=== PATIENT | male | born 1950 | race Caucasian/White ===

== ENCOUNTER 2018-01-22 11:18 | Emergency (ER) | payer MEDICARE, OTHER, SELFPAY ==
[2018-01-22 11:19] VITALS: BP 136/73; PULSE 85; RESP 16; TEMP 36.6; BMI 25.8
--- NOTE | 2018-01-22 11:41 | ED.VISSUMM ---
- ER Visit Summary Date of Service: 01/22/18 Chief Complaint: Left index finger infection History of Present Illness: The patient is a 67 M [id number]. Was building a dog house 2 days ago and the metal he was working on lacerated his left index finger on the palmar side at the DIP skin crease. Now the fingers swollen and uncomfortable. He denies any fever. There is a discharge. He is unsure of his last tetanus which will be updated. Physical Examination: Well-appearing male. Vital signs are stable afebrile. H EENT exam unremarkable. Lungs clear to auscultation bilaterally. Heart regular rhythm no murmur. Abdomen soft nontender. Moving all 4 extremities. Neurovascular intact. Left index finger is swollen. Mildly tender. At the DIP palmar skin crease there is a laceration that I can express pus from. There is no tenosynovitis. There is no lymphangitic streaking. There are no swollen or tender epitrochlear lymph nodes or axillary lymph nodes. The other fingers of the hand are unremarkable and the palm is nontender without lymphangitic streaking. He is able do flexion extension was limited flexion secondary to swelling. The distal fingertip is neurovascularly intact with cap refill and tight sensation. Test Results: None Emergency Department Course and Treatment: Patient will be started on both Bactrim and Keflex. He is not obviously infected left index finger. His tetanus will be updated. He will be instructed to follow-up with his primary care physician to ensure this is improving. I gave both he and his specific instructions for tenosynovitis if this is worsening, develop streaks or fever he needs a return possibly have it surgically drained which he does not need at this time. Treatment Plan: Keflex 4 times daily for 10 days. Bactrim twice daily for 10 days. Warm soaks. Follow-up with primary care physician. Disposition: Discharge Impression: Left index finger laceration 2 days ago Left index finger soft tissue infection This note was generated with [employer] software. It may contain incorrect words, spelling, and punctuation that were not noted in review of the chart prior to signing ED Disposition - Plan for ED Patient: Chief Complaint: Upper Extremity Injury Referrals: Shyanne Torres MD [Primary Care Provider] -
--- NOTE | 2018-01-22 11:46 | ED.DCSUM_ITS ---
- ER Visit Summary Date of Service: 01/22/18 Chief Complaint: Left index finger infection History of Present Illness: The patient is a 67 M [id number]. Was building a dog house 2 days ago and the metal he was working on lacerated his left index finger on the palmar side at the DIP skin crease. Now the fingers swollen and uncomfortable. He denies any fever. There is a discharge. He is unsure of his last tetanus which will be updated. Physical Examination: Well-appearing male. Vital signs are stable afebrile. H EENT exam unremarkable. Lungs clear to auscultation bilaterally. Heart regular rhythm no murmur. Abdomen soft nontender. Moving all 4 extremities. Neurovascular intact. Left index finger is swollen. Mildly tender. At the DIP palmar skin crease there is a laceration that I can express pus from. There is no tenosynovitis. There is no lymphangitic streaking. There are no swollen or tender epitrochlear lymph nodes or axillary lymph nodes. The other fingers of the hand are unremarkable and the palm is nontender without lymphangitic streaking. He is able do flexion extension was limited flexion secondary to swelling. The distal fingertip is neurovascularly intact with cap refill and tight sensation. Test Results: None Emergency Department Course and Treatment: Patient will be started on both Bactrim and Keflex. He is not obviously infected left index finger. His tetanus will be updated. He will be instructed to follow-up with his primary care physician to ensure this is improving. I gave both he and his specific instructions for tenosynovitis if this is worsening, develop streaks or fever he needs a return possibly have it surgically drained which he does not need at this time. Treatment Plan: Keflex 4 times daily for 10 days. Bactrim twice daily for 10 days. Warm soaks. Follow-up with primary care physician. Disposition: Discharge Impression: Left index finger laceration 2 days ago Left index finger soft tissue infection This note was generated with [employer]alt[employer]ation software. It may contain incorrect words, spelling, and punctuation that were not noted in review of the chart prior to signing ED Disposition - Plan for ED Patient: Chief Complaint: Upper Extremity Injury Referrals: Syhanne Torres MD [Primary Care Provider] -
--- NOTE | 2018-01-22 11:46 | ED.DEP ---
ED Disposition - Plan for ED Patient: Disposition: Home or Assisted Living Chief Complaint: Upper Extremity Injury Instructions: ED Infec Skin Cellulitis Prescriptions: Cephalexin [Keflex] 500 mg PO Q6 #40 cap Smz/Tmp Ds [Bactrim Ds] 1 tab PO BID #20 tab Referrals: Shyanne Torres MD [Primary Care Provider] - 3-5 Days Additional Instructions: Warm soaks. Elevate to decrease falling. Express pus several times a day. Follow-up your primary care physician and have this reassessed. If developing increasing pain, red streaks up in the hand or forearm or fever return immediately this can develop another infection that would need to be surgically drained. Keflex antibiotic 4 times a day till gone. Bactrim twice a day till gone.
[2018-01-22] MEDS: Smz/Tmp Ds Tablet 1 TABLET PO (12:05)
[2018-01-22] MEDS: Cephalexin 250 MG Capsule 500 MG PO (12:05)
[2018-01-22] MEDS: Diphth,Pertuss(Acell),Tet Vac 0.5 ML Vial IM (12:06)
== END 2018-01-22 12:19 | disposition home or self-care (01) ==
PROVIDERS: Emergency Provider Emergency Medicine; Family Provider Nurse Practitioner; PCP Nurse Practitioner
DX: S61.211A Laceration without foreign body of left index finger without damage to nail, initial encounter (principal); L08.9 Local infection of the skin and subcutaneous tissue, unspecified; Z23 Encounter for immunization; Z79.899 Other long term (current) drug therapy; W26.8XXA Contact with other sharp object(s), not elsewhere classified, initial encounter; Y93.H3 Activity, building and construction; Y92.009 Unspecified place in unspecified non-institutional (private) residence as the place of occurrence of the external cause; Y99.8 Other external cause status
CPT/HCPCS: 90471; 90715; 99283

== ENCOUNTER → 2018-02-13 12:22 | Outpatient (CLI) | payer MEDICARE, OTHER, SELFPAY ==
--- NOTE | 2018-02-13 12:28 | RAD_ITS ---
STUDY: X-RAY - LEFT HAND, ATTENTION INDEX FINGER REASON FOR EXAM: Male, 67 years old. Left index finger laceration anterior TECHNIQUE: 3 view(s) of the finger were obtained. COMPARISON: None. FINDINGS: Normal metacarpal head. Normal metacarpophalangeal joint. Normal proximal phalanx. Normal middle phalanx. Normal distal phalanx. Normal proximal interphalangeal joint. Normal distal interphalangeal joint. There is no radiopaque foreign body. RAD/Finger(s) Min 2 Views IMPRESSION: Normal x-ray examination of the finger. Electronically Signed: Ashlie Enamorado MD at 7:38 EDT , Service support ,
== END ==
PROVIDERS: Family Provider Nurse Practitioner; PCP Nurse Practitioner; Visit Provider Surgery
DX: S61.211A Laceration without foreign body of left index finger without damage to nail, initial encounter (principal); S66.101A Unspecified injury of flexor muscle, fascia and tendon of left index finger at wrist and hand level, initial encounter
CPT/HCPCS: 73140

== ENCOUNTER → 2018-02-21 09:50 | Outpatient (CLI) | payer MEDICARE, OTHER, SELFPAY ==
--- NOTE | 2018-02-21 09:55 | MRI_ITS ---
STUDY: MRI LEFT HAND (ATTENTION INDEX FINGER) REASON FOR EXAM: Infected laceration of the index finger. TECHNIQUE: Standardized fat and water weighted pulse sequences were obtained in all 3 orthogonal planes. COMPARISON: Radiographs 02/13/2018. FINDINGS: There is bone edema of the middle phalanx of the second digit (inversion recovery coronal image 12) without corresponding decreased T1 bone marrow signal and therefore more suggestive of reactive bone edema rather than osteomyelitis. Normal proximal and distal phalanges of the second digit. Normal visualized second metacarpal. There is mild flexor tenosynovitis of the second digit at the level of the metacarpal head (inversion recovery axial images 7, 8). Otherwise, unremarkable flexor and extensor tendons of the second digit. Normal second metacarpophalangeal joint. Normal second proximal and distal interphalangeal joints. There is edema in the subcutis adipose space of the second digit (inversion recovery axial images 17-33) without soft tissue abscess. There is no demonstrated signal void to indicate foreign body. Normal visualized distal intrinsic muscles of the hand. MRI/Upper Ext/No Jt/ wo IMPRESSION: Edema in the subcutis adipose space of the second finger without demonstrated soft tissue abscess or foreign body. Bone edema of the middle phalanx of the second digit, more suggestive of reactive bone edema rather than osteomyelitis. Mild flexor tenosynovitis of the second digit. Electronically Signed: Malik Hess MD at 9:52 EDT Tel , Service support ,
== END ==
PROVIDERS: Family Provider Nurse Practitioner; PCP Nurse Practitioner; Referring Provider Surgery; Visit Provider Surgery
DX: S61.211A Laceration without foreign body of left index finger without damage to nail, initial encounter (principal); S66.101A Unspecified injury of flexor muscle, fascia and tendon of left index finger at wrist and hand level, initial encounter
CPT/HCPCS: 73218

== ENCOUNTER 2018-04-22 04:03 | Emergency (ER) | payer MEDICARE, OTHER, SELFPAY ==
[2018-04-22 04:04] VITALS: BP 120/72; PULSE 92; PULSE 93; RESP 16; RESP 18; O2SAT 99; BMI 27.3
--- NOTE | 2018-04-22 04:06 | ED.RN ---
CALLED FOR EKG PER RN REQUEST, PULLED OLD EKGS FOR
--- NOTE | 2018-04-22 04:19 | RAD_ITS ---
STUDY: X-RAY CHEST REASON FOR EXAM: Male, 67 years old. Chest pain TECHNIQUE: Frontal and lateral views of the chest. COMPARISON: None. FINDINGS: Chronic lung changes. Possible COPD. No focal consolidation.. There is no demonstrated pleural abnormality. Normal size heart. Normal mediastinum and kip. Normal visualized pulmonary arteries. Normal visualized aortic arch and descending thoracic aorta. There are diffuse degenerative changes of the visualized thoracic spine. There is degenerative osteoarthritis of the bilateral shoulders. There is no demonstrated abnormality of the visualized soft tissue structures of the upper abdomen. RAD/Chest PA and Lateral IMPRESSION: There is mild hyperexpansion the lungs with chronic lung changes. There is no focal consolidation identified. There is degenerative changes. Electronically Signed: Gallito Allen, at 5:19 EST Tel , Service support ,
--- NOTE | 2018-04-22 04:19 | EKG12_ITS ---
Test Reason : CP Blood Pressure : / mmHG Vent. Rate : 097 BPM Atrial Rate : 097 BPM P-R Int : 136 ms QRS Dur : 092 ms QT Int : 398 ms P-R-T Axes : 053 031 067 degrees QTc Int : 505 ms Normal sinus rhythm Low voltage QRS Prolonged QT Abnormal ECG Confirmed by NICOLE BHAT, LATOYA ([id number]), editor publications IAN YOUNG ([id number]) on 04/23/2018 4:28:34 PM Referred By: VENITA Confirmed By:LATOYA RIVERA MD
[2018-04-22 04:48] VITALS: O2SAT 100
[2018-04-22 04:54] LABS: Absolute Lymphocyte Count 1.01 X10^3/ul (0.83-4.51); Absolute Neutrophil Count 3.3 X10^3/uL (2.0-7.7); Basophil# 0.01 X10^3/uL; Basophil% 0.2 % (0-1); Eosinophil# 0.12 X10^3/uL; Eosinophils% 2.5 % (0-5); Hematocrit 41.4 % (40-54); Hemoglobin 13.9 g/dl (13.0-16.5); Lymphocyte # 1.01 X10^3/ul (4.0); Mean Corp Hgb Conc 33.6 g/gl (32-36); Mean Corpuscular Hgb 27.8 pg (27.0-32.0); Mean Corpuscular Volume 82.8 fL (80-94); Mean Platelet Vol. 10.7 fl (6.2-12.0); Monocyte# 0.38 X10^3/uL; Monocyte% 7.9 % (0-10); Neutrophil # 3.27 X10^3/uL (2.7-7.7); Neutrophil % 68.2 % (47-70); Platelet Count 213 K/mm3 (150-450); RBC Distribution Width CV 14.8 % (11.6-14.6); RBC Distribution Width SD 44.6 fl (35.1-43.9); White Blood Count 4.8 K/mm3 (4.4-11.0)
[2018-04-22 05:00] LABS: POSITIVE COUNT NO; POSITIVE DIFFERENTIAL NO; POSITIVE MORPHOLOGY NO
--- NOTE | 2018-04-22 05:10 | ED.DCSUM_ITS ---
- ER Visit Summary Date of Service: 04/22/18 Chief Complaint: [] Chest pain History of Present Illness: The patient is a 67 M with chest pain that started 1 hour ago at home. It is intermittent tightness. It is gone now currently. EMS gave aspirin and 1 nitroglycerin with good relief of symptoms. No ass ociated symptoms. He had a stress test in 2016 that he reports is normal. Denies any cardiovascular pulmonary embolism or dissection risk factors. Physical Examination: [] Vital signs reviewed General: Well-nourished well-developed Head: Normocephalic atraumatic Eyes: Pupils equal round and reactive to light extraocular movements intact ENT: TMs clear no hemotympanum no trauma Neck: Nontender full range of motion Cardiovascular: Regular rate rhythm no murmurs normal S1-S2 Respiratory: No distress clear to auscultation bilaterally chest nontender Abdomen: Soft nontender nondistended normal bowel sounds no masses Back: Nontender no CVA tenderness Extremities: Nontender active range of motion ?4 extremities no trauma Skin: Normal color no trauma Neuro alert oriented cranial nerves II through XII intact normal strength sensation reflexes Test Results: [] Emergency Department Course and Treatment: [] G shows sinus rhythm at a rate of 97. Prolonged QT. No acute ischemic findings otherwise. Lab work and chest x- ray obtained. X-ray negative DJD noted. Troponin negative. Chloride 108. Reevaluation the patient's never had current pain. He does not want to be admitted for stress test. He understands he could be having cardiac cause of his pain. He does not want a second troponin as well. He has been resting comfortably. At this time is unclear the cause of his symptoms. I do not think he has a PE or dissection. He will be discharged to follow-up as an outpatient return if he worsens. Treatment Plan: [] Disposition: [] Impression: [] Chest pain?resolved This note was generated with [employer] dictation software. It may contain incorrect words, spelling, and punctuation that were not noted in review of the chart prior to signing ED Disposition - Plan for ED Patient: Chief Complaint: Chest Pain Referrals: Vandana Guillermo, RESEARCH AND EVALUATION MANAGER-C [Primary Care Provider] -
[2018-04-22 06:22] LABS: Anion Gap 10 (5-15); BUN 23 mg/dL (7-18); BUN/Creat Ratio 24.6 RATIO (10-20); Calcium,Total 8.5 mg/dL (8.5-10.1); Chloride 108 mmol/L (98-107); Creatinine, Serum 0.94 mg/dL (0.70-1.30); EST Glomerular Filtration Rate 86 mL/min (>60); Est Glom Filt Rate - Afr Amer 104 mL/min (>60); Estimated Creatinine Clearance 73.25 ml/min; Glucose 108 mg/dL (74-106); Potassium 3.6 mmol/L (3.5-5.1); Sodium Level 144 mmol/L (136-145)
--- NOTE | 2018-04-22 06:46 | ED.DEP ---
ED Disposition - Plan for ED Patient: Disposition: Home or Assisted Living Chief Complaint: Chest Pain Instructions: ED Chest Pain Atypical Unkn Cause Referrals: Vandana Guillermo NP-C [Primary Care Provider] -
[2018-04-22 06:56] VITALS: BP 119/61; PULSE 74; RESP 10; O2SAT 100
== END 2018-04-22 07:39 | disposition home or self-care (01) ==
PROVIDERS: Emergency Provider Emergency Medicine; Family Provider Nurse Practitioner; PCP Nurse Practitioner
DX: R07.9 Chest pain, unspecified (principal); E03.9 Hypothyroidism, unspecified; Z79.1 Long term (current) use of non-steroidal anti-inflammatories (NSAID); Z79.899 Other long term (current) drug therapy
CPT/HCPCS: 71046; 80048; 84484; 85025; 93005; 99285; J7030; A4216

== ENCOUNTER 2018-05-27 20:48 | Emergency (ER) | payer MEDICARE, OTHER, SELFPAY ==
[2018-05-27 20:49] VITALS: BP 155/124; PULSE 94; RESP 20; TEMP 36.7; O2SAT 99; BMI 25.8
--- NOTE | 2018-05-27 21:05 | CT_ITS ---
STUDY: CT ABDOMEN AND PELVIS WITHOUT CONTRAST REASON FOR EXAM: Male, 67 years old. Right flank pain. RADIATION DOSAGE (If Supplied By Facility): CTDIvol = ( 7.14 ) mGy, DLP = ( 353.41 ) mGycm TECHNIQUE: Transaxial images were obtained from the dome of the diaphragm to the symphysis pubis without oral contrast, and without intravenous contrast. Sagittal and coronal images were reconstructed. Individualized dose optimization techniques were used for this CT. COMPARISON: CT of the abdomen and pelvis, September 22, 2015. FINDINGS: The visualized lung bases are unremarkable. The visualized portions of the heart are within normal limits. The liver is normal in size and contour. There are scattered hypodensities suggesting small hepatic cysts. The largest, in segment 7, measures 7 mm in diameter. Normal gallbladder and extrahepatic biliary system. Normal spleen. Normal pancreas. Normal bilateral adrenal glands. The right kidney appears mildly prominent. Slightly lower in attenuation than the left kidney. There is minimal stranding of the perinephric fat. There is hydronephrosis and hydroureter to the pelvic sidewall where there is nonobstructing 3 mm calculus (image 147, series 2). Normal left kidney. Normal left ureter. The stomach is distended with fluid but without mass or obstruction. Normal small intestine. Descending and sigmoid diverticulosis without acute inflammatory change. The proximal colon appears normal. The appendix is visualized and appears normal. Minimal atherosclerotic changes of the abdominal aorta without aneurysm. Normal inferior vena cava. Normal retroperitoneum. Normal urinary bladder. The prostate is mildly enlarged. There is no pelvic lymphadenopathy. No free air or free fluid is seen within the peritoneal cavity. There There is an umbilical hernia of omental fat. There are bilateral inguinal hernias of omental fat. The abdominal wall is otherwise unremarkable. 3 CT/Abdomen/Pelvis without Cont IMPRESSION: 1. Distal right ureteral calculus with mild obstructive uropathy. 2. Stable hepatic cysts. 3. Diverticulosis without acute inflammatory change. 4. No other major interval change. Electronically Signed: Joce Linares DO at 22:08 EST Tel [phone], Service support ,
--- NOTE | 2018-05-27 21:09 | ED.DCSUM_ITS ---
- ER Visit Summary Date of Service: 05/27/18 Chief Complaint: Right flank pain History of Present Illness: The patient is a 67 M presenting with right-sided flank pain. He states this started 30 minutes prior to arrival. Patient states he went to urinate and had sudden onset of pain in his right lower side. It does not radiate to his groin. He has no history of kidney stones. He denies blood in his urine. Denies nausea or vomiting. Denies fever. Denies other complaints. Physical Examination: Vitals are stable. Patient is afebrile. Alert no acute distress. HEENT exam is unremarkable. Neck is supple. Lungs are clear and equal bilaterally. Heart is regular rate and rhythm. Abdomen is soft nontender nondistended. Extremities are unremarkable. Skin is warm and dry. No focal neurologic deficit. Remainder of exam is unremarkable. Emergency Department Course and Treatment: Patient was given morphine, Zofran. CT flank shows distal right ureteral calculus with mild obstructive uropathy. Urinalysis shows 0 white cells, 50-100 red blood cells. Patient was given Toradol IV. On repeat evaluation his pain is controlled and he is requesting to go home. He is advised to follow-up with urology. Advised return to ED if worsening complaints. Disposition: Discharge home Impression: Urolithiasis This note was generated with [employer] dictation software. It may contain incorrect words, spelling, and punctuation that were not noted in review of the chart prior to signing ED Disposition - Plan for ED Patient: Chief Complaint: Flank Pain Instructions: ED Stone Renal W Colic Prescriptions: Oxycodone HCl/Acetaminophen [Percocet 5/325] 1 tablet PO Q6H PRN PRN 3 Days #12 tablet PRN Reason: Pain Referrals: Aly Rosa MD [STAFF PHYSICIAN] - Vandana Guillermo NP-C [Primary Care Provider] -
[2018-05-27] MEDS: Ondansetron 4 MG/2 ML Vial IV (21:29)
[2018-05-27] MEDS: Morphine 4 MG/ML Syringe IV (21:29)
[2018-05-27] MEDS: Morphine 4 MG/ML Syringe 6 MG IV (22:38)
[2018-05-27 22:48] LABS: Bacteria 0 SEEN /hpf (None Seen); Mucous, Urine 0 SEEN /hpf (<or=2+); White Blood Cells 0 SEEN /hpf (0-5)
[2018-05-27 22:49] LABS: Color, Urine Yellow (Yellow); Glucose, Dipstick Normal (Normal); Ketone-Dipstick Negative (Negative); Leukocyte Esterase-Dipstick Negative /ul (Negative); Nitrite-Dipstick Negative (Negative); Occult Blood-Urine 250 /ul (Negative); Protein-Dipstick Negative (Negative); Specific Gravity, Urine 1.015 (1.002-1.030); Urine Bilirubin Dipstick Negative (Negative); Urine Clarity Cloudy (Clear); Urine Urobilinogen Normal (Normal)
[2018-05-27 22:56] LABS: Amorphous Sediment 1+ PHOS; Red Blood Cells-Urine 50-100 SEEN /hpf (0-5); Squamous Epithelial Cells - UA 0-5 SEEN /hpf (0-5)
--- NOTE | 2018-05-27 22:57 | ED.DEP ---
ED Disposition - Plan for ED Patient: Chief Complaint: Flank Pain Instructions: ED Stone Renal W Colic Prescriptions: Oxycodone HCl/Acetaminophen [Percocet 5/325] 1 tablet PO Q6H PRN PRN 3 Days #12 tablet PRN Reason: Pain Referrals: Vandana Guillermo, RESEARCH ASSOCIATE QUALITY CONTROL QC-C [Primary Care Provider] - Aly Rosa MD [STAFF PHYSICIAN] -
[2018-05-27] MEDS: Ketorolac 15 MG/ML Vial IV (23:11)
[2018-05-27 23:47] VITALS: BP 166/86; PULSE 89; RESP 16; O2SAT 97
== END 2018-05-27 23:48 | disposition home or self-care (01) ==
LOC: ED 21:28
PROVIDERS: Emergency Provider Emergency Medicine; Family Provider Nurse Practitioner; PCP Nurse Practitioner
DX: N20.1 Calculus of ureter (principal); Z79.899 Other long term (current) drug therapy
CPT/HCPCS: 74176; 81001; 96374; 96375; 96376; 99283; A4216; J2405

== ENCOUNTER 2019-09-19 10:56 | Emergency (ER) | payer MEDICARE, OTHER, SELFPAY ==
[2019-09-19 10:57] VITALS: BP 150/124; PULSE 93; RESP 16; TEMP 36.7; O2SAT 100; BMI 26.9
[2019-09-19 11:07] VITALS: BP 169/107; PULSE 87; RESP 12; O2SAT 98; O2SAT 99
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
[2019-09-19 12:00] VITALS: BP 170/87; PULSE 77; RESP 18; O2SAT 96
--- NOTE | 2019-09-19 12:29 | ED.RN ---
GALI JIMENES CALLED FOR PATIENT TO GET HOME. WILL BE HERE IN 10 MINUTES. PT PROVIDED WITH A MASK. AWAITING RIDE IN ROOM
[2019-09-19 12:30] VITALS: PULSE 83; RESP 18; O2SAT 96
== END 2019-09-19 12:42 | disposition home or self-care (01) ==
PROVIDERS: Emergency Provider Emergency Medicine; PCP Nurse Practitioner
DX: S46.911A Strain of unspecified muscle, fascia and tendon at shoulder and upper arm level, right arm, initial encounter (principal); E03.9 Hypothyroidism, unspecified; F32.9 Major depressive disorder, single episode, unspecified; V49.40XA Driver injured in collision with unspecified motor vehicles in traffic accident, initial encounter; Z87.891 Personal history of nicotine dependence
CPT/HCPCS: 70450; 72125; 73030; 99284

== ENCOUNTER → 2019-10-10 14:57 | Outpatient (CLI) | payer MEDICARE, OTHER, SELFPAY ==
[2019-09-19 10:57] VITALS: BMI 26.9
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
== END ==
PROVIDERS: PCP Nurse Practitioner; Referring Provider Nurse Practitioner; Visit Provider Nurse Practitioner
DX: M54.2 Cervicalgia (principal)
CPT/HCPCS: 72050

== ENCOUNTER 2019-11-04 08:00 | Outpatient (RCR) | payer MEDICARE, OTHER, SELFPAY ==
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
--- NOTE | 2020-02-12 10:05 | HP.PTDCNRP_ITS ---
AMIRAH Joy MCCRACKEN was seen in my office for initial evaluation on 10/14/19. The following Plan of Care was established for this patient: Initial Frequency: 2x /Week Initial Duration: 4 Weeks Patient/Client Instruction: Educate patient on: Condition, Plan of Care For the Purpose of:: To decrease pain, To increase ROM, To improve muscle performance and motor function, To improve ability to perform ADL's, To increase tolerance to activity/condition/position, To improve performance and independence with ADL's, To improve ability of physical actions for home/community/work/leisure, To improve gait and locomotor functions, To decrease soft tissue restriction, To increase flexibility/ROM, To reduce risk of recurrence, To improve ability to perform tasks related to life management Therapeutic Exercise to Include: Strength training, Postural training, Flexib ilty training, Active ROM, Dynamic Lumbar Stabilization For the Purpose of:: To decrease pain, To increase ROM, To improve muscle performance and motor function, To improve ability to perform ADL's, To increase tolerance to activity/condition/position, To improve ability of physical actions for home/community/work/leisure, To improve health of tissue, To decrease soft tissue restriction, To increase flexibility/ROM, To improve ability to perform tasks related to life management TENS: Yes IF ES: Yes Cryotherapy (ice pack, ice massage): Yes Thermo therapy (hot pack): Yes Ultrasound (thermal/non thermal): Yes For the Purpose of:: To decrease pain, To increase ROM, To improve nutrient delivery to tissue, To increase oxygenation perfusion, To improve health of tissue, To decrease soft tissue restriction, To increase flexibility/ROM This patient was last seen in our office . Pertinent comments regarding their Physical therapy will appear below: Patient seen for PT for neck pain /whiplash for US ,ICTX and postural ex's . Patient progresing well ,thus is d/c At this point I will be discontinuing this patient from physical therapy. I would be happy to see this patient again in the future if found appropriate by the physician. Thank you! Amirah Pichardo, PT, Cert MDT, OCS
== END 2019-11-04 19:00 ==
LOC: PT 08:00
PROVIDERS: PCP Nurse Practitioner; Referring Provider Nurse Practitioner; Visit Provider Nurse Practitioner
DX: S13.4XXD Sprain of ligaments of cervical spine, subsequent encounter (principal)
CPT/HCPCS: 97012; 97014; 97035; 97110; 97162; G0283

== ENCOUNTER → 2019-12-29 16:52 | Outpatient (CLI) | payer MEDICARE, OTHER, SELFPAY ==
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
== END ==
PROVIDERS: PCP Nurse Practitioner; Referring Provider Nurse Practitioner; Visit Provider Nurse Practitioner
DX: M54.2 Cervicalgia (principal); M85.80 Other specified disorders of bone density and structure, unspecified site
CPT/HCPCS: 72141

== ENCOUNTER → 2020-12-09 15:55 | Outpatient (CLI) | payer MEDICARE, OTHER, SELFPAY ==
[2020-12-09 17:11] LABS: Absolute Neutrophil Count 3.9 X10^3/uL (2.0-7.7); Basophil# 0.02 X10^3/uL; Basophil% 0.3 % (0-1); Eosinophil# 0.12 X10^3/uL; Eosinophils% 2.1 % (0-5); Hematocrit 47.8 % (40-54); Lymphocyte % 22.4 % (19-41); Mean Corp Hgb Conc 33.5 g/dL (32-36); Mean Corpuscular Volume 89.7 fL (80-94); Monocyte# 0.47 X10^3/uL; Monocyte% 8.1 % (0-10); NRBC Flagged by Analyzer 0 % (0-5); Neutrophil # 3.88 X10^3/uL (2.7-7.7); Neutrophil % 66.8 % (47-70); Platelet Count 194 K/mm3 (150-450); RBC Distribution Width CV 12.7 % (11.6-14.6); RBC Distribution Width SD 41.3 fl (35.1-43.9); Red Blood Count 5.33 M/mm3 (4.6-6.2); White Blood Count 5.8 K/mm3 (4.4-11.0)
[2020-12-09 18:15] LABS: ALB/GLOB Ratio 1.2 RATIO (0.9-2.4); AST(SGOT) 32 U/L (15-37); Alanine Aminotransfer ALT/SGPT 45 U/L (16-61); Albumin, Serum 4.1 g/dL (3.2-5.0); Alkaline Phosphatase 85 U/L (45-117); Anion Gap 5 (5-15); BUN 24 mg/dL (7-18); BUN/Creat Ratio 27.2 RATIO (10-20); Chloride 107 mmol/L (98-107); Creatinine, Serum 0.88 mg/dL (0.70-1.30); EST Glomerular Filtration Rate 91 mL/min (>60); Est Glom Filt Rate - Afr Amer 111 mL/min (>60); Globulin 3.3 g/dL (2.2-4.2); Glucose 92 mg/dL (74-106); PSA,Total - Annual Screen 1.41 ng/mL (0.00-4.00); Potassium 4.3 mmol/L (3.5-5.1); Protein, Total 7.4 g/dL (6.4-8.2); Sodium Level 141 mmol/L (136-145); Thyroid Stim Hormone (TSH) 2.87 uIU/mL (0.358-3.74)
[2020-12-09 22:10] LABS: Hepatitis C Antibody Non-Reactive (Nonreactive); Syphilis Antibodies Non-reactive; Vitamin B12 251 pg/mL (211-911); Vitamin D,25 Hydroxy 35.4 ng/mL
== END ==
PROVIDERS: PCP Family Medicine Geriatric Medicine; Visit Provider Family Medicine Geriatric Medicine
DX: E55.9 Vitamin D deficiency, unspecified (principal); G30.9 Alzheimer's disease, unspecified; R53.83 Other fatigue; Z12.5 Encounter for screening for malignant neoplasm of prostate; Z13.89 Encounter for screening for other disorder
CPT/HCPCS: 36415; 80053; 82306; 82607; 82746; 84153; 84443; 85025; 86780; 86803; G0103

== ENCOUNTER → 2020-12-29 07:58 | Outpatient (CLI) | payer MEDICARE, OTHER, SELFPAY ==
--- NOTE | 2020-12-29 08:01 | CT_ITS ---
STUDY: CT BRAIN WITHOUT CONTRAST REASON FOR EXAM: Male, 70 years old. ALZHEIMERS DISEASE RADIATION DOSAGE (If Supplied By Facility): CTDIvol = ( 44.99 ) mGy, DLP = ( 779.24 ) mGycm TECHNIQUE: Transaxial CT imaging of the brain was performed without administration of intravenous contrast material. Individualized dose optimization techniques were used for this CT. COMPARISON: 09/19/2019 FINDINGS: Normal soft tissue structures. Normal calvarium. There is mild cerebral atrophy with widening of the extra-axial spaces and ventricular dilatation. Normal white matter tracts of the cerebral hemispheres. Normal basal ganglia and thalami. Normal brainstem. Normal cerebellum. There is no intracranial hemorrhage. There are no findings of an acute ischemic infarction. Normal visualized paranasal sinuses. CT/Brain/Head without Contrast IMPRESSION: Normal unenhanced CT scan of the brain for age. Electronically Signed: Gino Munson MD ([place]) at 8:34 EDT , Service support ,
== END ==
PROVIDERS: PCP Family Medicine Geriatric Medicine; Referring Provider Family Medicine Geriatric Medicine; Visit Provider Family Medicine Geriatric Medicine
DX: G30.9 Alzheimer's disease, unspecified (principal)
CPT/HCPCS: 70450

== ENCOUNTER → 2020-12-31 07:52 | Outpatient (CLI) | payer MEDICARE, OTHER, SELFPAY ==
--- NOTE | 2020-12-31 07:55 | AAVD_ITS ---
Reason For Study: AAA w/o rupture Aorta Measurements Aorta Doppler Measurements Proximal aorta measures1.66 x 1.66cm. in cross- Peak systolic flow velocities within the proximal sectional axis. aorta measure 70.7 cm/sec. Proximal aorta measures1.65cm. in longitudinal Peak systolic flow velocities within the mid aorta axis. measure 94.3 cm/sec. Mid aorta measures1.61 x 1.65cm. in cross- Peak systolic flow velocities within the distal sectional axis. aorta measure 81.8 cm/sec. Mid aorta measures1.68cm. in longitudinal axis. Distal aorta measures1.73 x 1.70cm. in cross- sectional axis. Distal aorta measures1.71cm. in longitudinal axis. Left Iliac Artery Left iliac artery measures 0.99 x 0.95 cm. in the cross-sectional axis. Left iliac artery measures 0.95 cm. in the longitudinal axis. Peak systolic velocity in the left iliac artery measures 119.8 cm/sec. Right Iliac Artery Right iliac artery measures 0.85 x 0.82 cm. in the cross-sectional axis. Right iliac artery measures 0.80 cm. in the longitudinal axis. Peak systolic velocity in the right iliac artery measures 128.6 cm/sec. Procedure Aorta IVC Iliac vasculature or bypass grafts 31089. Exam performed in department. VL/Abd Aortic/IVC Duplex scan Interpretation Summary The dimensions of the intra-abdominal aorta are normal, without evidence of ane urysmal dilatation. The iliac arteries are also normal in caliber bilaterally. The intra-abdominal aorta and iliac arteries appear patent, demonstrating normal, pulsatile arterial flow and sergey l peak systolic velocities. Ordering Physician: Eamon Nicole Chi Referring Physician: Eamon Nicole Chi Performed By: Destiny Bauer RVT
== END ==
LOC: CVS 07:54
PROVIDERS: PCP Family Medicine Geriatric Medicine; Referring Provider Family Medicine Geriatric Medicine; Visit Provider Family Medicine Geriatric Medicine
DX: I71.4 Abdominal aortic aneurysm, without rupture (principal)
CPT/HCPCS: 93978

== ENCOUNTER → 2021-03-17 14:50 | Outpatient (CLI) | payer MEDICARE, OTHER, SELFPAY ==
[2021-03-17 16:12] LABS: Absolute Lymphocyte Count 1.23 X10^3/uL (0.83-4.51); Absolute Neutrophil Count 4.3 X10^3/uL (2.0-7.7); Basophil# 0.04 X10^3/uL; Basophil% 0.6 % (0-1); Eosinophil# 0.09 X10^3/uL; Eosinophils% 1.4 % (0-5); Hematocrit 45.9 % (40-54); Hemoglobin 15.4 g/dL (13.0-16.5); Lymphocyte # 1.23 X10^3/ul (0.83-4.51); Lymphocyte % 19.6 % (19-41); Mean Corp Hgb Conc 33.6 g/dL (32-36); Mean Corpuscular Hgb 30.7 pg (27.0-32.0); Mean Corpuscular Volume 91.4 fL (80-94); Mean Platelet Vol. 11.3 fl (6.2-12.0); Monocyte# 0.59 X10^3/uL; Monocyte% 9.4 % (0-10); NRBC Flagged by Analyzer 0 % (0-5); Neutrophil % 68.7 % (47-70); Platelet Count 185 K/mm3 (150-450); RBC Distribution Width CV 13.3 % (11.6-14.6); Red Blood Count 5.02 M/mm3 (4.6-6.2); White Blood Count 6.3 K/mm3 (4.4-11.0)
[2021-03-17 17:02] LABS: Vitamin D,25 Hydroxy 36.1 ng/mL
[2021-03-17 17:03] LABS: ALB/GLOB Ratio 1.1 RATIO (0.9-2.4); AST(SGOT) 34 U/L (15-37); Alanine Aminotransfer ALT/SGPT 42 U/L (16-61); Albumin, Serum 3.8 g/dL (3.2-5.0); Alkaline Phosphatase 82 U/L (45-117); Anion Gap 5 (5-15); BUN 28 mg/dL (7-18); Calcium,Total 9.2 mg/dL (8.5-10.1); Chloride 106 mmol/L (98-107); Creatinine, Serum 0.96 mg/dL (0.70-1.30); EST Glomerular Filtration Rate 82 mL/min (>60); Est Glom Filt Rate - Afr Amer 100 mL/min (>60); Globulin 3.4 g/dL (2.2-4.2); Glucose 80 mg/dL (74-106); Potassium 4.3 mmol/L (3.5-5.1); Protein, Total 7.2 g/dL (6.4-8.2); Sodium Level 142 mmol/L (136-145); Thyroid Stim Hormone (TSH) 2.07 uIU/mL (0.358-3.74)
[2021-03-23 22:06] LABS: Lyme IgG P18 Ab Absent (.); Lyme IgG P23 Ab Absent (.); Lyme IgG P28 Ab Absent (.); Lyme IgG P30 Ab Absent (.); Lyme IgG P39 Ab Absent (.); Lyme IgG P41 Ab Absent (.); Lyme IgG P45 Ab Absent (.); Lyme IgG P58 Ab Absent (.); Lyme IgG P66 Ab Absent (.); Lyme IgG P93 Ab Absent (.); Lyme IgM P23 Ab Absent (.); Lyme IgM P39 Ab Absent (.); Lyme IgM P41 Ab Absent (.)
[2021-03-24 08:42] LABS: Lyme IgG WB Interpretation Negative (.); Lyme IgM WB Interpretation Negative (.)
== END ==
PROVIDERS: PCP Family Medicine Geriatric Medicine; Visit Provider Family Medicine Geriatric Medicine
DX: E55.9 Vitamin D deficiency, unspecified (principal); R53.83 Other fatigue
CPT/HCPCS: 36415; 80053; 82306; 84443; 85025; 86617

== ENCOUNTER 2021-06-13 15:24 | Outpatient (CLI) | payer MEDICARE, SELFPAY ==
[2021-06-13 16:42] LABS: Absolute Lymphocyte Count 1.27 X10^3/uL (0.83-4.51); Absolute Neutrophil Count 4.3 X10^3/uL (2.0-7.7); Basophil# 0.03 X10^3/uL; Basophil% 0.5 % (0-1); Eosinophil# 0.14 X10^3/uL; Eosinophils% 2.2 % (0-5); Hematocrit 39.3 % (40-54); Lymphocyte # 1.27 X10^3/ul (0.83-4.51); Lymphocyte % 20.2 % (19-41); Mean Corp Hgb Conc 33.1 g/dL (32-36); Mean Corpuscular Hgb 30.5 pg (27.0-32.0); Mean Corpuscular Volume 92.3 fL (80-94); Mean Platelet Vol. 11.5 fl (6.2-12.0); Monocyte# 0.52 X10^3/uL; Monocyte% 8.3 % (0-10); NRBC Flagged by Analyzer 0 % (0-5); Neutrophil # 4.32 X10^3/uL (2.7-7.7); Neutrophil % 68.6 % (47-70); Platelet Count 190 K/mm3 (150-450); RBC Distribution Width CV 13.3 % (11.6-14.6); RBC Distribution Width SD 44.7 fl (35.1-43.9); Red Blood Count 4.26 M/mm3 (4.6-6.2); White Blood Count 6.3 K/mm3 (4.4-11.0)
[2021-06-13 16:56] LABS: Vitamin D,25 Hydroxy 25.2 ng/mL
[2021-06-13 17:05] LABS: ALB/GLOB Ratio 1.3 RATIO (0.9-2.4); AST(SGOT) 43 U/L (15-37); Alanine Aminotransfer ALT/SGPT 39 U/L (16-61); Albumin, Serum 3.7 g/dL (3.2-5.0); Alkaline Phosphatase 78 U/L (45-117); Anion Gap 5 (5-15); BUN 27 mg/dL (7-18); BUN/Creat Ratio 26.2 RATIO (10-20); Calcium,Total 8.7 mg/dL (8.5-10.1); Chloride 106 mmol/L (98-107); Creatinine, Serum 1.03 mg/dL (0.70-1.30); EST Glomerular Filtration Rate 76 mL/min (>60); Est Glom Filt Rate - Afr Amer 92 mL/min (>60); Globulin 2.9 g/dL (2.2-4.2); Glucose 94 mg/dL (74-106); Potassium 4.1 mmol/L (3.5-5.1); Protein, Total 6.6 g/dL (6.4-8.2); Sodium Level 141 mmol/L (136-145); Thyroid Stim Hormone (TSH) 2.33 uIU/mL (0.358-3.74)
== END 2021-06-13 23:59 | disposition short-term general hospital (02) ==
LOC: POLAB3 15:26
PROVIDERS: PCP Family Medicine Geriatric Medicine; Visit Provider Family Medicine Geriatric Medicine
DX: R53.83 Other fatigue (principal); E55.9 Vitamin D deficiency, unspecified
CPT/HCPCS: 36415; 80053; 82306; 84443; 85025

== ENCOUNTER 2021-06-14 14:03 | Outpatient (CLI) | payer MEDICARE, SELFPAY ==
--- NOTE | 2021-06-14 14:20 | VDLE_ITS ---
Reason For Study: RLE edema RIGHT GSV is normal. CFV is compressible, spontaneous, phasic, competent and demonstrates normal augmentation. FV is compressible, spontaneous, phasic, competent and demonstrates normal augmentation. POP V is compressible, spontaneous, phasic, competent and demonstrates normal augmentation. T/P Trunk is compressible. PTV is compressible. RT PerV is compressible. Procedure This is a venous duplex using B-mode, color flow and spectral Doppler. Exam performed in department. The exam was abbreviated due to the COVID 19 protocol. The exam was diagnostic. A preliminary report was called and/or faxed to Dr. Nicole. VL/Venous Duplex US, Unilateral Interpretation Summary There is no evidence of right lower extremity deep vein thrombosis. Right great saphenous vein appears patent and compressible segmentally. Abbreviated COVID-19 protocol util ized Ordering Physician: Eamon Nicole Performed By: Fransisco Luna RVT
== END 2021-06-14 23:59 | disposition short-term general hospital (02) ==
LOC: CVS 14:05
PROVIDERS: PCP Family Medicine Geriatric Medicine; Referring Provider Family Medicine Geriatric Medicine; Visit Provider Family Medicine Geriatric Medicine
DX: R60.0 Localized edema (principal)
CPT/HCPCS: 93971

== ENCOUNTER → 2021-12-12 | Outpatient (CLI) | payer MEDICARE, SELFPAY ==
[2021-12-12 17:23] LABS: Absolute Lymphocyte Count 1.23 X10^3/uL (0.83-4.51); Absolute Neutrophil Count 4.4 X10^3/uL (2.0-7.7); Basophil# 0.03 X10^3/uL; Basophil% 0.5 % (0-1); Eosinophil# 0.11 X10^3/uL; Eosinophils% 1.8 % (0-5); Hematocrit 46.1 % (40-54); Hemoglobin 15.3 g/dL (13.0-16.5); Lymphocyte # 1.23 X10^3/ul (0.83-4.51); Lymphocyte % 19.9 % (19-41); Mean Corp Hgb Conc 33.2 g/dL (32-36); Mean Corpuscular Hgb 30.5 pg (27.0-32.0); Mean Corpuscular Volume 91.8 fL (80-94); Mean Platelet Vol. 11.3 fl (6.2-12.0); Monocyte# 0.44 X10^3/uL; Monocyte% 7.1 % (0-10); NRBC Flagged by Analyzer 0 % (0-5); Neutrophil # 4.36 X10^3/uL (2.7-7.7); Neutrophil % 70.4 % (47-70); Platelet Count 172 K/mm3 (150-450); RBC Distribution Width CV 12.9 % (11.6-14.6); RBC Distribution Width SD 42.7 fl (35.1-43.9); Red Blood Count 5.02 M/mm3 (4.6-6.2); White Blood Count 6.2 K/mm3 (4.4-11.0)
[2021-12-12 17:50] LABS: ALB/GLOB Ratio 1.3 RATIO (0.9-2.4); AST(SGOT) 22 U/L (15-37); Alanine Aminotransfer ALT/SGPT 24 U/L (16-61); Alkaline Phosphatase 75 U/L (45-117); Anion Gap 6 (5-15); BUN 23 mg/dL (7-18); BUN/Creat Ratio 24.1 RATIO (10-20); Calcium,Total 9.1 mg/dL (8.5-10.1); Chloride 105 mmol/L (98-107); Cholesterol 165 mg/dL (200); Creatinine, Serum 0.95 mg/dL (0.70-1.30); EST Glomerular Filtration Rate 83 mL/min (>60); Est Glom Filt Rate - Afr Amer 101 mL/min (>60); Glucose 97 mg/dL (74-106); High Density Lipoprotein 39 mg/dL; PSA,Total - Annual Screen 1.68 ng/mL (0.00-4.00); Potassium 4.5 mmol/L (3.5-5.1); Sodium Level 139 mmol/L (136-145); Thyroid Stim Hormone (TSH) 3.35 uIU/mL (0.358-3.74); Triglycerides 237 mg/dL; Very Low Density Lipoprotein 47 mg/dL (5-40)
== END | disposition home or self-care (01) ==
LOC: POLAB3 15:47
PROVIDERS: PCP Family Medicine Geriatric Medicine; Visit Provider Family Medicine Geriatric Medicine
DX: E55.9 Vitamin D deficiency, unspecified (principal); E78.5 Hyperlipidemia, unspecified; R53.83 Other fatigue; Z12.5 Encounter for screening for malignant neoplasm of prostate
CPT/HCPCS: 36415; 80053; 80061; 82306; 84153; 84443; 85025; G0103

== ENCOUNTER 2022-02-08 20:59 | Emergency (ER) | payer MEDICARE, SELFPAY ==
[2022-02-08 21:00] VITALS: BP 142/82; PULSE 85; RESP 16; TEMP 36.8; O2SAT 100; BMI 23.6
--- NOTE | 2022-02-08 22:09 | RAD_ITS ---
STUDY: X-RAY CHEST REASON FOR EXAM: Male, 71 years old. Cough TECHNIQUE: AP portable COMPARISON: 04/22/2000 and FINDINGS: The lungs are clear and expanded. There is no demonstrated pleural abnormality. Normal size heart. Normal mediastinum and kip. Normal visualized pulmonary arteries. Normal visualized aortic arch and descending thoracic aorta. Normal visualized thoracic spine. Normal visualized ribs, clavicles, and shoulders. There is no demonstrated abnormality of the visualized soft tissue structures of the upper abdomen. No significant changes since prior exam RAD/Chest 1 View (Portable) IMPRESSION: Normal x-ray examination of the chest. Electronically Signed: Kwaku Roy MD at 22:26 EDT ,
[2022-02-08 22:35] VITALS: PULSE 83; RESP 14
[2022-02-08] MEDS: Ipratropium/Albuterol Sulfate 3 ML AMPUL.NEB INHALATION (22:35)
--- NOTE | 2022-02-08 23:44 | EDS_ITS ---
HPI History of Present Illness Chief Complaint: General Illness Informant: patient Onset/Context/Timing Onset: Days (3-4) Context: Gradual Onset Timing: Continuous Quality: Dry cough Location: Chest Worsened by: Nothing Relieved by: Drinking water Narrative Narrative: Patient presents with cough that has been getting worse over the last 3 to 4 days. Patient states it has come on gradually. Patient states it has been constant for the past 3 to 4 days. Patient states it is a dry cough. Patient states he is unable to bring up any sputum. Patient states it is better whenever he drinks water. Patient also admits to a sore throat and postnasal drainage. Patient denies any fevers or chills. Patient denies any nausea or vomiting. [facility] Medical History Anxiety and depression GERD (gastroesophageal reflux disease) Hearing problem Hypoactive thyroid Home Medications levothyroxine 75 mcg tablet 75 mcg PO DAILY 01/22/18 [History Last Taken 01/22/18] meloxicam 15 mg tablet 15 mg PO DAILY 01/22/18 [History Last Taken 01/21/18] paroxetine HCl 40 mg tablet (Paxil) 40 mg PO DAILY 01/22/18 [History Last Taken 01/21/18] nirmatrelvir 300 mg (150 mg x2)-ritonavir 100 mg tablet,dose pack(EUA) (Paxlovid) See Rx Instructions PO .COMPLEX #30 tabs 02/08/22 [Rx Last Taken Unknown] Allergy/AdvReac Type Severity Reaction Status Date / Time No Known Allergies Allergy Verified 02/08/22 21:04 Family History (Updated 02/13/18 @ 11:12 by Luz Chaidez) Mother Heart disease Surgical History History of inguinal hernia repair Social History household members: spouse current occupational status: retired Smoking Status: Former smoker alcohol intake: current details: WINE OCCASIONALLY 6 OZ A NIGHT substance use type: does not use additional social history: DOES USE ASPIRIN DOES NOT USE IBUPROFEN ROS ROS ED Constitutional Constitutional ED: Denies chills or fever(s) Eyes Eyes: Denies blurry vision or change in vision ENT ENT ED: Reports sore throat; Denies rhinorrhea Cardiovascular Cardiovascular: Denies chest pain or palpitations Respiratory/Chest Respiratory/Chest: Reports cough; Denies dyspnea Gastrointestinal Gastrointestinal: Denies nausea or vomiting Genitourinary Genitourinary ED: Denies dysuria or hematuria Musculoskeletal Musculoskeletal: Denies back pain or neck pain Integumentary Denies abscess or rash Neurologic Neurologic: Denies headache(s) or weakness Allergic/Immunologic Allergic/Immunologic ED: Denies mouth swelling or urticaria EXAM Physical Exam Const Vital Signs: 02/08/22 21:00 02/08/22 22:35 Temperature 98.2 F Temperature Source Temporal Pulse Rate 85 83 Respiratory Rate 16 14 Respiratory Pattern Normal Blood Pressure 142/82 H Blood Pressure Mean 102 Pulse Ox 100 Oxygen Delivery Method Room Air Positive well nourished and well developed General Appearance ED: well developed HEENT Reports moist mucous membranes Neck supple and no JVD Resp normal respiratory effort and clear to auscultation bilaterally Cardio regular rate, regular rhythm and no murmurs GI normal to inspection, nondistended, normoactive bowel sounds and non-tender Palpation: soft Extremity normal to inspection General Extremety ED: Negative for edema or tenderness General Extremity: Negative for edema Neuro oriented x3, CN's II-XII intact bilaterally and no sensory deficits noted Sensorium / Orientation: alert Motor Exam: strength 5/5 throughout Psych mental status grossly normal Skin no rashes or lesions noted MDM MDM MDM Narrative Medical decision making narrative: Patient was given a DuoNeb aerosol here. COVID-19 rapid antigen was obtained and was positive. Influenza A and influenza B swabs were obtained and were negative. Portable 1 view chest x-ray was obtained. On my interpretation, lung jaimes are clear. There is normal cardiac silhouette. Bony thorax is normal. There is no acute process noted. Radiologist also interpreted the x-ray and agrees. Patient was advised of his findings. Patient was given a prescription for Paxlovid. Patient was instructed to follow-up with his primary care physician in 5 to 7 days. Patient understood and was agreeable with the plan. All questions were answered. Lab Data Attestation: I reviewed the patient's lab results. Radiography Chest X-Ray - ED: 1 View, Read by ED Physician, Read by Radiologist and No Acute Disease Diagnostic Testing: Clinical Impression(s) from Imaging Studies Chest X-Ray 02/08/22 22:09 IMPRESSION: Normal x-ray examination of the chest. Electronically Signed: Kwaku Roy MD at 22:26 EDT , Discharge Plan Triage Chief Complaint: General Illness ED Provider: Kranthi Isaacs Dx/Rx/DC Orders Clinical Impression: COVID-19, Cough Instructions: Coronavirus Disease 2019 (COVID-19): Caring for Yourself or Others Prescriptions: New Paxlovid (EUA) 300 mg (150 mg x 2)-100 mg tablets,dose pack See Rx Instructions .ROUTE .COMPLEX Qty: 30 0RF Rx Instructions: take TWO 150 mg tablets of nirmatrelvir with ONE 100 mg tablet of ritonavir twice daily for 5 days No Action meloxicam 15 MG tablet 15 mg PO DAILY Label Comments: TAKE 1 TABLET BY MOUTH DAILY levothyroxine 75 MCG tablet 75 mcg PO DAILY paroxetine HCl [Paxil] 40 MG tablet 40 mg PO DAILY Primary Care Provider: Eamon Nicole Chi Referrals: Eamon Nicole Chi, MD [Primary Care Provider] - 3-5 Days Disposition Disposition: Home, Self Care
[2022-02-08 23:59] VITALS: BP 138/62; PULSE 84; RESP 18; O2SAT 98
== END 2022-02-09 | disposition home or self-care (01) ==
PROVIDERS: Emergency Provider Emergency Medicine; PCP Family Medicine Geriatric Medicine; Visit Provider Emergency Medicine
DX: U07.1 COVID-19 (principal); R05.9 Cough, unspecified; Z87.891 Personal history of nicotine dependence
CPT/HCPCS: 71045; 87428; 94640; 99282

== ENCOUNTER → 2022-03-16 | Outpatient (CLI) | payer MEDICARE, SELFPAY ==
[2022-03-16 12:19] LABS: Absolute Neutrophil Count 4.4 X10^3/uL (2.0-7.7); Basophil# 0.02 X10^3/uL; Basophil% 0.4 % (0-1); Eosinophil# 0.05 X10^3/uL; Eosinophils% 0.9 % (0-5); Hematocrit 45.3 % (40-54); Hemoglobin 15.4 g/dL (13.0-16.5); Lymphocyte % 12.6 % (19-41); Mean Corpuscular Hgb 31.6 pg (27.0-32.0); Mean Platelet Vol. 11.8 fl (6.2-12.0); Monocyte# 0.35 X10^3/uL; Monocyte% 6.3 % (0-10); NRBC Flagged by Analyzer 0 % (0-5); Neutrophil # 4.42 X10^3/uL (2.7-7.7); Neutrophil % 79.6 % (47-70); Platelet Count 154 K/mm3 (150-450); RBC Distribution Width CV 13.7 % (11.6-14.6); RBC Distribution Width SD 46.5 fl (35.1-43.9); Red Blood Count 4.87 M/mm3 (4.6-6.2); White Blood Count 5.6 K/mm3 (4.4-11.0)
[2022-03-16 12:35] LABS: Vitamin D,25 Hydroxy 31.7 ng/mL
[2022-03-16 12:54] LABS: ALB/GLOB Ratio 1.3 RATIO (0.9-2.4); AST(SGOT) 15 U/L (15-37); Alanine Aminotransfer ALT/SGPT 19 U/L (16-61); Albumin, Serum 3.8 g/dL (3.2-5.0); Alkaline Phosphatase 62 U/L (45-117); Anion Gap 7 (5-15); BUN 20 mg/dL (7-18); BUN/Creat Ratio 22.8 RATIO (10-20); Calcium,Total 8.9 mg/dL (8.5-10.1); Chloride 107 mmol/L (98-107); Cholesterol 166 mg/dL (200); Creatinine, Serum 0.88 mg/dL (0.70-1.30); EST Glomerular Filtration Rate 91 mL/min (>60); Est Glom Filt Rate - Afr Amer 110 mL/min (>60); Glucose 94 mg/dL (74-106); High Density Lipoprotein 44 mg/dL; Potassium 4.2 mmol/L (3.5-5.1); Protein, Total 6.8 g/dL (6.4-8.2); Sodium Level 142 mmol/L (136-145); Thyroid Stim Hormone (TSH) 2.87 uIU/mL (0.358-3.74); Triglycerides 123 mg/dL; Very Low Density Lipoprotein 25 mg/dL (5-40)
== END | disposition home or self-care (01) ==
LOC: POLAB3 08:56
PROVIDERS: PCP Family Medicine Geriatric Medicine; Visit Provider Family Medicine Geriatric Medicine
DX: E55.9 Vitamin D deficiency, unspecified (principal); E78.5 Hyperlipidemia, unspecified; R53.83 Other fatigue
CPT/HCPCS: 36415; 80053; 80061; 82306; 84443; 85025

== ENCOUNTER → 2022-06-14 | Outpatient (CLI) | payer MEDICARE, SELFPAY ==
[2022-06-14 14:01] LABS: Vitamin D,25 Hydroxy 32.4 ng/mL
[2022-06-14 14:02] LABS: Absolute Lymphocyte Count 1.15 X10^3/uL (0.83-4.51); Absolute Neutrophil Count 3.9 X10^3/uL (2.0-7.7); Basophil# 0.02 X10^3/uL; Basophil% 0.3 % (0-1); Eosinophil# 0.07 X10^3/uL; Eosinophils% 1.2 % (0-5); Hematocrit 46.4 % (40-54); Hemoglobin 15.4 g/dL (13.0-16.5); Lymphocyte # 1.15 X10^3/ul (0.83-4.51); Lymphocyte % 19.5 % (19-41); Mean Corp Hgb Conc 33.2 g/dL (32-36); Mean Corpuscular Volume 90.4 fL (80-94); Mean Platelet Vol. 11.1 fl (6.2-12.0); Monocyte# 0.74 X10^3/uL; Monocyte% 12.5 % (0-10); NRBC Flagged by Analyzer 0 % (0-5); Neutrophil # 3.92 X10^3/uL (2.7-7.7); Neutrophil % 66.3 % (47-70); Platelet Count 182 K/mm3 (150-450); RBC Distribution Width CV 12.7 % (11.6-14.6); RBC Distribution Width SD 41.6 fl (35.1-43.9); Red Blood Count 5.13 M/mm3 (4.6-6.2); White Blood Count 5.9 K/mm3 (4.4-11.0)
[2022-06-14 14:23] LABS: ALB/GLOB Ratio 1.5 RATIO (0.9-2.4); AST(SGOT) 25 U/L (15-37); Alanine Aminotransfer ALT/SGPT 30 U/L (16-61); Albumin, Serum 4.3 g/dL (3.2-5.0); Alkaline Phosphatase 69 U/L (45-117); Anion Gap 6 (5-15); BUN 19 mg/dL (7-18); BUN/Creat Ratio 21.2 RATIO (10-20); Chloride 102 mmol/L (98-107); EST Glomerular Filtration Rate 89 mL/min (>60); Est Glom Filt Rate - Afr Amer 108 mL/min (>60); Globulin 2.9 g/dL (2.2-4.2); Glucose 75 mg/dL (74-106); Potassium 3.5 mmol/L (3.5-5.1); Protein, Total 7.2 g/dL (6.4-8.2); Sodium Level 137 mmol/L (136-145)
== END | disposition home or self-care (01) ==
LOC: POLAB3 11:24
PROVIDERS: PCP Family Medicine Geriatric Medicine; Visit Provider Family Medicine Geriatric Medicine
DX: E55.9 Vitamin D deficiency, unspecified (principal); R53.83 Other fatigue
CPT/HCPCS: 36415; 80053; 82306; 84443; 85025

== ENCOUNTER → 2022-07-19 | Outpatient (CLI) | payer MEDICARE, SELFPAY ==
--- NOTE | 2022-07-19 15:05 | RAD_ITS ---
STUDY: X-RAY - ABDOMEN/PELVIS REASON FOR EXAM: Male, 71 years old. Diarrhea TECHNIQUE: AP supine and upright views of the abdomen and pelvis. COMPARISON: None. FINDINGS: Normal visualized lung bases. There is a moderate amount of colonic fecal material. There is no demonstrated free abdominal air. The visualized liver, spleen and kidneys are grossly normal in size and morphology. Normal soft tissue structures. There are diffuse degenerative changes of the visualized lumbar spine. Mild levoscoliosis of the lumbar spine. RAD/Abd Inc Decub and/or Erect IMPRESSION: Moderate amount of fecal material is seen throughout the colon. Electronically Signed: Vidal Hackett MD at 15:45 EST ,
== END | disposition home or self-care (01) ==
LOC: RAD 15:00
PROVIDERS: PCP Family Medicine Geriatric Medicine; Referring Provider Family Medicine Geriatric Medicine; Visit Provider Family Medicine Geriatric Medicine
DX: R19.7 Diarrhea, unspecified (principal)
CPT/HCPCS: 74019

== ENCOUNTER → 2022-07-21 | Outpatient (CLI) | payer MEDICARE, SELFPAY | END | disposition home or self-care (01) | PROVIDERS: PCP Family Medicine Geriatric Medicine; Visit Provider Family Medicine Geriatric Medicine | DX: R19.7 Diarrhea, unspecified (principal) | CPT/HCPCS: 82274; 83630; 87177; 87209; 87493 ==

== ENCOUNTER → 2022-09-13 | Outpatient (CLI) | payer MEDICARE, SELFPAY ==
[2022-09-13 13:03] LABS: Basophil# 0.02 X10^3/uL; Basophil% 0.4 % (0-1); Eosinophil# 0.09 X10^3/uL; Eosinophils% 1.9 % (0-5); Hematocrit 44.8 % (40-54); Hemoglobin 15.1 g/dL (13.0-16.5); Lymphocyte % 23.5 % (19-41); Mean Corp Hgb Conc 33.7 g/dL (32-36); Mean Corpuscular Hgb 31.1 pg (27.0-32.0); Mean Corpuscular Volume 92.4 fL (80-94); Mean Platelet Vol. 11.6 fl (6.2-12.0); Monocyte# 0.44 X10^3/uL; Monocyte% 9.4 % (0-10); NRBC Flagged by Analyzer 0 % (0-5); Neutrophil # 3.02 X10^3/uL (2.7-7.7); Neutrophil % 64.6 % (47-70); Platelet Count 154 K/mm3 (150-450); RBC Distribution Width CV 12.8 % (11.6-14.6); RBC Distribution Width SD 43.4 fl (35.1-43.9); Red Blood Count 4.85 M/mm3 (4.6-6.2); White Blood Count 4.7 K/mm3 (4.4-11.0)
[2022-09-13 14:01] LABS: ALB/GLOB Ratio 1.4 RATIO (0.9-2.4); AST(SGOT) 24 U/L (15-37); Alanine Aminotransfer ALT/SGPT 31 U/L (16-61); Albumin, Serum 3.8 g/dL (3.2-5.0); Alkaline Phosphatase 70 U/L (45-117); Anion Gap 3 (5-15); BUN 30 mg/dL (7-18); BUN/Creat Ratio 32.4 RATIO (10-20); Calcium,Total 8.9 mg/dL (8.5-10.1); Chloride 109 mmol/L (98-107); Creatinine, Serum 0.92 mg/dL (0.70-1.30); EST Glomerular Filtration Rate 86 mL/min (>60); Est Glom Filt Rate - Afr Amer 104 mL/min (>60); Globulin 2.8 g/dL (2.2-4.2); Glucose 83 mg/dL (74-106); Potassium 4.1 mmol/L (3.5-5.1); Protein, Total 6.6 g/dL (6.4-8.2); Sodium Level 139 mmol/L (136-145); Thyroid Stim Hormone (TSH) 1.27 uIU/mL (0.358-3.74)
== END | disposition home or self-care (01) ==
LOC: POLAB3 10:53
PROVIDERS: PCP Family Medicine Geriatric Medicine; Visit Provider Family Medicine Geriatric Medicine
DX: E55.9 Vitamin D deficiency, unspecified (principal); R53.83 Other fatigue
CPT/HCPCS: 36415; 80053; 82306; 84443; 85025

== ENCOUNTER → 2022-12-18 | Outpatient (CLI) | payer MEDICARE, SELFPAY ==
[2022-12-18 12:10] LABS: Absolute Lymphocyte Count 1.12 X10^3/uL (0.83-4.51); Absolute Neutrophil Count 4.3 X10^3/uL (2.0-7.7); Basophil# 0.03 X10^3/uL; Basophil% 0.5 % (0-1); Eosinophil# 0.07 X10^3/uL; Eosinophils% 1.2 % (0-5); Hematocrit 47.7 % (40-54); Hemoglobin 15.8 g/dL (13.0-16.5); Lymphocyte # 1.12 X10^3/ul (0.83-4.51); Lymphocyte % 18.7 % (19-41); Mean Corp Hgb Conc 33.1 g/dL (32-36); Mean Corpuscular Hgb 31.4 pg (27.0-32.0); Mean Corpuscular Volume 94.8 fL (80-94); Mean Platelet Vol. 10.9 fl (6.2-12.0); Monocyte% 6.7 % (0-10); NRBC Flagged by Analyzer 0 % (0-5); Neutrophil # 4.34 X10^3/uL (2.7-7.7); Neutrophil % 72.6 % (47-70); Platelet Count 152 K/mm3 (150-450); RBC Distribution Width CV 12.5 % (11.6-14.6); RBC Distribution Width SD 43.3 fl (35.1-43.9); Red Blood Count 5.03 M/mm3 (4.6-6.2)
[2022-12-18 12:29] LABS: Vitamin D,25 Hydroxy 39.8 ng/mL
[2022-12-18 12:35] LABS: ALB/GLOB Ratio 1.3 RATIO (0.9-2.4); AST(SGOT) 21 U/L (15-37); Alanine Aminotransfer ALT/SGPT 30 U/L (16-61); Alkaline Phosphatase 71 U/L (45-117); Anion Gap 2 (5-15); BUN 21 mg/dL (7-18); BUN/Creat Ratio 22.3 RATIO (10-20); Chloride 106 mmol/L (98-107); Cholesterol 171 mg/dL (200); Creatinine, Serum 0.94 mg/dL (0.70-1.30); EST Glomerular Filtration Rate 84 mL/min (>60); Est Glom Filt Rate - Afr Amer 102 mL/min (>60); Glucose 95 mg/dL (74-106); High Density Lipoprotein 49 mg/dL; PSA,Total - Annual Screen 1.39 ng/mL (0.00-4.00); Potassium 4.3 mmol/L (3.5-5.1); Sodium Level 140 mmol/L (136-145); Thyroid Stim Hormone (TSH) 1.18 uIU/mL (0.358-3.74); Triglycerides 92 mg/dL; Very Low Density Lipoprotein 18 mg/dL (5-40)
== END | disposition home or self-care (01) ==
PROVIDERS: PCP Family Medicine Geriatric Medicine; Visit Provider Family Medicine Geriatric Medicine
DX: R53.83 Other fatigue (principal); E55.9 Vitamin D deficiency, unspecified; E78.5 Hyperlipidemia, unspecified; Z12.5 Encounter for screening for malignant neoplasm of prostate
CPT/HCPCS: 36415; 80053; 80061; 82306; 84153; 84443; 85025; G0103

== ENCOUNTER → 2023-05-31 | Outpatient (CLI) | payer MEDICARE, SELFPAY | END | disposition home or self-care (01) | LOC: PSN 11:00 | PROVIDERS: PCP Family Medicine Geriatric Medicine; Referring Provider Family Medicine Geriatric Medicine; Visit Provider Family Medicine Geriatric Medicine | DX: R68.83 Chills (without fever) (principal) | CPT/HCPCS: 87631; 87635 ==

== ENCOUNTER → 2023-06-20 | Outpatient (CLI) | payer MEDICARE, SELFPAY ==
[2023-06-20 11:21] LABS: Absolute Lymphocyte Count 1.08 X10^3/uL (0.83-4.51); Absolute Neutrophil Count 4.8 X10^3/uL (2.0-7.7); Basophil# 0.03 X10^3/uL; Basophil% 0.5 % (0-1); Eosinophil# 0.09 X10^3/uL; Eosinophils% 1.4 % (0-5); Hematocrit 47.9 % (40-54); Hemoglobin 15.7 g/dL (13.0-16.5); Lymphocyte # 1.08 X10^3/ul (0.83-4.51); Lymphocyte % 16.8 % (19-41); Mean Corp Hgb Conc 32.8 g/dL (32-36); Mean Corpuscular Hgb 31.1 pg (27.0-32.0); Mean Corpuscular Volume 94.9 fL (80-94); Mean Platelet Vol. 10.4 fl (6.2-12.0); Monocyte# 0.41 X10^3/uL; Monocyte% 6.4 % (0-10); NRBC Flagged by Analyzer 0 % (0-5); Neutrophil # 4.81 X10^3/uL (2.7-7.7); Neutrophil % 74.6 % (47-70); Platelet Count 142 K/mm3 (150-450); RBC Distribution Width CV 13.2 % (11.6-14.6); RBC Distribution Width SD 45.3 fl (35.1-43.9); Red Blood Count 5.05 M/mm3 (4.6-6.2); White Blood Count 6.4 K/mm3 (4.4-11.0)
[2023-06-20 13:39] LABS: ALB/GLOB Ratio 1.3 RATIO (0.9-2.4); AST(SGOT) 33 U/L (15-37); Alanine Aminotransfer ALT/SGPT 46 U/L (16-61); Albumin, Serum 3.8 g/dL (3.2-5.0); Alkaline Phosphatase 74 U/L (45-117); Anion Gap 5 (5-15); BUN 19 mg/dL (7-18); BUN/Creat Ratio 19.7 RATIO (10-20); Calcium,Total 8.9 mg/dL (8.5-10.1); Chloride 107 mmol/L (98-107); Creatinine, Serum 0.96 mg/dL (0.70-1.30); EST Glomerular Filtration Rate 82 mL/min (>60); Est Glom Filt Rate - Afr Amer 99 mL/min (>60); Glucose 106 mg/dL (74-106); Potassium 3.7 mmol/L (3.5-5.1); Protein, Total 6.8 g/dL (6.4-8.2); Sodium Level 141 mmol/L (136-145); Thyroid Stim Hormone (TSH) 2.01 uIU/mL (0.358-3.74)
[2023-06-20 18:27] LABS: Vitamin D,25 Hydroxy 28.4 ng/mL
== END | disposition home or self-care (01) ==
LOC: POLAB3 11:05
PROVIDERS: PCP Family Medicine Geriatric Medicine; Visit Provider Family Medicine Geriatric Medicine
DX: R53.83 Other fatigue (principal); E55.9 Vitamin D deficiency, unspecified
CPT/HCPCS: 36415; 80053; 82306; 84443; 85025

== ENCOUNTER 2023-08-29 05:52 | Day surgery (SDC) | payer MEDICARE, SELFPAY ==
--- NOTE | 2023-08-24 08:16 | EKG12_ITS ---
Test Reason : PREOP Blood Pressure : / mmHG Vent. Rate : 075 BPM Atrial Rate : 075 BPM P-R Int : 162 ms QRS Dur : 104 ms QT Int : 396 ms P-R-T Axes : 076 000 070 degrees QTc Int : 442 ms Normal sinus rhythm Normal ECG Confirmed by NICOLE BHAT, LATOYA ([id number]), assistant production editor CATHIE STOREY ([id number]) on 08/24/2023 1:00:52 PM Referred By: Apolinar Isabel Confirmed By:LATOYA RIVERA MD
[2023-08-24 09:03] LABS: Absolute Lymphocyte Count 0.99 X10^3/uL (0.83-4.51); Absolute Neutrophil Count 4.2 X10^3/uL (2.0-7.7); Basophil# 0.03 X10^3/uL; Basophil% 0.5 % (0-1); Eosinophil# 0.11 X10^3/uL; Eosinophils% 1.9 % (0-5); Hematocrit 45.8 % (40-54); Hemoglobin 15.7 g/dL (13.0-16.5); Lymphocyte # 0.99 X10^3/ul (0.83-4.51); Lymphocyte % 16.9 % (19-41); Mean Corp Hgb Conc 34.3 g/dL (32-36); Mean Corpuscular Hgb 31.3 pg (27.0-32.0); Mean Corpuscular Volume 91.2 fL (80-94); Mean Platelet Vol. 10.6 fl (6.2-12.0); Monocyte% 8.5 % (0-10); NRBC Flagged by Analyzer 0 % (0-5); Neutrophil # 4.21 X10^3/uL (2.7-7.7); Neutrophil % 71.9 % (47-70); Platelet Count 169 K/mm3 (150-450); RBC Distribution Width CV 12.6 % (11.6-14.6); RBC Distribution Width SD 40.9 fl (35.1-43.9); Red Blood Count 5.02 M/mm3 (4.6-6.2); White Blood Count 5.9 K/mm3 (4.4-11.0)
[2023-08-24 09:38] LABS: Anion Gap 4 (5-15); BUN 23 mg/dL (7-18); BUN/Creat Ratio 21.9 RATIO (10-20); Calcium,Total 9.3 mg/dL (8.5-10.1); Chloride 107 mmol/L (98-107); Creatinine, Serum 1.05 mg/dL (0.70-1.30); EST Glomerular Filtration Rate 74 mL/min (>60); Est Glom Filt Rate - Afr Amer 90 mL/min (>60); Glucose 92 mg/dL (74-106); Potassium 3.6 mmol/L (3.5-5.1); Sodium Level 139 mmol/L (136-145); Thyroid Stim Hormone (TSH) 1.15 uIU/mL (0.358-3.74)
[2023-08-29] VITALS (8 sets, daily range): BP systolic 124–145; BP diastolic 73–84; PULSE 70–99; RESP 16; TEMP 36.2–36.6; O2SAT 89–100; BMI 22.4
[2023-08-29] MEDS: Lactated Ringers 1,000 ML 15 ML IV ×2 (06:34→11:56)
--- NOTE | 2023-08-29 06:57 | DCINST_ITS ---
Discharge Instructions Procedure General Surgery Diet Discharge Diet: Light diet - advance as tolerated (if you have questions about your diet instructions, please talk to you doctor.) Activity Discharge Activity: May Not Drive (for 3-5 days or while taking narcotic pain medicine.) May shower in (days): 1 Lifting Restrictions: 10 pounds Dressing / Incision Call your doctor if your incision/area has: Continuous Slow Oozing, Sudden Increased Bleeding, Increased Pain/ Swelling, Increased Redness and Foul Smelling Discharge Call your doctor if you observe: Fever of 101 or Higher Suture Line Care: Avoid Pulling/Pushing and Avoid Pinching/Bending Additional Dressing/Incision Instructions:: Change or remove dressing in 4 days. Leave steri-strips in place for 1 week. Follow Up Care Please Follow Up With: Aploinar Isabel MD When: Call [phone] to make an appointment to be seen in about 10 days. Test Results: Test results from this visit will be discussed in further detail at your follow- up appointment, if applicable. Discharge Plan Admission Attending Provider: Apolinar Isabel Primary Care Provider: Eamon Nicole Chi Discharge Orders/Prescriptions Prescriptions: No Action levothyroxine 75 MCG tablet See Rx Instructions .ROUTE .COMPLEX Rx Instructions: 75 mcg orally ;1 tablet Sunday - Sunday paroxetine HCl [Paxil] 40 MG tablet 40 mg PO DAILY donepezil 10 mg Tablet 10 mg PO QHS memantine [Namenda] 10 mg tablet 5 mg PO BID Patient Comments: PT UNSURE, BRINGING LIST IN meloxicam 15 mg Tablet 15 mg PO DAILY Patient Comments: PER DR ISABEL HOLD STARTING 08/22/23 UNTIL AFTER SURGERY ON 08/29/23 B-complex with vitamin C [Vit B Comp W/C] Capsule 1 cap PO DAILY magnesium oxide 400 mg magnesium Tablet 400 mg PO DAILY Other Ambulatory Orders: 12 Lead EKG (Routine) Location: None Selected Ordered By: Dr. Kranthi Pereira Referrals / Follow Up: Eamon Nicole Chi, MD [Primary Care Provider] - Disposition Disposition (needs filled in before D/C Order can be placed): Home, Self Care
--- NOTE | 2023-08-29 06:57 | HP.PCM_ITS ---
History and Physical Date of Admission: 08/29/23 Visit Reasons: Hernia Chief Complaint: hernia Is patient in pain?: No Allergies No Known Allergies Allergy (Verified 07/06/23 13:40) Medications levothyroxine 75 mcg tablet See Rx Instructions .Route .COMPLEX 01/22/18 [Histo ry Confirmed 07/06/23] paroxetine HCl 40 mg tablet (Paxil) 40 mg PO DAILY 01/22/18 [History Confirmed 07/06/23] donepezil 10 mg tablet 10 mg PO QHS 03/23/22 [History Confirmed 07/06/23] memantine 10 mg tablet (Namenda) 5 mg PO BID 03/23/22 [History Confirmed 07/06/23] B-complex with vitamin C 1 cap PO DAILY 10/18/22 [History Confirmed 07/06/23] magnesium oxide 400 mg PO DAILY 10/18/22 [History Confirmed 07/06/23] meloxicam 15 mg tablet 15 mg PO DAILY 10/18/22 [History Confirmed 07/06/23] [facility] Medical History (Updated 07/06/23 @ 15:[address] Apolinar Isbael MD) Anxiety and depression GERD (gastroesophageal reflux disease) Hearing problem Hypoactive thyroid Surgical History (Updated 07/06/23 @ 15:[address] Apolinar Isabel MD) History of inguinal hernia repair Family History (Updated 07/06/23 @ 13:37 by Vandana Rousseau) Mother Heart disease Hypertension Thyroid disorderSister Breast cancerSister Thyroid disorder Social History (Updated 07/06/23 @ 13:38 by Vandana Rousseau) household members: spouse current occupational status: retired Smoking Status: Former smoker alcohol intake: former details: WINE OCCASIONALLY 6 OZ A NIGHT substance use type: does not use additional social history: DOES USE ASPIRIN DOES NOT USE IBUPROFEN HPI HPI HPI: 72-year-old gentleman is being referred by Dr. Eamon Nicole for surgical consultation regarding a right inguinal hernia and written compromise surgical consult and recommendations will return to him. The patient presents with his sister today. The patient does have early onset Alzheimer's disease. His concern today is intermittent burning pain in the right groin with intermittent bulging. He states that he has had a previous open left inguinal hernia repair actually done twice. 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 He is not having difficulties on the left. He denies any particular injury on the right that he can recall. ROS General General: No weight change, appetite, fatigue, colon cancer, breast cancer or weakness HEENT HEENT: No difficulty swallowing, eye injury, eye surgery, swollen glands or hoarseness Endo Endocrine: Yes thyroid disease; No diabetes mellitus, thyroid cancer, Hair loss, heat intolerance or cold intolerance Skin Skin: No rash or changing moles Musc Musculoskeletal: Yes arthritis; No back problems, rheumatoid arthritis, gout or joint pain Cardio Cardiovascular: No murmur, pacemaker, heart disease, atrial fibrillation, high blood pressure, heart attack, heart stent, palpitations, shortness of breat with exertion or chest pain Psych Psychiatric: Yes depression and anxiety; No hearing voices Resp Respiratory: No shortness of breath, No sleep apnea, No cough, No COPD, No asthma, No emphysema and No wheezing Gastro Gastrointestinal: Yes abdominal pain, No nausea or vomiting, No diarrhea, No constipation, No blood in stool, No acid reflux, No hemorrhoids, No ulcers, No gallbladder problem and No black,tarry stools Ezequiel Hematologic: No blood thinners, No blood disorders, No bleeding, No anemia and No blood clots Neuro Neurologic: No system reviewed and no additional complaints, except as documented, No as per HPI, No abnormal gait, No abnormal hearing, No abnormal movements, No abnormal speech, No behavioral changes, No burning sensations, No confusion, No convulsions, No disequilibrium, No dizziness, No localized weakness, No frequent falls, No headache(s), No lack of coordination, No loss of vision, No memory loss, No numbness, No other visual disturbances, No radicular pain, No restless legs, No sensory deficit, No syncope, No tingling, No tremor(s), No weakness and No other Exam Const General: cooperative, healthy appearing and comfortable Nutritional Appearance: average body habitus Orientation: alert and awake Other: Patient is able to provide me information. He was able to recall his 2 previous left groin operations. [facility] Head: normal to inspection Eyes General: appearance normal, both eyes and all related structures Neck Neck: normal visual inspection Chest Chest palpation & inspection: normal inspection of the chest Resp Effort & Inspection: normal respiratory effort Auscultation: clear to auscultation bilaterally Cardio Rate: regular rate Rhythm: regular rhythm GI Inspection: normal to inspection Palpation: soft and no hepatosplenomegaly Other: 1 cm diameter umbilical hernia. Partially reducible. Other: Testicles are descended bilaterally. Well-healed transverse incision left groin. Peers to be solid and intact. Right groin with a obvious inguinal hernia with bowel loops extending down into the scrotum. This is reducible with supine positioning. Musc Cervical Spine: normal cervical lordosis Skin General: no rashes or lesions noted Neuro General: patient alert, patient awake and patient oriented x3 Extrem General: no calf tenderness Psych Appearance: grossly normal Assessment and Plan Assessment and Plan (1) Umbilical hernia without obstruction or gangrene: Status: Acute (2) Inguinal hernia of right side without obstruction or gangrene: Status: Acute (3) History of inguinal hernia repair: Status: Acute Plan 72-year-old gentleman. He has a symptomatic right inguinal hernia with currently reducible bowel loops. He also has an umbilical hernia. He has had a history of symptomatic left inguinal hernia that was repaired in a classic approach and then broke down and recurred and required a redo repair through an open approach. The patient has mild onset Alzheimer's With his sister in attendance we discussed technique benefit risk complications alternatives of various approaches. We discussed potential for a small incision of the umbilicus with subsequent umbilical herniorrhaphy with mesh with a laparoscopic right inguinal herniorrhaphy with mesh. He is aware of the technique, benefit, risk, alternatives. We compared and contrasted that with a moderate and end-stage care local anesthetic direct approach to the right groin with a Jannette type repair with mesh. The patient does have some urinary outlet obstructive symptoms. He has nocturia at least once nightly. We will initiate him on Flomax preoperatively. After extensive discussion the patient and assisted with his sister has elected to proceed with a umbilical herniorrhaphy with mesh in combination with a laparoscopic right inguinal herniorrhaphy with mesh. We will schedule and proceed at his discretion. The patient and sister are very much aware of potential side effect of general anesthesia or even monitoring anesthesia care to the patient's current Alzheimer's disease. They are very much aware that this may accelerate disease progression. I do believe that as his Alzheimer's disease progresses as he is already symptomatic with right inguinal hernia that this too would place him at risk for potential incarceration with or without the ability to notify someone of the clinical change because of his Alzheimer's. They very much want to proceed with definitive treatment. I appreciate the opportunity of assisting with the surgical care. Copy: Dr. Eamon Isabel M.D., F.A.C.S. I have examined the patient and the H&P has been reviewed. There are no clinical changes since date of exam. Apolinar Isabel M.D., F.A.C.S.
[2023-08-29] MEDS: Cefazolin 2 GM in 0.9% Normal Saline (100mL Bag) 100 ML IV (07:21)
[2023-08-29] MEDS: Bupivacaine Mpf 0.5% 30 ML VIAL (09:03)
--- NOTE | 2023-08-29 09:03 | PCM.OPRPT ---
Report of Operation Date of Procedure: 08/29/23 Pre-Operative Diagnosis: Right inguinal hernia and umbilical hernia Post-Operative Diagnosis: Indirect right inguinal hernia and umbilical hernia Surgery/Procedure Performed:: Laparoscopic right inguinal herniorrhaphy Bard 3D Max right large mesh lot number [id number], reference [id number], expiry date 01/23/[address] umbilical herniorrhaphy Lot number [id number], lot #[id number], expiry date 01/22/2025 Secure strap Lot number [id number], expiry date November 2024 Description of Surgical Findings:: Timeout informed consent was obtained. 73-year-old gentleman was taken the operating placed on the table underwent general tracheal ovation esthesia. The abdomen was sterilely prepped and draped. Ancef 2 g given intravenously preoperatively. 0.5% Marcaine was used as local anesthetic. Skin sites were preanesthetized. A curvilinear incision made the inferior portion umbilicus sharp blunt sections used to identify the umbilical hernia tedious sharp and blunt sections required to free the umbilical skin. Then a 12 mm trocar inserted. The abdomen was insufflated with CO2 to a pressure of 10 mmHg pressure. A ilioinguinal nerve block was performed and laparoscopic control in the right groin. 5 mm trocars were placed in the left lower and right lower quadrants. There is evidence of adhesions of the sigmoid colon to a previous left lower quadrant groin hernia repair. I made no attempt to release those adhesions. The peritoneum superior and lateral to the internal ring on the right was incised carried immediately. In doing this there was some bleeding from the inferior epigastric vessels which were not tight up against the abdominal wall. Secured these with Hem-o-suresh clips and a grainy suture of 0 Vicryl making stab incision the abdominal wall and securing that. Total blood loss 100 cc. Bleeding was controlled. The peritoneum was then continued to be mobilized. Urinary bladder identified and protected as the direct indirect and femoral areas were completely dissected free. A quite sizable indirect hernia sac had to be tediously dissected free. Vas deferens identified dissected free. Irrigation was used to assure hemostasis and anatomy. I then placed a large Bard 3D max mesh to nicely cover the direct indirect and femoral area. I secured this laterally superiorly and medially with secure strap. I felt that I had excellent positioning and apposition of the mesh. I then used hemoblast overlying the raw area of dissection in the retroperitoneum to assure hemostasis and then approximated the peritoneum to itself with secure strap and Hem-o-suresh clips completely obliterating access to the mesh. The abdomen was irrigated and aspirated free. Damage allowed to deflate. Preperitoneal fatty tissue at the umbilicus was dissected free and then a 6.4 cm Ventralex mesh was inserted. The umbilical hernia defect measured 2 cm in diameter. Simple sutures of 0 Nurolon was used to approximate the fascia and to secure the midportion of the mesh. Then I reinsufflated the abdomen and saw that the mesh needed little bit more securement and so you secure strap in order to do this I placed an additional 5 mm port in the epigastric area to get appropriate angulation to secure the Ventralex mesh flat with the abdominal wall which I was able to achieve. Greater omentum was made to be sure that it was overlying the small bowel that was placed as the omentum was guided down toward the pelvis. The groin area was inspected and remained intact and hemostatic. Trocars were removed under visualization and the abdomen deflated the CO2. Skin edges were approximated opted for Monocryl subdermal stitches. Steri-Strips Telfa OpSite dressings applied. Sponge and instrument and needle counts were reported the surgeon to be correct Specimens none. Drains none. Blood loss 100 cc Apolinar Isabel M.D., F.A.C.S. Surgeon: Apolinar Isabel Type of Anesthesia: General and Local Anesthesiologist: Miladys Ramirez
[2023-08-29] MEDS: HYDROcodone Bitartrate/Apap 5/325 Tablet PO (10:23)
== END 2023-08-29 14:29 | disposition home or self-care (01) ==
LOC: SDC 05:53 → AC 05:53
PROVIDERS: Anesthesiology; PCP Family Medicine Geriatric Medicine; Referring Provider Surgery; Visit Provider Surgery
PROC: (CPT 49650; principal; 2023-08-29 07:10)
DX: K40.90 Unilateral inguinal hernia, without obstruction or gangrene, not specified as recurrent (principal); G30.0 Alzheimer's disease with early onset; K42.9 Umbilical hernia without obstruction or gangrene; K21.9 Gastro-esophageal reflux disease without esophagitis; F41.9 Anxiety disorder, unspecified; F32.A Depression, unspecified; Z79.899 Other long term (current) drug therapy; Z87.891 Personal history of nicotine dependence
CPT/HCPCS: 49650; 49591; 00840; 36415; 80048; 84443; 85025; 93005; C1781; J7120; J2405

== ENCOUNTER → 2023-12-26 | Outpatient (CLI) | payer MEDICARE, SELFPAY ==
--- NOTE | 2023-12-26 11:28 | RAD_ITS ---
STUDY: X-RAY - RIGHT HAND, ATTENTION THUMB FINGER REASON FOR EXAM: Male, 73 years old. FOREIGN BODY RIGHT THUMB TECHNIQUE: 3 views of the right thumb were obtained. COMPARISON: None. FINDINGS: Normal metacarpal head. Normal metacarpophalangeal joint. Normal proximal phalanx. Normal distal phalanx. There is mild arthrosis at the interphalangeal joint of the thumb. There is no demonstrated fracture. There is no radiopaque foreign body. RAD/Finger(s) Min 2 Views IMPRESSION: Mild arthrosis at the interphalangeal joint of the thumb. No radiopaque foreign body. Electronically Signed: Pawan Flores MD at 8:57 EDT ,
[2023-12-26 12:47] LABS: Absolute Lymphocyte Count 0.87 X10^3/uL (0.83-4.51); Absolute Neutrophil Count 4.4 X10^3/uL (2.0-7.7); Basophil# 0.04 X10^3/uL; Basophil% 0.7 % (0-1); Eosinophil# 0.09 X10^3/uL; Eosinophils% 1.5 % (0-5); Hematocrit 43.3 % (40-54); Hemoglobin 14.1 g/dL (13.0-16.5); Lymphocyte # 0.87 X10^3/ul (0.83-4.51); Lymphocyte % 14.5 % (19-41); Mean Corp Hgb Conc 32.6 g/dL (32-36); Mean Corpuscular Hgb 29.7 pg (27.0-32.0); Mean Corpuscular Volume 91.2 fL (80-94); Mean Platelet Vol. 11.3 fl (6.2-12.0); Monocyte# 0.57 X10^3/uL; Monocyte% 9.5 % (0-10); NRBC Flagged by Analyzer 0 % (0-5); Neutrophil % 73.6 % (47-70); Platelet Count 165 K/mm3 (150-450); RBC Distribution Width CV 13.3 % (11.6-14.6); RBC Distribution Width SD 44.6 fl (35.1-43.9); Red Blood Count 4.75 M/mm3 (4.6-6.2)
[2023-12-26 13:03] LABS: ALB/GLOB Ratio 1.6 RATIO (0.9-2.4); AST(SGOT) 28 U/L (15-37); Alanine Aminotransfer ALT/SGPT 22 U/L (16-61); Albumin, Serum 4.1 g/dL (3.2-5.0); Alkaline Phosphatase 85 U/L (45-117); Anion Gap 6 (5-15); BUN 24 mg/dL (7-18); BUN/Creat Ratio 25.6 RATIO (10-20); Calcium,Total 8.9 mg/dL (8.5-10.1); Chloride 106 mmol/L (98-107); Creatinine, Serum 0.94 mg/dL (0.70-1.30); EST Glomerular Filtration Rate 84 mL/min (>60); Est Glom Filt Rate - Afr Amer 102 mL/min (>60); Globulin 2.6 g/dL (2.2-4.2); Glucose 98 mg/dL (74-106); Potassium 4.3 mmol/L (3.5-5.1); Protein, Total 6.7 g/dL (6.4-8.2); Sodium Level 140 mmol/L (136-145); Thyroid Stim Hormone (TSH) 1.74 uIU/mL (0.358-3.74)
[2023-12-26 13:07] LABS: Vitamin D,25 Hydroxy 46.9 ng/mL
== END | disposition home or self-care (01) ==
LOC: RAD 11:27
PROVIDERS: PCP Family Medicine Geriatric Medicine; Referring Provider Family Medicine Geriatric Medicine; Visit Provider Family Medicine Geriatric Medicine
DX: M79.5 Residual foreign body in soft tissue (principal); E55.9 Vitamin D deficiency, unspecified; R53.83 Other fatigue
CPT/HCPCS: 36415; 73140; 80053; 82306; 84443; 85025

== ENCOUNTER → 2024-05-05 | Outpatient (CLI) | payer MEDICARE, SELFPAY ==
[2024-05-05 16:52] LABS: Absolute Lymphocyte Count 1.32 X10^3/uL (0.83-4.51); Absolute Neutrophil Count 5.5 X10^3/uL (2.0-7.7); Basophil# 0.03 X10^3/uL; Basophil% 0.4 % (0-1); Eosinophil# 0.15 X10^3/uL; Hematocrit 46.4 % (40-54); Hemoglobin 15.5 g/dL (13.0-16.5); Lymphocyte # 1.32 X10^3/ul (0.83-4.51); Lymphocyte % 17.2 % (19-41); Mean Corp Hgb Conc 33.4 g/dL (32-36); Mean Corpuscular Hgb 30.6 pg (27.0-32.0); Mean Corpuscular Volume 91.7 fL (80-94); Mean Platelet Vol. 10.1 fl (6.2-12.0); Monocyte# 0.59 X10^3/uL; Monocyte% 7.7 % (0-10); NRBC Flagged by Analyzer 0 % (0-5); Neutrophil # 5.53 X10^3/uL (2.7-7.7); Neutrophil % 72.2 % (47-70); Platelet Count 253 K/mm3 (150-450); RBC Distribution Width CV 12.3 % (11.6-14.6); RBC Distribution Width SD 41.1 fl (35.1-43.9); Red Blood Count 5.06 M/mm3 (4.6-6.2); White Blood Count 7.7 K/mm3 (4.4-11.0)
[2024-05-05 17:32] LABS: AST(SGOT) 29 U/L (15-37); Alanine Aminotransfer ALT/SGPT 51 U/L (16-61); Albumin, Serum 3.8 g/dL (3.2-5.0); Alkaline Phosphatase 103 U/L (45-117); Anion Gap 5 (5-15); BUN 22 mg/dL (7-18); Calcium,Total 9.4 mg/dL (8.5-10.1); Chloride 105 mmol/L (98-107); Creatinine, Serum 1.05 mg/dL (0.70-1.30); EST Glomerular Filtration Rate 74 mL/min (>60); Est Glom Filt Rate - Afr Amer 89 mL/min (>60); Globulin 3.7 g/dL (2.2-4.2); Glucose 98 mg/dL (74-106); Potassium 4.4 mmol/L (3.5-5.1); Protein, Total 7.5 g/dL (6.4-8.2); Sodium Level 138 mmol/L (136-145)
== END | disposition home or self-care (01) ==
LOC: POLAB3 16:19
PROVIDERS: PCP Family Medicine Geriatric Medicine; Visit Provider Family Medicine Geriatric Medicine
DX: R53.83 Other fatigue (principal)
CPT/HCPCS: 36415; 80053; 84443; 85025

== ENCOUNTER → 2024-06-25 | Outpatient (CLI) | payer MEDICARE, SELFPAY ==
[2024-06-25 11:44] LABS: Absolute Lymphocyte Count 1.08 X10^3/uL (0.83-4.51); Absolute Neutrophil Count 4.1 X10^3/uL (2.0-7.7); Basophil# 0.03 X10^3/uL; Basophil% 0.5 % (0-1); Eosinophil# 0.08 X10^3/uL; Eosinophils% 1.4 % (0-5); Lymphocyte # 1.08 X10^3/ul (0.83-4.51); Lymphocyte % 19.2 % (19-41); Mean Corpuscular Hgb 31.6 pg (27.0-32.0); Mean Corpuscular Volume 92.9 fL (80-94); Mean Platelet Vol. 10.5 fl (6.2-12.0); Monocyte# 0.33 X10^3/uL; Monocyte% 5.9 % (0-10); NRBC Flagged by Analyzer 0 % (0-5); Neutrophil # 4.08 X10^3/uL (2.7-7.7); Neutrophil % 72.6 % (47-70); Platelet Count 175 K/mm3 (150-450); RBC Distribution Width CV 12.9 % (11.6-14.6); RBC Distribution Width SD 43.7 fl (35.1-43.9); Red Blood Count 5.06 M/mm3 (4.6-6.2); White Blood Count 5.6 K/mm3 (4.4-11.0)
[2024-06-25 12:05] LABS: Vitamin D,25 Hydroxy 25.2 ng/mL
[2024-06-25 12:15] LABS: ALB/GLOB Ratio 1.3 RATIO (0.9-2.4); AST(SGOT) 32 U/L (15-37); Alanine Aminotransfer ALT/SGPT 47 U/L (16-61); Albumin, Serum 3.9 g/dL (3.2-5.0); Alkaline Phosphatase 72 U/L (45-117); Anion Gap 6 (5-15); BUN 23 mg/dL (7-18); BUN/Creat Ratio 22.8 RATIO (10-20); Calcium,Total 9.2 mg/dL (8.5-10.1); Chloride 107 mmol/L (98-107); Creatinine, Serum 1.01 mg/dL (0.70-1.30); EST Glomerular Filtration Rate 77 mL/min (>60); Est Glom Filt Rate - Afr Amer 93 mL/min (>60); Glucose 130 mg/dL (74-106); Protein, Total 6.9 g/dL (6.4-8.2); Sodium Level 143 mmol/L (136-145)
== END | disposition home or self-care (01) ==
LOC: POLAB3 11:07
PROVIDERS: PCP Family Medicine Geriatric Medicine; Visit Provider Family Medicine Geriatric Medicine
DX: E55.9 Vitamin D deficiency, unspecified (principal); R53.83 Other fatigue
CPT/HCPCS: 36415; 80053; 82306; 84443; 85025

== ENCOUNTER 2024-12-13 12:32 | Emergency (ER) | payer MEDICARE, SELFPAY ==
[2024-12-13] VITALS (7 sets, daily range): BP systolic 114–152; BP diastolic 71–123; PULSE 68–95; RESP 16–18; TEMP 36.6–36.8; O2SAT 98–100; BMI 26.2
--- NOTE | 2024-12-13 12:57 | CT_ITS ---
PROCEDURE: ABDOMEN/PELVIS WITHOUT CONT 12/13/2024 REASON FOR EXAM: KIDNEY STONE Left flank pain and left lower quadrant abdominal pain. TECHNIQUE: ABDOMEN/PELVIS WITHOUT CONT Noncontrast technique limits evaluation of the abdominal and pelvic viscera. Coronal and Sagittal reconstruction series were provided. One or more dose reduction techniques were used (e.g., Automated exposure control, adjustment of the mA and/or kV according to patient size, use of iterative reconstruction technique). RADIATION DOSE SUMMARY: CTDlvol: 6.4 mGy DLP: 322.4 mGycm COMPARISON: CT scan of the abdomen and pelvis dated 05/27/2018 FINDINGS: Lung bases: Unremarkable. There is no atelectasis, consolidation, effusion or pneumonic infiltrate in the visualized portions of the lung bases. Liver: An 8 mm low-density mass is identified in the dome of the liver which appears to represent a probable benign hepatic cyst. This hepatic masses new when compared to the prior CT exam. Targeted ultrasound may therefore be of value for further evaluation if clinically warranted. There is a stable 4 mm low-density mass identified in the posterior segment of the right lobe of the liver which appears stable when compared to the prior CT exam. No intrahepatic biliary ductal dilatation is seen. The size, contour, and attenuation of the liver are within normal limits. Gallbladder: Unremarkable. There are no stones or sludge seen within the gallbladder. Spleen: Unremarkable. Size contour and echogenicity are within normal limits. Pancreas: Unremarkable. No pancreatic masses are seen. Adrenals: Unremarkable. Kidneys: A stone is identified in the inferior pole of the left kidney measuring less than 1 mm. There are 2 stones identified in the superior pole of the left kidney measuring less than 1 mm each. There is no hydronephrosis. There is some stranding of the perinephric fat surrounding the left kidney. Right kidney size contour and attenuation are within normal limits. There are no stones, masses or hydronephrosis. Bladder: There is a stone identified in the left side of the urinary bladder measuring less than 1 mm. There is no hydroureter.. Reproductive Organs: Unremarkable. Bowel: Unremarkable. Stomach, small bowel and colonic loops appear unremarkable. There are a few diverticuli involving the descending colon. There is no evidence of diverticulitis. Appendix: Unremarkable. Lymph nodes: Unremarkable. Vasculature: Aorta is nonaneurysmal. Arteriosclerotic vascular disease of the aorta is noted Peritoneum / Retroperitoneum: Unremarkable. No adenopathy is noted. Bones: Mild degenerative changes of the lumbar spine are noted. CT/Abdomen/Pelvis without Cont IMPRESSION: There are 3 stones identified in the left kidney all measuring less than 1 mm. There is some subtle stranding of the perinephric fat surrounding the left kidney suggesting pyelonephritis. There is a stone id entified in the left side of the urinary bladder measuring less than 1 mm. There is no left hydroureter or hydronephrosis of th e left kidney. 2 benign-appearing hepatic masses are seen as described above and most likely r epresent cysts. 1 does appear to be new. Reading Location: [id number]
--- NOTE | 2024-12-13 12:57 | EX.ED.DYSGE1 ---
HPI History of Present Illness Chief Complaint: Flank Pain Informant: patient Narrative Narrative: Presents by private vehicle and worsening pain left side of abdomen rating to his groin. He is awake eating breakfast or having tremors then the pain. No nausea vomiting no urinary symptoms. No history of kidney stones. Denies history of gastric ulcers or kidney injury. Drove himself here. History of inguinal hernia repair, no other abdominal surgeries. Prior similar symptoms: No PFSH PFSH Medical History Alzheimer disease Hypoactive thyroid Anxiety and depression GERD (gastroesophageal reflux disease) Hearing problem Home Medications ?Medication ?Instructions ?Recorded ?Last Taken ?Type levothyroxine 75 mcg tablet See Rx Instructions .Route .COMPLEX 01/22/18 01/22/18 History paroxetine HCl 40 mg tablet (Paxil) 40 mg PO DAILY 01/22/18 01/21/18 History donepezil 10 mg tablet 10 mg PO QHS 03/23/22 Unknown History memantine 10 mg tablet (Namenda) 5 mg PO BID 03/23/22 Unknown History B-complex with vitamin C 1 cap PO DAILY 10/18/22 Unknown History magnesium oxide 400 mg PO DAILY 10/18/22 Unknown History meloxicam 15 mg tablet 15 mg PO DAILY 10/18/22 Unknown History psyllium husk 0.4 gram capsule 0.4 g PO DAILY 09/11/23 Unknown History (Metamucil) Held on 05/07/24. Instructions: Order Completed Allergy/AdvReac Type Severity Reaction Status Date / Time tamsulosin AdvReac Intermediate Other Verified 12/13/24 12:34 Family History Mother Heart disease Hypertension Thyroid disorder Sister Breast cancer Sister Thyroid disorder Surgical History History of inguinal hernia repair Social History household members: spouse current occupational status: retired Smoking Status: Former smoker alcohol intake: former details: WINE OCCASIONALLY 6 OZ A NIGHT substance use type: does not use additional social history: DOES USE ASPIRIN DOES NOT USE IBUPROFEN ROS ROS ED Constitutional Constitutional ED: Denies chills, fever(s) or sweats ENT ENT ED: Denies sore throat Cardiovascular Cardiovascular: Denies chest pain, leg edema, palpitations or racing heartbeat Respiratory/Chest Respiratory/Chest: Denies cough, dyspnea or dyspnea on exertion Gastrointestinal Gastrointestinal: Denies abdominal pain, diarrhea, nausea or vomiting Genitourinary Genitourinary ED: Denies dysuria, hematuria or urinary frequency Musculoskeletal Musculoskeletal: Reports back pain; Denies extremity pain or neck pain Integumentary Denies rash or wounds Neurologic Neurologic: Reports other Details: Shakes ; Denies headache(s), paresthesias or weakness EXAM Physical Exam Const Vital Signs: 12/13/24 12:32 12/13/24 13:32 12/13/24 14:00 Temperature 98.3 F Temperature Source Oral Pulse Rate 92 69 78 Respiratory Rate 18 18 16 Blood Pressure 128/110 H 152/71 H 144/113 H Blood Pressure Mean 116 98 123 Pulse Ox 100 99 98 Oxygen Delivery Method Room Air Room Air 12/13/24 15:00 12/13/24 16:00 12/13/24 17:00 Temperature Temperature Source Pulse Rate 71 95 68 Respiratory Rate 18 18 16 Blood Pressure 144/123 H 114/76 140/72 H Blood Pressure Mean 130 88 94 Pulse Ox 98 100 99 Oxygen Delivery Method 12/13/24 17:31 Temperature 97.9 F Temperature Source Pulse Rate 68 Respiratory Rate 16 Blood Pressure 140/72 H Blood Pressure Mean 94 Pulse Ox 99 Oxygen Delivery Method Positive well nourished and well developed Constitutional Narrative: nontoxic, having upper tremors. General Appearance ED: well developed HEENT Reports moist mucous membranes normocephalic and atraumatic Eyes General Eye ED: Yes normal appearance of both eyes Neck full ROM Chest Wall Chest: Negative for tenderness Resp normal respiratory effort and normal air movement Effort and Inspection: symmetric chest movement; Negative for respiratory distress Cardio regular rate, regular rhythm and no murmurs Peripheral Pulses: pulses 2+ throughout GI normal to inspection, nondistended, normoactive bowel sounds and non-tender Palpation: Negative for guarding or rebound tenderness present Back/Spine no CVA tenderness Extremity normal to inspection General Extremety ED: Negative for edema or tenderness General Extremity: Negative for edema Neuro oriented x3 and no sensory deficits noted Sensorium / Orientation: awake and alert Skin no rashes or lesions noted and no wounds MDM MDM MDM Narrative Medical decision making narrative: Interventions / MDM: Differential diagnosis: Kidney stones, hematuria Diagnosis considered but do not suspect: UTI however urine negative. My EKG interpretation: N/A Imaging independently reviewed and interpreted by myself: CT scan abdomen pelvis: Nephrolithiasis x 3, there is 1 small stone in the bladder with no hydronephrosis. Hepatic cysts also noted. Perinephric stranding noted per radiology. Awaiting urine results. External documents reviewed: N/A Test considered but not ordered:N/A ED course: Tremors with increasing flank pain rating to the groin. Nontoxic. IV established for labs urine CT abdomen pelvis rule out kidney stones. He drove himself here we will start with Zofran fluids and Toradol. Will reevaluate. 1400: White count normal creatinine 1.19. CT scan nephrolithiasis x 3, there is 1 small stone in the bladder with no hydronephrosis. Hepatic cysts also noted. Perinephric stranding noted per radiology. Awaiting urine results. 1415: Clinically feeling better. Discussed findings with patient and family in the room. Patient attempting to give a urine sample at this time. Delay in patient giving urine sample eventually results hematuria without infection. Clinically remained stable reevaluation. He has Motrin or Tylenol at home. Urine strainer sent home with the patient urology follow-up. All questions were answered. Re-evaluation: stable Disposition discussed with patient/family/significant other: Patient and family Case discussed with consulting clinician: N/A This note was generated with [employer] dictation software. It may contain incorrect words, spelling, and punctuation that were not noted in checking the note before signing. Lab Data Attestation: I reviewed the patient's lab results. Labs: Laboratory Results - last 24 hr 12/13/24 12/13/24 13:15 15:50 WBC 8.2 RBC 5.19 Hgb 16.4 Hct 46.3 MCV 89.2 MCH 31.6 MCHC 35.4 RDW Std Deviation 39.7 RDW Coeff of [place] 12.3 Plt Count 177 MPV 10.9 Immature Gran % (Auto) 0.500 Neut % (Auto) 87.8 H Lymph % (Auto) 5.8 L [place] % (Auto) 5.3 Eos % (Auto) 0.4 Baso % (Auto) 0.2 Absolute Neuts (auto) 7.2 Absolute Lymphs (auto) 0.48 L Nucleated RBC % 0 Sodium 138 Potassium 4.9 Chloride 101 Carbon Dioxide 23.5 Anion Gap 13 BUN 18 Creatinine 1.19 Estim Creat Clear Calc 52.46 Est GFR (MDRD) Non-Af 65 BUN/Creatinine Ratio 14.9 Glucose 117 H Calcium 9.5 Urine Color Yellow Urine Clarity Clear Urine pH 8.0 Ur Specific [place] 1.015 Urine Protein 15 H Urine Glucose (UA) Normal Urine Ketones 5 H Urine Occult Blood 150 H Urine Nitrite Negative Urine Bilirubin Negative Urine Urobilinogen Normal Ur Leukocyte Esterase Negative Urine RBC 25-50 SEEN Urine WBC 0-5 SEEN Ur Squamous Epith Cells 0 SEEN Urine Bacteria 0 SEEN Urine Mucus 0 SEEN Radiography Diagnostic Testing: Clinical Impression(s) from Imaging Studies Abdomen/Pelvis CT 12/13/24 12:57 IMPRESSION: There are 3 stones identified in the left kidney all measuring less than 1 mm. There is some subtle stranding of the perinephric fat surrounding the left kidney suggesting pyelonephritis. There is a stone identified in the left side of the urinary bladder measuring less than 1 mm. There is no left hydroureter or hydronephrosis of the left kidney. 2 benign-appearing hepatic masses are seen as described above and most likely represent cysts. 1 does appear to be new. Reading Location: [facility] Discharge Plan Triage Chief Complaint: Flank Pain ED Provider: Malcolm Faustin Dx/Rx/DC Orders Clinical Impression: Kidney stone on left side, Hematuria, Renal colic on left side, Hepatic cyst Instructions: ED Kidney Stone, Passed Prescriptions: No Action levothyroxine 75 MCG tablet See Rx Instructions .ROUTE .COMPLEX Rx Instructions: 75 mcg orally ;1 tablet Sunday - Sunday paroxetine HCl [Paxil] 40 MG tablet 40 mg PO DAILY donepezil 10 mg Tablet 10 mg PO QHS memantine [Namenda] 10 mg tablet 5 mg PO BID Patient Comments: PT UNSURE, BRINGING LIST IN meloxicam 15 mg Tablet 15 mg PO DAILY Patient Comments: PER DR OLIVAREZ HOLD STARTING 08/22/23 UNTIL AFTER SURGERY ON 08/29/23 B-complex with vitamin C Capsule 1 cap PO DAILY magnesium oxide 400 mg magnesium Tablet 400 mg PO DAILY psyllium husk [Metamucil] 0.4 gram capsule 0.4 g PO DAILY Primary Care Provider: Care Physician,No Primary Referrals: Aly Rosa MD [Med Staff - Active Staff] - 1-2 Weeks Eamon Nicole Chi, MD [Med Staff - Active Staff] - Activity Restrictions/Additional Instructions: CT scan notes a 1 mm stone in your bladder that you passed. Additional stones in your kidneys. Stones in your kidneys do not cause pain. Urine without infection small amount of blood. Strain your urine. Use Tylenol Motrin as needed. Follow-up with urology. Incidental findings of benign hepatic cyst noted. Print Language: [place] Disposition Disposition: Home, Self Care Discharge Date/Time: 12/13/24 17:59
[2024-12-13] MEDS: 0.9% Normal Saline (1000mL) 1,000 ML 250 ML IV (13:12)
--- OUTSIDE RECORDS SUMMARY | 2024-12-13 13:15 | XMS RPT_ITS | CCD ---
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 [address] [place], [address] MCHC (RBC) [Mass/Vol] 33.4 g/dL Normal 32-36 [facility] Comment on above: Performed By: #### L 501.9520, L500.4050, L100.0100 ####[facility] [address] [place], [address] MCV (RBC) [Entitic vol] 91.7 fL Normal 80-94 [facility] Comment on above: Performed By: #### L 501.9520, L500.4050, L100.0100 ####[facility] [address] [place], [address] Monocytes/100 WBC (Bld) 7.7 % Normal 0-10 [facility] Comment on above: Performed By: #### L 501.9520, L500.4050, L100.0100 ####[facility] [address] [place], [address] Neutrophils/100 WBC (Bld) 72.2 % High 47-70 [facility] Comment on above: Performed By: #### L 501.9520, L500.4050, L100.0100 ####[facility] [address] [place], [address] Nucleated RBC (Bld) [#/Vol] 0 10*3/uL Normal 0-5 [facility] Comment on above: Performed By: #### L 501.9520, L500.4050, L100.0100 ####[facility] [address] [place], [address] Platelet mean volume (Bld) [Entitic vol] 10.1 fL Normal 6.2-12.0 [facility] Comment on above: Performed By: #### L 501.9520, L500.4050, L100.0100 ####[facility] [address] [place], [address] Platelets (Bld) [#/Vol] 253 10*3/uL Normal 150-450 [facility] Comment on above: Performed By: #### L 501.9520, L500.4050, L100.0100 ####[facility] [address] [place], [address] RBC (Bld) [#/Vol] 5.06 10*6/uL Normal 4.6-6.2 [facility] Comment on above: Performed By: #### L 501.9520, L500.4050, L100.0100 ####[facility] [address] [place], [address] RDW SD 41.1 fl Normal 35.1-43.9 [facility] Comment on above: Performed By: #### L 501.9520, L500.4050, L100.0100 ####[facility] [address] [place], [address] WBC (Bld) [#/Vol] 7.7 10*3/uL Normal 4.4-11.0 [facility] Comment on above: Performed By: #### L 501.9520, L500.4050, L100.0100 ####[facility] [address] [place], [address] Comprehensive Metabolic Prof ilon 05-05-2024 Albumin [Mass/Vol] 3.8 g/dL Normal 3.2-5.0 [facility] Comment on above: Performed By: #### L 501.9520, L500.4050, L100.0100 ####[facility] [address] [place], [address] Albumin/Globulin [Mass ratio] 1.0 {ratio} Normal 0.9-2.4 [facility] Comment on above: Performed By: #### L 501.9520, L500.4050, L100.0100 ####[facility] [address] [place], [address] ALK P 103 U/L Normal 45-117 [facility] Comment on above: Performed By: #### L 501.9520, L500.4050, L100.0100 ####[facility] [address] [place], [address] ALT [Catalytic activity/Vol] 51 U/L Normal 16-61 [facility] Comment on above: Performed By: #### L 501.9520, L500.4050, L100.0100 ####[facility] [address] [place], [address] AST [Catalytic activity/Vol] 29 U/L Normal 15-37 [facility] Comment on above: Performed By: #### L 501.9520, L500.4050, L100.0100 ####[facility] [address] [place], [address] Bilirubin [Mass/Vol] 0.50 mg/dL Normal 0.20-1.00 [facility] Comment on above: Result Comment: For patients on eltrombopag therapy, use of Dimension Blackwell TBIL is not recommended. Performed By: #### L 501.9520, L500.4050, L100.0100 ####[facility] [address] [place], [address] BUN/CRE 21.0 RATIO High 10-20 [facility] Comment on above: Performed By: #### L 501.9520, L500.4050, L100.0100 ####[facility] [address] [place], [address] CA,Total 9.4 mg/dL Normal 8.5-10.1 [facility] Comment on above: Performed By: #### L 501.9520, L500.4050, L100.0100 ####[facility] [address] [place], [address] Chloride [Moles/Vol] 105 mmol/L Normal 98-107 [facility] Comment on above: Performed By: #### L 501.9520, L500.4050, L100.0100 ####[facility] [address] [place], [address] CO2 [Moles/Vol] 28.0 mmol/L Normal 21.0-32.0 [facility] Comment on above: Performed By: #### L 501.9520, L500.4050, L100.0100 ####[facility] [address] [place], [address] Creatinine [Mass/Vol] 1.05 mg/dL Normal 0.70-1.30 [facility] Comment on above: Result Comment: The validity of the calculated GFR GFRAA in patients over 70 years has not been determined. Clinical correlation is essential. Performed By: #### L 501.9520, L500.4050, L100.0100 ####[facility] [address] [place], [address] EST GFR - AA 89 mL/min Normal >60 [facility] Comment on above: Result Comment: Afri can [place] GFR Calc Performed By: #### L 501.9520, L500.4050, L100.0100 ####[facility] [address] [place], [address] GAP 5 Normal 5-15 [facility] Comment on above: Performed By: #### L 501.9520, L500.4050, L100.0100 ####[facility] [address] [place], [address] GFR/1.73 sq M.predicted among non-blacks MDRD (S/P/Bld) [Vol rate/Area] 74 mL/min/{1.73_m2} Normal >60 [facility] Comment on above: Result Comment: Non- GFR Calc Performed By: #### L 501.9520, L500.4050, L100.0100 ####[facility] [address] [place], [address] Globulin (S) [Mass/Vol] 3.7 g/dL Normal 2.2-4.2 [facility] Comment on above: Performed By: #### L 501.9520, L500.4050, L100.0100 ####[facility] [address] [place], [address] Glucose [Mass/Vol] 98 mg/dL Normal 74-106 [facility] Comment on above: Performed By: #### L 501.9520, L500.4050, L100.0100 ####[facility] [address] [place], [address] Potassium [Moles/Vol] 4.4 mmol/L Normal 3.5-5.1 [facility] Comment on above: Performed By: #### L 501.9520, L500.4050, L100.0100 ####[facility] [address] [place], [address] Sodium [Moles/Vol] 138 mmol/L Normal 136-145 [facility] Comment on above: Performed By: #### L 501.9520, L500.4050, L100.0100 ####[facility] [address] [place], [address] T PROT 7.5 g/dL Normal 6.4-8.2 [facility] Comment on above: Performed By: #### L 501.9520, L500.4050, L100.0100 ####[facility] [address] [place], [address] Urea nitrogen [Mass/Vol] 22 mg/dL High 7-18 [facility] Comment on above: Performed By: #### L 501.9520, L500.4050, L100.0100 ####[facility] [address] [place], [address] Thyroid Stim Hormone (TSH)on 05-05-2024 TSH 2.720 uIU/mL Normal 0.358-3.74 0 [facility] Comment on above: Performed By: #### L 501.9520, L500.4050, L100.0100 ####[facility] [address] [place], [address] CBC W/Diff, Automatedon 07-3 Absolute Lymph 0.87 X10 3/uL Normal 0.83-4.51 [facility] Comment on above: Performed By: #### L 501.9520, L100.0100, L506.1000, L500.4050 #### [facility] [address] [place], [address] Absolute Neut 4.4 X10 3/uL Normal 2.0-7.7 [facility] Comment on above: Performed By: #### L 501.9520, L100.0100, L506.1000, L500.4050 #### [facility] [address] [place], [address] Basophils/100 WBC (Bld) 0.7 % Normal 0-1 [facility] Comment on above: Performed By: #### L 501.9520, L100.0100, L506.1000, L500.4050 #### [facility] [address] [place], [address] Eosinophils/100 WBC (Bld) 1.5 % Normal 0-5 [facility] Comment on above: Performed By: #### L 501.9520, L100.0100, L506.1000, L500.4050 #### [facility] [address] [place], [address] Erythrocyte distribution width (RBC) [Ratio] 13.3 % Normal 11.6-14.6 [facility] Comment on above: Performed By: #### L 501.9520, L100.0100, L506.1000, L500.4050 #### [facility] [address] [place], [address] Hematocrit (Bld) [Volume fraction] 43.3 % Normal 40-54 [facility] Comment on above: Performed By: #### L 501.9520, L100.0100, L506.1000, L500.4050 #### [facility] [address] [place], [address] Hemoglobin (Bld) [Mass/Vol] 14.1 g/dL Normal 13.0-16.5 [facility] Comment on above: Performed By: #### L 501.9520, L100.0100, L506.1000, L500.4050 #### [facility] [address] [place], [address] IG% 0.200 Normal 0.0-0.9 [facility] Comment on above: Result Comment: IG% - Immature Granulocytes (promyelocytes, myelocytes and metamyelocytes) > 1% indicates that a LEFT SHIFT is Present. Performed By: #### L 501.9520, L100.0100, L506.1000, L500.4050 #### [facility] [address] [place], [address] Lymphocytes/100 WBC (Bld) 14.5 % Low 19-41 [facility] Comment on above: Performed By: #### L 501.9520, L100.0100, L506.1000, L500.4050 #### [facility] [address] [place], [address] MCH (RBC) [Entitic mass] 29.7 pg Normal 27.0-32.0 [facility] Comment on above: Performed By: #### L 501.9520, L100.0100, L506.1000, L500.4050 #### [facility] [address] [place], [address] MCHC (RBC) [Mass/Vol] 32.6 g/dL Normal 32-36 [facility] Comment on above: Performed By: #### L 501.9520, L100.0100, L506.1000, L500.4050 #### [facility] [address] [place], [address] MCV (RBC) [Entitic vol] 91.2 fL Normal 80-94 [facility] Comment on above: Performed By: #### L 501.9520, L100.0100, L506.1000, L500.4050 #### [facility] [address] [place], [address] Monocytes/100 WBC (Bld) 9.5 % Normal 0-10 [facility] Comment on above: Performed By: #### L 501.9520, L100.0100, L506.1000, L500.4050 #### [facility] [address] [place], [address] Neutrophils/100 WBC (Bld) 73.6 % High 47-70 [facility] Comment on above: Performed By: #### L 501.9520, L100.0100, L506.1000, L500.4050 #### [facility] [address] [place], [address] Nucleated RBC (Bld) [#/Vol] 0 10*3/uL Normal 0-5 [facility] Comment on above: Performed By: #### L 501.9520, L100.0100, L506.1000, L500.4050 #### [facility] [address] [place], [address] Platelet mean volume (Bld) [Entitic vol] 11.3 fL Normal 6.2-12.0 [facility] Comment on above: Performed By: #### L 501.9520, L100.0100, L506.1000, L500.4050 #### [facility] [address] [place], [address] Platelets (Bld) [#/Vol] 165 10*3/uL Normal 150-450 [facility] Comment on above: Performed By: #### L 501.9520, L100.0100, L506.1000, L500.4050 #### [facility] [address] [place], [address] RBC (Bld) [#/Vol] 4.75 10*6/uL Normal 4.6-6.2 [facility] Comment on above: Performed By: #### L 501.9520, L100.0100, L506.1000, L500.4050 #### [facility] [address] [place], [address] RDW SD 44.6 fl High 35.1-43.9 [facility] Comment on above: Performed By: #### L 501.9520, L100.0100, L506.1000, L500.4050 #### [facility] [address] [place], [address] WBC (Bld) [#/Vol] 6.0 10*3/uL Normal 4.4-11.0 [facility] Comment on above: Performed By: #### L 501.9520, L100.0100, L506.1000, L500.4050 #### [facility] [address] [place], [address] Comprehensive Metabolic [facility] 12-26-2023 Albumin [Mass/Vol] 4.1 g/dL Normal 3.2-5.0 [facility] Comment on above: Performed By: #### L 501.9520, L100.0100, L506.1000, L500.4050 #### [facility] [address] [place], [address] Albumin/Globulin [Mass ratio] 1.6 {ratio} Normal 0.9-2.4 [facility] Comment on above: Performed By: #### L 501.9520, L100.0100, L506.1000, L500.4050 #### [facility] [address] [place], [address] ALK P 85 U/L Normal 45-117 [facility] Comment on above: Performed By: #### L 501.9520, L100.0100, L506.1000, L500.4050 #### [facility] [address] [place], [address] ALT [Catalytic activity/Vol] 22 U/L Normal 16-61 [facility] Comment on above: Performed By: #### L 501.9520, L100.0100, L506.1000, L500.4050 #### [facility] [address] [place], [address] AST [Catalytic activity/Vol] 28 U/L Normal 15-37 [facility] Comment on above: Performed By: #### L 501.9520, L100.0100, L506.1000, L500.4050 #### [facility] [address] [place], [address] Bilirubin [Mass/Vol] 0.50 mg/dL Normal 0.20-1.00 [facility] Comment on above: Result Comment: For patients on eltrombopag therapy, use of Dimension [place]well TBIL is not recommended. Performed By: #### L 501.9520, L100.0100, L506.1000, L500.4050 #### [facility] [address] [place], [address] BUN/CRE 25.6 RATIO High 10-20 [facility] Comment on above: Performed By: #### L 501.9520, L100.0100, L506.1000, L500.4050 #### [facility] [address] [place], [address] CA,Total 8.9 mg/dL Normal 8.5-10.1 [facility] Comment on above: Performed By: #### L 501.9520, L100.0100, L506.1000, L500.4050 #### [facility] [address] [place], [address] Chloride [Moles/Vol] 106 mmol/L Normal 98-107 [facility] Comment on above: Performed By: #### L 501.9520, L100.0100, L506.1000, L500.4050 #### [facility] [address] [place], [address] CO2 [Moles/Vol] 28.0 mmol/L Normal 21.0-32.0 [facility] Comment on above: Performed By: #### L 501.9520, L100.0100, L506.1000, L500.4050 #### [facility] [address] [place], [address] Creatinine [Mass/Vol] 0.94 mg/dL Normal 0.70-1.30 [facility] Comment on above: Result Comment: The validity of the calculated GFR GFRAA in patients over 70 years has not been determined. Clinical correlation is essential. Performed By: #### L 501.9520, L100.0100, L506.1000, L500.4050 #### [facility] [address] [place], [address] EST GFR - AA 102 mL/min Normal >60 [facility] Comment on above: Result Comment: Afri can [place] GFR Calc Performed By: #### L 501.9520, L100.0100, L506.1000, L500.4050 #### [facility] [address] [place], [address] GAP 6 Normal 5-15 [facility] Comment on above: Performed By: #### L 501.9520, L100.0100, L506.1000, L500.4050 #### [facility] [address] [place], [address] GFR/1.73 sq M.predicted among non-blacks MDRD (S/P/Bld) [Vol rate/Area] 84 mL/min/{1.73_m2} Normal >60 [facility] Comment on above: Result Comment: Non- GFR Calc Performed By: #### L 501.9520, L100.0100, L506.1000, L500.4050 #### [facility] [address] [place], [address] Globulin (S) [Mass/Vol] 2.6 g/dL Normal 2.2-4.2 [facility] Comment on above: Performed By: #### L 501.9520, L100.0100, L506.1000, L500.4050 #### [facility] [address] [place], [address] Glucose [Mass/Vol] 98 mg/dL Normal 74-106 [facility] Comment on above: Performed By: #### L 501.9520, L100.0100, L506.1000, L500.4050 #### [facility] [address] [place], [address] Potassium [Moles/Vol] 4.3 mmol/L Normal 3.5-5.1 [facility] Comment on above: Performed By: #### L 501.9520, L100.0100, L506.1000, L500.4050 #### [facility] [address] [place], [address] Sodium [Moles/Vol] 140 mmol/L Normal 136-145 [facility] Comment on above: Performed By: #### L 501.9520, L100.0100, L506.1000, L500.4050 #### [facility] [address] [place], [address] T PROT 6.7 g/dL Normal 6.4-8.2 [facility] Comment on above: Performed By: #### L 501.9520, L100.0100, L506.1000, L500.4050 #### [facility] [address] [place], [address] Urea nitrogen [Mass/Vol] 24 mg/dL High 7-18 [facility] Comment on above: Performed By: #### L 501.9520, L100.0100, L506.1000, L500.4050 #### [facility] [address] [place], [address] Finger(s) Min 2 Viewson 07-3 Finger(s) Min 2 Views [facility] Imaging Services [address] [place] [address] Finger(s) Min 2 Views MR#: [id number] Acct: [id number] Name: AMIRAH MCCRACKEN Rep #: [id number] : 1950 M 73 From: Pawan Flores MD PCP: Dr. Eamon Nicole MD Status: REG CLI Study: Finger(s) Min 2 Views Date of Exam: 12/26/23 Exam# [id number] Ordering Dr: Eamon Nicole MD [id number] STUDY: X-RAY - RIGHT HAND, ATTENTION THUMB FINGER REASON FOR EXAM: Male, 73 years old. FOREIGN BODY RIGHT THUMB TECHNIQUE: 3 views of the right thumb were obtained. COMPARISON: None. FINDINGS: Normal metacarpal head. Normal metacarpophalangeal joint. Normal proximal phalanx. Normal distal phalanx. There is mild arthrosis at the interphalangeal joint of the thumb. There is no demonstrated fracture. There is no radiopaque foreign body. RAD/Finger(s) Min 2 Views IMPRESSION: Mild arthrosis at the interphalangeal joint of the thumb. No radiopaque foreign body. Electronically Signed: Pawan Flores MD at 8:57 EDT , CC: Dr. Eamon Nicole MD [employer]: Signed Normal [facility] Thyroid Stim Hormone (TSH)on 12-26-2023 TSH 1.74 uIU/mL Normal 0.358-3.74 [facility] Comment on above: Performed By: #### L 501.9520, L100.0100, L506.1000, L500.4050 #### [facility] [address] [place], [address] Vitamin D,25 Hydroxyon 12-25 Vitamin D 25-OH 46.9 ng/mL Normal [facility] Comment on above: Result Comment: Vaishali min D 25(OH) Status Range Deficiency <20 ng/mL (50nmol/L) Insufficiency 20 - 30 ng/mL (50 - 75 nmol/L) Sufficiency 30 - 100 ng/mL (75 - 250 nmol/L) Toxicity >100 ng/mL (>250 nmol/L) Performed By: #### L 501.9520, L100.0100, L506.1000, L500.4059 #### [facility] [address] [place], [address] Surgery Visit Reporton 09-09 Surgery Visit Report [facility] [address] [place] [address] OFFICE VISIT Date of Service: 09/10/23 MR#: [id number] Acct: [id number] Name: AMIRAH MCCRACKEN Rep #: [id number] : 1950 Provider: MARIAH sanchez Age/Sex: 73/M Location: [facility] Status: Signed Intake Vital Signs 08/29/23 06:32 Height 5 ft 7 in Intake Visit Reasons: HERNIA DOS 08/28 Chief Complaint: hernia f/u Accompanied by: Is patient in pain?: No Allergies tamsulosin Adverse Reaction (Intermediate, Verified 09/10/23 09:26) Other Medications levothyroxine 75 mcg tablet See Rx Instructions .Route .COMPLEX 01/22/18 [History Confirmed 08/23/23] paroxetine HCl 40 mg tablet (Paxil) 40 mg PO DAILY 01/22/18 [History Confirmed 08/23/23] donepezil 10 mg tablet 10 mg PO QHS 03/23/22 [History Confirmed 08/23/23] memantine 10 mg tablet (Namenda) 5 mg PO BID 03/23/22 [History Confirmed 07/06/23] B-complex with vitamin C 1 cap PO DAILY 10/18/22 [History Confirmed 08/23/23] magnesium oxide 400 mg PO DAILY 10/18/22 [History Confirmed 08/23/23] meloxicam 15 mg tablet 15 mg PO DAILY 10/18/22 [History Confirmed 08/23/23] Subjective Details: Patient is a 73 y/o M I am following s/p laparoscopic right inguinal hernia repair with mesh and umbilical hernia repair with mesh by Dr. Olivarez on 08/29/23. Patient tolerated the procedure well. Patient notes intermittent discomfort towards the right hip region, however the discomfort is not enough to take any pain medication. Patient denies any nausea, vomiting, fever. He notes his appetite has returned to normal and his bowel habits have returned to normal. Objective Details: Abdomen- soft, nontender. Incisions c/d/i. No erythema or infection noted. No recurrent hernia palpated. Coding Level of Care Code Global Post Op Diagnoses Inguinal hernia of right side without obstruction or gangrene K40.90 Umbilical hernia without obstruction or gangrene K42.9 [facility] Medical History (Updated 08/23/23 @ 09:45 by Vincenzo Parnell) Alzheimer disease Anxiety and depression GERD (gastroesophageal reflux disease) Hearing problem Hypoactive thyroid Surgical History (Updated 08/23/23 @ 09:45 by Vincenzo Parnell) History of inguinal hernia repair Family History (Updated 07/06/23 @ 13:37 by Vandana Rousseau) Mother Heart disease Hypertension Thyroid disorder Sister Breast cancer Sister Thyroid disorder Social History (Updated 07/06/23 @ 13:38 by Vandana Rousseau) household members: spouse current occupational status: retired Smoking Status: Former smoker alcohol intake: former details: WINE OCCASIONALLY 6 OZ A NIGHT substance use type: does not use additional social history: DOES USE ASPIRIN DOES NOT USE IBUPROFEN Assessment and Plan (No Qualifiers) Assessment and Plan (1) Inguinal hernia of right side without obstruction or gangrene: Status: Acute (2) Umbilical hernia without obstruction or gangrene: Status: Acute Plan Recommend no lifting greater than 20 pounds for 6 additional weeks from today Follow-up as needed 09/10/23 5578 Date Shiloh Schulzigner Signature: Date (if applicable) CC: Dr. Eamon Nicole MD Normal [facility] Discharge Instructionon Discharge Instruction [facility] Medical Records Department [address] [place] [address] Instructions for Home/Discharge Instructions 08/29/23 0657 MR#: [id number] Acct: [id number] Name: AMIRAH MCCRACKEN Rep #: [id number] : 1950 73 From: Apolinar Olivarez MD PCP: Dr. Eamon Nicole MD Status:[place] [facility] Discharge Instructions Procedure General Surgery Diet Discharge Diet: Light diet - advance as tolerated (if you have questions about your diet instructions, please talk to you doctor.) Activity Discharge Activity: May Not Drive (for 3-5 days or while taking narcotic pain medicine.) May shower in (days): 1 Lifting Restrictions: 10 pounds Dressing / Incision Call your doctor if your incision/area has: Continuous Slow Oozing, Sudden Increased Bleeding, Increased Pain/ Swelling, Increased Redness and Foul Smelling Discharge Call your doctor if you observe: Fever of 101 or Higher Suture Line Care: Avoid Pulling/Pushing and Avoid Pinching/Bending Additional Dressing/Incision Instructions:: Change or remove dressing in 4 days. Leave steri-strips in place for 1 week. Follow Up Care Please Follow Up With: Apolinar Olivarez MD When: Call [phone] to make an appointment to be seen in about 10 days. Test Results: Test results from this visit will be discussed in further detail at your follow-up appointment, if applicable. Discharge Plan Admission Attending Provider: Apolinar Olivarez Primary Care Provider: Eamon Nicole Chi Discharge Orders/Prescriptions Prescriptions: No Action levothyroxine 75 MCG tablet See Rx Instructions .ROUTE .COMPLEX Rx Instructions: 75 mcg orally ;1 tablet Sunday - Sunday paroxetine HCl [Paxil] 40 MG tablet 40 mg PO DAILY donepezil 10 mg Tablet 10 mg PO QHS memantine [Namenda] 10 mg tablet 5 mg PO BID Patient Comments: PT UNSURE, BRINGING LIST IN meloxicam 15 mg Tablet 15 mg PO DAILY Patient Comments: PER DR OLIVAREZ HOLD STARTING 08/22/23 UNTIL AFTER SURGERY ON 08/29/23 B-complex with vitamin C [Vit B Comp W/C] Capsule 1 cap PO DAILY magnesium oxide 400 mg magnesium Tablet 400 mg PO DAILY Other Ambulatory Orders: 12 Lead EKG (Routine) Location: None Selected Ordered By: Dr. Kranthi Pereira Referrals / Follow Up: Eamon Nicole Chi, MD [Primary Care Provider] - Disposition Disposition (needs filled in before D/C Order can be placed): Home, Self Care 08/29/23 1223 Apolinar Olivarez MD CC: Dr. Eamon Nicole MD Signed Normal [facility] Operative Reporton Operative Report [facility] Medical Records Department [address] [place] [address] Operative Report 08/29/23 0903 MR#: [id number] Acct: [id number] Name: AMIRAH MCCRACKEN Rep #: [id number] : 1950 73 From: Apolinar Olivarez MD PCP: Dr. Eamon Nicole MD Status:[facility] Location: [place] [address] Report of Operation Date of Procedure: 08/29/23 Pre-Operative Diagnosis: Right inguinal hernia and umbilical hernia Post-Operative Diagnosis: Indirect right inguinal hernia and umbilical hernia Surgery/Procedure Performed:: Laparoscopic right inguinal herniorrhaphy Bard 3D Max right large mesh lot number [id number], reference [id number], expiry date 01/23/[address] umbilical herniorrhaphy Lot number [id number], lot #[id number], expiry date 01/22/2025 Secure strap Lot number T [id number], expiry date November 2024 Description of Surgical Findings:: Timeout informed consent was obtained. 73-year-old gentleman was taken the operating placed on the table underwent general tracheal ovation esthesia. The abdomen was sterilely prepped and draped. Ancef 2 g given intravenously preoperatively. 0.5% Marcaine was used as local anesthetic. Skin sites were preanesthetized. A curvilinear incision made the inferior portion umbilicus sharp blunt sections used to identify the umbilical hernia tedious sharp and blunt sections required to free the umbilical skin. Then a 12 mm trocar inserted. The abdomen was insufflated with CO2 to a pressure of 10 mmHg pressure. A ilioinguinal nerve block was performed and laparoscopic control in the right groin. 5 mm trocars were placed in the left lower and right lower quadrants. There is evidence of adhesions of the sigmoid colon to a previous left lower quadrant groin hernia repair. I made no attempt to release those adhesions. The peritoneum superior and lateral to the internal ring on the right was incised carried immediately. In doing this there was some bleeding from the inferior epigastric vessels which were not tight up against the abdominal wall. Secured these with Hem-o-suresh clips and a grainy suture of 0 Vicryl making stab incision the abdominal wall and securing that. Total blood loss 100 cc. Bleeding was controlled. The peritoneum was then continued to be mobilized. Urinary bladder identified and protected as the direct indirect and femoral areas were completely dissected free. A quite sizable indirect hernia sac had to be tediously dissected free. Vas deferens identified dissected free. Irrigation was used to assure hemostasis and anatomy. I then placed a large Bard 3D max mesh to nicely cover the direct indirect and femoral area. I secured this laterally superiorly and medially with secure strap. I felt that I had excellent positioning and apposition of the mesh. I then used hemoblast overlying the raw area of dissection in the retroperitoneum to assure hemostasis and then approximated the peritoneum to itself with secure strap and Hem-o-suresh clips completely obliterating access to the mesh. The abdomen was irrigated and aspirated free. Damage allowed to deflate. Preperitoneal fatty tissue at the umbilicus was dissected free and then a 6.4 cm Ventralex mesh was inserted. The umbilical hernia defect measured 2 cm in diameter. Si mple sutures of 0 Nurolon was used to approximate the fascia and to secure the midportion of the mesh. Then I reinsufflated the abdomen and saw that the mesh needed little bit more securement and so you secure strap in order to do this I placed an additional 5 mm port in the epigastric area to get appropriate angulation to secure the Ventralex mesh flat with the abdominal wall which I was able to achieve. Greater omentum was made to be sure that it was overlying the small bowel that was placed as the omentum was guided down toward the pelvis. The groin area was inspected and remained intact and hemostatic. Trocars were removed under visualization and the abdomen deflated the CO2. Skin edges were approximated opted for Monocryl subdermal stitches. Steri-Strips Telfa OpSite dressings applied. Sponge and instrument and needle counts were reported the surgeon to be correct Specimens none. Drains none. Blood loss 100 cc Apolinar Olivarez M.D., F.A.C.S. Surgeon: Apolinar Olivarez Type of Anesthesia: General and Local Anesthesiologist: Miladys Ramirez 08/29/23 1130 Cosigner Signature (if applicable): CC: Dr. Apolinar Olivarez MD; Dr. Eamon Nicole MD Signed Normal [facility] 12 Lead EKGon 08-24-2023 12 Lead EKG [facility] Cardiovascular Services [address] [place] [address] 12 Lead EKG 08/24/23 0827 MR#: [id number] Acct: [id number] Name: AMIRAH MCCRACKEN Rep #: [id number] : 1950 73 From: Casa Holder MD Attending Dr: Dr. Apolinar Olivarez MD Status: VT E SDC Ordering Dr: Kranthi Pereira MD Date: 08/24/23 [place] [facility] Sex: M C Admitted: Test Reason : PREOP Blood Pressure : / mmHG Vent. Rate : 075 BPM Atrial Rate : 075 BPM P-R Int : 162 ms QRS Dur : 104 ms QT Int : 396 ms P-R-T Axes : 076 000 070 degrees QTc Int : 442 ms Normal sinus rhythm Normal ECG Confirmed by CASA HOLDER MD ([id number]), field map editor SHILOH STOREY ([id number]) on 08/24/2023 1:00:52 PM Referred By: Apolinar Olivarez Confirmed By:CASA HOLDER MD 08/24/23 1300 Date Casa Holder MD CC: Dr. Kranthi Pereira MD; Dr. Apolinar Olivarez MD; Dr. Eamon Nicole MD Signed Normal [facility] Absolute lymphocyte countOrd ered By: Kranthi Torresrafiq on 08-24-2023 Lymphocytes Auto (Unsp spec) [#/Vol] 0.99 10*3/uL 0.83-4.51 [facility] Automated lymphocyte count a s percentage of total leukocytesOrdered By: Kranthi Pereira on 08-24-2023 Lymphocytes/100 WBC Auto (Unsp spec) 16.9 % 19-41 [facility] Basic Metabolic Profile (BMP )on 08-24-2023 BUN/CRE 21.9 RATIO High 10-20 [facility] Comment on above: Performed By: #### L 100.0100, L500.2500, L501.9520 ####[facility] [address] [place], [address] CA,Total 9.3 mg/dL Normal 8.5-10.1 [facility] Comment on above: Performed By: #### L 100.0100, L500.2500, L501.9520 ####[facility] [address] [place], [address] Chloride [Moles/Vol] 107 mmol/L Normal 98-107 [facility] Comment on above: Performed By: #### L 100.0100, L500.2500, L501.9520 ####[facility] [address] [place], [address] CO2 [Moles/Vol] 28.0 mmol/L Normal 21.0-32.0 [facility] Comment on above: Performed By: #### L 100.0100, L500.2500, L501.9520 ####[facility] [address] [place], [address] Creatinine [Mass/Vol] 1.05 mg/dL Normal 0.70-1.30 [facility] Comment on above: Result Comment: The validity of the calculated GFR GFRAA in patients over 70 years has not been determined. Clinical correlation is essential. Performed By: #### L 100.0100, L500.2500, L501.9520 ####[facility] [address] [place], [address] EST GFR - AA 90 mL/min Normal >60 [facility] Comment on above: Result Comment: Afri can [place] GFR Calc Performed By: #### L 100.0100, L500.2500, L501.9520 ####[facility] [address] [place], [address] GAP 4 Low 5-15 [facility] Comment on above: Performed By: #### L 100.0100, L500.2500, L501.9520 ####[facility] [address] [place], [address] GFR/1.73 sq M.predicted among non-blacks MDRD (S/P/Bld) [Vol rate/Area] 74 mL/min/{1.73_m2} Normal >60 [facility] Comment on above: Result Comment: Non- GFR Calc Performed By: #### L 100.0100, L500.2500, L501.9520 ####[facility] [address] [place], [address] Glucose [Mass/Vol] 92 mg/dL Normal 74-106 [facility] Comment on above: Performed By: #### L 100.0100, L500.2500, L501.9520 ####[facility] [address] [place], [address] Potassium [Moles/Vol] 3.6 mmol/L Normal 3.5-5.1 [facility] Comment on above: Performed By: #### L 100.0100, L500.2500, L501.9520 ####[facility] [address] [place], [address] Sodium [Moles/Vol] 139 mmol/L Normal 136-145 [facility] Comment on above: Performed By: #### L 100.0100, L500.2500, L501.9520 ####[facility] [address] [place], [address] Urea nitrogen [Mass/Vol] 23 mg/dL High 7-18 [facility] Comment on above: Performed By: #### L 100.0100, L500.2500, L501.9520 ####[facility] [address] [place], [address] Basophil percentageOrdered B y: Kranthi Pereira on 08-24-2023 Basophils/100 WBC (Bld) 0.5 % 0-1 [facility] Chloride [Moles/Vol] 107 mmol/L 98-107 [facility] Eosinophils/100 WBC (Bld) 1.9 % 0-5 [facility] Glucose [Mass/Vol] 92 mg/dL 74-106 [facility] Hemoglobin (Bld) [Mass/Vol] 15.7 g/dL 13.0-16.5 [facility] Monocytes/100 WBC (Bld) 8.5 % 0-10 [facility] Neutrophils (Bld) [#/Vol] 4.2 10*3/uL 2.0-7.7 [facility] Neutrophils/100 WBC (Bld) 71.9 % 47-70 [facility] Potassium [Moles/Vol] 3.6 mmol/L 3.5-5.1 [facility] Sodium [Moles/Vol] 139 mmol/L 136-145 [facility] WBC (Bld) [#/Vol] 5.9 10*3/uL 4.4-11.0 [facility] CBC W/Diff, Automatedon 07-27 Absolute Lymph 0.99 X10 3/uL Normal 0.83-4.51 [facility] Comment on above: Performed By: #### L 100.0100, L500.2500, L501.9520 ####[facility] [address] [place], [address] Absolute Neut 4.2 X10 3/uL Normal 2.0-7.7 [facility] Comment on above: Performed By: #### L 100.0100, L500.2500, L501.9520 ####[facility] [address] [place], [address] Basophils/100 WBC (Bld) 0.5 % Normal 0-1 [facility] Comment on above: Performed By: #### L 100.0100, L500.2500, L501.9520 ####[facility] [address] [place], [address] Eosinophils/100 WBC (Bld) 1.9 % Normal 0-5 [facility] Comment on above: Performed By: #### L 100.0100, L500.2500, L501.9520 ####[facility] [address] [place], [address] Erythrocyte distribution width (RBC) [Ratio] 12.6 % Normal 11.6-14.6 [facility] Comment on above: Performed By: #### L 100.0100, L500.2500, L501.9520 ####[facility] [address] [place], [address] Hematocrit (Bld) [Volume fraction] 45.8 % Normal 40-54 [facility] Comment on above: Performed By: #### L 100.0100, L500.2500, L501.9520 ####[facility] [address] [place], [address] Hemoglobin (Bld) [Mass/Vol] 15.7 g/dL Normal 13.0-16.5 [facility] Comment on above: Performed By: #### L 100.0100, L500.2500, L501.9520 ####[facility] [address] [place], [address] IG% 0.300 Normal 0.0-0.9 [facility] Comment on above: Result Comment: IG% - Immature Granulocytes (promyelocytes, myelocytes and metamyelocytes) > 1% indicates that a LEFT SHIFT is Present. Performed By: #### L 100.0100, L500.2500, L501.9520 ####[facility] [address] [place], [address] Lymphocytes/100 WBC (Bld) 16.9 % Low 19-41 [facility] Comment on above: Performed By: #### L 100.0100, L500.2500, L501.9520 ####[facility] [address] [place], [address] MCH (RBC) [Entitic mass] 31.3 pg Normal 27.0-32.0 [facility] Comment on above: Performed By: #### L 100.0100, L500.2500, L501.9520 ####[facility] [address] [place], [address] MCHC (RBC) [Mass/Vol] 34.3 g/dL Normal 32-36 [facility] Comment on above: Performed By: #### L 100.0100, L500.2500, L501.9520 ####[facility] [address] [place], [address] MCV (RBC) [Entitic vol] 91.2 fL Normal 80-94 [facility] Comment on above: Performed By: #### L 100.0100, L500.2500, L501.9520 ####[facility] [address] [place], [address] Monocytes/100 WBC (Bld) 8.5 % Normal 0-10 [facility] Comment on above: Performed By: #### L 100.0100, L500.2500, L501.9520 ####[facility] [address] [place], [address] Neutrophils/100 WBC (Bld) 71.9 % High 47-70 [facility] Comment on above: Performed By: #### L 100.0100, L500.2500, L501.9520 ####[facility] [address] [place], [address] Nucleated RBC (Bld) [#/Vol] 0 10*3/uL Normal 0-5 [facility] Comment on above: Performed By: #### L 100.0100, L500.2500, L501.9520 ####[facility] [address] [place], [address] Platelet mean volume (Bld) [Entitic vol] 10.6 fL Normal 6.2-12.0 [facility] Comment on above: Performed By: #### L 100.0100, L500.2500, L501.9520 ####[facility] [address] [place], [address] Platelets (Bld) [#/Vol] 169 10*3/uL Normal 150-450 [facility] Comment on above: Performed By: #### L 100.0100, L500.2500, L501.9520 ####[facility] [address] [place], [address] RBC (Bld) [#/Vol] 5.02 10*6/uL Normal 4.6-6.2 [facility] Comment on above: Performed By: #### L 100.0100, L500.2500, L501.9520 ####[facility] [address] [place], [address] RDW SD 40.9 fl Normal 35.1-43.9 [facility] Comment on above: Performed By: #### L 100.0100, L500.2500, L501.9520 ####[facility] [address] [place], [address] WBC (Bld) [#/Vol] 5.9 10*3/uL Normal 4.4-11.0 [facility] Comment on above: Performed By: #### L 100.0100, L500.2500, L501.9567 ####[facility] [address] [place] [place], [address] Determination of erythrocyte mean corpuscular volume (MCV)Ordered By: Kranthilulu Pereira on 08-24-2023 MCV (RBC) [Entitic vol] 91.2 fL 80-94 [facility] Erythrocyte distribution wid th ratioOrdered By: Kranthi NhRambo on 08-24-2023 Erythrocyte distribution width (RBC) [Ratio] 12.6 % 11.6-14.6 [facility] Erythrocyte distribution wid th standard deviationOrdered By: Kranthi NhRambo on 08-24-2023 Erythrocyte distribution width (RBC) [Entitic vol] 40.9 fL 35.1-43.9 [facility] Hematocrit Auto (Bld) [Volum e fraction]Ordered By: Kranthilulu Pereira on 08-24-2023 Hematocrit (Bld) [Volume fraction] 45.8 % 40-54 [facility] Immature granulocytes/100 WB C Auto (Bld)Ordered By: Kranthilulu Pereira on 08-24-2023 Immature granulocytes/100 WBC (Bld) 0.300 % 0.0-0.9 [facility] Comment on above: IG% - Immature Granu locytes (promyelocytes, myelocytes and metamyelocytes) > 1% indicates that a LEFT SHIFT is Present. Laboratory - Chemistry and C hemistry - challengeOrdered By: Kranthi Pereira on 08-24-2023 CO2 [Moles/Vol] 28.0 mmol/L 21.0-32.0 [facility] Urea nitrogen/Creatinine [Mass ratio] 21.9 mg/mg 10-20 [facility] Laboratory - Hematology and Cell countsOrdered By: Kranthi Pereira on 08-24-2023 MCH (RBC) [Entitic mass] 31.3 pg 27.0-32.0 [facility] MCHC (RBC) [Mass/Vol] 34.3 g/dL 32-36 [facility] Nucleated RBC/100 WBC (Bld) [Ratio] 0 % 0-5 [facility] Platelet mean volume (Bld) [Entitic vol] 10.6 fL 6.2-12.0 [facility] Platelets (Bld) [#/Vol] 169 10*3/uL 150-450 [facility] No Panel InformationOrdered By: Kranthi Pereira on 08-24-2023 Estimated GFR (MDRD) Amer 90 mL/min >60 [facility] Comment on above: GFR Calc Estimated GFR (MDRD) Non-Af Amer 74 mL/min >60 [facility] Comment on above: Non- GFR Calc RBC Auto (Bld) [#/Vol]Ordere d By: Kranthi Pereira on 08-24-2023 RBC (Bld) [#/Vol] 5.02 10*6/uL 4.6-6.2 [facility] Serum or plasma calcium dayday urement (mass/volume)Ordered By: Kranthi Pereira on 08-24-2023 Calcium [Mass/Vol] 9.3 mg/dL 8.5-10.1 [facility] Serum or plasma creatinine m easurement (mass/volume)Ordered By: Kranthi Pereira on 08-24-2023 Creatinine [Mass/Vol] 1.05 mg/dL 0.70-1.30 [facility] Comment on above: The validity of the calculated GFR & GFRAA in patients over 70 years has not been determined. Clinical correlation is essential. Serum or plasma thyroid stim ulating hormone (TSH) measurement (units/volume)Ordered By: Kranthi Pereira on 08-24-2023 TSH Qn 1.15 uIU/mL 0.358-3.74 [facility] Serum or plasma urea nitroge n measurement (mass/volume)Ordered By: Kranthi Pereira on 08-24-2023 Urea nitrogen [Mass/Vol] 23 mg/dL 7-18 [facility] Thin prep Papanicolaou smear with manual screeningOrdered By: Kranthi Pereira on 08-24-2023 Thin prep Papanicolaou smear with manual screening 4 5-15 [facility] Thyroid Stim Hormone (TSH)on 08-24-2023 TSH 1.15 uIU/mL Normal 0.358-3.74 [facility] Comment on above: Performed By: #### L 100.0100, L500.2500, L501.9542 ####[facility] [address] [place], [address] Absolute lymphocyte countOrd ered By: Eamon Nicole on 06-20-2023 Lymphocytes Auto (Unsp spec) [#/Vol] 1.08 10*3/uL 0.83-4.51 [facility] Automated lymphocyte count a s percentage of total leukocytesOrdered By: Eamon Nicole on 06-20-2023 Lymphocytes/100 WBC Auto (Unsp spec) 16.8 % 19-41 [facility] Basophil percentageOrdered B y: Eamon Nicole on 06-20-2023 Basophils/100 WBC (Bld) 0.5 % 0-1 [facility] Bilirubin [Mass/Vol] 0.90 mg/dL 0.20-1.00 [facility] Comment on above: For patients on eltr ombopag therapy, use of Dimension [place] TBIL is not recommended. Chloride [Moles/Vol] 107 mmol/L 98-107 [facility] Eosinophils/100 WBC (Bld) 1.4 % 0-5 [facility] Glucose [Mass/Vol] 106 mg/dL 74-106 [facility] Comment on above: Fasting Glucose resu lt from 100 to 125 mg/dL suggests IMPAIRED HOMEOSTASIS per A.D.A. criteria. Hemoglobin (Bld) [Mass/Vol] 15.7 g/dL 13.0-16.5 [facility] Monocytes/100 WBC (Bld) 6.4 % 0-10 [facility] Neutrophils (Bld) [#/Vol] 4.8 10*3/uL 2.0-7.7 [facility] Neutrophils/100 WBC (Bld) 74.6 % 47-70 [facility] Potassium [Moles/Vol] 3.7 mmol/L 3.5-5.1 [facility] Protein [Mass/Vol] 6.8 g/dL 6.4-8.2 [facility] Sodium [Moles/Vol] 141 mmol/L 136-145 [facility] WBC (Bld) [#/Vol] 6.4 10*3/uL 4.4-11.0 [facility] Determination of erythrocyte mean corpuscular volume (MCV)Ordered By: Eamon Nciole on 06-20-2023 MCV (RBC) [Entitic vol] 94.9 fL 80-94 [facility] Erythrocyte distribution wid th ratioOrdered By: Eamon Nicole on 06-20-2023 Erythrocyte distribution width (RBC) [Ratio] 13.2 % 11.6-14.6 [facility] Erythrocyte distribution wid th standard deviationOrdered By: Eamon Nicole on 06-20-2023 Erythrocyte distribution width (RBC) [Entitic vol] 45.3 fL 35.1-43.9 [facility] Hematocrit Auto (Bld) [Volum e fraction]Or[facility] By[facility]23 Hematocrit (Bld) [Volume fraction] 47.9 % 40-54 [facility] Immature granulocytes/100 WB C Auto (Bld)Ordered By: Eamon Nicole 06-20-2023 Immature granulocytes/100 WBC (Bld) 0.300 % 0.0-0.9 [facility] Comment on above: IG% - Immature Granu locytes (promyelocytes, myelocytes and metamyelocytes) > 1% indicates that a LEFT SHIFT is Present. Laboratory - Chemistry and C hemistry - challengeOrdered By: [facility] 06-20-2023 Albumin/Globulin [Mass ratio] 1.3 {ratio} 0.9-2.4 [facility] ALP [Catalytic activity/Vol] 74 U/L 45-117 [facility] ALT [Catalytic activity/Vol] 46 U/L 16-61 [facility] CO2 [Moles/Vol] 29.0 mmol/L 21.0-32.0 [facility] Globulin (S) [Mass/Vol] 3.0 g/dL 2.2-4.2 [facility] Urea nitrogen/Creatinine [Mass ratio] 19.7 mg/mg 10-20 [facility] - Hematology and Cell countsOrdered By: Eamon Nicole 06-20-2023 MCH (RBC) [Entitic mass] 31.1 pg 27.0-32.0 [facility] MCHC (RBC) [Mass/Vol] 32.8 g/dL 32-36 [facility] Nucleated RBC/100 WBC (Bld) [Ratio] 0 % 0-5 [facility] Platelets (Bld) [#/Vol] 142 10*3/uL 150-450 [facility] No Panel InformationOrdered By: Eamon Nicole on 06-20-2023 Estimated GFR (MDRD) Amer 99 mL/min >60 [facility] Comment on above: GFR Calc Estimated GFR (MDRD) Non-Af Amer 82 mL/min >60 [facility] Comment on above: Non- GFR Calc Vitamin D 25-Hydroxy 28.4 ng/mL [facility] Comment on above: Vitamin D 25(OH) Sta tus Range Deficiency <20 ng/mL (50nmol/L) Insufficiency 20 - 30 ng/mL (50 - 75 nmol/L) Sufficiency 30 - 100 ng/mL (75 - 250 nmol/L) Toxicity >100 ng/mL (>250 nmol/L) Platelet mean volume Gus-Ec ker (Bld) [Entitic vol]Ordered By: Eamon Nicole on 06-20-2023 Platelet mean volume (Bld) [Entitic vol] 10.4 fL 6.2-12.0 [facility] RBC Auto (Bld) [#/Vol]Ordere d By: Eamon Nicole on 06-20-2023 RBC (Bld) [#/Vol] 5.05 10*6/uL 4.6-6.2 [facility] Serum or plasma calcium dayday urement (mass/volume)Ordered By: Eamon Nicole on 06-20-2023 Calcium [Mass/Vol] 8.9 mg/dL 8.5-10.1 [facility] Serum or plasma creatinine m easurement (mass/volume)Ordered By: Eamon Nicole on 06-20-2023 Creatinine [Mass/Vol] 0.96 mg/dL 0.70-1.30 [facility] Comment on above: The validity of the calculated GFR & GFRAA in patients over 70 years has not been determined. Clinical correlation is essential. Serum or plasma thyroid stim ulating hormone (TSH) measurement (units/volume)Ordered By: Eamon Nicole on 06-20-2023 TSH Qn 2.01 uIU/mL 0.358-3.74 [facility] Serum or plasma urea nitroge n measurement (mass/volume)Ordered By: Eamon Nicole on 06-20-2023 Urea nitrogen [Mass/Vol] 19 mg/dL 7-18 [facility] Thin prep Papanicolaou smear with manual screeningOrdered By: Eamon Nicole on 06-20-2023 Thin prep Papanicolaou smear with manual screening 3.8 g/dL 3.2-5.0 [facility] Thin prep Papanicolaou smear with manual screening 33 U/L 15-37 [facility] Thin prep Papanicolaou smear with manual screening 5 5-15 [facility] - Microbiology an d Antimicrobial susceptibilityOrdered By: Eamon Nicole on 05-31-2023 SARS-CoV-2 (COVID-19) RNA CHET+probe Ql (Unsp spec) [facility] Upper respiratory specimen i nfluenza virus type A, type B, and respiratory syncytialOrdered By: Eamon Nicole on 05-31-2023 FLUAV and FLUBV and RSV pnl CHET+probe (Upper resp) [facility] Absolute lymphocyte countOrd ered By: Dr. Nicole on 09-13-2022 Lymphocytes Auto (Unsp spec) [#/Vol] 1.10 10*3/uL 0.83-4.51 [facility] Basophil percentageOrdered B y: Dr. Nicole on 09-13-2022 Basophils/100 WBC (Bld) 0.4 % 0-1 [facility] Bilirubin [Mass/Vol] 0.40 mg/dL 0.20-1.00 [facility] Comment on above: For patients on eltr ombopag therapy, use of Dimension [place] TBIL is not recommended. Chloride [Moles/Vol] 109 mmol/L 98-107 [facility] Eosinophils/100 WBC (Bld) 1.9 % 0-5 [facility] Glucose [Mass/Vol] 83 mg/dL 74-106 [facility] Neutrophils (Bld) [#/Vol] 3.0 10*3/uL 2.0-7.7 [facility] Neutrophils/100 WBC (Bld) 64.6 % 47-70 [facility] Potassium [Moles/Vol] 4.1 mmol/L 3.5-5.1 [facility] Protein [Mass/Vol] 6.6 g/dL 6.4-8.2 [facility] Sodium [Moles/Vol] 139 mmol/L 136-145 [facility] WBC (Bld) [#/Vol] 4.7 10*3/uL 4.4-11.0 [facility] Blood erythrocytes count (nu mber/volume)Ordered By: Dr. Nicole on 09-13-2022 RBC (Bld) [#/Vol] 4.85 10*6/uL 4.6-6.2 [facility] Blood hemoglobin measurement (mass/volume)Ordered By: Dr. Nicole on 09-13-2022 Hemoglobin (Bld) [Mass/Vol] 15.1 g/dL 13.0-16.5 [facility] Blood lymphocytes/100 leukoc ytesOrdered By: Dr. Nicole on 09-13-2022 Lymphocytes/100 WBC (Bld) 23.5 % 19-41 [facility] Blood monocytes/100 leukocyt esOrdered By: Dr. Nicole on 09-13-2022 Monocytes/100 WBC (Bld) 9.4 % 0-10 [facility] Blood platelet mean volumeOr dered By: Dr. Nicole on 09-13-2022 Platelet mean volume (Bld) [Entitic vol] 11.6 fL 6.2-12.0 [facility] Determination of erythrocyte mean corpuscular volume (MCV)Ordered By: Dr. Nicole on 09-13-2022 MCV (RBC) [Entitic vol] 92.4 fL 80-94 [facility] Hematocrit Auto (Bld) [Volum e fraction]Ordered By: Dr. Nicole on 09-13-2022 Hematocrit (Bld) [Volume fraction] 44.8 % 40-54 [facility] - Chemistry and C hemistry - challengeOrdered By: Dr. Nicole on 09-13-2022 ALP [Catalytic activity/Vol] 70 U/L 45-117 [facility] ALT [Catalytic activity/Vol] 31 U/L 16-61 [facility] CO2 [Moles/Vol] 27.0 mmol/L 21.0-32.0 [facility] Globulin (S) [Mass/Vol] 2.8 g/dL 2.2-4.2 [facility] Urea nitrogen/Creatinine [Mass ratio] 32.4 mg/mg 10-20 [facility] - Hematology and Cell countsOrdered By: Dr. Nicole on 09-13-2022 Erythrocyte distribution width (RBC) [Entitic vol] 43.4 fL 35.1-43.9 [facility] Erythrocyte distribution width (RBC) [Ratio] 12.8 % 11.6-14.6 [facility] Immature granulocytes/100 WBC (Bld) 0.200 % 0.0-0.9 [facility] Comment on above: IG% - Immature Granu locytes (promyelocytes, myelocytes and metamyelocytes) > 1% indicates that a LEFT SHIFT is Present. MCH (RBC) [Entitic mass] 31.1 pg 27.0-32.0 [facility] Nucleated RBC/100 WBC (Bld) [Ratio] 0 % 0-5 [facility] MCHC Auto (RBC) [Mass/Vol]Or dered By: Dr. Nicole on 09-13-2022 MCHC (RBC) [Mass/Vol] 33.7 g/dL 32-36 [facility] No Panel InformationOrdered By: Dr. Nicole on 09-13-2022 Estimated GFR (MDRD) Amer 104 mL/min >60 [facility] Comment on above: GFR Calc Estimated GFR (MDRD) Non-Af Amer 86 mL/min >60 [facility] Comment on above: Non- GFR Calc Thyroid Stimulating Hormone (TSH) 1.27 uIU/mL 0.358-3.74 [facility] Vitamin D 25-Hydroxy 28.0 ng/mL [facility] Comment on above: Vitamin D 25(OH) Sta tus Range Deficiency <20 ng/mL (50nmol/L) Insufficiency 20 - 30 ng/mL (50 - 75 nmol/L) Sufficiency 30 - 100 ng/mL (75 - 250 nmol/L) Toxicity >100 ng/mL (>250 nmol/L) Platelets bldOrdered By: Dr. Nicole on 09-13-2022 Platelets (Bld) [#/Vol] 154 10*3/uL 150-450 [facility] Serum or plasma albumin dayday urement (mass/volume)Ordered By: Dr. Nicole on 09-13-2022 Albumin [Mass/Vol] 3.8 g/dL 3.2-5.0 [facility] Serum or plasma albumin/glob ulin mass ratioOrdered By: Dr. Nicole on 09-13-2022 Albumin/Globulin [Mass ratio] 1.4 {ratio} 0.9-2.4 [facility] Serum or plasma calcium dayday urement (mass/volume)Ordered By: Dr. Nicole on 09-13-2022 Calcium [Mass/Vol] 8.9 mg/dL 8.5-10.1 [facility] Serum or plasma creatinine m easurement (mass/volume)Ordered By: Dr. Nicole on 09-13-2022 Creatinine [Mass/Vol] 0.92 mg/dL 0.70-1.30 [facility] Comment on above: The validity of the calculated GFR & GFRAA in patients over 70 years has not been determined. Clinical correlation is essential. Serum or plasma urea nitroge n measurement (mass/volume)Ordered By: Dr. Nicole on 09-13-2022 Urea nitrogen [Mass/Vol] 30 mg/dL 7-18 [facility] Thin prep Papanicolaou smear with manual screeningOrdered By: Dr. Nicole on 09-13-2022 Thin prep Papanicolaou smear with manual screening 24 U/L 15-37 [facility] Thin prep Papanicolaou smear with manual screening 3 5-15 [facility] Ova and parasitesOrdered By: Dr. Nicole on 07-27-2022 Ova and parasites identified LM Nom (Unsp spec) [facility] Clostridium difficile detect ion by polymerase chain reactionOrdered By: Dr. Nicole on 07-21-2022 C. difficile DNA CHET+probe Ql (Unsp spec) [facility] No Panel InformationOrdered By: Dr. Nicole on 07-21-2022 Miscellaneous Test See comment [facility] Comment on above: TEST RESULT LIMITSSt ool CultureSalmonella/Shigella Screen Final report Result 1 No Salmonella or Shigella recovered. Campylobacter Culture Final report Result 1 No Campylobacter species isolated. E coli Shiga Toxin EIA Negative Negative __ TESTING PERFORMED AT [facility]. ORIGINAL REPORT ON FILE IN LAB CONTAINS ADDITIONAL TEST SITE INFORMATION. Stool gastrointestinal hemog lobin detection by immunologic methodOrdered By: Dr. Nicole on 07-21-2022 Lower GI hemoglobin IA Ql (Stl) [facility] Stool lactoferrin detection by immunoassayOrdered By: Dr. Nicole on 07-21-2022 Lactoferrin IA Ql (Stl) [facility] Absolute lymphocyte countOrd ered By: Dr. Nicole on 06-14-2022 Lymphocytes Auto (Unsp spec) [#/Vol] 1.15 10*3/uL 0.83-4.51 [facility] Basophil percentageOrdered B y: Dr. iNcole on 06-14-2022 Basophils/100 WBC (Bld) 0.3 % 0-1 [facility] Bilirubin [Mass/Vol] 0.70 mg/dL 0.20-1.00 [facility] Comment on above: For patients on eltr ombopag therapy, use of Dimension [place] TBIL is not recommended. Chloride [Moles/Vol] 102 mmol/L 98-107 [facility] Eosinophils/100 WBC (Bld) 1.2 % 0-5 [facility] Glucose [Mass/Vol] 75 mg/dL 74-106 [facility] Neutrophils (Bld) [#/Vol] 3.9 10*3/uL 2.0-7.7 [facility] Neutrophils/100 WBC (Bld) 66.3 % 47-70 [facility] Potassium [Moles/Vol] 3.5 mmol/L 3.5-5.1 [facility] Protein [Mass/Vol] 7.2 g/dL 6.4-8.2 [facility] Sodium [Moles/Vol] 137 mmol/L 136-145 [facility] WBC (Bld) [#/Vol] 5.9 10*3/uL 4.4-11.0 [facility] Blood erythrocytes count (nu mber/volume)Ordered By: Dr. Nicole on 06-14-2022 RBC (Bld) [#/Vol] 5.13 10*6/uL 4.6-6.2 [facility] Blood hemoglobin measurement (mass/volume)Ordered By: Dr. Nicole on 06-14-2022 Hemoglobin (Bld) [Mass/Vol] 15.4 g/dL 13.0-16.5 [facility] Blood lymphocytes/100 leukoc ytesOrdered By: Dr. Nicole on 06-14-2022 Lymphocytes/100 WBC (Bld) 19.5 % 19-41 [facility] Blood monocytes/100 leukocyt esOrdered By: Dr. Nicole on 06-14-2022 Monocytes/100 WBC (Bld) 12.5 % 0-10 [facility] Blood platelet mean volumeOr dered By: Dr. Nicole on 06-14-2022 Platelet mean volume (Bld) [Entitic vol] 11.1 fL 6.2-12.0 [facility] Determination of erythrocyte mean corpuscular volume (MCV)Ordered By: Dr. Nicole on 06-14-2022 MCV (RBC) [Entitic vol] 90.4 fL 80-94 [facility] Hematocrit Auto (Bld) [Volum e fraction]Ordered By: Dr. Nicole on 06-14-2022 Hematocrit (Bld) [Volume fraction] 46.4 % 40-54 [facility] - Chemistry and C hemistry - challengeOrdered By: Dr. Nicole on 06-14-2022 ALP [Catalytic activity/Vol] 69 U/L 45-117 [facility] ALT [Catalytic activity/Vol] 30 U/L 16-61 [facility] CO2 [Moles/Vol] 29.0 mmol/L 21.0-32.0 [facility] Globulin (S) [Mass/Vol] 2.9 g/dL 2.2-4.2 [facility] Urea nitrogen/Creatinine [Mass ratio] 21.2 mg/mg 10-20 [facility] - Hematology and Cell countsOrdered By: Dr. Nicole on 06-14-2022 Erythrocyte distribution width (RBC) [Entitic vol] 41.6 fL 35.1-43.9 [facility] Erythrocyte distribution width (RBC) [Ratio] 12.7 % 11.6-14.6 [facility] Immature granulocytes/100 WBC (Bld) 0.200 % 0.0-0.9 [facility] Comment on above: IG% - Immature Granu locytes (promyelocytes, myelocytes and metamyelocytes) > 1% indicates that a LEFT SHIFT is Present. MCH (RBC) [Entitic mass] 30.0 pg 27.0-32.0 [facility] Nucleated RBC/100 WBC (Bld) [Ratio] 0 % 0-5 [facility] MCHC Auto (RBC) [Mass/Vol]Or dered By: Dr. Nicole on 06-14-2022 MCHC (RBC) [Mass/Vol] 33.2 g/dL 32-36 [facility] No Panel InformationOrdered By: Dr. Nicole on 06-14-2022 Estimated GFR (MDRD) Amer 108 mL/min >60 [facility] Comment on above: GFR Calc Estimated GFR (MDRD) Non-Af Amer 89 mL/min >60 [facility] Comment on above: Non- GFR Calc Thyroid Stimulating Hormone (TSH) 3.00 uIU/mL 0.358-3.74 [facility] Vitamin D 25-Hydroxy 32.4 ng/mL [facility] Comment on above: Vitamin D 25(OH) Sta tus Range Deficiency <20 ng/mL (50nmol/L) Insufficiency 20 - 30 ng/mL (50 - 75 nmol/L) Sufficiency 30 - 100 ng/mL (75 - 250 nmol/L) Toxicity >100 ng/mL (>250 nmol/L) Platelets bldOrdered By: Dr. Nicole on 06-14-2022 Platelets (Bld) [#/Vol] 182 10*3/uL 150-450 [facility] Serum or plasma albumin dayday urement (mass/volume)Ordered By: Dr. Nicole on 06-14-2022 Albumin [Mass/Vol] 4.3 g/dL 3.2-5.0 [facility] Serum or plasma albumin/glob ulin mass ratioOrdered By: Dr. Nicole on 06-14-2022 Albumin/Globulin [Mass ratio] 1.5 {ratio} 0.9-2.4 [facility] Serum or plasma calcium dayday urement (mass/volume)Ordered By: Dr. Nicole on 06-14-2022 Calcium [Mass/Vol] 9.0 mg/dL 8.5-10.1 [facility] Serum or plasma creatinine m easurement (mass/volume)Ordered By: Dr. Nicole on 06-14-2022 Creatinine [Mass/Vol] 0.90 mg/dL 0.70-1.30 [facility] Comment on above: The validity of the calculated GFR & GFRAA in patients over 70 years has not been determined. Clinical correlation is essential. Serum or plasma urea nitroge n measurement (mass/volume)Ordered By: Dr. Nicole on 06-14-2022 Urea nitrogen [Mass/Vol] 19 mg/dL 12-12 [facility] Thin prep Papanicolaou smear with manual screeningOrdered By: Dr. Nicole on 06-14-2022 Thin prep Papanicolaou smear with manual screening 25 U/L 15 [facility] Thin prep Papanicolaou smear with manual screening 6 5-15 [facility] Absolute lymphocyte countOrd ered By: Dr. Nicole on 03-16-2022 Lymphocytes Auto (Unsp spec) [#/Vol] 0.70 10*3/uL 0.83-4.51 [facility] Basophil percentageOrdered B y: Dr. Nicole on 03-16-2022 Basophils/100 WBC (Bld) 0.4 % 0-1 [facility] Bilirubin [Mass/Vol] 0.70 mg/dL 0.20-1.00 [facility] Comment on above: For patients on eltr ombopag therapy, use of Dimension [place] TBIL is not recommended. Chloride [Moles/Vol] 107 mmol/L 98-107 [facility] Cholesterol [Mass/Vol] 166 mg/dL <200 [facility] Comment on above: <200 mg/dL Desirable 200-240 mg/dL Borderline >240 mg/dL High Risk Eosinophils/100 WBC (Bld) 0.9 % 0-5 [facility] Glucose [Mass/Vol] 94 mg/dL 74-106 [facility] Neutrophils (Bld) [#/Vol] 4.4 10*3/uL 2.0-7.7 [facility] Neutrophils/100 WBC (Bld) 79.6 % 47-70 [facility] Potassium [Moles/Vol] 4.2 mmol/L 3.5-5.1 [facility] Protein [Mass/Vol] 6.8 g/dL 6.4-8.2 [facility] Sodium [Moles/Vol] 142 mmol/L 136-145 [facility] Triglyceride [Mass/Vol] 123 mg/dL <199 [facility] Comment on above: The drugs N-Acetylcy steine and Metamizole may falsely depress this assay.Serum Triglycerides Reference Interval Normal <150 mg/dL Borderline high 150 - 199 mg/dL High 200 - 499 mg/dL Very High > or = 500 mg/dL WBC (Bld) [#/Vol] 5.6 10*3/uL 4.4-11.0 [facility] Blood erythrocytes count (nu mber/volume)Ordered By: Dr. Nicole on 03-16-2022 RBC (Bld) [#/Vol] 4.87 10*6/uL 4.6-6.2 [facility] Blood hemoglobin measurement (mass/volume)Ordered By: Dr. Nicole on 03-16-2022 Hemoglobin (Bld) [Mass/Vol] 15.4 g/dL 13.0-16.5 [facility] Blood lymphocytes/100 leukoc ytesOrdered By: Dr. Nicole on 03-16-2022 Lymphocytes/100 WBC (Bld) 12.6 % 19-41 [facility] Blood monocytes/100 leukocyt esOrdered By: Dr. Nicole on 03-16-2022 Monocytes/100 WBC (Bld) 6.3 % 0-10 [facility] Blood platelet mean volumeOr dered By: Dr. Nicole on 03-16-2022 Platelet mean volume (Bld) [Entitic vol] 11.8 fL 6.2-12.0 [facility] Determination of erythrocyte mean corpuscular volume (MCV)Ordered By: Dr. Nicole on 03-16-2022 MCV (RBC) [Entitic vol] 93.0 fL 80-94 [facility] Hematocrit Auto (Bld) [Volum e fraction]Ordered By: Dr. Nicole on 03-16-2022 Hematocrit (Bld) [Volume fraction] 45.3 % 40-54 [facility] - Chemistry and C hemistry - challengeOrdered By: Dr. Nicole on 03-16-2022 ALP [Catalytic activity/Vol] 62 U/L 45-117 [facility] ALT [Catalytic activity/Vol] 19 U/L 16-61 [facility] CO2 [Moles/Vol] 28.0 mmol/L 21.0-32.0 [facility] Globulin (S) [Mass/Vol] 3.0 g/dL 2.2-4.2 [facility] Urea nitrogen/Creatinine [Mass ratio] 22.8 mg/mg 03-16 [facility] - Hematology and Cell countsOrdered By: Dr. Nicole on 03-16-2022 Erythrocyte distribution width (RBC) [Entitic vol] 46.5 fL 35.1-43.9 [facility] Erythrocyte distribution width (RBC) [Ratio] 13.7 % 11.6-14.6 [facility] Immature granulocytes/100 WBC (Bld) 0.200 % 0.0-0.9 [facility] Comment on above: IG% - Immature Granu locytes (promyelocytes, myelocytes and metamyelocytes) > 1% indicates that a LEFT SHIFT is Present. MCH (RBC) [Entitic mass] 31.6 pg 27.0-32.0 [facility] Nucleated RBC/100 WBC (Bld) [Ratio] 0 % 0-5 [facility] MCHC Auto (RBC) [Mass/Vol]Or dered By: Dr. Nicole on 03-16-2022 MCHC (RBC) [Mass/Vol] 34.0 g/dL 32-36 [facility] No Panel InformationOrdered By: Dr. Nicole on 03-16-2022 Estimated GFR (MDRD) Amer 110 mL/min >60 [facility] Comment on above: GFR Calc Estimated GFR (MDRD) Non-Af Amer 91 mL/min >60 [facility] Comment on above: Non- GFR Calc Thyroid Stimulating Hormone (TSH) 2.87 uIU/mL 0.358-3.74 [facility] Vitamin D 25-Hydroxy 31.7 ng/mL [facility] Comment on above: Vitamin D 25(OH) Sta tus Range Deficiency <20 ng/mL (50nmol/L) Insufficiency 20 - 30 ng/mL (50 - 75 nmol/L) Sufficiency 30 - 100 ng/mL (75 - 250 nmol/L) Toxicity >100 ng/mL (>250 nmol/L) Platelets bldOrdered By: Dr. Nicole on 03-16-2022 Platelets (Bld) [#/Vol] 154 10*3/uL 150-450 [facility] Serum or plasma albumin dayday urement (mass/volume)Ordered By: Dr. Nicole on 03-16-2022 Albumin [Mass/Vol] 3.8 g/dL 3.2-5.0 [facility] Serum or plasma albumin/glob ulin mass ratioOrdered By: Dr. Nicole on 03-16-2022 Albumin/Globulin [Mass ratio] 1.3 {ratio} 0.9-2.4 [facility] Serum or plasma calcium dayday urement (mass/volume)Ordered By: Dr. Nicole on 03-16-2022 Calcium [Mass/Vol] 8.9 mg/dL 8.5-10.1 [facility] Serum or plasma cholesterol in HDL measurement (mass/volume)Ordered By: Dr. Nicole on 03-16-2022 Cholesterol in HDL [Mass/Vol] 44 mg/dL >40 [facility] Comment on above: The drugs N-Acetylcy steine and Metamizole may falsely depress this assay. Reference Range HDL <40 mg/dL Low HDL Cholesterol HDL >or= 60 mg/dL High HDL Cholesterol Serum or plasma cholesterol in VLDL measurement (mass/volume)Ordered By: Dr. Nicole on 03-16-2022 Cholesterol in VLDL [Mass/Vol] 25 mg/dL 5-40 [facility] Serum or plasma creatinine m easurement (mass/volume)Ordered By: Dr. Niocle on 03-16-2022 Creatinine [Mass/Vol] 0.88 mg/dL 0.70-1.30 [facility] Comment on above: The validity of the calculated GFR & GFRAA in patients over 70 years has not been determined. Clinical correlation is essential. Serum or plasma low density lipoprotein (LDL) cholesterol measurement (mass/volume)Ordered By: Dr. Nicole on 03-16-2022 Cholesterol in LDL [Mass/Vol] 97 mg/dL 0-130 [facility] Serum or plasma urea nitroge n measurement (mass/volume)Ordered By: Dr. Nicole on 03-16-2022 Urea nitrogen [Mass/Vol] 20 mg/dL 7-18 [facility] Thin prep Papanicolaou smear with manual screeningOrdered By: Dr. Nicole on 03-16-2022 Thin prep Papanicolaou smear with manual screening 15 U/L 15-37 [facility] Thin prep Papanicolaou smear with manual screening 7 5-15 [facility] Absolute lymphocyte counton 12-12-2021 Lymphocytes Auto (Unsp spec) [#/Vol] 1.23 10*3/uL 0.83-4.51 [facility] Work Phone: Basophil percentageon 2021 Basophils/100 WBC (Bld) 0.5 % 0-1 [facility] Work Phone: Bilirubin [Mass/Vol] 0.40 mg/dL 0.20-1.00 [facility] Work Phone: Comment on above: For patients on eltr ombopag therapy, use of Dimension [place] TBIL is not recommended. Chloride [Moles/Vol] 105 mmol/L 98-107 [facility] Work Phone: Cholesterol [Mass/Vol] 165 mg/dL <200 [facility] Work Phone: Comment on above: <200 mg/dL Desirable 200-240 mg/dL Borderline >240 mg/dL High Risk Eosinophils/100 WBC (Bld) 1.8 % 0-5 [facility] Work Phone: Glucose [Mass/Vol] 97 mg/dL 74-106 [facility] Work Phone: Neutrophils (Bld) [#/Vol] 4.4 10*3/uL 2.0-7.7 [facility] Work Phone: Neutrophils/100 WBC (Bld) 70.4 % 47-70 [facility] Work Phone: Potassium [Moles/Vol] 4.5 mmol/L 3.5-5.1 [facility] Work Phone: Comment on above: Slight Hemolysis, Re sult may be falsely increased. Protein [Mass/Vol] 7.0 g/dL 6.4-8.2 [facility] Work Phone: Sodium [Moles/Vol] 139 mmol/L 136-145 [facility] Work Phone: Triglyceride [Mass/Vol] 237 mg/dL <199 [facility] Work Phone: Comment on above: The drugs N-Acetylcy steine and Metamizole may falsely depress this assay.Serum Triglycerides Reference Interval Normal <150 mg/dL Borderline high 150 - 199 mg/dL High 200 - 499 mg/dL Very High > or = 500 mg/dL WBC (Bld) [#/Vol] 6.2 10*3/uL 4.4-11.0 [facility] Work Phone: Blood erythrocytes count (nu mber/volume)on 12-12-2021 RBC (Bld) [#/Vol] 5.02 10*6/uL 4.6-6.2 [facility] Work Phone: Blood hemoglobin measurement (mass/volume)on 12-12-2021 Hemoglobin (Bld) [Mass/Vol] 15.3 g/dL 13.0-16.5 [facility] Work Phone: Blood lymphocytes/100 leukoc yteson 12-12-2021 Lymphocytes/100 WBC (Bld) 19.9 % 19-41 [facility] Work Phone: Blood monocytes/100 leukocyt eson 12-12-2021 Monocytes/100 WBC (Bld) 7.1 % 0-10 [facility] Work Phone: Blood platelet mean volumeon 12-12-2021 Platelet mean volume (Bld) [Entitic vol] 11.3 fL 6.2-12.0 [facility] Work Phone: Determination of erythrocyte mean corpuscular volume (MCV)on 12-12-2021 MCV (RBC) [Entitic vol] 91.8 fL 80-94 [facility] Work Phone: Hematocrit Auto (Bld) [Volum e fraction]on 12-12-2021 Hematocrit (Bld) [Volume fraction] 46.1 % 40-54 [facility] Work Phone: Laboratory - Chemistry and C hemistry - challengeon 12-12-2021 ALP [Catalytic activity/Vol] 75 U/L 45-117 [facility] Work Phone: ALT [Catalytic activity/Vol] 24 U/L 16-61 [facility] Work Phone: CO2 [Moles/Vol] 28.0 mmol/L 21.0-32.0 [facility] Work Phone: Globulin (S) [Mass/Vol] 3.0 g/dL 2.2-4.2 [facility] Work Phone: Urea nitrogen/Creatinine [Mass ratio] 24.1 mg/mg 10-20 [facility] Work Phone: Laboratory - Hematology and Cell countson 12-12-2021 Erythrocyte distribution width (RBC) [Entitic vol] 42.7 fL 35.1-43.9 [facility] Work Phone: Erythrocyte distribution width (RBC) [Ratio] 12.9 % 11.6-14.6 [facility] Work Phone: Immature granulocytes/100 WBC (Bld) 0.300 % 0.0-0.9 [facility] Work Phone: Comment on above: IG% - Immature Granu locytes (promyelocytes, myelocytes and metamyelocytes) > 1% indicates that a LEFT SHIFT is Present. MCH (RBC) [Entitic mass] 30.5 pg 27.0-32.0 [facility] Work Phone: Nucleated RBC/100 WBC (Bld) [Ratio] 0 % 0-5 [facility] Work Phone: MCHC Auto (RBC) [Mass/Vol]on 12-12-2021 MCHC (RBC) [Mass/Vol] 33.2 g/dL 32-36 [facility] Work Phone: No Panel Informationon 12-12 Estimated GFR (MDRD) Amer 101 mL/min >60 [facility] Work Phone: Comment on above: GFR Calc Estimated GFR (MDRD) Non-Af Amer 83 mL/min >60 [facility] Work Phone: Comment on above: Non- GFR Calc Prostate Specific Antigen Screen 1.68 ng/mL 0.00-4.00 [facility] Work Phone: Comment on above: This test was perfor med using the TPSA assay method for [employer] chemistry system. Values obtained with differentassay methods cannot be used interchangably.When changing PSA assays in the course of monitoring apatient, additional sequential testing should be carriedout to confirm baseline values. Thyroid Stimulating Hormone (TSH) 3.35 uIU/mL 0.358-3.74 [facility] Work Phone: Vitamin D 25-Hydroxy 42.0 ng/mL [facility] Work Phone: Comment on above: Vitamin D 25(OH) Sta tus Range Deficiency <20 ng/mL (50nmol/L) Insufficiency 20 - 30 ng/mL (50 - 75 nmol/L) Sufficiency 30 - 100 ng/mL (75 - 250 nmol/L) Toxicity >100 ng/mL (>250 nmol/L) Platelets bldon 12-12-2021 Platelets (Bld) [#/Vol] 172 10*3/uL 150-450 [facility] Work Phone: Serum or plasma albumin dayday urement (mass/volume)on 12-12-2021 Albumin [Mass/Vol] 4.0 g/dL 3.2-5.0 [facility] Work Phone: Serum or plasma albumin/glob ulin mass ratioon 12-12-2021 Albumin/Globulin [Mass ratio] 1.3 {ratio} 0.9-2.4 [facility] Work Phone: Serum or plasma calcium dayday urement (mass/volume)on 12-12-2021 Calcium [Mass/Vol] 9.1 mg/dL 8.5-10.1 [facility] Work Phone: Serum or plasma cholesterol in HDL measurement (mass/volume)on 12-12-2021 Cholesterol in HDL [Mass/Vol] 39 mg/dL >40 [facility] Work Phone: Comment on above: The drugs N-Acetylcy steine and Metamizole may falsely depress this assay. Reference Range HDL <40 mg/dL Low HDL Cholesterol HDL >or= 60 mg/dL High HDL Cholesterol Serum or plasma cholesterol in VLDL measurement (mass/volume)on 12-12-2021 Cholesterol in VLDL [Mass/Vol] 47 mg/dL 5-40 [facility] Work Phone: Serum or plasma creatinine m easurement (mass/volume)on 12-12-2021 Creatinine [Mass/Vol] 0.95 mg/dL 0.70-1.30 [facility] Work Phone: Comment on above: The validity of the calculated GFR & GFRAA in patients over 70 years has not been determined. Clinical correlation is essential. Serum or plasma low density lipoprotein (LDL) cholesterol measurement (mass/volume)on 12-12-2021 Cholesterol in LDL [Mass/Vol] 79 mg/dL 0-130 [facility] Work Phone: Serum or plasma urea nitroge n measurement (mass/volume)on 12-12-2021 Urea nitrogen [Mass/Vol] 23 mg/dL 7-18 [facility] Work Phone: Thin prep Papanicolaou smear with manual screeningon 12-12-2021 Thin prep Papanicolaou smear with manual screening 22 U/L 15-37 [facility] Work Phone: Comment on above: Slight Hemolysis, Re sult may be falsely increased. Thin prep Papanicolaou smear with manual screening 6 5-15 [facility] Work Phone: TSH (THYROID STIMULATING HOR TRACE) ([id number])Ordered By: Air Cargo Specialist Supervisor on 03-16-2020 TSH Qn 2.160 {uIU/mL} Normal 0.450-4.50 0 [facility] Work Phone: Comment on above: PATIENT NOT FASTINGP ERFORMED BY: ENOC [facility] Yolfgy0108 Deshawn [facility] [id number] Curtis 01-29-2020 CNPN Telephone (NUAGAK) -------- AMIRAH MCCRACKEN ([id number]) 1950 M Date Time Provider Department 01/29/20 BABATUNDE MENDEZ During your visit today, we recorded the following information about you: Radha Amandaradha 01/29/2020 9:19 AM Signed Received referral from Dr. Torres for consult regarding patent's cervical stenosis. Called patient to schedule initial consult. In speaking with patient he seemed unaware of referral but did say that he has bad neck pain. I asked if he would like to be scheduled with a neurosurgeon and he was unreceptive to this. He stated that he has 4 dog to care for and until he has someone to care for them he does not want to schedule at this time. He also stated that his is in a penitentiary so she is unable to help with the dogs. He said he would contact his PCP if his neck pain worsened. Allergies As of Date: 01/29/2020 (No Known Allergies) Date Reviewed: 02/18/2009 Reviewed by: Yolanda Flores - Reviewed Reason for Visit: Initial Consult [665] Prescriptions as of 01/29/2020 Sig: MELOXICAM 7.5 MG TABLET PAROXETINE 40 MG TABLET * MULTI-VITAMIN ORAL Take by mouth. * NAPROXEN SODIUM 220 MG CAPSULE Take by mouth. 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 LIPID PANEL ([id number])Ordered B y: Air Cargo Specialist Supervisor on 12-04-2019 Cholesterol [Mass/Vol] 179 mg/dL Normal 100-199 [facility] Work Phone: Comment on above: PATIENT WAS FASTINGP ERFORMED BY: ENOC VoltDB[address] [place] [id number] Cholesterol in HDL [Mass/Vol] 44 mg/dL Normal [facility] Work Phone: Comment on above: PATIENT WAS FASTINGP ERFORMED BY: ENOC VoltDB70 [address]bl[address] [place] [id number] Cholesterol in LDL [Mass/Vol] 123 mg/dL Abnormal 0-99 [facility] Work Phone: Comment on above: PATIENT WAS FASTINGP ERFORMED BY: ENOC VoltDB[address] [place] [id number] Cholesterol in LDL/Cholesterol in HDL [Mass ratio] 2.8 {ratio} Normal 0.0-3.6 [facility] Work Phone: Comment on above: LDL/HDL Ratio Men Wo men 1/2 Avg.Risk 1.0 1.5 Avg.Risk 3.6 3.2 2X Avg.Risk 6.2 5.0 3X Avg.Risk 8.0 6.1 PATIENT WAS FASTINGP ERFORMED BY: ENOC Publisha6370 [address] [place] [id number] Cholesterol in VLDL [Mass/Vol] 12 mg/dL Normal 5-40 [facility] Work Phone: Comment on above: PATIENT WAS FASTINGP ERFORMED BY: ENOC LabLTG Exam Prep Platformrp Juxeyr[address] [place] [id number] Triglyceride [Mass/Vol] 60 mg/dL Normal 0-149 [facility] Work Phone: Comment on above: PATIENT WAS FASTINGP ERFORMED BY: ENOC [facility] Pjarnb17[address] RoadDublin [place] [id number] Metabolic Panel, Comprehensi ve ([id number])Ordered By: Air Cargo Specialist Supervisor on 12-04-2019 Albumin [Mass/Vol] 4.7 g/dL Normal 3.8-4.8 [facility] Work Phone: Comment on above: PATIENT WAS FASTINGP ERFORMED BY: ENOC [facility] Mqqacx4319 [address] RoadDublin [place] [id number] Albumin/Globulin [Mass ratio] 2.5 {ratio} Abnormal 1.2-2.2 [facility] Work Phone: Comment on above: PATIENT WAS FASTINGP ERFORMED BY: ENOC [facility] Doxlja2667 [address] RoadDublin [place] [id number] ALP [Catalytic activity/Vol] 88 [iU]/L Normal 39-117 [facility] Work Phone: Comment on above: PATIENT WAS FASTINGP ERFORMED BY: ENOC [facility] Ydnwwv6[address] RoadDublin [place] [id number] ALP [Catalytic activity/Vol] 88 U/L Normal 39-117 [facility]; [facility] Work Phone: Comment on above: PATIENT WAS FASTINGP ERFORMED BY: ENOC Valente Agenel94[address] RoadDublin [place] [id number] ALT [Catalytic activity/Vol] 26 [iU]/L Normal 0-44 [facility] Work Phone: Comment on above: PATIENT WAS FASTINGP ERFORMED BY: [facility] Oastua6595 [address] RoadDublin [place] [id number] ALT [Catalytic activity/Vol] 26 U/L Normal 0-44 [facility]; [facility] Work Phone: Comment on above: PATIENT WAS FASTINGP ERFORMED BY: ENOC LabCo Sixdwm99[address] RoadDublin [place] [id number] AST [Catalytic activity/Vol] 27 [iU]/L Normal 0-40 [facility] Work Phone: Comment on above: PATIENT WAS FASTINGP ERFORMED BY: ENOC [facility] Jnabeh8074 [address] RoadDublin [place] [id number] AST [Catalytic activity/Vol] 27 U/L Normal 0-40 [facility]; [facility] Work Phone: Comment on above: PATIENT WAS FASTINGP ERFORMED BY: ENOC [facility] Atecjh26[address] RoadDublin [place] [id number] Bilirubin [Mass/Vol] 0.4 mg/dL Normal 0.0-1.2 [facility] Work Phone: Comment on above: PATIENT WAS FASTINGP ERFORMED BY: ENOC [facility] Udxhsq8597 [address] RoadDublin [place] [id number] Calcium [Mass/Vol] 9.4 mg/dL Normal 8.6-10.2 [facility] Work Phone: Comment on above: PATIENT WAS FASTINGP ERFORMED BY: ENOC [facility] Pddidu4[address] RoadDublin [place] [id number] Chloride [Moles/Vol] 105 mmol/L Normal 96-106 [facility] Work Phone: Comment on above: PATIENT WAS FASTINGP ERFORMED BY: ENOC [facility] Xkvvjg9232 [address] RoadDublin [place] [id number] CO2 [Moles/Vol] 27 mmol/L Normal 20-[address] [facility] Work Phone: Comment on above: PATIENT WAS FASTINGP ERFORMED BY: ENOC [facility] Vjravj9093 [address] RoadDublin [place] [id number] Creatinine [Mass/Vol] 0.80 mg/dL Normal 0.76-1.27 [facility] Work Phone: Comment on above: PATIENT WAS FASTINGP ERFORMED BY: ENOC [facility] Hvvztz2667 [address] RoadDublin [place] [id number] GFR/1.73 sq M predicted among blacks CKD-EPI (S/P/Bld) [Vol rate/Area] 107 mL/min/1.73 Normal [facility] Work Phone: Comment on above: PATIENT WAS FASTINGP ERFORMED BY: CB [facility] [facility]in [place] [id number] GFR/1.73 sq M predicted among non-blacks CKD-EPI (S/P/Bld) [Vol rate/Area] 92 mL/min/1.73 Normal [facility] Work Phone: Comment on above: PATIENT WAS FASTINGP ERFORMED BY: ENOC [facility] Ptlisb0745 [facility] [id number] Globulin (S) [Mass/Vol] 1.9 g/dL Normal 1.5-4.5 [facility] Work Phone: Comment on above: PATIENT WAS FASTINGP ERFORMED BY: ENOC [facility] Yovrkg4204 [facility] [id number] Glucose [Mass/Vol] 97 mg/dL Normal 65-99 [facility] Work Phone: Comment on above: PATIENT WAS FASTINGP ERFORMED BY: ENOC [facility] Pegkii3853 [facility] [id number] Potassium [Moles/Vol] 4.6 mmol/L Normal 3.5-5.2 [facility] Work Phone: Comment on above: PATIENT WAS FASTINGP ERFORMED BY: ENOC [facility] Iesnog8186 [facility] [id number] Protein [Mass/Vol] 6.6 g/dL Normal 6.0-8.5 [facility] Work Phone: Comment on above: PATIENT WAS FASTINGP ERFORMED BY: [facility]6370 [facility] [id number] Sodium [Moles/Vol] 143 mmol/L Normal 134-144 [facility] Work Phone: Comment on above: PATIENT WAS FASTINGP ERFORMED BY: ENOC [facility]6370 [facility] [id number] Urea nitrogen [Mass/Vol] 21 mg/dL Normal 8-27 [facility] Work Phone: Comment on above: PATIENT WAS FASTINGP ERFORMED BY: ENOC [facility] Xtuayv8092 [facility] [id number] Urea nitrogen/Creatinine [Mass ratio] 26 mg/mg Abnormal 10-24 [facility] Work Phone: Comment on above: PATIENT WAS FASTINGP ERFORMED BY: [employer] Ptpxkz3090 [facility] [id number] PSA (PROSTATE SPECIFIC ANTIG EN) (V76.44)Ordered By: Air Cargo Specialist Supervisor on 12-04-2019 Prostate specific Ag [Mass/Vol] 1.4 ng/mL Normal 0.0-4.0 [facility] Work Phone: Comment on above: [employer] ECLIA methodol ogy. .According to the [place] [employer], Serum PSA shoulddecrease and remain at undetectable levels after radicalprostatectomy. The AUA defines biochemical recurrence as an initialPSA value 0.2 ng/mL or greater followed by a subsequent confirmatoryPSA value 0.2 ng/mL or greater.Values obtained with different assay methods or kits cannot be usedinterchangeably. Results cannot be interpreted as absolute evidenceof the presence or absence of malignant disease. PATIENT WAS FASTINGP ERFORMED BY: Publisha6370 [facility] [id number] TSH (THYROID STIMULATING HOR TRACE) ([id number])Ordered By: Air Cargo Specialist Supervisor on 12-04-2019 TSH Qn 0.841 {uIU/mL} Normal 0.450-4.50 0 [facility] Work Phone: Comment on above: PATIENT WAS FASTINGP ERFORMED BY: [employer] Qkufbr7494 [facility] [id number] CBC & PLATELETS (AUTO) ([id number])Ordered By: Air Cargo Specialist Supervisor on 04-14-2019 Erythrocyte distribution width (RBC) [Ratio] 13.4 % Normal 12.3-15.4 [facility] Work Phone: Comment on above: PATIENT NOT FASTINGP ERFORMED BY: [employer] Ghqzqt3038 [facility] [id number] Hematocrit (Bld) [Volume fraction] 46.0 % Normal 37.5-51.0 [facility] Work Phone: Comment on above: PATIENT NOT FASTINGP ERFORMED BY: CB [facility] Zvshje6231 [address] RoadDublin [place] [id number] Hemoglobin (Bld) [Mass/Vol] 15.9 g/dL Normal 13.0-17.7 [facility] Work Phone: Comment on above: PATIENT NOT FASTINGP ERFORMED BY: CB [facility] Lmqptb0186 [address] RoadDublin [place] [id number] MCH (RBC) [Entitic mass] 31.1 pg Normal 26.6-33.0 [facility] Work Phone: Comment on above: PATIENT NOT FASTINGP ERFORMED BY: CB [facility] Fyjjjx1973 [address] RoadD[address] [place] [id number] MCHC (RBC) [Mass/Vol] 34.6 g/dL Normal 31.5-35.7 [facility] Work Phone: Comment on above: PATIENT NOT FASTINGP ERFORMED BY: CB [facility] Nbkuro1277 [address] RoadDublin [place] [id number] MCV (RBC) [Entitic vol] 90 fL Normal 79-97 [facility] Work Phone: Comment on above: PATIENT NOT FASTINGP ERFORMED BY: CB [facility] Otgrng4278 [address] RoadDublin [place] [id number] Platelets (Bld) [#/Vol] 215 {x10E3/uL} Normal 150-450 [facility] Work Phone: Comment on above: PATIENT NOT FASTINGP ERFORMED BY: CB [facility] Qmvcsi6832 [address] RoadDublin [place] [id number] Platelets (Bld) [#/Vol] 215 10*3/uL Normal 150-450 [facility]; [facility] Work Phone: Comment on above: PATIENT NOT FASTINGP ERFORMED BY: CB [facility] Bkwrmz9826 [address] RoadDublin [place] [id number] RBC (Bld) [#/Vol] 5.12 {x10E6/uL} Normal 4.14-5.80 [facility] Work Phone: Comment on above: PATIENT NOT FASTINGP ERFORMED BY: ENOC LabOz Ramos[address]bl[address] [place] [id number] RBC (Bld) [#/Vol] 5.12 10*6/uL Normal 4.14-5.80 [facility]; [facility] Work Phone: Comment on above: PATIENT NOT FASTINGP ERFORMED BY: CB [facility] Vsidwc0683 [address] RoadAmerican Healthcare Systemsin [place] [id number] WBC (Bld) [#/Vol] 7.3 {x10E3/uL} Normal 3.4-10.8 [facility] Work Phone: Comment on above: PATIENT NOT FASTINGP ERFORMED BY: ENOC LabAlejandrarp Kwldue1114 [address] RoadDuin [place] [id number] WBC (Bld) [#/Vol] 7.3 10*3/uL Normal 3.4-10.8 [facility]; [facility] Work Phone: Comment on above: PATIENT NOT FASTINGP ERFORMED BY: ENOC [facility] Icplps[address] [facility]in [place] [id number] Metabolic Panel, Comprehensi ve ([id number])Ordered By: Air Cargo Specialist Supervisor on 04-14-2019 Albumin [Mass/Vol] 4.4 g/dL Normal 3.6-4.8 [facility] Work Phone: Comment on above: PATIENT NOT FASTINGP ERFORMED BY: ENOC [facility] Nfzphm[address] [facility]in [place] [id number] Albumin/Globulin [Mass ratio] 1.8 {ratio} Normal 1.2-2.2 [facility] Work Phone: Comment on above: PATIENT NOT FASTINGP ERFORMED BY: ENOC [facility] Bifepl7[address] [facility]in [place] [id number] ALP [Catalytic activity/Vol] 85 [iU]/L Normal 39-117 [facility] Work Phone: Comment on above: PATIENT NOT FASTINGP ERFORMED BY: CB [facility] Jqwoky1721 [address] RoadDublin [place] [id number] ALP [Catalytic activity/Vol] 85 U/L Normal 39-117 [facility]; [facility] Work Phone: Comment on above: PATIENT NOT FASTINGP ERFORMED BY: CB [facility] Btzmxg9719 [address] RoadDublin [place] [id number] ALT [Catalytic activity/Vol] 19 [iU]/L Normal 0-44 [facility] Work Phone: Comment on above: PATIENT NOT FASTINGP ERFORMED BY: CB [facility] Ftcdbm8149 [address] RoadDublin [place] [id number] ALT [Catalytic activity/Vol] 19 U/L Normal 0-44 [facility]; [facility] Work Phone: Comment on above: PATIENT NOT FASTINGP ERFORMED BY: [facility] Blvwtg0590 [address] RoadDublin [place] [id number] AST [Catalytic activity/Vol] 19 [iU]/L Normal 0-40 [facility] Work Phone: Comment on above: PATIENT NOT FASTINGP ERFORMED BY: [facility] Trlnvp7247 [address] RoadD[address] [place] [id number] AST [Catalytic activity/Vol] 19 U/L Normal 0-40 [facility]; [facility] Work Phone: Comment on above: PATIENT NOT FASTINGP ERFORMED BY: [facility] Vqhrhx6526 [address] RoadDublin [place] [id number] Bilirubin [Mass/Vol] 0.4 mg/dL Normal 0.0-1.2 Comp [facility] Work Phone: Comment on above: PATIENT NOT FASTINGP ERFORMED BY: CB [facility] Uekrgi1240 [address] RoadDublin [place] [id number] Calcium [Mass/Vol] 9.5 mg/dL Normal 8.6-10.2 [facility] Work Phone: Comment on above: PATIENT NOT FASTINGP ERFORMED BY: CB [facility] Gdbrvs6105 [address] RoadDublin [place] [id number] Chloride [Moles/Vol] 105 mmol/L Normal 96-106 Comp [facility] Work Phone: Comment on above: PATIENT NOT FASTINGP ERFORMED BY: CB [facility] Hbobaa27[address] [facility] [id number] CO2 [Moles/Vol] 22 mmol/L Normal 20-[address] [facility] Work Phone: Comment on above: PATIENT NOT FASTINGP ERFORMED BY: CB [facility] Ibzbrd05[address] [facility] [id number] Creatinine [Mass/Vol] 0.90 mg/dL Normal 0.76-1.27 [facility] Work Phone: Comment on above: PATIENT NOT FASTINGP ERFORMED BY: CB [facility] Dcmlod47[address] [facility] [id number] GFR/1.73 sq M predicted among blacks CKD-EPI (S/P/Bld) [Vol rate/Area] 103 mL/min/1.73 Normal [facility] Work Phone: Comment on above: PATIENT NOT FASTINGP ERFORMED BY: CB [facility] Qhsfba3638 [address] [facility] [id number] GFR/1.73 sq M predicted among non-blacks CKD-EPI (S/P/Bld) [Vol rate/Area] 89 mL/min/1.73 Normal [facility] Work Phone: Comment on above: PATIENT NOT FASTINGP ERFORMED BY: CB [facility] Hzvtdu4555 [address] [facility] [id number] Globulin (S) [Mass/Vol] 2.4 g/dL Normal 1.5-4.5 [facility] Work Phone: Comment on above: PATIENT NOT FASTINGP ERFORMED BY: CB [facility] Zptfvl2003 [address] [facility] [id number] Glucose [Mass/Vol] 99 mg/dL Normal 65-99 [facility] Work Phone: Comment on above: PATIENT NOT FASTINGP ERFORMED BY: CB [facility] Uwbywe9460 [facility] [id number] Potassium [Moles/Vol] 4.6 mmol/L Normal 3.5-5.2 [facility] Work Phone: Comment on above: PATIENT NOT FASTINGP ERFORMED BY: ENOC [facility] Rivgze6104 [facility] [id number] Protein [Mass/Vol] 6.8 g/dL Normal 6.0-8.5 [facility] Work Phone: Comment on above: PATIENT NOT FASTINGP ERFORMED BY: [facility]CoEast [facility] CenterMqhsrj8033 [facility] [id number] Sodium [Moles/Vol] 142 mmol/L Normal 134-144 [facility] Work Phone: Comment on above: PATIENT NOT FASTINGP ERFORMED BY: [facility]6370 [facility] [id number] Urea nitrogen [Mass/Vol] 23 mg/dL Normal 8-27 [facility] Work Phone: Comment on above: PATIENT NOT FASTINGP ERFORMED BY: [facility]6370 [facility] [id number] Urea nitrogen/Creatinine [Mass ratio] 26 mg/mg Abnormal 10-24 [facility] Work Phone: Comment on above: PATIENT NOT FASTINGP ERFORMED BY: [facility]6370 [facility] [id number] TSH (THYROID STIMULATING HOR TRACE) ([id number])Ordered By: Air Cargo Specialist Supervisor on 04-14-2019 TSH Qn 2.570 {uIU/mL} Normal 0.450-4.50 0 [facility] Work Phone: Comment on above: PATIENT NOT FASTINGP ERFORMED BY: [facility] Hevtda8959 [facility] [id number] CBC, Platelets & Auto Diff ( [id number])Ordered By: Air Cargo Specialist Supervisor on 08-07-2018 Basophils #/vol (Bld) 0.0 {x10E3/uL} Normal 0.0-0.2 [facility] Work Phone: Comment on above: PATIENT NOT FASTINGP ERFORMED BY: CB [facility] Tuweaw7502 [address] RoadDublin [place] [id number] Basophils (Bld) [#/Vol] 0.0 10*3/uL Normal 0.0-0.2 [facility]; [facility] Work Phone: Comment on above: PATIENT NOT FASTINGP ERFORMED BY: CB [facility] Wfloza5026 [address] RoadDublin [place] [id number] Basophils/100 WBC (Bld) 0 % Normal [facility] Work Phone: Comment on above: PATIENT NOT FASTINGP ERFORMED BY: CB [facility] Inigvd5200 [address] RoadDublin [place] [id number] Eosinophils #/vol (Bld) 0.2 {x10E3/uL} Normal 0.0-0.4 [facility] Work Phone: Comment on above: PATIENT NOT FASTINGP ERFORMED BY: CB [facility] Tbxlih7865 [address] RoadDublin [place] [id number] Eosinophils (Bld) [#/Vol] 0.2 10*3/uL Normal 0.0-0.4 [facility]; [facility] Work Phone: Comment on above: PATIENT NOT FASTINGP ERFORMED BY: CB [facility] Gesyjm1075 [address] RoadDublin [place] [id number] Eosinophils/100 WBC (Bld) 3 % Normal [facility] Work Phone: Comment on above: PATIENT NOT FASTINGP ERFORMED BY: CB [facility] Vczavd4857 [address] RoadDublin [place] [id number] Erythrocyte distribution width Ratio (RBC) 14.5 % Normal 12.3-15.4 [facility] Work Phone: Comment on above: PATIENT NOT FASTINGP ERFORMED BY: CB [facility] Vkiwyb4227 [address] RoadDublin [place] [id number] Hematocrit Volume Fraction (Bld) 43.9 % Normal 37.5-51.0 [facility] Work Phone: Comment on above: PATIENT NOT FASTINGP ERFORMED BY: ENOC LabCogeorgie LanceTvlxtj8950 [address] Roadblin [place] [id number] Hemoglobin mass conc (Bld) 14.3 g/dL Normal 13.0-17.7 [facility] Work Phone: Comment on above: PATIENT NOT FASTINGP ERFORMED BY: [facility] Rbbguf[address] RoadDublin [place] [id number] Immature granulocytes #/vol (Bld) 0.0 {x10E3/uL} Normal 0.0-0.1 [facility] Work Phone: Comment on above: PATIENT NOT FASTINGP ERFORMED BY: [facility] Umcmse8916 [address] Roadblin [place] [id number] Immature granulocytes (Bld) [#/Vol] 0.0 10*3/uL Normal 0.0-0.1 [facility]; [facility] Work Phone: Comment on above: PATIENT NOT FASTINGP ERFORMED BY: Valente Fiytit8783 [address] RoadAmerican Healthcare Systemsin [place] [id number] Immature granulocytes/100 WBC (Bld) 0 % Normal [facility] Work Phone: Comment on above: PATIENT NOT FASTINGP ERFORMED BY: Indu Lancelin6370 [address] Roadblin [place] [id number] Lymphocytes #/vol (Bld) 1.2 {x10E3/uL} Normal 0.7-3.1 [facility] Work Phone: Comment on above: PATIENT NOT FASTINGP ERFORMED BY: [facility] Padjxp8824 [address] Roadblin [place] [id number] Lymphocytes (Bld) [#/Vol] 1.2 10*3/uL Normal 0.7-3.1 [facility]; [facility] Work Phone: Comment on above: PATIENT NOT FASTINGP ERFORMED BY: [facility] Mufdbo7080 [address] RoadDublin [place] [id number] Lymphocytes/100 WBC (Bld) 17 % Normal [facility] Work Phone: Comment on above: PATIENT NOT FASTINGP ERFORMED BY: ENOC [facility] Rsdbxj2653 [address] Roadblin [place] [id number] MCH Entitic mass (RBC) 28.4 pg Normal 26.6-33.0 [facility] Internal Medicine Work Phone: Comment on above: PATIENT NOT FASTINGP ERFORMED BY: ENOC [facility] Tbrzot0891 [address] RoadDublin [place] [id number] MCHC mass conc (RBC) 32.6 g/dL Normal 31.5-35.7 [facility] Internal Medicine Work Phone: Comment on above: PATIENT NOT FASTINGP ERFORMED BY: ENOC [facility] Tpykwk3497 [address] [facility] Hospitalblin [place] [id number] MCV Entitic volume (RBC) 87 fL Normal 79-97 [facility] Work Phone: Comment on above: PATIENT NOT FASTINGP ERFORMED BY: ENOC [facility] Mgupuf7630 [address] RoadAmerican Healthcare Systemsin [place] [id number] Monocytes #/vol (Bld) 0.7 {x10E3/uL} Normal 0.1-0.9 [facility] Work Phone: Comment on above: PATIENT NOT FASTINGP ERFORMED BY: ENOC [facility] Eznjuj6339 [address] Roadblin [place] [id number] Monocytes (Bld) [#/Vol] 0.7 10*3/uL Normal 0.1-0.9 [facility]; [facility] Work Phone: Comment on above: PATIENT NOT FASTINGP ERFORMED BY: CB [facility] Mnfaac4970 [address] RoadAmerican Healthcare Systemsin [place] [id number] Monocytes/100 WBC (Bld) 10 % Normal [facility] Work Phone: Comment on above: PATIENT NOT FASTINGP ERFORMED BY: CB [facility] Rzcmdt1068 [address] Roadblin [place] [id number] Neutrophils #/vol (Bld) 4.7 {x10E3/uL} Normal 1.4-7.0 [facility] Work Phone: Comment on above: PATIENT NOT FASTINGP ERFORMED BY: CB [facility] Pneriq2991 [address] RoadDublin [place] [id number] Neutrophils (Bld) [#/Vol] 4.7 10*3/uL Normal 1.4-7.0 [facility]; [facility] Work Phone: Comment on above: PATIENT NOT FASTINGP ERFORMED BY: CB [facility] Wrdury6583 [address] RoadDublin [place] [id number] Neutrophils/100 WBC (Bld) 70 % Normal [facility] Work Phone: Comment on above: PATIENT NOT FASTINGP ERFORMED BY: CB [facility] Uozsgr5114 [address] RoadDublin [place] [id number] Platelets #/vol (Bld) 272 {x10E3/uL} Normal 150-379 [facility] Work Phone: Comment on above: PATIENT NOT FASTINGP ERFORMED BY: CB [facility] Lzjadc1447 [address] RoadDublin [place] [id number] Platelets (Bld) [#/Vol] 272 10*3/uL Normal 150-379 [facility]; [facility] Work Phone: Comment on above: PATIENT NOT FASTINGP ERFORMED BY: CB [facility] Ddiiix1579 [address] RoadDublin [place] [id number] RBC #/vol (Bld) 5.03 {x10E6/uL} Normal 4.14-5.80 Comp [facility] Work Phone: Comment on above: PATIENT NOT FASTINGP ERFORMED BY: CB [facility] Lrigwe5835 [address] RoadDublin [place] [id number] RBC (Bld) [#/Vol] 5.03 10*6/uL Normal 4.14-5.80 Compr ensive [facility] Medicine; [facility] Work Phone: Comment on above: PATIENT NOT FASTINGP ERFORMED BY: CB [facility] Whnrnz8205 [address] RoadDublin [place] [id number] WBC #/vol (Bld) 6.8 {x10E3/uL} Normal 3.4-10.8 Compr ensive Internal Medicine Work Phone: Comment on above: PATIENT NOT FASTINGP ERFORMED BY: CB [facility] Ztmdrh2239 [address] RoadDublin [place] [id number] WBC (Bld) [#/Vol] 6.8 10*3/uL Normal 3.4-10.8 [facility] Internal Medicine; [facility] Work Phone: Comment on above: PATIENT NOT FASTINGP ERFORMED BY: CB [facility] Gahdoa1429 [address] RoadDublin [place] [id number] Metabolic Panel, Comprehensi ve ([id number])Ordered By: Air Cargo Specialist Supervisor on 08-07-2018 Albumin mass conc 4.5 g/dL Normal 3.6-4.8 [facility] Work Phone: Comment on above: PATIENT NOT FASTINGP ERFORMED BY: CB [facility] Ahskmd4850 [address] RoadDublin [place] [id number] Albumin/Globulin mass ratio 1.7 {ratio} Normal 1.2-2.2 [facility] Work Phone: Comment on above: PATIENT NOT FASTINGP ERFORMED BY: CB [facility] Qnphdi4426 [address] RoadDublin [place] [id number] ALP [Catalytic activity/Vol] 98 U/L Normal 39-117 [facility]; [facility] Work Phone: Comment on above: PATIENT NOT FASTINGP ERFORMED BY: CB [facility] Fjkfbx8846 [address] RoadDublin [place] [id number] ALP enzyme act/vol 98 [iU]/L Normal 39-117 [facility] Internal Medicine Work Phone: Comment on above: PATIENT NOT FASTINGP ERFORMED BY: CB [facility] Arvzat2173 [address] RoadDublin [place] [id number] ALT [Catalytic activity/Vol] 18 U/L Normal 0-44 [facility]; [facility] Work Phone: Comment on above: PATIENT NOT FASTINGP ERFORMED BY: CB [facility] Mczkqh0406 [address] RoadDublin [place] [id number] ALT enzyme act/vol 18 [iU]/L Normal 0-44 Compre [facility] Internal Medicine Work Phone: Comment on above: PATIENT NOT FASTINGP ERFORMED BY: ENOC Indu Ramos6370 [address] RoadDublin [place] [id number] AST [Catalytic activity/Vol] 19 U/L Normal 0-40 [facility]; [facility] Work Phone: Comment on above: PATIENT NOT FASTINGP ERFORMED BY: ENOC Ramos6370 [address] RoadDublin [place] [id number] AST enzyme act/vol 19 [iU]/L Normal 0-40 [facility] Internal Medicine Work Phone: Comment on above: PATIENT NOT FASTINGP ERFORMED BY: ENOC Indu Jfjizp3972 [address] RoadDublin [place] [id number] Bilirubin mass conc 0.3 mg/dL Normal 0.0-1.2 Compr ehensive Internal Medicine Work Phone: Comment on above: PATIENT NOT FASTINGP ERFORMED BY: ENOC Indu Sglgge9096 [address] Roadblin [place] [id number] Calcium mass conc 9.5 mg/dL Normal 8.6-10.2 Compreh ensive Internal Medicine Work Phone: Comment on above: PATIENT NOT FASTINGP ERFORMED BY: ENOC Indu Gztaqf4131 [address] Roadblin [place] [id number] Chloride molar conc 103 mmol/L Normal 96-106 Compr ehensive Internal Medicine Work Phone: Comment on above: PATIENT NOT FASTINGP ERFORMED BY: ENOC Indu Lancelin6[address] RoadDublin [place] [id number] CO2 molar conc 23 mmol/L Normal 20-29 Comprehens danny Internal Medicine Work Phone: Comment on above: PATIENT NOT FASTINGP ERFORMED BY: ENOC [facility] LanceQobawy2653 [address] RoadDublin [place] [id number] Creatinine mass conc 0.95 mg/dL Normal 0.76-1.27 Comp rehensive Internal Medicine Work Phone: Comment on above: PATIENT NOT FASTINGP ERFORMED BY: ENOC Victor Fqrzqo3468 [address] [facility] [id number] GFR/1.73 sq M predicted among blacks CKD-EPI vol rate/area (S/P/Bld) 97 mL/min/1.73 Normal [facility] Work Phone: Comment on above: PATIENT NOT FASTINGP ERFORMED BY: Lab[facility]6370 [facility] [id number] GFR/1.73 sq M predicted among non-blacks CKD-EPI vol rate/area (S/P/Bld) 84 mL/min/1.73 Normal Comprehensiv e Internal Medicine Work Phone: Comment on above: PATIENT NOT FASTINGP ERFORMED BY: ENOC Valente Yducvf4906 [facility] [id number] Globulin mass conc (S) 2.6 g/dL Normal 1.5-4.5 Co mprehensive Internal Medicine Work Phone: Comment on above: PATIENT NOT FASTINGP ERFORMED BY: Valente Tjdpod4161 [facility] [id number] Glucose mass conc 87 mg/dL Normal 65-99 Compreh ensive Internal Medicine Work Phone: Comment on above: PATIENT NOT FASTINGP ERFORMED BY: ENOC Valente Ruzdld8634 [facility] [id number] Potassium molar conc 4.7 mmol/L Normal 3.5-5.2 Comp rehensive Internal Medicine Work Phone: Comment on above: PATIENT NOT FASTINGP ERFORMED BY: ValenteEast Orange VA Medical CenterPuafjs1159 [facility] [id number] Protein mass conc 7.1 g/dL Normal 6.0-8.5 Compreh ensive Internal Medicine Work Phone: Comment on above: PATIENT NOT FASTINGP ERFORMED BY: ENOC LabAlejandra Locxlp3810 [facility] [id number] Sodium molar conc 144 mmol/L Normal 134-144 Compreh ensive Internal Medicine Work Phone: Comment on above: PATIENT NOT FASTINGP ERFORMED BY: Valenterp Ylolji4133 [facility] [id number] Urea nitrogen mass conc 21 mg/dL Normal 8-27 [facility] Work Phone: Comment on above: PATIENT NOT FASTINGP ERFORMED BY: ENOC Victor Qtikuv5270 [facility] [id number] Urea nitrogen/Creatinine mass ratio 22 mg/mg Normal 10-24 [facility] Work Phone: Comment on above: PATIENT NOT FASTINGP ERFORMED BY: [facility]ysEll[facility] Dvuada3184 [facility] [id number] PSA (PROSTATE SPECIFIC ANTIG EN) (V76.44)Ordered By: Air Cargo Specialist Supervisor on 08-07-2018 Prostate specific Ag mass conc 1.3 ng/mL Normal 0.0-4.0 [facility] Work Phone: Comment on above: [employer] ECLIA methodol ogy. .According to the [place] [employer], Serum PSA shoulddecrease and remain at undetectable levels after radicalprostatectomy. The AUA defines biochemical recurrence as an initialPSA value 0.2 ng/mL or greater followed by a subsequent confirmatoryPSA value 0.2 ng/mL or greater.Values obtained with different assay methods or kits cannot be usedinterchangeably. Results cannot be interpreted as absolute evidenceof the presence or absence of malignant disease. PATIENT NOT FASTINGP ERFORMED BY: FemasysEaton Rapids Medical Center6370 [facility] [id number] TSH (THYROID STIMULATING HOR TRACE) ([id number])Ordered By: Air Cargo Specialist Supervisor on 08-07-2018 Thyrotropin Qn 1.880 {uIU/mL} Normal 0.450-4.50 0 [facility] Work Phone: Comment on above: PATIENT NOT FASTINGP ERFORMED BY: FemasysE[facility] Rapids [facility] Center6370 [facility] [id number] T3, FREE (TRIDOTHYRONINE) ([id number])Ordered By: Air Cargo Specialist Supervisor on 05-30-2018 T3 free mass conc 2.8 pg/mL Normal 2.0-4.4 Compreh ensive Internal Medicine Work Phone: Comment on above: PATIENT NOT FASTINGP ERFORMED BY: [facility] Uhdpec6436 [facility] [id number] T4, FREE (THYROXINE) ([id number]) Ordered By: Air Cargo Specialist Supervisor on 05-30-2018 T4 free mass conc 1.01 ng/dL Normal 0.82-1.77 Compreh ensive Internal Medicine Work Phone: Comment on above: PATIENT NOT FASTINGP ERFORMED BY: [facility] Mmvjah1329 [address] [facility] [id number] TSH (THYROID STIMULATING HOR TRACE) ([id number])Ordered By: Air Cargo Specialist Supervisor on 05-30-2018 Thyrotropin Qn 0.828 {uIU/mL} Normal 0.450-4.50 0 [facility] Work Phone: Comment on above: PATIENT NOT FASTINGP ERFORMED BY: [facility] Otjeqd2166 [facility] [id number] Urinalysis, CompleteOrdered By: Air Cargo Specialist Supervisor on 05-27-2018 Protein mass conc (U) Negative Normal Com prehensive Internal Medicine Work Phone: Comment on above: Order Date: 05/27/18 How was Urine Obtained? [facility] Zunoyhhthx[address] [employer] [place], [place], [phone] RBC #/vol (U) 50-100 SEEN Normal 0-5 Comprehens danny Internal Medicine Work Phone: Comment on above: Order Date: 05/27/18 How was Urine Obtained? [facility] Rpztmcefwm[address] [employer] [place], [place], [phone] Urinalysis complete panel - Urine Normal Normal [facility] Work Phone: Comment on above: Order Date: 05/27/18 How was Urine Obtained? [facility] Igxmmuqezv7[address] [employer] [place], [place], [phone] Urinalysis complete panel - Urine Cloudy Normal [facility] Work Phone: Comment on above: Order Date: 05/27/18 How was Urine Obtained? [facility] Jsrpwfdzyw[address] [place], [phone] Urinalysis complete panel - Urine Yellow Normal [facility] Work Phone: Comment on above: Order Date: 05/27/18 How was Urine Obtained? [facility] Ojgqvnmasw[address] [place], [phone] Urinalysis complete panel - Urine Negative Normal [facility] Work Phone: Comment on above: Order Date: 05/27/18 How was Urine Obtained? [facility] Yngqzwbzhq549[address] [place], [phone] Urinalysis complete panel - Urine 0-5 SEEN Normal 0-5 [facility] Work Phone: Comment on above: Order Date: 05/27/18 How was Urine Obtained? [facility] Fqwgbbzggs78[address] [employer] [place], [place], [phone] Urinalysis complete panel - Urine 0 SEEN Normal 0-5 [facility] Work Phone: Comment on above: Order Date: 05/27/18 How was Urine Obtained? [facility] Xlgnmzyrcg6177 [address] [place], [place], [phone] Urinalysis complete panel - Urine 8.0 1 Normal 5.0 - 8.0 [facility] Work Phone: Comment on above: Order Date: 05/27/18 How was Urine Obtained? [facility] Anikrtotvw[address] [place], [phone] Urinalysis complete panel - Urine 1+ PHOS Normal [facility] Work Phone: Comment on above: Order Date: 05/27/18 How was Urine Obtained? [facility] [address] [place], [phone] Urinalysis complete panel - Urine 1.015 1 Normal 1.002-1.03 0 [facility] Work Phone: Comment on above: Order Date: 05/27/18 How was Urine Obtained? [facility] Qgaitsvhfg0987 [address] [employer] [place], [place], [phone] Urinalysis complete panel - Urine 250 /ul Abnormal [facility] Work Phone: Comment on above: Order Date: 05/27/18 How was Urine Obtained? [facility] Vqqgwapsfe2257 [address] [employer] [place], [place], [phone] Basic Metabolic Profile (BMP )Ordered By: Air Cargo Specialist Supervisor on 04-22-2018 Basic metabolic 2000 panel 86 mL/min Normal [facility] Work Phone: Comment on above: Non- GFR Calc REDRAW. PREVIOUS SPE CIMEN WAS REJECTED FOR TESTING DUE TOHEMOLYSIS. SPECIMEN WAS DISCARDED. 04/22/18 0531 Leno Norris.'TROP' Serial specimen #1, #2, #3, or #4: [address] [place] [address] [address]agp[address] [employer] [place], [place], [phone] Basic metabolic 2000 panel 144 mmol/L Normal 136-145 [facility] Work Phone: Comment on above: REDRAW. PREVIOUS SPE CIMEN WAS REJECTED FOR TESTING DUE TOHEMOLYSIS. SPECIMEN WAS DISCARDED. 04/22/18 0531 Leno Norris.'TROP' Serial specimen #1, #2, #3, or #4: [address] [place] [address] Cuiygbsbbq6024 [address] [employer] [place], [place], [address] Basic metabolic 2000 panel 26.0 mmol/L Normal 21.0-32.0 [facility] Work Phone: Comment on above: REDRAW. PREVIOUS SPE CIMEN WAS REJECTED FOR TESTING DUE TOHEMOLYSIS. SPECIMEN WAS DISCARDED. 04/22/18 0531 Leno Norris.'TROP' Serial specimen #1, #2, #3, or #4: [address] [place] [address] [address]qexzbuqf8247 [address] [employer] [place], [place], [phone] Basic metabolic 2000 panel 108 mg/dL Abnormal 74-106 [facility] Work Phone: Comment on above: Fasting Glucose resu lt from 100 to 125 mg/dLsuggests IMPAIRED HOMEOSTASIS per A.D.A. criteria.Please note revised GLUCOSE reference range [id number]/02/2018. REDRAW. PREVIOUS SPE CIMEN WAS REJECTED FOR TESTING DUE TOHEMOLYSIS. SPECIMEN WAS DISCARDED. 04/22/18 0531 Leno Norris.'TROP' Serial specimen #1, #2, #3, or #4: [address] [place] [address] [employer] [place], [place], [phone] Basic metabolic 2000 panel 23 mg/dL Abnormal 7-18 [facility] Work Phone: Comment on above: REDRAW. PREVIOUS SPE CIMEN WAS REJECTED FOR TESTING DUE TOHEMOLYSIS. SPECIMEN WAS DISCARDED. 04/22/1874 eLno Norrsi.'TROP' Serial specimen #1, #2, #3, or #4: [address] [place] [address] [employer] [place], [place], [phone] Basic metabolic 2000 panel 0.94 mg/dL Normal 0.70-1.30 [facility] Work Phone: Comment on above: The validity of the calculated GFR AND GFRAA in patients over70 years has not been determined. Clinical correlation isessential. REDRAW. PREVIOUS SPE CIMEN WAS REJECTED FOR TESTING DUE TOHEMOLYSIS. SPECIMEN WAS DISCARDED. 04/22/1831 Leno Norris.'TROP' Serial specimen #1, #2, #3, or #4: [address] [place] [address] [place], [address] Basic metabolic 2000 panel 8.5 mg/dL Normal 8.5-10.1 [facility] Work Phone: Comment on above: REDRAW. PREVIOUS SPE CIMEN WAS REJECTED FOR TESTING DUE TOHEMOLYSIS. SPECIMEN WAS DISCARDED. 04/22/18 0531 Leno Norris.'TROP' Serial specimen #1, #2, #3, or #4: [address] [place] [address] [employer] [place], [place], [phone] Basic metabolic 2000 panel 24.6 {RATIO} Abnormal 10-20 [facility] Work Phone: Comment on above: REDRAW. PREVIOUS SPE CIMEN WAS REJECTED FOR TESTING DUE TOHEMOLYSIS. SPECIMEN WAS DISCARDED. 04/22/18530 Leno Byrneund.'TROP' Serial specimen #1, #2, #3, or #4: [address] [place] [address] [employer] [place], [phone] Basic metabolic 2000 panel 108 mmol/L Abnormal 98-107 [facility] Work Phone: Comment on above: REDRAW. PREVIOUS SPE CIMEN WAS REJECTED FOR TESTING DUE TOHEMOLYSIS. SPECIMEN WAS DISCARDED. 04/22/18530 Leno Byrneund.'TROP' Serial specimen #1, #2, #3, or #4: [address] [place] [address] [employer] [place], [place], [phone] Basic metabolic 2000 panel 73.25 ml/min Normal [facility] Work Phone: Comment on above: REDRAW. PREVIOUS SPE CIMEN WAS REJECTED FOR TESTING DUE TOHEMOLYSIS. SPECIMEN WAS DISCARDED. 04/22/18530 Leno Norris.'TROP' Serial specimen #1, #2, #3, or #4: [address] [place] [address] [employer] [place], [place], [phone] Basic metabolic 2000 panel 3.6 mmol/L Normal 3.5-5.1 [facility] Work Phone: Comment on above: REDRAW. PREVIOUS SPE CIMEN WAS REJECTED FOR TESTING DUE TOHEMOLYSIS. SPECIMEN WAS DISCARDED. 04/22/1831 Leno Floresemund.'TROP' Serial specimen #1, #2, #3, or #4: [address] [place] [address] [employer] [place], [place], [phone] Basic metabolic 2000 panel 104 mL/min Normal [facility] Work Phone: Comment on above: GFR Calc REDRAW. PREVIOUS SPE CIMEN WAS REJECTED FOR TESTING DUE TOHEMOLYSIS. SPECIMEN WAS DISCARDED. 04/22/18530 Leno Norris.'TROP' Serial specimen #1, #2, #3, or #4: [address] [place] [address] [employer] [place], [place], [phone] Basic metabolic 2000 panel 10 1 Normal 5-15 [facility] Work Phone: Comment on above: REDRAW. PREVIOUS SPE CIMEN WAS REJECTED FOR TESTING DUE TOHEMOLYSIS. SPECIMEN WAS DISCARDED. 04/22/18530 Leno Norris.'TROP' Serial specimen #1, #2, #3, or #4: [address] [place] [address] [employer] [place], [place], [phone] CBC W/Diff, AutomatedOrdered By: Air Cargo Specialist Supervisor on 04-22-2018 Absolute Neut 3.3 {X10_3/uL} Normal 2.0-7.7 Compreh ensive Internal Medicine Work Phone: Comment on above: [facility] [address] [place], [address] Basophils/100 WBC (Bld) 0.2 % Normal 0-1 [facility] Work Phone: Comment on above: [facility] [address] [place], [address] Basophils/100 WBC Auto (Bld) 0.2 % Normal 0-1 [facility] Work Phone: Eosinophils/100 WBC (Bld) 2.5 % Normal 0-5 [facility] Work Phone: Comment on above: [facility] [address] [place], [address] Eosinophils/100 WBC Auto (Bld) 2.5 % Normal 0-5 [facility] Work Phone: Erythrocyte distribution width Auto Ratio (RBC) 14.8 % Abnormal 11.6-14.6 [facility] Work Phone: Erythrocyte distribution width Ratio (RBC) 14.8 % Abnormal 11.6-14.6 [facility] Work Phone: Comment on above: [facility] [address] [employer] [place], [place], [phone] Hematocrit Auto Volume Fraction (Bld) 41.4 % Normal 40-54 [facility] Work Phone: Hematocrit Volume Fraction (Bld) 41.4 % Normal 40-54 [facility] Work Phone: Comment on above: [facility] [address] [employer] [place], [place], [phone] Hemoglobin mass conc (Bld) 13.9 g/dL Normal 13.0-16.5 [facility] Work Phone: Comment on above: [facility] [address] [place], [address] IM GRAN % 0.200 % Normal 0.0-0.9 [facility] Work Phone: Comment on above: IG% - Immature Granu locytes (promyelocytes, myelocytes andmetamyelocytes) > 1% indicates that a LEFT SHIFT is Present. [facility] [address] [employer] [place], [place], [phone] Lymphocytes (Bld) [#/Vol] 1.01 {X10_3/ul} Normal 0.83-4.51 [facility] Work Phone: Comment on above: [facility] [address] [place], [address] Lymphocytes/100 WBC (Bld) 21.0 % Normal 19-41 [facility] Work Phone: Comment on above: [facility] [address] [place], [address] Lymphocytes/100 WBC Auto (Bld) 21.0 % Normal 19-41 [facility] Work Phone: MCH Auto Entitic mass (RBC) 27.8 pg Normal 27.0-32.0 [facility] Work Phone: MCH Entitic mass (RBC) 27.8 pg Normal 27.0-32.0 [facility] josephensive Internal Medicine Work Phone: Comment on above: [facility] [address] [place], [address] MCHC Auto mass conc (RBC) 33.6 {g/gl} Normal 32-36 [facility] Work Phone: MCHC mass conc (RBC) 33.6 {g/gl} Normal 32-36 [facility] prehensive Internal Medicine Work Phone: Comment on above: [facility] [address] [employer] [place], [phone] MCV Auto Entitic volume (RBC) 82.8 fL Normal 80-94 [facility] Work Phone: MCV Entitic volume (RBC) 82.8 fL Normal 80-94 [facility] Work Phone: Comment on above: [facility] [address] [place], [address] Monocytes/100 WBC (Bld) 7.9 % Normal 0-10 [facility] Work Phone: Comment on above: [facility] [address] [place], [address] Monocytes/100 WBC Auto (Bld) 7.9 % Normal 0-10 [facility] Work Phone: Neutrophils/100 WBC (Bld) 68.2 % Normal 47-70 [facility] Work Phone: Comment on above: [facility] [address] [place], [address] Neutrophils/100 WBC Auto (Bld) 68.2 % Normal 47-70 [facility] Work Phone: Platelet mean volume Auto Entitic volume (Bld) 10.7 fL Normal 6.2-12.0 [facility] Work Phone: Platelet mean volume Entitic volume (Bld) 10.7 fL Normal 6.2-12.0 Comprehensi Internal Medicine Work Phone: Comment on above: [facility] [address] [place], [address] Platelets #/vol (Bld) 213 10*3/uL Normal 150-450 [facility] Work Phone: Comment on above: [facility] [address] [place], [address] Platelets Auto #/vol (Bld) 213 10*3/uL Normal 150-450 [facility] Work Phone: RBC #/vol (Bld) 5.00 {M/mm3} Normal 4.6-6.2 Compreh ensive Internal Medicine Work Phone: Comment on above: [facility] [address] [place], [address] RBC Auto #/vol (Bld) 5.00 {M/mm3} Normal 4.6-6.2 [facility] Internal Medicine Work Phone: RDW SD 44.6 fL Abnormal 35.1-43.9 [facility] Work Phone: Comment on above: [facility] [address] [place], [address] WBC #/vol (Bld) 4.8 10*3/uL Normal 4.4-11.0 Comprehe nsive Internal Medicine Work Phone: Comment on above: [facility] [address] [place], [address] WBC Auto #/vol (Bld) 4.8 10*3/uL Normal 4.4-11.0 [facility] prehensive Internal Medicine Work Phone: CBC W/Diff, Automated 1.01 {X10_3/ul} Normal 0.83-4.51 [facility] Work Phone: Comment on above: [facility] [address] [employer] [place], [id number] CBC W/Diff, Automated 0.200 % Normal 0.0-0.9 [facility] prehensive Internal Medicine Work Phone: Comment on above: IG% - Immature Granu locytes (promyelocytes, myelocytes andmetamyelocytes) > 1% indicates that a LEFT SHIFT is Present. [facility] [address] [place], [address] CBC W/Diff, Automated 44.6 fL Abnormal 35.1-43.9 [facility] prehensive Internal Medicine Work Phone: Comment on above: [facility] [address] [place], [address] CBC W/Diff, Automated 3.3 {X10_3/uL} Normal 2.0-7.7 [facility] Work Phone: Comment on above: [facility] [address] [employer] [place], [place], [id number] Troponin-IOrdered By: Air Cargo Specialist Supervisor on 04-22-2018 Troponin I.cardiac mass conc ng/mL Normal [facility] Work Phone: Comment on above: TROPONIN-I EXPECTED VALUES <0.045 Negative 0.045 - 0.590 Consistent with Cardiac Damage > OR = 0.600 Critical Value Not every elevated troponin is indicative of NC. Thesevalues should be used with clinical judgement in examiningthe patient's clinical picture for diagnosis. To establisha diagnosis of NC versus myocardial injury, there must be ademonstrated rise and/or fall in the troponin values, inaddition to ischemic symptoms, EKG changes, new regionalwall motion abnormality, and/or angiographical evidence. PLEASE NOTE: REFERENCE RANGES EDITED 17 REDRAW. PREVIOUS SPE CIMEN WAS REJECTED FOR TESTING DUE TOHEMOLYSIS. SPECIMEN WAS DISCARDED. 04/22/18 0531 Leno Jr.'TROP' Serial specimen #1, #2, #3, or #4: [address] [place] [address] [address] [place], [address] T3, FREE (TRIDOTHYRONINE) ([id number])Ordered By: Air Cargo Specialist Supervisor on 09-04-2017 T3 free mass conc 2.6 pg/mL Normal 2.0-4.4 Compreh ensive Internal Medicine Work Phone: Comment on above: PATIENT NOT FASTINGP ERFORMED BY: CB [facility] Lfyegy7640 Hess RoadDublin [place] [id number] T4, FREE (THYROXINE) ([id number]) Ordered By: Air Cargo Specialist Supervisor on 09-04-2017 T4 free mass conc 0.92 ng/dL Normal 0.82-1.77 Compreh ensive Internal Medicine Work Phone: Comment on above: PATIENT NOT FASTINGP ERFORMED BY: CB [facility] Gxgbgf7938 [address] RoadDublin [place] [id number] TSH ([id number])Ordered By: Quelle Energiee m Forge Tender on 09-04-2017 Thyrotropin Qn 2.000 {uIU/mL} Normal 0.450-4.50 0 [facility] Work Phone: Comment on above: PATIENT NOT FASTINGP ERFORMED BY: CB [facility] Lmblgt3860 [address] RoadDublin [place] [id number] CBC WITH MANUAL DIFF ([id number]) Ordered By: Air Cargo Specialist Supervisor on 02-13-2017 Basophils #/vol (Bld) 0.0 {x10E3/uL} Normal 0.0-0.2 [facility] Work Phone: Comment on above: PATIENT WAS FASTINGP ERFORMED BY: CB [facility] Kmwwst9024 [address] RoadDublin [place] [id number] Basophils (Bld) [#/Vol] 0.0 10*3/uL Normal 0.0-0.2 [facility]; [facility] Work Phone: Comment on above: PATIENT WAS FASTINGP ERFORMED BY: CB [facility] Tdwaxn3055 [address] RoadDublin [place] [id number] Basophils Auto #/vol (Bld) 0.0 {x10E3/uL} Normal 0.0-0.2 [facility] Work Phone: Basophils/100 WBC (Bld) 0 % Normal [facility] Work Phone: Comment on above: PATIENT WAS FASTINGP ERFORMED BY: [place] [id number] [facility] [id number] Basophils/100 WBC Auto (Bld) 0 % Normal [facility] Work Phone: Eosinophils #/vol (Bld) 0.2 {x10E3/uL} Normal 0.0-0.4 [facility] Work Phone: Comment on above: PATIENT WAS FASTINGP ERFORMED BY: [address] [id number] Eosinophils (Bld) [#/Vol] 0.2 10*3/uL Normal 0.0-0.4 [facility]; [facility] Work Phone: Comment on above: PATIENT WAS FASTINGP ERFORMED BY: [place] 2975570 [facility] [id number] Eosinophils Auto #/vol (Bld) 0.2 {x10E3/uL} Normal 0.0-0.4 [facility] Work Phone: Eosinophils/100 WBC (Bld) 3 % Normal [facility] Work Phone: Comment on above: PATIENT WAS FASTINGP ERFORMED BY: [place] 2975570 [facility] [id number] Eosinophils/100 WBC Auto (Bld) 3 % Normal [facility] Work Phone: Erythrocyte distribution width Auto Ratio (RBC) 13.5 % Normal 12.3-15.4 [facility] Work Phone: Erythrocyte distribution width Ratio (RBC) 13.5 % Normal 12.3-15.4 [facility] Work Phone: Comment on above: PATIENT WAS FASTINGP ERFORMED BY: [address] [facility] [id number] Hematocrit Auto Volume Fraction (Bld) 47.2 % Normal 37.5-51.0 [facility] Work Phone: Hematocrit Volume Fraction (Bld) 47.2 % Normal 37.5-51.0 [facility] Work Phone: Comment on above: PATIENT WAS FASTINGP ERFORMED BY: [place] [address]755[address] [facility] [id number] Hemoglobin mass conc (Bld) 15.2 g/dL Normal 12.6-17.7 [facility] Work Phone: Comment on above: PATIENT WAS FASTINGP ERFORMED BY: [facility] Xiyybm1472 [facility] [id number] Immature granulocytes #/vol (Bld) 0.0 {x10E3/uL} Normal 0.0-0.1 [facility] Work Phone: Comment on above: PATIENT WAS FASTINGP ERFORMED BY: [place] 2975570 [address] [facility] [id number] Immature granulocytes (Bld) [#/Vol] 0.0 10*3/uL Normal 0.0-0.1 [facility]; [facility] Work Phone: Comment on above: PATIENT WAS FASTINGP ERFORMED BY: [facility]6370 [facility] [id number] Immature granulocytes/100 WBC (Bld) 0 % Normal [facility] Work Phone: Comment on above: PATIENT WAS FASTINGP ERFORMED BY: [facility] [facility] [id number] Lymphocytes #/vol (Bld) 1.0 {x10E3/uL} Normal 0.7-3.1 [facility] Work Phone: Comment on above: PATIENT WAS FASTINGP ERFORMED BY: [facility] [facility] [id number] Lymphocytes (Bld) [#/Vol] 1.0 10*3/uL Normal 0.7-3.1 [facility]; [facility] Work Phone: Comment on above: PATIENT WAS FASTINGP ERFORMED BY: ENOC [facility]asysE[facility]6370 [facility] [id number] Lymphocytes Auto #/vol (Bld) 1.0 {x10E3/uL} Normal 0.7-3.1 [facility] Work Phone: Lymphocytes/100 WBC (Bld) 19 % Normal [facility] Work Phone: Comment on above: PATIENT WAS FASTINGP ERFORMED BY: ENOC UCB PharmaUNM Sandoval Regional Medical CenterXrhtwb4335 [facility] [id number] Lymphocytes/100 WBC Auto (Bld) 19 % Normal [facility] Work Phone: MCH Auto Entitic mass (RBC) 29.9 pg Normal 26.6-33.0 [facility] Work Phone: MCH Entitic mass (RBC) 29.9 pg Normal 26.6-33.0 [facility] Internal Medicine Work Phone: Comment on above: PATIENT WAS FASTINGP ERFORMED BY: FemasysMissouri Southern HealthcareOycuga8232 [facility] [id number] MCHC Auto mass conc (RBC) 32.2 g/dL Normal 31.5-35.7 [facility] Work Phone: MCHC mass conc (RBC) 32.2 g/dL Normal 31.5-35.7 [facility] Internal Medicine Work Phone: Comment on above: PATIENT WAS FASTINGP ERFORMED BY: FemasysJoseph V[place] 2026470 [facility] [id number] MCV Auto Entitic volume (RBC) 93 fL Normal 79-97 [facility] Work Phone: MCV Entitic volume (RBC) 93 fL Normal 79-97 [facility] Work Phone: Comment on above: PATIENT WAS FASTINGP ERFORMED BY: LabE[facility] Center6370 [facility] [id number] Monocytes #/vol (Bld) 0.5 {x10E3/uL} Normal 0.1-0.9 [facility] Work Phone: Comment on above: PATIENT WAS FASTINGP ERFORMED BY: [facility] Fxxinz0820 [facility] [id number] Monocytes (Bld) [#/Vol] 0.5 10*3/uL Normal 0.1-0.9 [facility]; [facility] Work Phone: Comment on above: PATIENT WAS FASTINGP ERFORMED BY: [place] 2975570 [facility] [id number] Monocytes Auto #/vol (Bld) 0.5 {x10E3/uL} Normal 0.1-0.9 [facility] Work Phone: Monocytes/100 WBC (Bld) 10 % Normal [facility] Work Phone: Comment on above: PATIENT WAS FASTINGP ERFORMED BY: [place] 2975570 [facility] [id number] Monocytes/100 WBC Auto (Bld) 10 % Normal [facility] Work Phone: Neutrophils #/vol (Bld) 3.7 {x10E3/uL} Normal 1.4-7.0 [facility] Work Phone: Comment on above: PATIENT WAS FASTINGP ERFORMED BY: [place] 2975570 [facility] [id number] Neutrophils (Bld) [#/Vol] 3.7 10*3/uL Normal 1.4-7.0 [facility]; [facility] Work Phone: Comment on above: PATIENT WAS FASTINGP ERFORMED BY: [place] 2975570 [facility] [id number] Neutrophils Auto #/vol (Bld) 3.7 {x10E3/uL} Normal 1.4-7.0 [facility] Work Phone: Neutrophils/100 WBC (Bld) 68 % Normal [facility] Work Phone: Comment on above: PATIENT WAS FASTINGP ERFORMED BY: ENOC [facility]Ell[facility] Kiulak2156 [facility] [id number] Neutrophils/100 WBC Auto (Bld) 68 % Normal [facility] Work Phone: Platelets #/vol (Bld) 170 {x10E3/uL} Normal 150-379 [facility] Work Phone: Comment on above: PATIENT WAS FASTINGP ERFORMED BY: ENOC [facility]anEll[facility] Qvqlqq3237 [facility] [id number] Platelets (Bld) [#/Vol] 170 10*3/uL Normal 150-379 [facility]; [facility] Work Phone: Comment on above: PATIENT WAS FASTINGP ERFORMED BY: ENOC Lancelin6370 [facility] [id number] Platelets Auto #/vol (Bld) 170 {x10E3/uL} Normal 150-379 [facility] Work Phone: RBC #/vol (Bld) 5.08 {x10E6/uL} Normal 4.14-5.80 Comp [facility] hospitalensive Internal [facility] Work Phone: Comment on above: PATIENT WAS FASTINGP ERFORMED BY: ENOC Victor Eintuk5021 [facility] [id number] RBC (Bld) [#/Vol] 5.08 10*6/uL Normal 4.14-5.80 Compr ensive Internal Medicine; [facility] Work Phone: Comment on above: PATIENT WAS FASTINGP ERFORMED BY: ENOC [facility] Oqzzop6303 [facility] [id number] RBC Auto #/vol (Bld) 5.08 {x10E6/uL} Normal 4.14-5.80 [facility] Work Phone: WBC #/vol (Bld) 5.4 {x10E3/uL} Normal 3.4-10.8 Compr ensive Internal Medicine Work Phone: Comment on above: PATIENT WAS FASTINGP ERFORMED BY: ENOC [facility]anEll[facility] Kfhnyy8665 [facility] [id number] WBC (Bld) [#/Vol] 5.4 10*3/uL Normal 3.4-10.8 [facility] Internal Medicine; [facility] Work Phone: Comment on above: PATIENT WAS FASTINGP ERFORMED BY: [facility] Osuxcf3130 [address] RoadDublin [place] [id number] WBC Auto #/vol (Bld) 5.4 {x10E3/uL} Normal 3.4-10.8 [facility] Work Phone: Metabolic Panel, Comprehensi ve ([id number])Ordered By: Air Cargo Specialist Supervisor on 02-13-2017 Albumin mass conc 4.2 g/dL Normal 3.6-4.8 [facility] Internal Medicine Work Phone: Comment on above: PATIENT WAS FASTINGP ERFORMED BY: LabCoEast Orange VA Medical CenterZyawfh8960 [address] RoadAmerican Healthcare Systemsin [place] [id number] Albumin/Globulin mass ratio 1.8 {ratio} Normal 1.2-2.2 [facility] Work Phone: Comment on above: PATIENT WAS FASTINGP ERFORMED BY: [facility] Roqkyo2395 [address] Roadblin [place] [id number] ALP [Catalytic activity/Vol] 82 U/L Normal 39-117 [facility]; [facility] Work Phone: Comment on above: PATIENT WAS FASTINGP ERFORMED BY: [facility] Oiuofq3432 [address] RoadDublin [place] [id number] ALP enzyme act/vol 82 [iU]/L Normal 39-117 [facility] Internal Medicine Work Phone: Comment on above: PATIENT WAS FASTINGP ERFORMED BY: [facility] Hbzyet8393 [address] RoadDublin [place] [id number] ALT [Catalytic activity/Vol] 19 U/L Normal 0-44 [facility]; [facility] Work Phone: Comment on above: PATIENT WAS FASTINGP ERFORMED BY: [facility] Yxhbks0812 [address] RoadDublin [place] [id number] ALT enzyme act/vol 19 [iU]/L Normal 0-44 Compre [facility] Internal Medicine Work Phone: Comment on above: PATIENT WAS FASTINGP ERFORMED BY: ENOC Valentegeorgie LanceGhunkt0910 [address] RoadDublin [place] [id number] AST [Catalytic activity/Vol] 23 U/L Normal 0-40 [facility]; [facility] Work Phone: Comment on above: PATIENT WAS FASTINGP ERFORMED BY: ENOC LabCo Rqccmh3732 [address] RoadDublin [place] [id number] AST enzyme act/vol 23 [iU]/L Normal 0-40 [facility] Internal Medicine Work Phone: Comment on above: PATIENT WAS FASTINGP ERFORMED BY: ENOC Ramos6370 [address] RoadDublin [place] [id number] Bilirubin mass conc 0.5 mg/dL Normal 0.0-1.2 Compr ehensive Internal Medicine Work Phone: Comment on above: PATIENT WAS FASTINGP ERFORMED BY: ENOC Victor Bkkctw5091 [address] Roadblin [place] [id number] Calcium mass conc 9.0 mg/dL Normal 8.6-10.2 Compreh ensive Internal Medicine Work Phone: Comment on above: PATIENT WAS FASTINGP ERFORMED BY: ENOC Victor Abgwdz4920 [address] Roadblin [place] [id number] Chloride molar conc 104 mmol/L Normal 96-106 Compr ensive Internal Medicine Work Phone: Comment on above: PATIENT WAS FASTINGP ERFORMED BY: ENOC LabEllis [facility] Hfskwz1610 [address] RoadDublin [place] [id number] CO2 molar conc 20 mmol/L Normal 18-29 Comprehens danny Internal Medicine Work Phone: Comment on above: PATIENT WAS FASTINGP ERFORMED BY: ENOC LabCo Qgvrbm2918 [address] RoadDublin [place] [id number] Creatinine mass conc 0.99 mg/dL Normal 0.76-1.27 Comp rehensive Internal Medicine Work Phone: Comment on above: PATIENT WAS FASTINGP ERFORMED BY: ENOC LabCo Wwijap5980 [address] [facility] [place] [id number] GFR/1.73 sq M predicted among blacks CKD-EPI vol rate/area (S/P/Bld) 93 mL/min/1.73 Normal [facility] Work Phone: Comment on above: PATIENT WAS FASTINGP ERFORMED BY: ENOC LabEllis [facility] Yremxw19[address] [facility] [id number] GFR/1.73 sq M predicted among non-blacks CKD-EPI vol rate/area (S/P/Bld) 80 mL/min/1.73 Normal Comprehensiv e Internal Medicine Work Phone: Comment on above: PATIENT WAS FASTINGP ERFORMED BY: ENOC LabOz LanceEqggnl6683 [facility] [id number] Globulin Calculated mass conc (S) 2.4 g/dL Normal 1.5-4.5 [facility] Work Phone: Globulin mass conc (S) 2.4 g/dL Normal 1.5-4.5 Co mprehensive Internal Medicine Work Phone: Comment on above: PATIENT WAS FASTINGP ERFORMED BY: ENOC LabOz LanceIdzmyf0092 [facility] [id number] Glucose mass conc 103 mg/dL Abnormal 65-99 Compreh ensive Internal Medicine Work Phone: Comment on above: PATIENT WAS FASTINGP ERFORMED BY: ENOC LabOz LanceQsmopa5773 [facility] [id number] Potassium molar conc 4.5 mmol/L Normal 3.5-5.2 Comp rehensive Internal Medicine Work Phone: Comment on above: PATIENT WAS FASTINGP ERFORMED BY: ENOC LabCogeorgie LanceBzikdj4635 [facility] [id number] Protein mass conc 6.6 g/dL Normal 6.0-8.5 Compreh ensive Internal Medicine Work Phone: Comment on above: PATIENT WAS FASTINGP ERFORMED BY: ENOC LabCogeorgie Awbois8093 [facility] [id number] Sodium molar conc 144 mmol/L Normal 134-144 Compreh ensive Internal Medicine Work Phone: Comment on above: PATIENT WAS FASTINGP ERFORMED BY: [employer] Gpadbc4548 joblocalD[facility] Hospital [id number] Urea nitrogen mass conc 24 mg/dL Normal 8-27 [facility] Work Phone: Comment on above: PATIENT WAS FASTINGP ERFORMED BY: [employer] Zvayen0338 HessGraduatelandDuke Raleigh Hospital [id number] Urea nitrogen/Creatinine mass ratio 24 mg/mg Normal 10-24 [facility] Work Phone: Comment on above: PATIENT WAS FASTINGP ERFORMED BY: [employer] Dojfms5760 HessGraduatelandDuke Raleigh Hospital [id number] PSA (PROSTATE SPECIFIC ANTIG EN) (V76.44)Ordered By: Air Cargo Specialist Supervisor on 02-13-2017 Prostate specific Ag mass conc 0.8 ng/mL Normal 0.0-4.0 [facility] Work Phone: Comment on above: [employer] II ECLIA methodol ogy. .According to the [place] [employer], Serum PSA shoulddecrease and remain at undetectable levels after radicalprostatectomy. The AUA defines biochemical recurrence as an initialPSA value 0.2 ng/mL or greater followed by a subsequent confirmatoryPSA value 0.2 ng/mL or greater.Values obtained with different assay methods or kits cannot be usedinterchangeably. Results cannot be interpreted as absolute evidenceof the presence or absence of malignant disease. PATIENT WAS FASTINGP ERFORMED BY: [employer] Vodiip8598 [address] WorkMeInCape Fear/Harnett Health [id number] Information: [id number] URINALYSIS ([id number])Ordered By : Air Cargo Specialist Supervisor on 02-13-2017 Appearance Nom (U) Clear Normal Compre [facility], [facility] Internal Medicine Work Phone: Comment on above: PATIENT WAS FASTINGP ERFORMED BY: [employer] Gptstw4527 [address] WorkMeInCape Fear/Harnett Health [id number] Bilirubin Ql (U) Negative Normal Comprehe nsive Internal Medicine Work Phone: Comment on above: PATIENT WAS FASTINGP ERFORMED BY: ENOC [facility]6[address]Dublin [place] [id number] Bilirubin Ql (U) Negative Normal Comprehe nsive Internal Medicine; [facility] Work Phone: Comment on above: PATIENT WAS FASTINGP ERFORMED BY: ENOC LabEll[facility] Rkxukx2281 [address] RoadDublin [place] [id number] Color Nom (U) Yellow Normal Comprehensi ve Internal Medicine Work Phone: Comment on above: PATIENT WAS FASTINGP ERFORMED BY: ENOC LabEllis [facility] Uyjyzh3582 [address] RoadDublin [place] [id number] Glucose Ql (U) Negative Normal Comprehens danny Internal Medicine Work Phone: Comment on above: PATIENT WAS FASTINGP ERFORMED BY: ENOC [facility] Fvmzux2140 [address] RoadDublin [place] [id number] Glucose Ql (U) Negative Normal Comprehens danny Internal Medicine; [facility] Work Phone: Comment on above: PATIENT WAS FASTINGP ERFORMED BY: ENOC [facility] Lwvmgp0356 [address] RoadDublin [place] [id number] Hemoglobin Ql (U) Negative Normal Compreh ensive Internal Medicine Work Phone: Comment on above: PATIENT WAS FASTINGP ERFORMED BY: ENOC [facility] Ltbers1519 [address] RoadDublin [place] [id number] Hemoglobin Ql (U) Negative Normal Compreh ensive Internal Medicine; [facility] Work Phone: Comment on above: PATIENT WAS FASTINGP ERFORMED BY: [facility]6[address]Dublin [place] [id number] Hemoglobin Test strip Ql (U) Negative Normal [facility] Work Phone: Ketones Ql (U) Negative Normal Comprehens danny Internal Medicine Work Phone: Comment on above: PATIENT WAS FASTINGP ERFORMED BY: ENOC LabEllis [facility] Cldtbc2678 [address] RoadDublin [place] [id number] Ketones Ql (U) Negative Normal Comprehens danny Internal Medicine; [facility] Work Phone: Comment on above: PATIENT WAS FASTINGP ERFORMED BY: ENOC [facility] Gnbnyh8296 [address] RoadDublin [place] [id number] Leukocyte esterase Test strip Ql (U) Negative Normal [facility] Work Phone: Comment on above: PATIENT WAS FASTINGP ERFORMED BY: ENOC [facility] Jfantr3288 [address] RoadDublin [place] [id number] Leukocyte esterase Test strip Ql (U) Negative Normal [facility]; [facility] Work Phone: Comment on above: PATIENT WAS FASTINGP ERFORMED BY: ENOC [facility] Guboyc2838 [address] RoadDublin [place] [id number] Microscopic observation LM Nom (Urine sed) MICNIP Normal [facility] Work Phone: Comment on above: Microscopic not antonio cated and not performed. PATIENT WAS FASTINGP ERFORMED BY: ENOC [facility] Lzjltn0378 [address] RoadDublin [place] [id number] Nitrite Ql (U) Negative Normal Comprehens danny Internal Medicine Work Phone: Comment on above: PATIENT WAS FASTINGP ERFORMED BY: ENOC [facility] Xtjoqj7581 [address] RoadDublin [place] [id number] Nitrite Ql (U) Negative Normal Comprehens danny Internal Medicine; [facility] Work Phone: Comment on above: PATIENT WAS FASTINGP ERFORMED BY: ENOC [facility] Trnnvv9866 [address] RoadDublin [place] [id number] Nitrite Test strip Ql (U) Negative Normal [facility] Work Phone: pH (U) 6.5 [pH] Normal 5.0-7.5 [facility] Work Phone: Comment on above: PATIENT WAS FASTINGP ERFORMED BY: ENOC [facility] Busazm3078 [address] RoadDublin [place] [id number] pH Test strip (U) 6.5 [pH] Normal 5.0-7.5 Compreh ensive Internal Medicine Work Phone: Protein Ql (U) Negative Normal Comprehens danny Internal Medicine Work Phone: Comment on above: PATIENT WAS FASTINGP ERFORMED BY: ENOC [facility] Esjrxk8910 [address] RoadDublin [place] [id number] Protein Ql (U) Negative Normal Comprehens danny Internal Medicine; [facility] Work Phone: Comment on above: PATIENT WAS FASTINGP ERFORMED BY: [facility] Yyelwv6615 [address] RoadDublin [place] [id number] Protein Test strip Ql (U) Negative Normal [facility] Work Phone: Specific gravity Relative Density (U) 1.028 1 Normal 1.005-1.03 0 [facility] Work Phone: Comment on above: PATIENT WAS FASTINGP ERFORMED BY: [facility] Pyvxkg1244 [address] RoadDublin [place] [id number] Urobilinogen (U) [Mass/Vol] 1.0 mg/dL Normal 0.2-1.0 [facility]; [facility] Work Phone: Comment on above: PATIENT WAS FASTINGP ERFORMED BY: [facility] Nvzmie1014 [address] RoadDublin [place] [id number] Urobilinogen Test strip mass conc (U) 1.0 mg/dL Normal 0.2-1.0 Comprehensiv e Internal Medicine Work Phone: Comment on above: PATIENT WAS FASTINGP ERFORMED BY: [facility] Jnujlc9923 [address] RoadDublin [place] [id number] T3, FREE (TRIDOTHYRONINE) (8 [id number])Ordered By: Air Cargo Specialist Supervisor on 10-04-2016 T3 free mass conc 3.2 pg/mL Normal 2.0-4.4 Compreh ensive Internal Medicine Work Phone: Comment on above: recheck in 8 weeks; PATIENT NOT FASTINGPERFORMED BY: CB [facility] Dskvrl5016 Hess RoadDublin [place] [id number] T4, FREE (THYROXINE) (56558) Ordered By: Air Cargo Specialist Supervisor on 10-04-2016 T4 free mass conc 1.09 ng/dL Normal 0.82-1.77 Compreh ensive Internal Medicine Work Phone: Comment on above: recheck in 8 weeks; PATIENT NOT FASTINGPERFORMED BY: ENOC [facility] Orwhkl0161 [address] [facility] [place] [id number] TSH ([id number])Ordered By: Tavon schultz Forge Tender on 10-04-2016 Thyrotropin Qn 0.312 {uIU/mL} Abnormal 0.450-4.50 0 [facility] Work Phone: Comment on above: recheck in 8 weeks; PATIENT NOT FASTINGPERFORMED BY: ENOC [facility] Nkdkst6216 [facility] [id number] Anti-TPO Antibody (05100)Ord ered By: Air Cargo Specialist Supervisor on 04-18-2016 Thyroperoxidase Ab Qn [IU]/mL Normal 0-34 Com prehensive Internal Medicine Work Phone: Comment on above: PATIENT NOT FASTINGP ERFORMED BY: ENOC [facility] Aspdfl9814 [facility] [id number] TPO Ab Qn [IU]/mL Normal 0-34 [facility]; [facility] Work Phone: Comment on above: PATIENT NOT FASTINGP ERFORMED BY: [facility] Kuasbr8669 [address] [facility] [id number] T3, FREE (TRIDOTHYRONINE) (8 6839)Ordered By: Air Cargo Specialist Supervisor on 04-18-2016 T3 free mass conc 3.3 pg/mL Normal 2.0-4.4 Compreh ensive Internal Medicine Work Phone: Comment on above: PATIENT NOT FASTINGP ERFORMED BY: [facility] Jrvsxr4253 [facility] [id number] T4, FREE (THYROXINE) (69744) Ordered By: Air Cargo Specialist Supervisor on 04-18-2016 T4 free mass conc 0.78 ng/dL Abnormal 0.82-1.77 Compreh ensive Internal Medicine Work Phone: Comment on above: PATIENT NOT FASTINGP ERFORMED BY: ENOC [facility] Uzdtzb0641 [facility] [id number] Information: NURSE DRAW MDVIP TSH (89231)Ordered By: Tavon schultz Forge Tender on 04-18-2016 Thyrotropin Qn 6.450 {uIU/mL} Abnormal 0.450-4.50 0 [facility] Work Phone: Comment on above: PATIENT NOT FASTINGP ERFORMED BY: [place] 2975570 [facility] [id number] CBC with auto diff (80301)Or dered By: Air Cargo Specialist Supervisor on 11-08-2015 Basophils #/vol (Bld) 0.0 {x10E3/uL} Normal 0.0-0.2 [facility] Work Phone: Comment on above: PATIENT WAS FASTINGP ERFORMED BY: [address] [id number] Information: [id number] Basophils (Bld) [#/Vol] 0.0 10*3/uL Normal 0.0-0.2 [facility]; [facility] Work Phone: Comment on above: PATIENT WAS FASTINGP ERFORMED BY: [facility]6370 [facility] [id number] Information: [id number] Basophils Auto #/vol (Bld) 0.0 {x10E3/uL} Normal 0.0-0.2 [facility] Work Phone: Basophils/100 WBC (Bld) 0 % Normal [facility] Work Phone: Comment on above: PATIENT WAS FASTINGP ERFORMED BY: [address] [id number] Information: [id number] Basophils/100 WBC Auto (Bld) 0 % Normal [facility] Work Phone: Eosinophils #/vol (Bld) 0.1 {x10E3/uL} Normal 0.0-0.4 [facility] Work Phone: Comment on above: PATIENT WAS FASTINGP ERFORMED BY: [address] [id number] Information: [id number] Eosinophils (Bld) [#/Vol] 0.1 10*3/uL Normal 0.0-0.4 [facility]; [facility] Work Phone: Comment on above: PATIENT WAS FASTINGP ERFORMED BY: ENOC [facility] Centergeorgie Tshxoc8966 [facility] [id number] Information: [id number] Eosinophils Auto #/vol (Bld) 0.1 {x10E3/uL} Normal 0.0-0.4 [facility] Work Phone: Eosinophils/100 WBC (Bld) 3 % Normal [facility] Work Phone: Comment on above: PATIENT WAS FASTINGP ERFORMED BY: ENOC [address] [id number] Information: [id number] Eosinophils/100 WBC Auto (Bld) 3 % Normal [facility] Work Phone: Erythrocyte distribution width Auto Ratio (RBC) 13.4 % Normal 12.3-15.4 [facility] Work Phone: Erythrocyte distribution width Ratio (RBC) 13.4 % Normal 12.3-15.4 [facility] Work Phone: Comment on above: PATIENT WAS FASTINGP ERFORMED BY: ENOC [facility] Centergeorgie LanceHciahp[address] [id number] Information: [id number] Hematocrit Auto Volume Fraction (Bld) 43.9 % Normal 37.5-51.0 [facility] Work Phone: Hematocrit Volume Fraction (Bld) 43.9 % Normal 37.5-51.0 [facility] Work Phone: Comment on above: PATIENT WAS FASTINGP ERFORMED BY: ENOC [place] 1142970 [facility] [id number] Information: [id number] Hemoglobin mass conc (Bld) 15.1 g/dL Normal 12.6-17.7 [facility] Work Phone: Comment on above: PATIENT WAS FASTINGP ERFORMED BY: [facility]6370 [facility] [id number] Information: [id number] Immature granulocytes #/vol (Bld) 0.0 {x10E3/uL} Normal 0.0-0.1 [facility] Work Phone: Comment on above: PATIENT WAS FASTINGP ERFORMED BY: [address] [id number] Information: [id number] Immature granulocytes (Bld) [#/Vol] 0.0 10*3/uL Normal 0.0-0.1 [facility]; [facility] Work Phone: Comment on above: PATIENT WAS FASTINGP ERFORMED BY: [address] [id number] Information: [id number] Immature granulocytes/100 WBC (Bld) 0 % Normal [facility] Work Phone: Comment on above: PATIENT WAS FASTINGP ERFORMED BY: [address] [id number] Information: [id number] Lymphocytes #/vol (Bld) 1.3 {x10E3/uL} Normal 0.7-3.1 [facility] Work Phone: Comment on above: PATIENT WAS FASTINGP ERFORMED BY: [address] [id number] Information: [id number] Lymphocytes (Bld) [#/Vol] 1.3 10*3/uL Normal 0.7-3.1 [facility]; [facility] Work Phone: Comment on above: PATIENT WAS FASTINGP ERFORMED BY: [place] 2975570 [facility] [id number] Information: [id number] Lymphocytes Auto #/vol (Bld) 1.3 {x10E3/uL} Normal 0.7-3.1 [facility] Work Phone: Lymphocytes/100 WBC (Bld) 26 % Normal [facility] Work Phone: Comment on above: PATIENT WAS FASTINGP ERFORMED BY: [facility]OC [facility] Dqawgj3597 [facility] [id number] Information: [id number] Lymphocytes/100 WBC Auto (Bld) 26 % Normal [facility] Work Phone: MCH Auto Entitic mass (RBC) 30.1 pg Normal 26.6-33.0 [facility] Work Phone: MCH Entitic mass (RBC) 30.1 pg Normal 26.6-33.0 [facility] Internal Medicine Work Phone: Comment on above: PATIENT WAS FASTINGP ERFORMED BY: ENOC Lancelin6370 [facility] [id number] Information: [id number] MCHC Auto mass conc (RBC) 34.4 g/dL Normal 31.5-35.7 [facility] Work Phone: MCHC mass conc (RBC) 34.4 g/dL Normal 31.5-35.7 Comp [facility] Internal Medicine Work Phone: Comment on above: PATIENT WAS FASTINGP ERFORMED BY: ENOC Lancelin6370 [facility] [id number] Information: [id number] MCV Auto Entitic volume (RBC) 88 fL Normal 79-97 [facility] Work Phone: MCV Entitic volume (RBC) 88 fL Normal 79-97 [facility] Work Phone: Comment on above: PATIENT WAS FASTINGP ERFORMED BY: ENOC [place] 1142970 [facility] [id number] Information: [id number] Monocytes #/vol (Bld) 0.5 {x10E3/uL} Normal 0.1-0.9 [facility] Work Phone: Comment on above: PATIENT WAS FASTINGP ERFORMED BY: [facility]6370 [facility] [id number] Information: [id number] Monocytes (Bld) [#/Vol] 0.5 10*3/uL Normal 0.1-0.9 [facility]; [facility] Work Phone: Comment on above: PATIENT WAS FASTINGP ERFORMED BY: [place] 2975570 [facility] [id number] Information: [id number] Monocytes Auto #/vol (Bld) 0.5 {x10E3/uL} Normal 0.1-0.9 [facility] Work Phone: Monocytes/100 WBC (Bld) 11 % Normal [facility] Work Phone: Comment on above: PATIENT WAS FASTINGP ERFORMED BY: [place] 2975570 [facility] [id number] Information: [id number] Monocytes/100 WBC Auto (Bld) 11 % Normal [facility] Work Phone: Neutrophils #/vol (Bld) 3.1 {x10E3/uL} Normal 1.4-7.0 [facility] Work Phone: Comment on above: PATIENT WAS FASTINGP ERFORMED BY: [place] 2975570 [facility] [id number] Information: [id number] Neutrophils (Bld) [#/Vol] 3.1 10*3/uL Normal 1.4-7.0 [facility]; [facility] Work Phone: Comment on above: PATIENT WAS FASTINGP ERFORMED BY: [place] 2975570 [facility] [id number] Information: [id number] Neutrophils Auto #/vol (Bld) 3.1 {x10E3/uL} Normal 1.4-7.0 [facility] Work Phone: Neutrophils/100 WBC (Bld) 60 % Normal [facility] Work Phone: Comment on above: PATIENT WAS FASTINGP ERFORMED BY: ENOC [facility] Zuhltz9106 [facility] [id number] Information: [id number] Neutrophils/100 WBC Auto (Bld) 60 % Normal [facility] Work Phone: Platelets #/vol (Bld) 186 {x10E3/uL} Normal 150-379 [facility] Work Phone: Comment on above: PATIENT WAS FASTINGP ERFORMED BY: ENOC [address] [id number] Information: [id number] Platelets (Bld) [#/Vol] 186 10*3/uL Normal 150-379 [facility]; [facility] Work Phone: Comment on above: PATIENT WAS FASTINGP ERFORMED BY: ENOC [address] [id number] Information: [id number] Platelets Auto #/vol (Bld) 186 {x10E3/uL} Normal 150-379 [facility] Work Phone: RBC #/vol (Bld) 5.02 {x10E6/uL} Normal 4.14-5.80 [facility] Internal Medicine Work Phone: Comment on above: PATIENT WAS FASTINGP ERFORMED BY: ENOC ReganJoseph [place] 2026470 [facility] [id number] Information: [id number] RBC (Bld) [#/Vol] 5.02 10*6/uL Normal 4.14-5.80 [facility] Internal Medicine; [facility] Work Phone: Comment on above: PATIENT WAS FASTINGP ERFORMED BY: ENOC [facility]6370 [facility] [id number] Information: [id number] RBC Auto #/vol (Bld) 5.02 {x10E6/uL} Normal 4.14-5.80 [facility] Work Phone: WBC #/vol (Bld) 5.1 {x10E3/uL} Normal 3.4-10.8 Compr [facility] Internal Medicine Work Phone: Comment on above: PATIENT WAS FASTINGP ERFORMED BY: ENOC [employer] Nordnw1687 [facility] [id number] Information: [id number] WBC (Bld) [#/Vol] 5.1 10*3/uL Normal 3.4-10.8 Compre [facility] Internal Medicine; [facility] Work Phone: Comment on above: PATIENT WAS FASTINGP ERFORMED BY: [employer] Usqxmt4044 [facility] [id number] Information: [id number] WBC Auto #/vol (Bld) 5.1 {x10E3/uL} Normal 3.4-10.8 [facility] Work Phone: LIPID PANEL (78145)Ordered B y: Air Cargo Specialist Supervisor on 11-08-2015 Cholesterol in HDL mass conc 39 mg/dL Abnormal [facility] Work Phone: Comment on above: According to ATP-III Guidelines, HDL-C >59 mg/dL is considered anegative risk factor for CHD. PATIENT WAS FASTINGP ERFORMED BY: ENOC [employer] Dzqlgx6916 [facility] [id number] Cholesterol in LDL mass conc 112 mg/dL Abnormal 0-99 [facility] Work Phone: Comment on above: PATIENT WAS FASTINGP ERFORMED BY: [employer] Yonntt7605 [facility] [id number] Cholesterol in LDL/Cholesterol in HDL mass ratio 2.9 {ratio_units} Normal 0.0-3.6 [facility] Work Phone: Comment on above: LDL/HDL Ratio Men Wo men 1/2 Avg.Risk 1.0 1.5 Avg.Risk 3.6 3.2 2X Avg.Risk 6.2 5.0 3X Avg.Risk 8.0 6.1 PATIENT WAS FASTINGP ERFORMED BY: ENOC [facility] Ejqbtd9856 Hess RoadDublin [place] [id number] Cholesterol in VLDL mass conc 20 mg/dL Normal 5-40 [facility] Work Phone: Comment on above: PATIENT WAS FASTINGP ERFORMED BY: ENOC [facility] Bvlihf7289 [address] RoadDublin [place] [id number] Cholesterol mass conc 171 mg/dL Normal 100-199 Com prehensive Internal Medicine Work Phone: Comment on above: PATIENT WAS FASTINGP ERFORMED BY: ENOC [facility] Srjije0909 [address] RoadAmerican Healthcare Systemsin [place] [id number] Triglyceride mass conc 102 mg/dL Normal 0-149 Co mprehensive Internal Medicine Work Phone: Comment on above: PATIENT WAS FASTINGP ERFORMED BY: ENOC LabCogeorgie LanceKzqzbb3081 [address] [facility]in [place] [id number] METABOLIC PANEL, COMPREHENSI VE (26898)Ordered By: Air Cargo Specialist Supervisor on 11-08-2015 Albumin mass conc 4.6 g/dL Normal 3.6-4.8 Compreh ensive Internal Medicine Work Phone: Comment on above: PATIENT WAS FASTINGP ERFORMED BY: ENOC [facility] Odcmoi1416 [address] [facility] [place] [id number] Albumin/Globulin mass ratio 2.1 {ratio} Normal 1.1-2.5 [facility] Work Phone: Comment on above: PATIENT WAS FASTINGP ERFORMED BY: ENOC [facility] Nngboa0624 [address] [facility] [place] [id number] ALP [Catalytic activity/Vol] 68 U/L Normal 39-117 [facility]; [facility] Work Phone: Comment on above: PATIENT WAS FASTINGP ERFORMED BY: ENOC [facility] Rlxbul6378 [address] [facility] Hospitalblin [place] [id number] ALP enzyme act/vol 68 [iU]/L Normal 39-117 Compre [facility] Internal Medicine Work Phone: Comment on above: PATIENT WAS FASTINGP ERFORMED BY: ENOC [facility] Wlprsk9748 [address] [facility] Hospitalblin [place] [id number] ALT [Catalytic activity/Vol] 27 U/L Normal 0-44 [facility]; [facility] Work Phone: Comment on above: PATIENT WAS FASTINGP ERFORMED BY: CB [facility] Qjmhpk7201 [address] RoadDublin [place] [id number] ALT enzyme act/vol 27 [iU]/L Normal 0-44 Compre [facility] Internal Medicine Work Phone: Comment on above: PATIENT WAS FASTINGP ERFORMED BY: CB [facility] Ghwgre0379 Hess RoadDublin [place] [id number] AST [Catalytic activity/Vol] 25 U/L Normal 0-40 [facility]; [facility] Work Phone: Comment on above: PATIENT WAS FASTINGP ERFORMED BY: CB [facility] Gudmue7000 [address] RoadDublin [place] [id number] AST enzyme act/vol 25 [iU]/L Normal 0-40 [facility] Internal Medicine Work Phone: Comment on above: PATIENT WAS FASTINGP ERFORMED BY: [facility] Kxgtuy5323 [address] RoadDublin [place] [id number] Bilirubin mass conc 1.0 mg/dL Normal 0.0-1.2 Compr ensive Internal Medicine Work Phone: Comment on above: PATIENT WAS FASTINGP ERFORMED BY: [facility] Qgzqqb5312 [address] RoadDublin [place] [id number] Calcium mass conc 9.0 mg/dL Normal 8.6-10.2 Compreh ensive Internal Medicine Work Phone: Comment on above: PATIENT WAS FASTINGP ERFORMED BY: CB [facility] Crxnqk1115 Hess RoadDublin [place] [id number] Chloride molar conc 103 mmol/L Normal 97-108 Compr ehensive Internal Medicine Work Phone: Comment on above: PATIENT WAS FASTINGP ERFORMED BY: CB [facility] Pkcujy2089 [address] RoadDublin [place] [id number] CO2 molar conc 22 mmol/L Normal 18-29 Comprehens danny Internal Medicine Work Phone: Comment on above: PATIENT WAS FASTINGP ERFORMED BY: ENOC [facility] Uzgorc9792 [address] [facility]in [place] [id number] Creatinine mass conc 0.97 mg/dL Normal 0.76-1.27 Comp rehensive Internal Medicine Work Phone: Comment on above: PATIENT WAS FASTINGP ERFORMED BY: ENOC [facility] Ontzat5328 [address] RoadAmerican Healthcare Systemsin [place] [id number] GFR/1.73 sq M predicted among blacks CKD-EPI vol rate/area (S/P/Bld) 96 mL/min/1.73 Normal [facility] Work Phone: Comment on above: PATIENT WAS FASTINGP ERFORMED BY: ENOC [facility] Lsxlob2498 [address] [facility] [id number] GFR/1.73 sq M predicted among non-blacks CKD-EPI vol rate/area (S/P/Bld) 83 mL/min/1.73 Normal Comprehensiv e Internal Medicine Work Phone: Comment on above: PATIENT WAS FASTINGP ERFORMED BY: ENOC [facility] Rfyevg4092 [address] [facility] [id number] Globulin Calculated mass conc (S) 2.2 g/dL Normal 1.5-4.5 [facility] Work Phone: Globulin mass conc (S) 2.2 g/dL Normal 1.5-4.[address] josephensive Internal Medicine Work Phone: Comment on above: PATIENT WAS FASTINGP ERFORMED BY: ENOC [facility] Gpbcwy1245 [address] [facility] [id number] Glucose mass conc 86 mg/dL Normal 65-99 Compreh ensive Internal Medicine Work Phone: Comment on above: PATIENT WAS FASTINGP ERFORMED BY: [facility] Lswtui2068 [address] [facility]in [place] [id number] Potassium molar conc 4.2 mmol/L Normal 3.5-5.2 Comp rehensive Internal Medicine Work Phone: Comment on above: PATIENT WAS FASTINGP ERFORMED BY: [facility] Rkpfoj3775 [facility] [id number] Protein mass conc 6.8 g/dL Normal 6.0-8.5 Compreh ensive Internal Medicine Work Phone: Comment on above: PATIENT WAS FASTINGP ERFORMED BY: [facility]6370 [facility] [id number] Sodium molar conc 141 mmol/L Normal 134-144 Compreh ensive Internal Medicine Work Phone: Comment on above: PATIENT WAS FASTINGP ERFORMED BY: [facility]6370 [facility] [id number] Urea nitrogen mass conc 19 mg/dL Normal 8-27 [facility] Work Phone: Comment on above: PATIENT WAS FASTINGP ERFORMED BY: [facility]6370 [facility] [id number] Urea nitrogen/Creatinine mass ratio 20 mg/mg Normal 10-22 [facility] Work Phone: Comment on above: PATIENT WAS FASTINGP ERFORMED BY: [facility]6370 [facility] [id number] Microscopic ExaminationOrder ed By: Air Cargo Specialist Supervisor on 11-08-2015 Bacteria LM.HPF #/area (Urine sed) None seen Normal [facility] Work Phone: Comment on above: PATIENT WAS FASTINGP ERFORMED BY: [facility]6370 [facility] [id number] Epithelial cells LM.HPF #/area (Urine sed) 0-10 Normal 0 - 10 [facility] Work Phone: Comment on above: PATIENT WAS FASTINGP ERFORMED BY: [facility]6370 [facility] [id number] Mucus LM Ql (Urine sed) Present Normal [facility] Work Phone: Mucus Ql (Urine sed) Present Normal Comp rehensive Internal Medicine Work Phone: Comment on above: PATIENT WAS FASTINGP ERFORMED BY: [facility]6370 [facility] [id number] RBC LM.HPF #/area (Urine sed) 0-2 Normal 0 - 2 [facility] Work Phone: Comment on above: PATIENT WAS FASTINGP ERFORMED BY: [facility] Mfwskf7843 [address] [facility] Hospitalblin [place] [id number] WBC LM.HPF #/area (Urine sed) 0-5 Normal 0 - 5 [facility] Work Phone: Comment on above: PATIENT WAS FASTINGP ERFORMED BY: [facility] Zptjjy6606 [address] [facility]in [place] [id number] PSA (PROSTATE SPECIFIC ANTIG EN) (V76.44)Ordered By: Air Cargo Specialist Supervisor on 11-08-2015 Prostate specific Ag mass conc 0.8 ng/mL Normal 0.0-4.0 [facility] Work Phone: Comment on above: [employer] II ECLIA methodol ogy. .According to the [place] [employer], Serum PSA shoulddecrease and remain at undetectable levels after radicalprostatectomy. The AUA defines biochemical recurrence as an initialPSA value 0.2 ng/mL or greater followed by a subsequent confirmatoryPSA value 0.2 ng/mL or greater.Values obtained with different assay methods or kits cannot be usedinterchangeably. Results cannot be interpreted as absolute evidenceof the presence or absence of malignant disease. PATIENT WAS FASTINGP ERFORMED BY: [facility] [employer] Qwebvg6841 [facility] [id number]; [address] URINALYSIS, W/ MICRO (56419) Ordered By: Air Cargo Specialist Supervisor on 11-08-2015 Appearance Nom (U) Clear Normal Compre hensive Internal Medicine Work Phone: Comment on above: PATIENT WAS FASTINGP ERFORMED BY: [facility] Kegllr9943 [address] [facility] HospitalDublin [place] [id number] Bilirubin Ql (U) Negative Normal Comprehe nsive Internal Medicine Work Phone: Comment on above: PATIENT WAS FASTINGP ERFORMED BY: [facility] Aaosip3146 [address] RoadDublin [place] [id number] Bilirubin Ql (U) Negative Normal Comprehe nsive Internal Medicine; [facility] Work Phone: Comment on above: PATIENT WAS FASTINGP ERFORMED BY: ENOC [facility] Bsicif7712 [address] RoadDublin [place] [id number] Color Nom (U) Yellow Normal Comprehensi ve Internal Medicine Work Phone: Comment on above: PATIENT WAS FASTINGP ERFORMED BY: ENOC [facility] Bvllpo8112 [address] RoadDublin [place] [id number] Glucose Ql (U) Negative Normal Comprehens danny Internal Medicine Work Phone: Comment on above: PATIENT WAS FASTINGP ERFORMED BY: ENOC [facility] Zuqgdb2952 [address] RoadDublin [place] [id number] Glucose Ql (U) Negative Normal Comprehens danny Internal Medicine; [facility] Work Phone: Comment on above: PATIENT WAS FASTINGP ERFORMED BY: ENOC [facility] Szdsbc2235 [address] RoadDublin [place] [id number] Hemoglobin Ql (U) Negative Normal Compreh ensive Internal Medicine Work Phone: Comment on above: PATIENT WAS FASTINGP ERFORMED BY: ENOC [facility] Wefgbp0268 [address] RoadDublin [place] [id number] Hemoglobin Ql (U) Negative Normal Compreh ensive Internal Medicine; [facility] Work Phone: Comment on above: PATIENT WAS FASTINGP ERFORMED BY: ENOC [facility] Hlywwb1084 [address] RoadDublin [place] [id number] Hemoglobin Test strip Ql (U) Negative Normal [facility] Work Phone: Ketones Ql (U) Negative Normal Comprehens danny Internal Medicine Work Phone: Comment on above: PATIENT WAS FASTINGP ERFORMED BY: ENOC [facility] Wwyspo8141 [address] RoadDublin [place] [id number] Ketones Ql (U) Negative Normal Comprehens danny Internal Medicine; [facility] Work Phone: Comment on above: PATIENT WAS FASTINGP ERFORMED BY: ENOC [facility] Siudny5907 [address] RoadDublin [place] [id number] Leukocyte esterase Test strip Ql (U) Negative Normal [facility] Work Phone: Comment on above: PATIENT WAS FASTINGP ERFORMED BY: ENOC [facility] LanceAcyqqv9258 [address] RoadDublin [place] [id number] Leukocyte esterase Test strip Ql (U) Negative Normal [facility]; [facility] Work Phone: Comment on above: PATIENT WAS FASTINGP ERFORMED BY: ENOC Ramos6370 [address] RoadDublin [place] [id number] Microscopic observation LM Nom (Urine sed) See below: Normal [facility] Work Phone: Comment on above: Microscopic was antonio cated and was performed. PATIENT WAS FASTINGP ERFORMED BY: ENOC LabOz Ramos6[address]Dublin [place] [id number] Microscopic observation LM Nom (Urine sed) MICRON Normal [facility] Work Phone: Comment on above: Microscopic follows if indicated. PATIENT WAS FASTINGP ERFORMED BY: EONC Lancelin6[address] RoadDublin [place] [id number] Nitrite Ql (U) Negative Normal Comprehens danny Internal Medicine Work Phone: Comment on above: PATIENT WAS FASTINGP ERFORMED BY: ENOC Ramos6370 [address] RoadDublin [place] [id number] Nitrite Ql (U) Negative Normal Comprehens danny Internal Medicine; [facility] Work Phone: Comment on above: PATIENT WAS FASTINGP ERFORMED BY: ENOC Ramos6370 Hess RoadDuin [place] [id number] Nitrite Test strip Ql (U) Negative Normal [facility] Work Phone: pH (U) 5.5 [pH] Normal 5.0-7.5 [facility] Work Phone: Comment on above: PATIENT WAS FASTINGP ERFORMED BY: ENOC [facility] LanceKtmayr6905 Hess RoadDublin [place] [id number] pH Test strip (U) 5.5 [pH] Normal 5.0-7.5 Compreh ensive Internal Medicine Work Phone: Protein Ql (U) Negative Normal Comprehens danny Internal Medicine Work Phone: Comment on above: PATIENT WAS FASTINGP ERFORMED BY: CB [facility] Donnof3549 Hess RoadDublin [place] [id number] Protein Ql (U) Negative Normal Comprehens danny [facility]; [facility] Work Phone: Comment on above: PATIENT WAS FASTINGP ERFORMED BY: CB [facility] Pnxegj9065 Hess RoadDublin [place] [id number] Protein Test strip Ql (U) Negative Normal [facility] Work Phone: Specific gravity Relative Density (U) 1.024 1 Normal 1.005-1.03 0 [facility] Work Phone: Comment on above: PATIENT WAS FASTINGP ERFORMED BY: CB [facility] Ossojm9139 Hess RoadDublin [place] [id number] Urobilinogen (U) [Mass/Vol] 0.2 mg/dL Normal 0.2-1.0 [facility]; [facility] Work Phone: Comment on above: PATIENT WAS FASTINGP ERFORMED BY: CB [facility] Doxvhi6557 Hess RoadDublin [place] [id number] Urobilinogen Test strip mass conc (U) 0.2 mg/dL Normal 0.2-1.0 [facility] Work Phone: Comment on above: PATIENT WAS FASTINGP ERFORMED BY: CB [facility] Fhvvne3199 Hess RoadDublin [place] [id number] CBC-Complete Blood Cnt No Di ffOrdered By: Air Cargo Specialist Supervisor on 09-22-2015 Erythrocyte distribution width Auto Ratio (RBC) 12.8 % Normal 11.6-14.6 [facility] Work Phone: Erythrocyte distribution width Ratio (RBC) 12.8 % Normal 11.6-14.6 [facility] Work Phone: Comment on above: [facility] Pzxbbwhfal0441 [facility] [place], [place], [id number] Hematocrit Auto Volume Fraction (Bld) 47.2 % Normal 40-54 [facility] Work Phone: Hematocrit Volume Fraction (Bld) 47.2 % Normal 40-54 [facility] Work Phone: Comment on above: [facility] [address] [place], [address] Hemoglobin mass conc (Bld) 16.1 g/dL Normal 13.0-16.5 [facility] Work Phone: Comment on above: [facility] [address] [employer] [place], [place], [id number] MCH Auto Entitic mass (RBC) 30.6 pg Normal 27.0-32.0 [facility] Work Phone: MCH Entitic mass (RBC) 30.6 pg Normal 27.0-32.0 [facility] Internal Medicine Work Phone: Comment on above: [facility] [address] [place], [address] MCHC Auto mass conc (RBC) 34.1 {g/gl} Normal 32-36 [facility] Internal [facility] Work Phone: MCHC mass conc (RBC) 34.1 {g/gl} Normal 32-36 [facility] Internal Medicine Work Phone: Comment on above: [facility] [address] [place], [address] MCV Auto Entitic volume (RBC) 89.7 fL Normal 80-94 [facility] Work Phone: MCV Entitic volume (RBC) 89.7 fL Normal 80-94 [facility] Work Phone: Comment on above: [facility] [address] [place], [address] Platelet mean volume Auto Entitic volume (Bld) 11.1 fL Normal 6.2-12.0 [facility] Work Phone: Platelet mean volume Entitic volume (Bld) 11.1 fL Normal 6.2-12.0 Comprehensi Internal Medicine Work Phone: Comment on above: [facility] [address] [place], [address] Platelets #/vol (Bld) 175 10*3/uL Normal 150-450 [facility] Work Phone: Comment on above: [facility] [address] [place], [address] Platelets Auto #/vol (Bld) 175 10*3/uL Normal 150-450 [facility] Work Phone: RBC #/vol (Bld) 5.26 {M/mm3} Normal 4.6-6.2 Compreh ensive Internal Medicine Work Phone: Comment on above: [facility] [address] [place], [address] RBC Auto #/vol (Bld) 5.26 {M/mm3} Normal 4.6-6.2 Co mprehensive Internal Medicine Work Phone: RDW SD 41.6 fL Normal 35.1-43.9 [facility] Work Phone: WBC #/vol (Bld) 5.1 10*3/uL Normal 4.4-11.0 Comprehe nsive Internal Medicine Work Phone: Comment on above: [facility] [address] [place], [address] WBC Auto #/vol (Bld) 5.1 10*3/uL Normal 4.4-11.0 Com prehensive Internal Medicine Work Phone: CBC-Complete Blood Cnt No Diff 41.6 fL Normal 35.1-43.9 [facility] Work Phone: Comment on above: [facility] [address] [place], [address] CK-MB Quantitative and Index Ordered By: Air Cargo Specialist Supervisor on 09-22-2015 CK.MB mass conc 1.2 ng/mL Normal 0.0-5.0 Comprehen [facility] Internal Medicine Work Phone: Comment on above: CK-MB and RI Interpr etation MB Relative Index Non-AMI 5 5 > 4 'TROP' Serial specim en #1, #2, #3, or #4: [facility] [address] [place], [address] CKRI 2.0 % Abnormal 0.0-1.4 [facility] Work Phone: Comment on above: RELATIVE INDEX >1.5% IS PRESUMPTIVELY POSITIVE CPK TOTAL 59 U/L Normal 39-308 [facility] Work Phone: CPKMB 1.2 ng/mL Normal 0.0-5.0 [facility] Work Phone: Comment on above: CK-MB and RI Interpr etation MB Relative Index Non-AMI 5 5 > 4 CK-MB Quantitative and Index 1.2 ng/mL Normal 0.0-5.0 [facility] Work Phone: Comment on above: CK-MB and RI Interpr etation MB Relative Index Non-AMI 5 5 > 4 CK-MB Quantitative and Index 59 U/L Normal 39-308 [facility] Work Phone: Comment on above: 'TROP' Serial specim en #1, #2, #3, or #4: [facility] [address] [place], [address] CK-MB Quantitative and Index 2.0 % Abnormal 0.0-1.4 [facility] Work Phone: Comment on above: RELATIVE INDEX >1.5% IS PRESUMPTIVELY POSITIVE 'TROP' Serial specim en #1, #2, #3, or #4: [facility] [address] [place], [address] Comprehensive Metabolic Prof ilOrdered By: Air Cargo Specialist Supervisor on 09-22-2015 Comprehensive metabolic 2000 panel 145 mmol/L Normal 136-145 Comprehensi ve Internal Medicine Work Phone: Comment on above: 'TROP' Serial specim en #1, #2, #3, or #4: [facility] [address] [employer] [place], [place], [address] Comprehensive metabolic 2000 panel 4.2 mmol/L Normal 3.5-5.1 Comprehensi ve Internal Medicine Work Phone: Comment on above: 'TROP' Serial specim en #1, #2, #3, or #4: [facility] [address] [employer] [place], [place], [address] Comprehensive metabolic 2000 panel 108 mmol/L Abnormal 98-107 Comprehensi ve Internal Medicine Work Phone: Comment on above: 'TROP' Serial specim en #1, #2, #3, or #4: [facility] [address] [place], [address] Comprehensive metabolic 2000 panel 27.0 mmol/L Normal 21.0-32.0 Comprehensi ve Internal Medicine Work Phone: Comment on above: 'TROP' Serial specim en #1, #2, #3, or #4: [facility] [address] [employer] [place], [place], [address] Comprehensive metabolic 2000 panel 10 1 Normal 5-15 Comprehensi ve Internal Medicine Work Phone: Comment on above: 'TROP' Serial specim en #1, #2, #3, or #4: [facility] [address] [employer] [place], [place], [address] Comprehensive metabolic 2000 panel 0.60 mg/dL Normal 0.20-1.00 Comprehensi ve Internal Medicine Work Phone: Comment on above: 'TROP' Serial specim en #1, #2, #3, or #4: [facility] [address] [employer] [place], [place], [address] Comprehensive metabolic 2000 panel 18 mg/dL Normal 7-18 Comprehensi ve Internal Medicine Work Phone: Comment on above: 'TROP' Serial specim en #1, #2, #3, or #4: [facility] [address] [employer] [place], [place], [address] Comprehensive metabolic 2000 panel 82 mg/dL Normal 70-110 Comprehensi ve Internal Medicine Work Phone: Comment on above: 'TROP' Serial specim en #1, #2, #3, or #4: [facility] [address] [employer] [place], [place], [address] Comprehensive metabolic 2000 panel 0.92 mg/dL Normal 0.70-1.30 Comprehensi ve Internal Medicine Work Phone: Comment on above: The validity of the calculated GFR AND GFRAA in patients over70 years has not been determined. Clinical correlation isessential. 'TROP' Serial specim en #1, #2, #3, or #4: [facility] [address] [employer] [place], [address] Comprehensive metabolic 2000 panel 88 mL/min Normal Comprehensi ve Internal Medicine Work Phone: Comment on above: Non- GFR Calc 'TROP' Serial specim en #1, #2, #3, or #4: [facility] [address] [employer] [place], [place], [address] Comprehensive metabolic 2000 panel 106 mL/min Normal Comprehensi ve Internal Medicine Work Phone: Comment on above: GFR Calc 'TROP' Serial specim en #1, #2, #3, or #4: [facility] [address] [employer] [place], [address] Comprehensive metabolic 2000 panel 19.5 {RATIO} Normal 10-20 Comprehensi ve Internal Medicine Work Phone: Comment on above: 'TROP' Serial specim en #1, #2, #3, or #4: [facility] [address] [place], [place], [address] Comprehensive metabolic 2000 panel 6.4 g/dL Normal 6.4-8.2 Comprehensi ve Internal Medicine Work Phone: Comment on above: 'TROP' Serial specim en #1, #2, #3, or #4: [facility] [address] [place], [address] Comprehensive metabolic 2000 panel 3.8 g/dL Normal 3.4-5.0 Comprehensi ve Internal Medicine Work Phone: Comment on above: 'TROP' Serial specim en #1, #2, #3, or #4: [facility] [address] [place], [address] Comprehensive metabolic 2000 panel 2.6 g/dL Normal 2.3-3.5 Comprehensi ve Internal Medicine Work Phone: Comment on above: 'TROP' Serial specim en #1, #2, #3, or #4: [facility] [address] [place], [address] Comprehensive metabolic 2000 panel 1.5 {RATIO} Normal 0.9-2.4 Comprehensi ve Internal Medicine Work Phone: Comment on above: 'TROP' Serial specim en #1, #2, #3, or #4: [facility] [address] [place], [address] Comprehensive metabolic 2000 panel 8.3 mg/dL Abnormal 8.5-10.1 Comprehensi ve Internal Medicine Work Phone: Comment on above: 'TROP' Serial specim en #1, #2, #3, or #4: [facility] [address] [place], [address] Comprehensive metabolic 2000 panel 26 U/L Normal 15-37 Comprehensi ve Internal Medicine Work Phone: Comment on above: 'TROP' Serial specim en #1, #2, #3, or #4: [facility] [address] [employer] [place], [place], [address] Comprehensive metabolic 2000 panel 66 U/L Normal 50-136 Comprehensi ve Internal Medicine Work Phone: Comment on above: 'TROP' Serial specim en #1, #2, #3, or #4: [facility] [address] [place], [address] Comprehensive metabolic 2000 panel 37 U/L Normal 12-78 Comprehensi ve Internal Medicine Work Phone: Comment on above: 'TROP' Serial specim en #1, #2, #3, or #4: [facility] [address] [employer] [place], [place], [address] Troponin I ([id number])Ordered By : Air Cargo Specialist Supervisor on 09-22-2015 Troponin I.cardiac [Mass/Vol] ng/mL Normal [facility]; [facility] Work Phone: Comment on above: TROPONIN-I EXPECTED VALUES <0.05 NEGATIVE 0.06 - 0.59 AT RISK OF NC > OR = 0.60 SUGGEST NC 'TROP' Serial specim en #1, #2, #3, or #4: [facility] [address] [place], [address] Troponin I.cardiac mass conc ng/mL Normal [facility] Work Phone: Comment on above: TROPONIN-I EXPECTED VALUES <0.05 NEGATIVE 0.06 - 0.59 AT RISK OF NC > OR = 0.60 SUGGEST NC 'TROP' Serial specim en #1, #2, #3, or #4: [facility] [address] [place], [address] URINE SIOBHAN CULTURE-ALIZA COL C OUNT ([id number])Ordered By: Air Cargo Specialist Supervisor on 09-22-2015 Bacteria identified Cx Nom (U) NG36 Normal [facility] Work Phone: Comment on above: No growth in 36 - 48 hours. PATIENT NOT FASTINGP ERFORMED BY: CB [facility] Abpkyt1238 [facility] [id number] Information: SRC:UR [id number] Bacteria identified Cx Nom (U) Final report Normal [facility] Work Phone: Comment on above: PATIENT NOT FASTINGP ERFORMED BY: ENOC [facility] Vvmyuu2065 [facility] [id number] Information: SRC:[facility] [id number] Urinalysis, Office ([id number])Or dered By: Gabriela Reinoso on 09-22-2015 Bilirubin Ql (U) Negative Normal Comprehe nsive Internal Medicine Work Phone: Bilirubin Ql (U) Negative Normal Comprehe nsive Internal Medicine; [facility] Work Phone: Glucose Test strip (U) [Mass/Vol] Negative Normal [facility]; [facility] Work Phone: Glucose Test strip mass conc (U) Negative Normal [facility] Work Phone: Hemoglobin Ql (U) Negative Normal Compreh ensive Internal Medicine Work Phone: Hemoglobin Ql (U) Negative Normal Compreh ensive Internal Medicine; [facility] Work Phone: Hemoglobin Test strip Ql (U) Negative Normal [facility] Work Phone: Ketones Ql (U) Negative Normal Comprehens danny Internal Medicine Work Phone: Ketones Ql (U) Negative Normal Comprehens danny Internal Medicine; [facility] Work Phone: Leukocyte esterase Test strip Ql (U) Negative Normal [facility] Work Phone: Leukocyte esterase Test strip Ql (U) Negative Normal [facility]; [facility] Work Phone: Nitrite Ql (U) Negative Normal Comprehens danny Internal Medicine Work Phone: Nitrite Ql (U) Negative Normal Comprehens danny Internal Medicine; [facility] Work Phone: Nitrite Test strip Ql (U) Negative Normal [facility] Work Phone: pH (U) 6.0 [pH] Normal [facility] Work Phone: Comment on above: 5.5 pH Test strip (U) 6.0 [pH] Normal Compreh ensive Internal Medicine Work Phone: Comment on above: 5.5 Protein Ql (U) Negative Normal Comprehens danny Internal Medicine Work Phone: Protein Ql (U) Negative Normal Comprehens danny Internal Medicine; [facility] Work Phone: Protein Test strip Ql (U) Negative Normal [facility] Work Phone: Specific gravity Relative Density (U) 1.030 1 Abnormal Comprehensi ve Internal Medicine Work Phone: Urobilinogen mass/time (24H U) Normal Normal [facility] Work Phone: SIOBHAN CULTURE-OTHER ([id number])Ord ered By: Air Cargo Specialist Supervisor on 11-20-2011 Bacteria identified Respiratory culture Nom (Unsp spec) RRF Normal [facility] Work Phone: Comment on above: Routine respiratory torin PATIENT NOT FASTINGP ERFORMED BY: CB [facility] Zsxmct7990 [facility] [id number] Information: SRC:THRT [id number] Bacteria identified Respiratory culture Nom (Unsp spec) Final report Normal [facility] Work Phone: Comment on above: PATIENT NOT FASTINGP ERFORMED BY: CB [facility] Scopdp3442 [facility] [id number] Information: SRC:THRT [id number] HIP, MIN 2 VIEWSOrdered By: Air Cargo Specialist Supervisor on 10-25-2011 HIP, MIN 2 VIEWS See Note Normal Comprehe nsive Internal Medicine Work Phone: Comment on above: PROCEDURE: X-RAY - L EFT HIP REASON FOR EXAM: Male, 61 years old. Hip pain TECHNIQUE: Two views of the hip. COMPARISON: None. FINDINGS: Normal femoral head, neck, intertrochanteric region and visualizedproximalfemur. Normal acetabulum. Normal hip joint. Normal visualized superior and inferior pubic rami and ischialtuberosities. IMPRESSION:Normal x-ray examination of the hip. Signed:Linwood Leija D.O.October 25, 2011 at 10:55:04 PM EDTElectronically Signed IF/IF Professional Interpretation Provided By: [facility], , To consult with a radiologist regarding this report, please call our [id number] line @ Dictated on 10/25/11 1048 by Orestes Leija DOranscribed on 10/26/11 1732 by ITS IMPORTSign by Linwood Leija DO on 10/26/111732 Sign by: Linwood Leija DO LIPID PANEL ([id number])Ordered B y: Air Cargo Specialist Supervisor on 06-12-2011 Cholesterol in HDL mass conc 49 mg/dL Normal [facility] Work Phone: Comment on above: According to ATP-III Guidelines, HDL-C >59 mg/dL is considered anegative risk factor for CHD. PATIENT WAS FASTINGP ERFORMED BY: CB [facility] Sknkof4402 [facility] [id number] Information: [id number] Cholesterol in LDL mass conc 102 mg/dL Abnormal 0-99 [facility] Work Phone: Comment on above: PATIENT WAS FASTINGP ERFORMED BY: CB [facility] Lntkdt6170 [facility] [id number] Information: [id number] Cholesterol in LDL/Cholesterol in HDL mass ratio 2.1 {ratio_units} Normal 0.0-3.6 [facility] Work Phone: Comment on above: PATIENT WAS FASTINGP ERFORMED BY: CB [facility] Rmnhac2023 [facility] [id number] Information: [id number] Cholesterol in VLDL mass conc 22 mg/dL Normal 5-40 [facility] Work Phone: Comment on above: PATIENT WAS FASTINGP ERFORMED BY: CB [facility] Jlugae0578 [facility] [id number] Information: [id number] Cholesterol mass conc 173 mg/dL Normal 100-199 Com prehensive Internal Medicine Work Phone: Comment on above: PATIENT WAS FASTINGP ERFORMED BY: ENOC Ramos6370 [facility] [id number] Information: [id number] Triglyceride mass conc 110 mg/dL Normal 0-149 [facility] Work Phone: Comment on above: PATIENT WAS FASTINGP ERFORMED BY: ENOC [facility] Mymhzk9855 [facility] [id number] Information: [id number] PSA (PROSTATE SPECIFIC ANTIG EN) (V76.44)Ordered By: Air Cargo Specialist Supervisor on 06-12-2011 Prostate specific Ag mass conc 0.8 ng/mL Normal 0.0-4.0 [facility] Work Phone: Comment on above: [place] ECLIA methodol ogy. .According to the [place] [employer], Serum PSA shoulddecrease and remain at undetectable levels after radicalprostatectomy. The AUA defines biochemical recurrence as an initialPSA value 0.2 ng/mL or greater followed by a subsequent confirmatoryPSA value 0.2 ng/mL or greater.Values obtained with different assay methods or kits cannot be usedinterchangeably. Results cannot be interpreted as absolute evidenceof the presence or absence of malignant disease. PATIENT WAS FASTINGP ERFORMED BY: [facility]6370 [facility] [id number] DEXA BONE DENSITY STUDY (HP) Ordered By: Air Cargo Specialist Supervisor on 03-23-2011 DEXA BONE DENSITY STUDY (HP) See Note Normal [facility] Work Phone: Comment on above: PROCEDURE: DUAL ENER GY X-RAY ABSORPTIOMETRY / DEXA. REASON FOR EXAM: Male, 60 years old. Knee pain, ex-smoker. TECHNIQUE: Bone Mineral Density (BMD) measurements of lumbar spine andbilateral hips were obtained. COMPARISON: None. FINDINGS: Lumbar Spine (L1-L4): g/cm2 (1.176) / T-score (-0.4) / Z-score (0.0)Left Femur Total: g/cm2 (2.923) / T-score (-1.2) / Z-score (-0.8)Right Femur Total: g/cm2 (0.921) / T-score (-1.2 ) / Z-score (by 0.8) Additional Abnormal T-Scores: None. IMPRESSION:The patient is considered normal with respect to lumbosacral spine, asoutlined below according to World Health Organization (WHO) criteria.Fracture risk is low. The patient is considered osteopenic with respect to the hips, and thefracture is is moderate Reference Information:The T-score is the number of standard deviations above or below thestandard which is normal for young adults at their peak bone mineraldensity. The World Health Organization (WHO) interprets the T-scores asfollows: Above -1 Normal bone densityBetween -1 and -2.5 OsteopeniaEqual to / or below -2.5 Osteoporosis As a practical clinical guideline, osteopenia may be graded as follows:Mild -1 through -1.5Moderate -1.6 through -2.0Severe -2.1 through -2.4 The Z-score is the number of standard deviations above or below age-matchedcontrols. A Z-score of less than -1.5 would be considered abnormal. References:1. NIH Osteoporosis and Related Bone Diseases http://www.osteo.org2. International Society for Clinical Densitometry http://www.iscd.org3. National Osteoporosis Foundation http://www.nof.org Dictated on 03/23/11 1607 by Joo Gar MDTranscribed on 03/27/11801 by ITS IMPORTSign by Joo Gar MD on 03/27/11802 Sign by: Joo Gar MD TEST FR [id number] By: stem Forge Tender on 03-03-2011 TEST FR [id number] 11.2 pg/mL Normal 7.2-24.0 [facility] Internal Medicine Work Phone: Comment on above: Performed at: [address] [id number] Director: Keshia Bower MD, Phone: [phone] at: BN - [facility] Rhziryihoj4942 [place], [place] [id number] Director: Scout Hanson MD, Phone: [phone] appt 03/07/11 VIT D,25 [id number] By: Sy stem Forge Tender on 03-03-2011 VIT D,25 60765 71.0 ng/mL Normal 32.0-100.0 [facility] Internal Medicine Work Phone: Comment on above: Effective Novembe r 2010 Vitamin D, 25-Hydroxy reference intervals will be changing to 30-100. .Recent studies consider the lower limit of 32.0 ng/mL to be athreshold for optimal health.Jayme TURCIOS. J Nutr. 2004;135(2):317-22. CBCOrdered By: System Manage r on 02-28-2011 Erythrocyte distribution width Auto Ratio (RBC) 13.1 % Normal 11.6-14.6 [facility] Work Phone: Erythrocyte distribution width Ratio (RBC) 13.1 % Normal 11.6-14.6 [facility] Work Phone: Hematocrit Auto Volume Fraction (Bld) 47.1 % Normal 40-54 [facility] Work Phone: Hematocrit Volume Fraction (Bld) 47.1 % Normal 40-54 [facility] Work Phone: Hemoglobin mass conc (Bld) 16.3 g/dL Normal 14.0-18.0 [facility] Work Phone: MCH Auto Entitic mass (RBC) 31.5 pg Normal 27.0-32.0 [facility] Work Phone: MCH Entitic mass (RBC) 31.5 pg Normal 27.0-32.0 [address] [facility] [facility] Internal Medicine Work Phone: MCHC Auto mass conc (RBC) 34.7 g/dL Normal 32-36 [facility] Work Phone: MCHC mass conc (RBC) 34.7 g/dL Normal 32-36 Comp [facility] Internal Medicine Work Phone: MCV Auto Entitic volume (RBC) 90.8 fL Normal 80-94 [facility] Work Phone: MCV Entitic volume (RBC) 90.8 fL Normal 80-94 [facility] Work Phone: Platelet mean volume Auto Entitic volume (Bld) 10.6 fL Normal 6.5-12.0 [facility] Work Phone: Platelet mean volume Entitic volume (Bld) 10.6 fL Normal 6.5-12.0 Comprehensi ve Internal Medicine Work Phone: Platelets #/vol (Bld) 169 10*3/uL Normal 150-450 Co mprehensive Internal Medicine Work Phone: Platelets Auto #/vol (Bld) 169 10*3/uL Normal 150-450 [facility] Work Phone: RBC #/vol (Bld) 5.18 {M/mm3} Normal 4.6-6.2 Compreh ensive Internal Medicine Work Phone: RBC Auto #/vol (Bld) 5.18 {M/mm3} Normal 4.6-6.2 Co mprehensive Internal Medicine Work Phone: WBC #/vol (Bld) 6.1 10*3/uL Normal 4.4-11.0 Comprehe nsive Internal Medicine Work Phone: WBC Auto #/vol (Bld) 6.1 10*3/uL Normal 4.4-11.0 Com prehensive Internal Medicine Work Phone: COMP METABOLICOrdered By: Sy stem Forge Tender on 02-28-2011 Albumin mass conc 4.7 g/dL Normal 3.4-5.0 Compreh ensive Internal Medicine Work Phone: Comment on above: has appt 03/07/11 Albumin/Globulin mass ratio 1.9 {RATIO} Normal 0.9-2.4 [facility] Work Phone: Comment on above: has appt 03/07/11 ALP enzyme act/vol 69 U/L Normal 50-136 Compre hensive Internal Medicine Work Phone: Comment on above: has appt 03/07/11 ALT enzyme act/vol 34 U/L Normal 12-78 Compre [facility] Internal Medicine Work Phone: Comment on above: has appt 03/07/11 Anion gap 3 molar conc 9 mmol/L Normal 5-15 Co mprensive Internal Medicine Work Phone: Anion gap molar conc 9 mmol/L Normal 5-15 [facility] Work Phone: Comment on above: has appt 03/07/11 AST enzyme act/vol 19 U/L Normal 15-37 Compre [facility] Internal Medicine Work Phone: Comment on above: has appt 03/07/11 Bilirubin mass conc 0.80 mg/dL Normal 0.00-1.00 Compr ensive Internal Medicine Work Phone: Comment on above: has appt 03/07/11 Calcium mass conc 9.4 mg/dL Normal 8.5-10.1 [facility] Work Phone: Comment on above: has appt 03/07/11 Chloride molar conc 105 mmol/L Normal 98-107 [facility] Internal Medicine Work Phone: Comment on above: has appt 03/07/11 CO2 molar conc 27.0 mmol/L Normal 21.0-32.0 [facility] Work Phone: Comment on above: has appt 03/07/11 Creatinine mass conc 1.0 mg/dL Normal 0.8-1.3 [facility] Internal Medicine Work Phone: Comment on above: has appt 03/07/11 GFR/1.73 sq M predicted among blacks MDRD vol rate/area (S/P/Bld) 99 mL/min/{1.73_m2} Normal Comprehensiv e Internal Medicine Work Phone: Comment on above: has appt 03/07/11 GFR/1.73 sq M.predicted MDRD (S/P/Bld) [Vol rate/Area] 82 mL/min/{1.73_m2} Normal Comprehensiv e Internal Medicine Work Phone: Comment on above: has appt 03/07/11 GFR/1.73 sq M.predicted MDRD vol rate/area 82 mL/min/{1.73_m2} Normal Comprehensiv e Internal Medicine Work Phone: Comment on above: has appt 03/07/11 Globulin Calculated mass conc (S) 2.5 g/dL Abnormal 2.7-4.2 [facility] Work Phone: Globulin mass conc (S) 2.5 g/dL Abnormal 2.7-4.2 Co mprehensive Internal Medicine Work Phone: Comment on above: has appt 03/07/11 Glucose mass conc 86 mg/dL Normal 70-110 Compreh ensive Internal Medicine Work Phone: Comment on above: has appt 03/07/11 Potassium molar conc 4.2 mmol/L Normal 3.5-5.1 Comp rehensive Internal Medicine Work Phone: Comment on above: has appt 03/07/11 Protein mass conc 7.2 g/dL Normal 6.4-8.2 Compreh ensive Internal Medicine Work Phone: Comment on above: has appt 03/07/11 Sodium molar conc 141 mmol/L Normal 136-145 Compreh ensive Internal Medicine Work Phone: Comment on above: has appt 03/07/11 Urea nitrogen mass conc 19 mg/dL Abnormal 7-18 [facility] Work Phone: Comment on above: has appt 03/07/11 Urea nitrogen/Creatinine mass ratio 19.0 {RATIO} Normal 10-20 [facility] Work Phone: Comment on above: has appt 03/07/11 TSHOrdered By: System Manage r on 02-28-2011 Thyrotropin Qn 3.14 {uIU/mL} Normal 0.358-3.74 Compreh ensive Internal Medicine Work Phone: VITAMIN [id number] By: Tavon m Forge Tender on 02-28-2011 Cobalamin (Vitamin B12) mass conc 429 pg/mL Normal 254-1320 [facility] Work Phone: Comment on above: There is a low frequ ency possibility that high titers ofintrinsic blocking antibodies may not be completely inactivated during the reaction pretreatment stepof this testing method. If test results are in conflictwith the clinical diagnosis, patient should be testedfor the presence of intrinsic factor blocking antibodies. LOWER EXT.JOINT ONLY (ROUTIN E)Ordered By: Air Cargo Specialist Supervisor on 12-15-2010 LOWER EXT.JOINT ONLY (ROUTINE) See Note Normal [facility] Work Phone: Comment on above: PROCEDURE: MRI LEFT KNEE REASON FOR EXAM: Male, 60 years old. Lateral knee pain down calf fortwomonths. Instability. TECHNIQUE: Standardized fat and water weighted pulse sequences wereobtained in all 3 orthogonal planes. COMPARISON: None. FINDINGS:Normal medial meniscus. Normal hyaline cartilage of the medialfemorotibial compartment. Normal medial femoral condyle and tibialplateau. Normal medial collateral ligamentous complex (MCL). Normal distalsemimembranosus, gracilis and semitendinosus tendons. Normal lateral meniscus. Normal hyaline cartilage of the lateralfemorotibial compartment. There is a large reticular area of bone marrowedema in the lateral tibial plateau with a horizontal low signalintensityline beneath the articular cartilage. Without a history of acute trauma,this most likely represents an insufficiency fracture. If the patienthashad trauma, this could, alternatively, represent a nondisplaced tibialplateau fracture (coronal series 3 images 6-12, coronal series 2 images6-11, axial series 6 images 14-22). Normal proximal tibiofibular articulation. Normal lateral collateral(fibular) ligament. Normal popliteus tendon. Normal biceps femoristendon. Normal anterior cruciate ligament (ACL). Normal posterior cruciateligament (PCL). Normal congruent patellofemoral articulation. Normal hyaline cartilageofthe patellofemoral compartment. Normal medial and lateral patellarretinaculum. Normal quadriceps tendon. Normal patellar tendon. Normal Hoffa's fatpad. There is a joint effusion with a small ganglion cyst superior andmedially(coronal series 3 image 5, sagittal series 5 image 19). The soft tissues are unremarkable. The otherwise visualized osseousstructures are unremarkable. IMPRESSION:Large area of reticular bone marrow edema in the lateral tibial plateauassociated with a low signal intensity line parallel to the articularcartilage of the tibial plateau. Differential includes insufficiencyfracture or trauma, if the patient has had a history of trauma. Seediscussion above. Joint effusion with a small ganglion cyst. No other significant abnormality. Dictated on 12/15/10 1328 by Dariel Shine MDTranscribed on 12/15/10 1545 by ITS IMPORTSign by Dariel Shine MD on 12/15/10 1546 Sign by: Dariel Shine MD OCCULT BLD,iFOBOrdered By: S ystem Forge Tender on 03-05-2009 OCCULT BLD,iFOB See Note Normal [facility] Internal [facility] Work Phone: Comment on above: OCCULT BLOOD Negativ e No Salmonella, Shige lla, Yersinia or Campylobacter isolated.No significant amount of Staphylococcus aureusor yeast-like organisms isolated. C. DIFF TOXINS A&B N EGATIVE FECAL WBCs NONE SEEN OVA AND PARASITES EX AM, ROUTINE These results were obtained using wet preparation(s) and trichrome stained smear. This test does not include testing for Crytosporidium parvum, Cyclospora, or Microsporidia. TESTING PERFORMED AT [facility]. ORIGINAL REPORT ON FILE IN LAB CONTAINS ADDITIONAL TEST SITE INFORMATION. OVA/ PARASITES EXAM NO OVA, CYSTS, OR PARASITES FOUND. SHIGA-TOXIN 1 & 2 SH IGA TOXIN 1 AND SHIGA TOXIN 2 NOT DETECTED BMPOrdered By: System Manage r on 03-04-2009 Anion gap 3 molar conc 9 mmol/L Normal 5-15 Co mprehensive Internal Medicine Work Phone: Anion gap molar conc 9 mmol/L Normal 5-15 Comp rehensive Internal Medicine Work Phone: Calcium mass conc 8.9 mg/dL Normal 8.5-10.1 Compreh ensive Internal Medicine Work Phone: Chloride molar conc 105 mmol/L Normal 98-107 Compr ehensive Internal Medicine Work Phone: CO2 molar conc 25.0 mmol/L Normal 21.0-32.0 [facility] Internal [facility] Work Phone: Creatinine mass conc 0.7 mg/dL Abnormal 0.8-1.3 Comp [facility] Work Phone: GFR/1.73 sq M predicted among blacks MDRD vol rate/area (S/P/Bld) 150 mL/min/{1.73_m2} [facility]: GFR/1.73 sq M.predicted MDRD (S/P/Bld) [Vol rate/Area] 124 mL/min/{1.73_m2} [facility] Work Phone: GFR/1.73 sq M.predicted MDRD vol rate/area 124 mL/min/{1.73_m2} Normal [facility] Work Phone: Glucose mass conc 76 mg/dL Normal 70-110 [facility] Work Phone: Potassium molar conc 4.4 mmol/L Normal 3.5-5.1 [facility] Work Phone: Sodium molar conc 139 mmol/L Normal 136-145 [facility] Work Phone: Urea nitrogen mass conc 16 mg/dL Normal 7-18 [facility] Work Phone: Urea nitrogen/Creatinine mass ratio 22.9 {RATIO} Abnormal 10-20 [facility] Work Phone: CBCD,SMEAR DIFFOrdered By: Missy ystem Forge Tender on 03-04-2009 Band form neutrophils/100 WBC (Bld) 1 % Normal 0-5 [facility] Work Phone: Band form neutrophils/100 WBC Manual cnt (Bld) 1 % Normal 0-5 [facility] Work Phone: Eosinophils/100 WBC (Bld) 4 % Normal 0-5 [facility] Work Phone: Eosinophils/100 WBC Auto (Bld) 4 % Normal 0-5 [facility] Work Phone: Erythrocyte distribution width Auto Ratio (RBC) 12.7 % Normal 11.6-14.6 [facility] Work Phone: Erythrocyte distribution width Ratio (RBC) 12.7 % Normal 11.6-14.6 [facility] Work Phone: Hematocrit Auto Volume Fraction (Bld) 45.4 % Normal 40-54 [facility] Work Phone: Hematocrit Volume Fraction (Bld) 45.4 % Normal 40-54 [facility] Work Phone: Hemoglobin mass conc (Bld) 15.8 g/dL Normal 14.0-18.0 [facility] Work Phone: Lymphocytes/100 WBC (Bld) 19 % Normal 19-41 [facility] Work Phone: Lymphocytes/100 WBC Auto (Bld) 19 % Normal 19-41 [facility] Work Phone: MCH Auto Entitic mass (RBC) 31.8 pg Normal 27.0-32.0 [facility] Work Phone: MCH Entitic mass (RBC) 31.8 pg Normal 27.0-32.0 Co mprensive Internal Medicine Work Phone: MCHC Auto mass conc (RBC) 34.8 g/dL Normal 32-36 [facility] Work Phone: MCHC mass conc (RBC) 34.8 g/dL Normal 32-36 [facility] Work Phone: MCV Auto Entitic volume (RBC) 91.4 fL Normal 80-94 [facility] Work Phone: MCV Entitic volume (RBC) 91.4 fL Normal 80-94 [facility] Work Phone: Monocytes/100 WBC (Bld) 9 % Normal 0-10 [facility] Work Phone: Monocytes/100 WBC Auto (Bld) 9 % Normal 0-10 [facility] Work Phone: Platelets #/vol (Bld) 119 10*3/uL Abnormal 150-450 Co [facility] Internal Medicine Work Phone: Platelets #/vol (Bld) SeeNote Normal Com [facility] Work Phone: Comment on above: Result: ADEQUATE Platelets Auto #/vol (Bld) 119 10*3/uL Abnormal 150-450 [facility] Work Phone: RBC #/vol (Bld) 4.96 {M/mm3} Normal 4.6-6.2 Compre[facility] Internal Medicine Work Phone: RBC Auto #/vol (Bld) 4.96 {M/mm3} Normal 4.6-6.2 Co [facility] Internal Medicine Work Phone: WBC #/vol (Bld) 3.9 10*3/uL Abnormal 4.4-11.[address] [facility] Internal [facility] Work Phone: WBC Auto #/vol (Bld) 3.9 10*3/uL Abnormal 4.4-11.0 Com [facility] Internal Medicine Work Phone: CBCD,SMEAR DIFF SeeNote Normal [facility] Internal Medicine Work Phone: Comment on above: Result: NORM C+C Result: ADEQUATE CBCD,SMEAR DIFF [address] [facility] Internal Medicine Work Phone: CBCD,SMEAR DIFF 67 % Normal 47-[address] [facility] Internal Medicine Work Phone: CBCD,SMEAR DIFF 1 % Normal 0-5 [facility] Work Phone: LDHOrdered By: System [employer] r on 03-04-2009 LDH enzyme act/vol 155 U/L Normal 100-190 Compre [facility] Internal Medicine Work Phone: PRO TIMEOrdered By: System M anager on 03-04-2009 INR Coag RelTime (PPP) 1.1 {INR} Normal Co [facility] Internal Medicine Work Phone: Prothrombin time (PT) Coag time (PPP) 11.5 s Normal 9.1-11.7 [facility] Work Phone: Prothrombin time (PT) Coag time (PPP) 1.1 s Normal [facility] Work Phone: PTTOrdered By: System Manage r on 03-04-2009 aPTT Coag time (Bld) 37.3 s Abnormal 25.2-36.2 Comp rehensive Internal Medicine Work Phone: VITAMIN [id number] By: Quelle Energiespencer m Forge Tender on 03-04-2009 Cobalamin (Vitamin B12) mass conc 396 pg/mL Normal 254-1320 [facility] Work Phone: CBCD,SMEAR DIFFOrdered By: S ystem Forge Tender on 01-21-2009 Band form neutrophils/100 WBC (Bld) 1 % Normal 0-5 [facility] Work Phone: Band form neutrophils/100 WBC Manual cnt (Bld) 1 % Normal 0-5 [facility] Work Phone: Eosinophils/100 WBC (Bld) 3 % Normal 0-5 [facility] Work Phone: Eosinophils/100 WBC Auto (Bld) 3 % Normal 0-5 [facility] Work Phone: Erythrocyte distribution width Auto Ratio (RBC) 12.8 % Normal 11.6-14.6 [facility] Work Phone: Erythrocyte distribution width Ratio (RBC) 12.8 % Normal 11.6-14.6 [facility] Work Phone: Hematocrit Auto Volume Fraction (Bld) 47.5 % Normal 40-54 [facility] Work Phone: Hematocrit Volume Fraction (Bld) 47.5 % Normal 40-54 [facility] Work Phone: Hemoglobin mass conc (Bld) 16.3 g/dL Normal 14.0-18.0 [facility] Work Phone: Lymphocytes/100 WBC (Bld) 29 % Normal 19-41 [facility] Work Phone: Lymphocytes/100 WBC Auto (Bld) 29 % Normal 19-41 [facility] Work Phone: MCH Auto Entitic mass (RBC) 31.3 pg Normal 27.0-32.0 [facility] Work Phone: MCH Entitic mass (RBC) 31.3 pg Normal 27.0-32.0 [facility] Work Phone: MCHC Auto mass conc (RBC) 34.3 g/dL Normal 32-36 [facility] Work Phone: MCHC mass conc (RBC) 34.3 g/dL Normal 32-36 Comp rehensive Internal Medicine Work Phone: MCV Auto Entitic volume (RBC) 91.2 fL Normal 80-94 [facility] Work Phone: MCV Entitic volume (RBC) 91.2 fL Normal 80-94 [facility] Work Phone: Platelets #/vol (Bld) 143 10*3/uL Abnormal 150-450 [facility] Work Phone: Platelets #/vol (Bld) SLT DEC Normal Com prehensive Internal Medicine Work Phone: Platelets Auto #/vol (Bld) 143 10*3/uL Abnormal 150-450 [facility] Work Phone: RBC #/vol (Bld) 5.21 {M/mm3} Normal 4.6-6.2 Compreh ensive Internal Medicine Work Phone: RBC Auto #/vol (Bld) 5.21 {M/mm3} Normal 4.6-6.2 [facility] Work Phone: WBC #/vol (Bld) 5.3 10*3/uL Normal 4.4-11.0 Comprehe nsive Internal Medicine Work Phone: WBC Auto #/vol (Bld) 5.3 10*3/uL Normal 4.4-11.0 Com prehensive Internal Medicine Work Phone: CBCD,SMEAR DIFF 100 1 Normal [facility] Internal [facility] Work Phone: CBCD,SMEAR DIFF 12 % Abnormal 0-10 [facility] Work Phone: CBCD,SMEAR DIFF 2 % Normal [facility] Work Phone: CBCD,SMEAR DIFF 53 % Normal 47-70 [facility] Work Phone: CBCD,SMEAR DIFF SeeNote Normal [facility] Work Phone: Comment on above: Result: NORM C+C CBCD,SMEAR DIFF SLT DEC Normal [facility] Work Phone: CBCD,SMEAR DIFF 1 % Normal 0-[address] [facility] Internal Medicine Work Phone: COMP METABOLICOrdered By: Natalio stem Forge Tender on 01-21-2009 Albumin mass conc 4.4 g/dL Normal 3.4-5.0 Compreh [facility] Internal Medicine Work Phone: Albumin/Globulin mass ratio 1.6 {RATIO} Normal 0.9-2.4 [facility] Internal [facility] Work Phone: ALP enzyme act/vol 81 U/L Normal 50-[address] [facility] Work Phone: ALT enzyme act/vol 38 U/L Normal 30-65 [facility] Internal Medicine Work Phone: Anion gap 3 molar conc 8 mmol/L Normal 5-[address] [facility] [address] [facility] [facility] Internal [facility] Work Phone: Anion gap molar conc 8 mmol/L Normal 5-15 Comp [facility] Work Phone: AST enzyme act/vol 22 U/L Normal 15-[address] [facility] Internal [facility] Work Phone: Bilirubin mass conc 0.70 mg/dL Normal 0.00-1.00 [facility] Internal Medicine Work Phone: Calcium mass conc 9.4 mg/dL Normal 8.5-10.1 Compreh [facility] Internal Medicine Work Phone: Chloride molar conc 103 mmol/L Normal 98-107 [facility] Internal Medicine Work Phone: CO2 molar conc 28.0 mmol/L Normal 21.0-32.0 [facility] Internal [facility] Work Phone: Creatinine mass conc 0.8 mg/dL Normal 0.8-1.3 Comp rehensive Internal Medicine Work Phone: GFR/1.73 sq M predicted among blacks MDRD vol rate/area (S/P/Bld) 128 mL/min/{1.73_m2} Normal Comprehensi ve Internal Medicine Work Phone: GFR/1.73 sq M.predicted MDRD (S/P/Bld) [Vol rate/Area] 106 mL/min/{1.73_m2} Normal Comprehensi ve Internal Medicine Work Phone: GFR/1.73 sq M.predicted MDRD vol rate/area 106 mL/min/{1.73_m2} Normal Comprehensi ve Internal Medicine Work Phone: Globulin Calculated mass conc (S) 2.7 g/dL Normal 2.7-4.2 [facility] Work Phone: Globulin mass conc (S) 2.7 g/dL Normal 2.7-4.2 Co mprehensive Internal Medicine Work Phone: Glucose mass conc 98 mg/dL Normal 70-110 Compreh ensive Internal Medicine Work Phone: Potassium molar conc 4.2 mmol/L Normal 3.5-5.1 Comp rehensive Internal Medicine Work Phone: Protein mass conc 7.1 g/dL Normal 6.4-8.2 Compreh ensive Internal Medicine Work Phone: Sodium molar conc 139 mmol/L Normal 136-145 Compreh ensive Internal Medicine Work Phone: Urea nitrogen mass conc 18 mg/dL Normal 7-18 [facility] Work Phone: Urea nitrogen/Creatinine mass ratio 22.5 {RATIO} Abnormal 10-20 [facility] Work Phone: LIPIDOrdered By: Waldo saravia on 01-21-2009 Cholesterol in HDL mass conc 44 mg/dL Normal [facility] Work Phone: Comment on above: Reference Range HDL <40 mg/dL Low HDL Cholesterol HDL >or= 60 mg/dL High HDL Cholesterol Cholesterol in LDL mass conc 81 mg/dL Normal 0-130 [facility] Work Phone: Cholesterol in VLDL mass conc 20 mg/dL Normal 5-40 [facility] Work Phone: Cholesterol mass conc 145 mg/dL Normal Com prehensive Internal Medicine Work Phone: Comment on above: <200 mg/dL Desirable 200-240 mg/dL Borderline >240 mg/dL High Risk Triglyceride mass conc 101 mg/dL Normal Co mprehensive Internal Medicine Work Phone: Comment on above: Serum Triglycerides Reference Interval Normal <150 mg/dL Borderline high 150 - 199 mg/dL High 200 - 499 mg/dL Very High > or = 500 mg/dL PSA, SCREENOrdered By: Tavon schultz Forge Tender on 01-21-2009 Prostate specific Ag mass conc 0.6 ng/mL Normal 0.0-4.0 [facility] Work Phone: Urinalysis, Office ([id number])Or dered By: Luisa Martinez on 07-13-2008 Bilirubin Ql (U) Negative Normal Comprehe nsive Internal Medicine Work Phone: Glucose Test strip mass conc (U) Negative Normal [facility] Work Phone: Hemoglobin Ql (U) Non Hemolyzed Trace Normal [facility] Work Phone: Hemoglobin Test strip Ql (U) Non Hemolyzed Trace Normal Comprehensiv e Internal Medicine Work Phone: Ketones Ql (U) Small Normal Comprehens danny Internal Medicine Work Phone: Leukocyte esterase Test strip Ql (U) Negative Normal [facility] Work Phone: Comment on above: aw Nitrite Ql (U) Negative Normal Comprehens danny Internal Medicine Work Phone: Nitrite Test strip Ql (U) Negative Normal [facility] Work Phone: pH (U) 6.5 [pH] Normal [facility] Work Phone: pH Test strip (U) 6.5 [pH] Normal Compreh ensive Internal Medicine Work Phone: Protein Ql (U) Negative Normal Comprehens danny Internal Medicine Work Phone: Protein Test strip Ql (U) Negative Normal [facility] Work Phone: Specific gravity Relative Density (U) 1.025 1 Normal Comprehensi ve Internal Medicine Work Phone: Urobilinogen mass/time (24H U) Normal Normal [facility] Work Phone: Urinalysis, Office ([id number])on 07-13-2008 Bilirubin Ql (U) Negative Normal Comprehe nsive Internal Medicine; [facility] Work Phone: Glucose Test strip (U) [Mass/Vol] Negative Normal [facility]; [facility] Work Phone: Leukocyte esterase Test strip Ql (U) Negative Normal [facility]; [facility] Work Phone: Comment on above: aw Nitrite Ql (U) Negative Normal Comprehens danny Internal Medicine; [facility] Work Phone: Protein Ql (U) Negative Normal Comprehens danny Internal Medicine; [facility] Work Phone: ORBITS FOR FOREIGN BODY (MT) Ordered By: Air Cargo Specialist Supervisor on 03-28-2007 ORBITS FOR FOREIGN BODY (MT) See Note Normal [facility] Work Phone: Comment on above: Exam Number: [id number] ORBITS FOR FOREIGN BODY HISTORYPre MRI testing. History of foreign body in eyes. Screening views of the orbits were obtained. No radiopaque foreignbody is identified. There is minimal thickening of themucoperiosteal lining of the maxillary sinuses. IMPRESSIONNo radiopaque foreign bodies are identified. There are minimalchanges of chronic sinusitis. Reported By: KEITH JON M.D. Exam Number: [id number] MRI LUMBAR SPINE. CLINICAL STATEMENTLow back pain. Left leg pain for 2 years. FINDINGSL1-L2, L2-L3, and L3-L4 levels are unremarkable. At L4-L5 level, there is mild chronic disc degeneration with mildconcentric bulging annulus and minimal hypertrophic degenerativeosteoarthritis. At L5-S1 level, there is moderate chronic disc degeneration withminimal hypertrophic degenerative osteoarthritis. There is abroad-based right posterior disc protrusion with mild right inferiormigration. There is secondary mild right anterior extraduralextrinsic effect. In view of the patient's left leg pain, correlationwith neurological and EMG findings is suggested. Facet joints are relatively normal, except for mild degenerativeosteoarthritis at L4-5 and L5-S1 levels on both sides. No significant spinal canal stenosis or neural foraminal stenosis isseen. No intraspinal tumor is seen. IMPRESSION1. Mild L4-5 and moderate L5-S1 chronic disc degeneration withminimal degenerative osteoarthritis. Right posterior disc protrusionwith mild right inferior migration at L5-S1. 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 Reported By: RANDALL SAENZ M.D. CBCOrdered By: System Manage r on 04-18-2006 Erythrocyte distribution width Auto Ratio (RBC) 12.7 % Normal 11.6-14.6 [facility] Work Phone: Erythrocyte distribution width Ratio (RBC) 12.7 % Normal 11.6-14.6 [facility] Work Phone: Hematocrit Auto Volume Fraction (Bld) 48.4 % Normal 40-54 [facility] Work Phone: Hematocrit Volume Fraction (Bld) 48.4 % Normal 40-54 [facility] Work Phone: Hemoglobin mass conc (Bld) 17.0 g/dL Normal 14.0-18.0 [facility] Work Phone: MCH Auto Entitic mass (RBC) 31.6 pg Normal 27.0-32.0 [facility] Work Phone: MCH Entitic mass (RBC) 31.6 pg Normal 27.0-32.0 [facility] Internal Medicine Work Phone: MCHC Auto mass conc (RBC) 35.2 g/dL Normal 32-36 [facility] Work Phone: MCHC mass conc (RBC) 35.2 g/dL Normal 32-36 [facility] Internal Medicine Work Phone: MCV Auto Entitic volume (RBC) 89.8 fL Normal 80-94 [facility] Work Phone: MCV Entitic volume (RBC) 89.8 fL Normal 80-94 [facility] Work Phone: Platelets #/vol (Bld) 168 10*3/uL Normal 150-450 [facility] Work Phone: Platelets Auto #/vol (Bld) 168 10*3/uL Normal 150-450 [facility] Work Phone: RBC #/vol (Bld) 5.40 {M/mm3} Normal 4.6-6.2 [facility] Work Phone: RBC Auto #/vol (Bld) 5.40 {M/mm3} Normal 4.6-6.2 [facility] Work Phone: WBC #/vol (Bld) 6.0 10*3/uL Normal 4.4-11.0 [facility] Work Phone: WBC Auto #/vol (Bld) 6.0 10*3/uL Normal 4.4-11.0 [facility] Work Phone: COMP METABOLICOrdered By: Natalio stem Forge Tender on 04-18-2006 Albumin mass conc 4.5 g/dL Normal 3.4-5.0 [facility] Work Phone: Albumin/Globulin mass ratio 1.6 {RATIO} Normal 0.9-2.4 [facility] Work Phone: ALP enzyme act/vol 65 U/L Normal 50-136 [facility] Work Phone: ALT enzyme act/vol 47 [iU]/L Normal 30-65 [facility] Work Phone: Anion gap 3 molar conc 5 mmol/L Normal 5-15 [facility] Work Phone: Anion gap molar conc 5 mmol/L Normal 5-15 [facility] Work Phone: AST enzyme act/vol 26 U/L Normal 15-37 [facility] Work Phone: Bilirubin mass conc 0.70 mg/dL Normal 0.00-1.00 [facility] Work Phone: Calcium mass conc 9.3 mg/dL Normal 8.5-10.1 [facility] Work Phone: Chloride molar conc 103 mmol/L Normal 98-107 [facility]pr e[facility] Work Phone: CO2 molar conc 31.2 mmol/L Abnormal 22.0-29.0 [facility] Work Phone: Creatinine mass conc 0.9 mg/dL Normal 0.8-1.3 [facility] Work Phone: Globulin Calculated mass conc (S) 2.9 g/dL Normal 2.3-3.5 [facility] Work Phone: Globulin mass conc (S) 2.9 g/dL Normal 2.3-3.5 [facility] Work Phone: Glucose mass conc 76 mg/dL Normal 70-110 [facility] Work Phone: Potassium molar conc 4.1 mmol/L Normal 3.5-5.1 Comp re[facility] Medicine Work Phone: Protein mass conc 7.4 g/dL Normal 6.4-8.2 [facility] Work Phone: Sodium molar conc 139 mmol/L Normal 136-145 [facility] Work Phone: Urea nitrogen mass conc 15 mg/dL Normal 7-18 [facility] Work Phone: Urea nitrogen/Creatinine mass ratio 16.7 {RATIO} Normal 10-20 [facility] Work Phone: TSHOrdered By: System Manage r on 04-13-2006 Thyrotropin Qn 2.21 {uIU/mL} Normal 0.34-4.82 [facility] Work Phone: No Panel Information SARS-CoV-2 & FLU Antigen (Rapid) SARS-CoV-2 (COVID 19) [facility] Work Phone: Vital Signs Date Time Vital Sign Value Performing Clinician Facility 08-29-2023 14:00-0400 Body temperature 98 [degF] Dr. Eamon Nicole Work Phone: [facility] 08-29-2023 14:00-0400 Diastolic blood pressure 74 mm[Hg] Dr. Eamon Nicole Work Phone: 1(679)117-428710 [place] [address] 08-29-2023 14:00-0400 Heart rate 70 /min Dr. Eamon Nicole Work Phone: 0(412)722-294010 [place] [address] 08-29-2023 14:00-0400 Respiratory rate 16 /min Dr. Eamon Nicole Work Phone: 5([phone] [address] 08-29-2023 14:00-0400 SaO2% (BldA) [Mass fraction] 94 % Dr. Eamon Nicole Work Phone: 8([phone])795-253810 [place] [address] 08-29-2023 14:00-0400 Systolic blood pressure 145 mm[Hg] Dr. Eamon Nicole Work Phone: 7([phone])243-542310 [place] [address] 08-29-2023 09:45-0400 Inhaled oxygen flow rate 2 L/min Dr. Eamon Nicole Work Phone: 0([phone] [address] 08-29-2023 06:32-0400 Body height 170.[address] Eamon Nicole Work Phone: 0(430)022-443210 [place] [address] 08-29-2023 06:32-0400 Body mass index (BMI) [Ratio] 22.4 kg/m2 Dr. Eamon Nicole Work Phone: 8(796)861-983510 [place] [address] 08-29-2023 06:32-0400 Body weight [address] Eamon Nicole Work Phone: [phone](369)418-052710 [place] [address] 07-06-2023 13:38-0500 Body mass index (BMI) [Ratio] 22.3 kg/m2 Dr. Eamon Nicole Work Phone: 0(643)314-410110 [place] [address] 07-06-2023 13:38-0500 Body temperature 98.1 [degF] Dr. Eamon Nicole Work Phone: [facility] 07-06-2023 13:38-0500 Body weight 68.[address] Eamon Nicole Work Phone: [facility] 07-06-2023 13:38-0500 Diastolic blood pressure 69 mm[Hg] Dr. Eamon Nicole Work Phone: [facility] 07-06-2023 13:38-0500 Heart rate 82 /min Dr. Eamon Nicole Work Phone: [facility] 07-06-2023 13:38-0500 Respiratory rate 17 /min Dr. Eamon Nicole Work Phone: [facility] 07-06-2023 13:38-0500 SaO2% (BldA) [Mass fraction] 97 % Dr. Eamon Nicole Work Phone: [facility] 07-06-2023 13:38-0500 Systolic blood pressure 129 mm[Hg] Dr. Eamon Nicole Work Phone: [facility] 02-08-2022 23:59-0400 Diastolic blood pressure 62 mm[Hg] [facility] Work Phone: 02-08-2022 23:59-0400 Heart rate 84 /min [facility] Work Phone: 02-08-2022 23:59-0400 Respiratory rate 18 /min [facility] Work Phone: 02-08-2022 23:59-0400 SaO2% (BldA) [Mass fraction] 98 % [facility] Work Phone: 02-08-2022 23:59-0400 Systolic blood pressure 138 mm[Hg] [facility] Work Phone: 02-08-2022 21:00-0400 Body height 175.26 cm [facility] Work Phone: 02-08-2022 21:00-0400 Body mass index (BMI) [Ratio] 23.6 kg/m2 [facility] Work Phone: 02-08-2022 21:00-0400 Body temperature 98.2 [degF] [facility] Work Phone: 02-08-2022 21:00-0400 Body weight 72.57 kg [facility] Work Phone: 01-12-2020 08:57-0400 BMI (Body Mass Index) 23.73 kg/m2 Vandana Guillermo [facility] danny Internal Medicine Work Phone: 01-12-2020 08:57-0400 BMI (Body Mass Index) 23.57 kg/m2 Jaun España LPN [facility] Work Phone: 01-12-2020 08:57-0400 Body Temperature 96.9 [degF] Jaun España LPN [facility] Work Phone: Comment on above: Method: Infrared 01-12-2020 08:57-0400 Body weight 70.78 kg Vandana Mendozaronny [facility] Work Phone: 01-12-2020 08:57-0400 Body weight 70.31 kg [facility] Work Phone: 01-12-2020 08:57-0400 BP Diastolic 68 mm[Hg] Jaun España LPN [facility] Work Phone: Comment on above: Patient Position: Sitting; Cuff Location : Left Arm; Cuff Size: Standard 01-12-2020 08:57-0400 BP Systolic 124 mm[Hg] Jaun España LPN [facility] Work Phone: Comment on above: Patient Position: Sitting; Cuff Location : Left Arm; Cuff Size: Standard 01-12-2020 08:57-0400 BSA (Body Surface Area) 1.84 m2 Vandana Mendozaronny [facility] Work Phone: 01-12-2020 08:57-0400 BSA (Body Surface Area) 1.83 m2 Jaun España LPN [facility] Work Phone: 01-12-2020 08:57-0400 Height 172.72 cm Jaun España LPN [facility] Work Phone: 01-12-2020 08:57-0400 Pulse (Heart Rate) 90 /min Jaun España LPN Comprehensiv e Internal Medicine Work Phone: Comment on above: Pattern: Regular 01-12-2020 08:57-0400 Pulse Oximetry 99 % Vandana Guillermo [facility] Work Phone: Comment on above: Room air 01-12-2020 08:57-0400 Respiratory Rate 16 /min Jaun España LPN [facility] Work Phone: Comment on above: Pattern: Unlabored 01-12-2020 08:57-0400 SaO2% (BldA) [Mass fraction] 99 % Jaun España LPN [facility]; [facility] Work Phone: Comment on above: Room air 12-16-2019 08:03-0400 BMI (Body Mass Index) 23.73 kg/m2 Jaun España LPN [facility]pre[facility] Medicine Work Phone: 12-16-2019 08:03-0400 Body Temperature 97.3 [degF] Jaun España LPN [facility] Work Phone: Comment on above: Method: Infrared 12-16-2019 08:03-0400 Body weight 70.78 kg Jaun España LPN [facility] Work Phone: 12-16-2019 08:03-0400 BP Diastolic 78 mm[Hg] Jaun España LPN [facility] Work Phone: Comment on above: Patient Position: Sitting; Cuff Location : Left Arm; Cuff Size: Standard 12-16-2019 08:03-0400 BP Systolic 126 mm[Hg] Jaun España LPN [facility] Work Phone: Comment on above: Patient Position: Sitting; Cuff Location : Left Arm; Cuff Size: Standard 12-16-2019 08:03-0400 BSA (Body Surface Area) 1.84 m2 Jaun España LPN [facility] Work Phone: 12-16-2019 08:03-0400 Height 172.72 cm Jaun España LPN [facility] Work Phone: 12-16-2019 08:03-0400 Pulse (Heart Rate) 72 /min Jaun España LPN [facility] e Internal Medicine Work Phone: Comment on above: Pattern: Regular 12-16-2019 08:03-0400 Pulse Oximetry 99 % Vandana Guillermo [facility] Work Phone: Comment on above: Room air 12-16-2019 08:03-0400 Respiratory Rate 17 /min Jaun España LPN [facility] Work Phone: Comment on above: Pattern: Unlabored 12-16-2019 08:03-0400 SaO2% (BldA) [Mass fraction] 99 % Jaun España LPN [facility]; [facility] Work Phone: Comment on above: Room air 10-10-2019 11:57-0400 BMI (Body Mass Index) 25.09 kg/m2 Jaun España LPN Compre[facility] s[facility] Medicine Work Phone: 10-10-2019 11:57-0400 Body Temperature 97.6 [degF] Jaun España LPN [facility] Work Phone: Comment on above: Method: Temporal 10-10-2019 11:57-0400 Body weight 74.85 kg Jaun España LPN [facility] Work Phone: 10-10-2019 11:57-0400 BP Diastolic 70 mm[Hg] Jaun España LPN [facility] Work Phone: Comment on above: Patient Position: Sitting; Cuff Location : Left Arm; Cuff Size: Standard 10-10-2019 11:57-0400 BP Systolic 118 mm[Hg] Jaun España LPN [facility] Work Phone: Comment on above: Patient Position: Sitting; Cuff Location : Left Arm; Cuff Size: Standard 10-10-2019 11:57-0400 BSA (Body Surface Area) 1.88 m2 Jaun España LPN [facility] Work Phone: 10-10-2019 11:57-0400 Height 172.72 cm Jaun España LPN [facility] Work Phone: 10-10-2019 11:57-0400 Pulse (Heart Rate) 82 /min Jaun España LPN Comprehens[facility] e [facility] Medicine Work Phone: Comment on above: Pattern: Regular 10-10-2019 11:57-0400 Pulse Oximetry 97 % Vandana Mendozaronny [facility] Work Phone: Comment on above: Room air 10-10-2019 11:57-0400 Respiratory Rate 16 /min Jaun España LPN [facility] Work Phone: Comment on above: Pattern: Unlabored 10-10-2019 11:57-0400 SaO2% (BldA) [Mass fraction] 97 % Jaun España LPN [facility]; [facility] Work Phone: Comment on above: Room air 09-05-2019 14:14-0400 BMI (Body Mass Index) 26.61 kg/m2 Vandana Guillermo CNP Work Phone: [facility] Work Phone: 09-05-2019 14:14-0400 Body weight 79.38 kg Vandana Guillermo [employer] Work Phone: [facility] Work Phone: 09-05-2019 14:14-0400 BP Diastolic 83 mm[Hg] Vandana Guillermo [employer] Work Phone: [facility] Work Phone: Comment on above: Patient Position: Supine; Cuff Location: Right Arm; Cuff Size: Standard 09-05-2019 14:14-0400 BP Systolic 144 mm[Hg] Vandana Guillermo [employer] Work Phone: [facility] Work Phone: Comment on above: Patient Position: Supine; Cuff Location: Right Arm; Cuff Size: Standard 09-05-2019 14:14-0400 BSA (Body Surface Area) 1.93 m2 Vandana Guillermo [employer]ANT [employer]GER Work Phone: [facility] Work Phone: 09-05-2019 14:14-0400 Height 172.72 cm Vandana Guillermo [employer]ANT [employer]GER Work Phone: [facility] Work Phone: 09-05-2019 14:14-0400 Pulse (Heart Rate) 74 /min [facility] Work Phone: [facility] Work Phone: Comment on above: Pattern: Regular 04-14-2019 11:00-0500 BMI (Body Mass Index) 26.61 kg/m2 Jaun España LPN Compre[facility] s[facility] Medicine Work Phone: 04-14-2019 11:00-0500 Body Temperature 97.3 [degF] Jaun España LPN [facility] Work Phone: Comment on above: Method: Temporal 04-14-2019 11:00-0500 Body weight 79.38 kg Jaun España LPN [facility] Work Phone: 04-14-2019 11:00-0500 BP Diastolic 72 mm[Hg] Jaun España LPN [facility] Work Phone: Comment on above: Patient Position: Sitting; Cuff Location : Left Arm; Cuff Size: Standard 04-14-2019 11:00-0500 BP Systolic 118 mm[Hg] Jaun España LPN [facility] Work Phone: Comment on above: Patient Position: Sitting; Cuff Location : Left Arm; Cuff Size: Standard 04-14-2019 11:00-0500 BSA (Body Surface Area) 1.93 m2 Jaun España LPN [facility] Work Phone: 04-14-2019 11:00-0500 Height 172.72 cm Jaun España LPN [facility] Work Phone: 04-14-2019 11:00-0500 Pulse (Heart Rate) 97 /min Jaun España LPN [facility] Work Phone: Comment on above: Pattern: Regular 04-14-2019 11:00-0500 Pulse Oximetry 98 % Vandana Guillermo [facility] Work Phone: Comment on above: Room air 04-14-2019 11:00-0500 Respiratory Rate 17 /min Jaun España LPN [facility] Work Phone: Comment on above: Pattern: Unlabored 04-14-2019 11:00-0500 SaO2% (BldA) [Mass fraction] 98 % Jaun España LPN [facility]; [facility] Work Phone: Comment on above: Room air 12-09-2018 14:14-0400 BMI (Body Mass Index) 26.46 kg/m2 Coral Ortiz [facility] Internal Medicine Work Phone: 12-09-2018 14:14-0400 Body weight 78.93 kg Coral Ortiz [facility] Work Phone: 12-09-2018 14:14-0400 BP Diastolic 84 mm[Hg] Coral Ortiz [facility] Work Phone: Comment on above: Patient Position: Sitting; Cuff Location : Left Arm; Cuff Size: Standard 12-09-2018 14:14-0400 BP Systolic 120 mm[Hg] Coral Ortiz [facility] Work Phone: Comment on above: Patient Position: Sitting; Cuff Location : Left Arm; Cuff Size: Standard 12-09-2018 14:14-0400 BSA (Body Surface Area) 1.93 m2 Coral Ortiz [facility] Work Phone: 12-09-2018 14:14-0400 Height 172.72 cm Coral Ortiz [facility] Work Phone: 12-09-2018 14:14-0400 Pulse (Heart Rate) 85 /min Coral Ortiz [facility] Work Phone: Comment on above: Pattern: Regular 12-09-2018 14:14-0400 Pulse Oximetry 98 % Vandana Guillermo [facility] Work Phone: Comment on above: Room air 12-09-2018 14:14-0400 Respiratory Rate 18 /min Coral Ortiz [facility] Work Phone: Comment on above: Pattern: Unlabored 12-09-2018 14:14-0400 SaO2% (BldA) [Mass fraction] 98 % Coral Ortiz [facility]; [facility] Work Phone: Comment on above: Room air 08-07-2018 13:38-0400 BMI (Body Mass Index) 26.8 kg/m2 Sultana Amaya [facility] Internal Medicine Work Phone: 08-07-2018 13:38-0400 Body Temperature 98.8 [degF] Sultana Amaya [facility] Work Phone: Comment on above: Method: Temporal 08-07-2018 13:38-0400 Body weight 79.95 kg Sultana Amaya [facility] Work Phone: 08-07-2018 13:38-0400 BP Diastolic 76 mm[Hg] Sultana Amaya [facility] Work Phone: Comment on above: Patient Position: Sitting; Cuff Location : Left Arm; Cuff Size: Standard 08-07-2018 13:38-0400 BP Systolic 138 mm[Hg] Sultana Amaya [facility] Work Phone: Comment on above: Patient Position: Sitting; Cuff Location : Left Arm; Cuff Size: Standard 08-07-2018 13:38-0400 BSA (Body Surface Area) 1.94 m2 Sultana Amaya [facility] Work Phone: 08-07-2018 13:38-0400 Height 172.72 cm Sultana Amaya [facility] Work Phone: 08-07-2018 13:38-0400 Pulse (Heart Rate) 80 /min Sultana Amaya [facility] Work Phone: Comment on above: Pattern: Regular 08-07-2018 13:38-0400 Pulse Oximetry 99 % Vandana Guillermo [facility] Work Phone: Comment on above: Room air 08-07-2018 13:38-0400 Respiratory Rate 16 /min Sultana Amaya [facility] Work Phone: Comment on above: Pattern: Unlabored 08-07-2018 13:38-0400 SaO2% (BldA) [Mass fraction] 99 % Sultana Amaya [facility]; [facility] Work Phone: Comment on above: Room air 08-07-2018 13:38-0400 Weight 79.95 kg Vandana Guillermo [facility] Work Phone: 06-10-2018 13:57-0500 BMI (Body Mass Index) 26.51 kg/m2 Sultana Amaya [facility] Internal Medicine Work Phone: 06-10-2018 13:57-0500 Body Temperature 97.3 [degF] Sultana Amaya [facility] Work Phone: Comment on above: Method: Temporal 06-10-2018 13:57-0500 Body weight 79.1 kg Sultana Amaya [facility] Work Phone: 06-10-2018 13:57-0500 BP Diastolic 76 mm[Hg] Sultana Amaya [facility] Work Phone: Comment on above: Patient Position: Sitting; Cuff Location : Left Arm; Cuff Size: Standard 06-10-2018 13:57-0500 BP Systolic 122 mm[Hg] Sultana Amaya [facility] Work Phone: Comment on above: Patient Position: Sitting; Cuff Location : Left Arm; Cuff Size: Standard 06-10-2018 13:57-0500 BSA (Body Surface Area) 1.93 m2 Sultana Amaya [facility] Work Phone: 06-10-2018 13:57-0500 Height 172.72 cm Sultana Amaya [facility] Work Phone: 06-10-2018 13:57-0500 Pulse (Heart Rate) 88 /min Sultana Amaya [facility] Work Phone: Comment on above: Pattern: Regular 06-10-2018 13:57-0500 Pulse Oximetry 100 % Vandana Guillermo [facility] Work Phone: Comment on above: Room air 06-10-2018 13:57-0500 Respiratory Rate 17 /min Sultana Amaya [facility] Work Phone: Comment on above: Pattern: Unlabored 06-10-2018 13:57-0500 SaO2% (BldA) [Mass fraction] 100 % Sultana Amaya [facility]; [facility] Work Phone: Comment on above: Room air 06-10-2018 13:57-0500 Weight 79.1 kg Vandana Guillermo [facility] Work Phone: 01-25-2018 08:59-0400 BMI (Body Mass Index) 24.63 kg/m2 Sultana Amaya [facility] Internal Medicine Work Phone: 01-25-2018 08:59-0400 Body Temperature 97.2 [degF] Sultana Amaya [facility] Work Phone: Comment on above: Method: Temporal 01-25-2018 08:59-0400 Body weight 73.48 kg Sultana Amaya [facility] Work Phone: 01-25-2018 08:59-0400 BP Diastolic 64 mm[Hg] Sultana Amaya [facility] Work Phone: Comment on above: Patient Position: Sitting; Cuff Location : Left Arm; Cuff Size: Standard 01-25-2018 08:59-0400 BP Systolic 128 mm[Hg] Sultana Amaya [facility] Work Phone: Comment on above: Patient Position: Sitting; Cuff Location : Left Arm; Cuff Size: Standard 01-25-2018 08:59-0400 BSA (Body Surface Area) 1.87 m2 Sultana Amaya [facility] Work Phone: 01-25-2018 08:59-0400 Height 172.72 cm Sultana Amaya [facility] Work Phone: 01-25-2018 08:59-0400 Pulse (Heart Rate) 92 /min Sultana Amaya [facility] Work Phone: Comment on above: Pattern: Regular 01-25-2018 08:59-0400 Pulse Oximetry 98 % Vandana Guillermo [facility] Work Phone: Comment on above: Room air 01-25-2018 08:59-0400 Respiratory Rate 16 /min Sultana Amaya [facility] Work Phone: Comment on above: Pattern: Unlabored 01-25-2018 08:59-0400 SaO2% (BldA) [Mass fraction] 98 % Sultana Amaya [facility]; [facility] Work Phone: Comment on above: Room air 01-25-2018 08:59-0400 Weight 73.48 kg Vandana Guillermo [facility] Work Phone: 12-07-2017 08:20-0400 BMI (Body Mass Index) 25.09 kg/m2 Jaun España LPN Compre[facility] Internal Medicine Work Phone: 12-07-2017 08:20-0400 Body Temperature 96.9 [degF] Jaun España LPN [facility] Work Phone: 12-07-2017 08:20-0400 Body weight 74.84 kg Jaun España LPN [facility] Work Phone: 12-07-2017 08:20-0400 BP Diastolic 66 mm[Hg] Jaun España LPN [facility] Work Phone: Comment on above: Patient Position: Sitting; Cuff Location : Left Arm; Cuff Size: Standard 12-07-2017 08:20-0400 BP Systolic 118 mm[Hg] Jaun España LPN [facility] Work Phone: Comment on above: Patient Position: Sitting; Cuff Location : Left Arm; Cuff Size: Standard 12-07-2017 08:20-0400 BSA (Body Surface Area) 1.88 m2 Jaun España LPN [facility] Work Phone: 12-07-2017 08:20-0400 Height 172.72 cm Jaun España LPN [facility] Work Phone: 12-07-2017 08:20-0400 Pulse (Heart Rate) 77 /min Jaun España LPN Comprehens[facility] Work Phone: Comment on above: Pattern: Regular 12-07-2017 08:20-0400 Pulse Oximetry 99 % Vandana Mendozamtrafiq [facility] Work Phone: Comment on above: Room air 12-07-2017 08:20-0400 Respiratory Rate 16 /min Jaun España LPN [facility] Work Phone: Comment on above: Pattern: Unlabored 12-07-2017 08:20-0400 SaO2% (BldA) [Mass fraction] 99 % Jaun España LPN [facility]; [facility] Work Phone: Comment on above: Room air 12-07-2017 08:20-0400 Weight 74.84 kg Vandana Guillermo [facility] Work Phone: 10-12-2017 09:03-0400 BMI (Body Mass Index) 26.76 kg/m2 ALANNAH Aviles LPN [facility] Work Phone: 10-12-2017 09:03-0400 Body Temperature 97.6 [degF] ALANNAH Aviles LPN [facility] Work Phone: Comment on above: Method: Temporal 10-12-2017 09:03-0400 Body weight 79.83 kg ALANNAH Aviles [facility]PN [facility] Work Phone: 10-12-2017 09:03-0400 BP Diastolic 74 mm[Hg] ALANNAH Aviles [facility]PN [facility] Work Phone: Comment on above: Patient Position: Sitting; Cuff Location : Left Arm; Cuff Size: Standard 10-12-2017 09:03-0400 BP Systolic 114 mm[Hg] ALANNAH Aviles [facility]PN [facility] Work Phone: Comment on above: Patient Position: Sitting; Cuff Location : Left Arm; Cuff Size: Standard 10-12-2017 09:03-0400 BSA (Body Surface Area) 1.94 m2 ALANNAH Aviles LPN [facility] Work Phone: 10-12-2017 09:03-0400 Height 172.72 cm ALANNAH Aviles LPN [facility] Work Phone: 10-12-2017 09:03-0400 Pulse (Heart Rate) 90 /min ALANNAH Aviles LPN [facility] Work Phone: Comment on above: Pattern: Regular 10-12-2017 09:03-0400 Pulse Oximetry 99 % Vandana Guillermo [facility] Work Phone: Comment on above: Room air 10-12-2017 09:03-0400 Respiratory Rate 20 /min ALANNAH Aviles LPN [facility] Work Phone: Comment on above: Pattern: Unlabored 10-12-2017 09:03-0400 SaO2% (BldA) [Mass fraction] 99 % ALANNAH Aviles LPN [facility]; [facility] Work Phone: Comment on above: Room air 10-12-2017 09:03-0400 Weight 79.83 kg Vandana Guillermo [facility] Work Phone: 09-04-2017 09:56-0400 BMI (Body Mass Index) 26.76 kg/m2 ALANNAH Aviles LPN [facility] Work Phone: 09-04-2017 09:56-0400 Body Temperature 97.6 [degF] ALANNAH Aviles LPN [facility] Work Phone: Comment on above: Method: Temporal 09-04-2017 09:56-0400 Body weight 79.83 kg ALANNAH Aviles [facility]PN [facility] Work Phone: 09-04-2017 09:56-0400 BP Diastolic 80 mm[Hg] ALANNAH Aviles LPN [facility] Work Phone: Comment on above: Patient Position: Sitting; Cuff Location : Left Arm; Cuff Size: Standard 09-04-2017 09:56-0400 BP Systolic 120 mm[Hg] ALANNAH Aviles LPN [facility] Work Phone: Comment on above: Patient Position: Sitting; Cuff Location : Left Arm; Cuff Size: Standard 09-04-2017 09:56-0400 BSA (Body Surface Area) 1.94 m2 ALANNAH Aviles LPN [facility] Work Phone: 09-04-2017 09:56-0400 Height 172.72 cm ALANNAH Aviles [employer] [facility] Work Phone: 09-04-2017 09:56-0400 Pulse (Heart Rate) 74 /min ALANNAH Aviles LPN [facility] Work Phone: Comment on above: Pattern: Regular 09-04-2017 09:56-0400 Pulse Oximetry 98 % Vandana Guillermo [facility] Work Phone: Comment on above: Room air 09-04-2017 09:56-0400 Respiratory Rate 20 /min ALANNAH Aviles LPN [facility] Work Phone: Comment on above: Pattern: Unlabored 09-04-2017 09:56-0400 SaO2% (BldA) [Mass fraction] 98 % ALANNAH Stefan BARAJAS [facility]; [facility] Work Phone: Comment on above: Room air 09-04-2017 09:56-0400 Weight 79.83 kg Vandana Guillermo [facility] Work Phone: 03-05-2017 14:30-0400 BMI (Body Mass Index) 25.54 kg/m2 Shyanne Torres MD Work Phone: [facility] Work Phone: 03-05-2017 14:30-0400 Body Temperature 98.6 [degF] Shyanne Torres MD Work Phone: [facility] Work Phone: Comment on above: Method: Oral 03-05-2017 14:30-0400 Body weight 76.2 kg Shyanne Torres MD Work Phone: [facility] Work Phone: 03-05-2017 14:30-0400 BP Diastolic 78 mm[Hg] Shyanne Torres MD Work Phone: [facility] Work Phone: Comment on above: Patient Position: Sitting 03-05-2017 14:30-0400 BP Systolic 138 mm[Hg] Shyanne Torres MD Work Phone: [facility] Work Phone: Comment on above: Patient Position: Sitting 03-05-2017 14:30-0400 BSA (Body Surface Area) 1.9 m2 Shyanne Torres MD Work Phone: [facility] Work Phone: 03-05-2017 14:30-0400 Height 172.72 cm Shyanne Torres MD Work Phone: [facility] Work Phone: 03-05-2017 14:30-0400 Pulse (Heart Rate) 79 /min Shyanne Torres MD Work Phone: [facility] Work Phone: Comment on above: Pattern: Regular 03-05-2017 14:30-0400 Pulse Oximetry 99 % Vandana Guillermo [facility] Work Phone: Comment on above: Room air 03-05-2017 14:30-0400 SaO2% (BldA) [Mass fraction] 99 % Shyanne Torres MD Work Phone: [facility]; [facility] Work Phone: Comment on above: Room air 03-05-2017 14:30-0400 Weight 76.2 kg Vandana Guillermo [facility] Work Phone: 10-13-2016 09:41-0400 BMI (Body Mass Index) 26.76 kg/m2 ALANNAH Stefan BARAJAS [facility] Work Phone: 10-13-2016 09:41-0400 Body Temperature 97.4 [degF] ALANNAH Aviles LPN [facility] Work Phone: Comment on above: Method: Temporal 10-13-2016 09:41-0400 Body weight 79.83 kg ALANNAHTIFFANIE Aviles LPN [facility] Work Phone: 10-13-2016 09:41-0400 BP Diastolic 74 mm[Hg] ALANNAH Aviles LPN [facility] Work Phone: Comment on above: Patient Position: Sitting; Cuff Location : Left Arm; Cuff Size: Standard 10-13-2016 09:41-0400 BP Systolic 114 mm[Hg] ALANNAHTIFFANIE Aviles LPN [facility] Work Phone: Comment on above: Patient Position: Sitting; Cuff Location : Left Arm; Cuff Size: Standard 10-13-2016 09:41-0400 BSA (Body Surface Area) 1.94 m2 ALANNAH Aviles LPN [facility] Work Phone: 10-13-2016 09:41-0400 Height 172.72 cm ALANNAH Aviles LPN [facility] Work Phone: 10-13-2016 09:41-0400 Pulse (Heart Rate) 80 /min ALANNAH Aviles LPN [facility] Work Phone: Comment on above: Pattern: Regular 10-13-2016 09:41-0400 Pulse Oximetry 98 % Vandana Guillermo [facility] Work Phone: Comment on above: Room air 10-13-2016 09:41-0400 Respiratory Rate 20 /min ALANNAH Aviles LPN [facility] Work Phone: Comment on above: Pattern: Unlabored 10-13-2016 09:41-0400 SaO2% (BldA) [Mass fraction] 98 % ALANNAH Aviles LPN [facility]; [facility] Work Phone: Comment on above: Room air 10-13-2016 09:41-0400 Weight 79.83 kg Vandana Guillermo [facility] Work Phone: 04-17-2016 15:33-0500 BMI (Body Mass Index) 27.82 kg/m2 ALANNAH Aviles LPN [facility] Work Phone: 04-17-2016 15:33-0500 Body Temperature 97.4 [degF] ALANNAH Aviles LPN [facility] Work Phone: Comment on above: Method: Temporal 04-17-2016 15:33-0500 Body weight 83.01 kg ALANNAH Aviles LPN [facility] Work Phone: 04-17-2016 15:33-0500 BP Diastolic 80 mm[Hg] ALANNAH Aviles LPN [facility] Work Phone: Comment on above: Patient Position: Sitting; Cuff Location : Left Arm; Cuff Size: Standard 04-17-2016 15:33-0500 BP Systolic 120 mm[Hg] ALANNAH Aviles LPN [facility] Work Phone: Comment on above: Patient Position: Sitting; Cuff Location : Left Arm; Cuff Size: Standard 04-17-2016 15:33-0500 BSA (Body Surface Area) 1.97 m2 ALANNAH Aviles LPN [facility] Work Phone: 04-17-2016 15:33-0500 Height 172.72 cm ALANNAH Aviles [facility] Work Phone: 04-17-2016 15:33-0500 Pulse (Heart Rate) 79 /min ALANNAH Aviles JENN [facility] Work Phone: Comment on above: Pattern: Regular 04-17-2016 15:33-0500 Pulse Oximetry 98 % Vandana Guillermo [facility] Work Phone: Comment on above: Room air 04-17-2016 15:33-0500 Respiratory Rate 20 /min ALANNAH Aviles JENN [facility] Work Phone: Comment on above: Pattern: Unlabored 04-17-2016 15:33-0500 SaO2% (BldA) [Mass fraction] 98 % ALANNAH Aviles JENN [facility]; [facility] Work Phone: Comment on above: Room air 04-17-2016 15:33-0500 Weight 83.01 kg Vandana Guillermo [facility] Work Phone: 10-04-2015 15:08-0400 BMI (Body Mass Index) 28.13 kg/m2 Jaja Slarb [employer] [facility] Internal [facility] Work Phone: 10-04-2015 15:08-0400 Body Temperature 97.8 [degF] Jaja Christopherrb [employer] [facility] Work Phone: 10-04-2015 15:08-0400 Body weight 83.92 kg Jaja Slarb [employer] [facility] Work Phone: 10-04-2015 15:08-0400 BP Diastolic 80 mm[Hg] Jaja Slarb [employer] [facility] Work Phone: Comment on above: Patient Position: Sitting; Cuff Location : Left Arm; Cuff Size: Standard 10-04-2015 15:08-0400 BP Systolic 122 mm[Hg] Jaja Slarb [employer] [facility] Work Phone: Comment on above: Patient Position: Sitting; Cuff Location : Left Arm; Cuff Size: Standard 10-04-2015 15:08-0400 BSA (Body Surface Area) 1.98 m2 Jaja Slarb [employer] [facility] Work Phone: 10-04-2015 15:08-0400 Height 172.72 cm Jjaa Slarb [employer] [facility] Work Phone: 10-04-2015 15:08-0400 Pulse (Heart Rate) 70 /min Jaja Willams LPN [facility] Work Phone: Comment on above: Pattern: Regular 10-04-2015 15:08-0400 Pulse Oximetry 99 % Vandana Guillermo [facility] Work Phone: Comment on above: Room air 10-04-2015 15:08-0400 Respiratory Rate 16 /min Jaja Willams JENN [facility] Work Phone: Comment on above: Pattern: Unlabored 10-04-2015 15:08-0400 SaO2% (BldA) [Mass fraction] 99 % Jajarafiq Willams JENN [facility]; [facility] Work Phone: Comment on above: Room air 10-04-2015 15:08-0400 Weight 83.92 kg Vandana Guillermo [facility] Work Phone: 09-22-2015 14:57-0400 BMI (Body Mass Index) 28.13 kg/m2 Ananya Sharma [facility] Internal [facility] Work Phone: 09-22-2015 14:57-0400 Body Temperature 96.8 [degF] Ananya Sharma [facility] Work Phone: Comment on above: Method: Temporal 09-22-2015 14:57-0400 Body weight 83.92 kg Ananya Sharma [facility] Work Phone: 09-22-2015 14:57-0400 BP Diastolic 82 mm[Hg] Ananya Sharma [facility] Work Phone: Comment on above: Patient Position: Sitting; Cuff Location : Left Arm; Cuff Size: Standard 09-22-2015 14:57-0400 BP Systolic 138 mm[Hg] Ananya Sharma [facility] Work Phone: Comment on above: Patient Position: Sitting; Cuff Location : Left Arm; Cuff Size: Standard 09-22-2015 14:57-0400 BSA (Body Surface Area) 1.98 m2 Ananya Binghamceasar [facility] Work Phone: 09-22-2015 14:57-0400 Height 172.72 cm Ananya Boothfelicia [facility] Work Phone: 09-22-2015 14:57-0400 Pulse (Heart Rate) 84 /min Ananya Sharma [facility] Internal Medicine Work Phone: Comment on above: Pattern: Regular 09-22-2015 14:57-0400 Pulse Oximetry 95 % Vandana Guillermo [facility] Work Phone: Comment on above: Room air 09-22-2015 14:57-0400 Respiratory Rate 16 /min Ananya Boothfelicia [facility] Work Phone: Comment on above: Pattern: Unlabored 09-22-2015 14:57-0400 SaO2% (BldA) [Mass fraction] 95 % Ananya Edith [facility]; [facility] Work Phone: Comment on above: Room air 09-22-2015 14:57-0400 Weight 83.92 kg Vandana Guillermo [facility] Work Phone: 09-21-2015 16:07-0400 BMI (Body Mass Index) 28.13 kg/m2 ALANNAH Stefan BARAJAS [facility] Work Phone: 09-21-2015 16:07-0400 Body Temperature 97.6 [degF] ALANNAH Aviles LPN [facility] Work Phone: Comment on above: Method: Temporal 09-21-2015 16:07-0400 Body weight 83.92 kg ALANNAH Stefan BARAJAS [facility] Work Phone: 09-21-2015 16:07-0400 BP Diastolic 80 mm[Hg] ALANNAH Aviles LPN [facility] Work Phone: Comment on above: Patient Position: Sitting; Cuff Location : Left Arm; Cuff Size: Standard 09-21-2015 16:07-0400 BP Systolic 124 mm[Hg] ALANNAH Aviles LPN [facility] Work Phone: Comment on above: Patient Position: Sitting; Cuff Location : Left Arm; Cuff Size: Standard 09-21-2015 16:07-0400 BSA (Body Surface Area) 1.98 m2 ALANNAH Aviles LPN [facility] Work Phone: 09-21-2015 16:07-0400 Height 172.72 cm ALANNAH Aviles LPN [facility] Work Phone: 09-21-2015 16:07-0400 Pulse (Heart Rate) 76 /min ALANNAH Aviles LPN [facility] Work Phone: Comment on above: Pattern: Regular 09-21-2015 16:07-0400 Pulse Oximetry 98 % Vandana Guillermo [facility] Work Phone: Comment on above: Room air 09-21-2015 16:07-0400 Respiratory Rate 20 /min ALANNAH Aviles LPN [facility] Work Phone: Comment on above: Pattern: Unlabored 09-21-2015 16:07-0400 SaO2% (BldA) [Mass fraction] 98 % ALANNAH Aviles LPN [facility]; [facility] Work Phone: Comment on above: Room air 09-21-2015 16:07-0400 Weight 83.92 kg Vandana Guillermo [facility] Work Phone: 08-17-2015 16:56-0400 BP Diastolic 88 mm[Hg] Shyanne Torres MD Work Phone: [facility] Work Phone: Comment on above: Patient Position: Sitting 08-17-2015 16:56-0400 BP Systolic 126 mm[Hg] Shyanne Torres MD Work Phone: [facility] Work Phone: Comment on above: Patient Position: Sitting 08-17-2015 16:25-0400 BMI (Body Mass Index) 28.13 kg/m2 [facility] Work Phone: 08-17-2015 16:25-0400 Body Temperature 97.5 [degF] Gabriela Reinoso [facility] Work Phone: Comment on above: Method: Tympanic 08-17-2015 16:25-0400 Body weight 83.92 kg Gabriela Reinoso [facility] Work Phone: 08-17-2015 16:25-0400 BP Diastolic 80 mm[Hg] Gabriela Reinoso [facility] Work Phone: Comment on above: Patient Position: Sitting; Cuff Location : Left Arm; Cuff Size: Standard 08-17-2015 16:25-0400 BP Systolic 160 mm[Hg] Gabriela Reinoso [facility] Work Phone: Comment on above: Patient Position: Sitting; Cuff Location : Left Arm; Cuff Size: Standard 08-17-2015 16:25-0400 BSA (Body Surface Area) 1.98 m2 Gabriela Reinoso [facility] Work Phone: 08-17-2015 16:25-0400 Height 172.72 cm Gabriela Reinoso [facility] Work Phone: 08-17-2015 16:25-0400 Pulse (Heart Rate) 91 /min Gabriela Reinoso [facility] Work Phone: Comment on above: Pattern: Regular 08-17-2015 16:25-0400 Pulse Oximetry 97 % Vandana Guillermo [facility] Work Phone: Comment on above: Room air 08-17-2015 16:25-0400 Respiratory Rate 18 /min Gabriela Reinoso [facility] Work Phone: Comment on above: Pattern: Unlabored 08-17-2015 16:25-0400 SaO2% (BldA) [Mass fraction] 97 % Gabriela Reinoso [facility]; [facility] Work Phone: Comment on above: Room air 08-17-2015 16:25-0400 Weight 83.92 kg Vandana Guillermo [facility] Work Phone: 07-13-2015 09:11-0500 BMI (Body Mass Index) 27.06 kg/m2 Marychuy Kaz [employer] [facility] Work Phone: 07-13-2015 09:11-0500 Body Temperature 97.1 [degF] Marychuy Mccurdy [facility] Work Phone: Comment on above: Method: Oral 07-13-2015 09:11-0500 Body weight 80.74 kg Marychuy Mccurdy [facility] Internal Medicine Work Phone: 07-13-2015 09:11-0500 BP Diastolic 70 mm[Hg] Marychuy Mccurdy [facility] Work Phone: Comment on above: Patient Position: Sitting; Cuff Location : Left Arm; Cuff Size: Standard 07-13-2015 09:11-0500 BP Systolic 150 mm[Hg] Marychuy Mccurdy [facility] Internal Medicine Work Phone: Comment on above: Patient Position: Sitting; Cuff Location : Left Arm; Cuff Size: Standard 07-13-2015 09:11-0500 BSA (Body Surface Area) 1.95 m2 Marychuy Mccurdy [facility] Work Phone: 07-13-2015 09:11-0500 Height 172.72 cm Marychuy Mccurdy [facility] Internal Medicine Work Phone: 07-13-2015 09:11-0500 Pulse (Heart Rate) 91 /min Marychuy Mccurdy [facility] Internal Medicine Work Phone: Comment on above: Pattern: Regular 07-13-2015 09:11-0500 Pulse Oximetry 92 % Vandana Guillermo [facility] Work Phone: Comment on above: Room air 07-13-2015 09:11-0500 Respiratory Rate 16 /min Marychuy Mccurdy [facility] Work Phone: Comment on above: Pattern: Unlabored 07-13-2015 09:11-0500 SaO2% (BldA) [Mass fraction] 92 % Marychuy Mccurdy [facility]; [facility] Work Phone: Comment on above: Room air 07-13-2015 09:11-0500 Weight 80.74 kg Vandana Guillermo [facility] Work Phone: 07-14-2014 15:55-0500 BMI (Body Mass Index) 27.52 kg/m2 Vandana Guillermo [facility] Internal Medicine Work Phone: 07-14-2014 15:55-0500 Body Temperature 98.8 [degF] Vandana Guillermo [facility] Work Phone: Comment on above: Method: Oral 07-14-2014 15:55-0500 Body weight 82.1 kg Vandana Guillermo [facility] Work Phone: 07-14-2014 15:55-0500 BP Diastolic 82 mm[Hg] Vandana Guillermo [facility] Work Phone: Comment on above: Patient Position: Sitting; Cuff Location : Left Arm; Cuff Size: Standard 07-14-2014 15:55-0500 BP Systolic 132 mm[Hg] Vandana Guillermo [facility] Work Phone: Comment on above: Patient Position: Sitting; Cuff Location : Left Arm; Cuff Size: Standard 07-14-2014 15:55-0500 BSA (Body Surface Area) 1.96 m2 Vandana Guillermo [facility] Work Phone: 07-14-2014 15:55-0500 Height 172.72 cm Vandana Guillermo [facility] Work Phone: 07-14-2014 15:55-0500 Pulse (Heart Rate) 88 /min Vandana Guillermo [facility] Work Phone: Comment on above: Pattern: Regular 07-14-2014 15:55-0500 Pulse Oximetry 99 % Vandana Guillermo [facility] Work Phone: Comment on above: Room air 07-14-2014 15:55-0500 Respiratory Rate 16 /min Vandana Guillermo [facility] Work Phone: 07-14-2014 15:55-0500 SaO2% (BldA) [Mass fraction] 99 % Vandana Guillermo [facility] Work Phone: [facility]; [facility] Work Phone: Comment on above: Room air 07-14-2014 15:55-0500 Weight 82.1 kg Vandana Guillermo [facility] Work Phone: 01-13-2014 15:48-0400 BMI (Body Mass Index) 27.52 kg/m2 [facility] Work Phone: 01-13-2014 15:48-0400 Body Temperature 97.6 [degF] Daniela Whitfield RN [facility] Work Phone: Comment on above: Method: Temporal 01-13-2014 15:48-0400 Body weight 82.1 kg Daniela Whitfield RN [facility] Work Phone: 01-13-2014 15:48-0400 BP Diastolic 80 mm[Hg] Daniela Whitfield RN [facility] Work Phone: Comment on above: Patient Position: Sitting; Cuff Location : Left Arm; Cuff Size: Standard 01-13-2014 15:48-0400 BP Systolic 134 mm[Hg] Daniela Whitfield RN [facility] Work Phone: Comment on above: Patient Position: Sitting; Cuff Location : Left Arm; Cuff Size: Standard 01-13-2014 15:48-0400 BSA (Body Surface Area) 1.96 m2 Daniela Whitfield RN [facility] Work Phone: 01-13-2014 15:48-0400 Height 172.72 cm Daniela Whitfield RN [facility] Work Phone: 01-13-2014 15:48-0400 Pulse (Heart Rate) 78 /min Daniela Whitfield RN [facility] Work Phone: Comment on above: Pattern: Regular 01-13-2014 15:48-0400 Respiratory Rate 18 /min Daniela Whitfield RN [facility] Work Phone: Comment on above: Pattern: Unlabored 01-13-2014 15:48-0400 Weight 82.1 kg Vandana Guillermo [facility] Work Phone: 07-22-2012 11:55-0500 BMI (Body Mass Index) 27.52 kg/m2 Daniela Kruegerens danny Internal Medicine Work Phone: 07-22-2012 11:55-0500 Body Temperature 98.4 [degF] Daniela Whitfield RN [facility] Work Phone: Comment on above: Method: Temporal 07-22-2012 11:55-0500 Body weight 82.1 kg Daniela Whitfield RN [facility] Work Phone: 07-22-2012 11:55-0500 BP Diastolic 80 mm[Hg] Daniela Whitfield RN [facility] Work Phone: Comment on above: Patient Position: Sitting; Cuff Location : Left Arm; Cuff Size: Standard 07-22-2012 11:55-0500 BP Systolic 138 mm[Hg] Daniela Whitfield RN [facility] Work Phone: Comment on above: Patient Position: Sitting; Cuff Location : Left Arm; Cuff Size: Standard 07-22-2012 11:55-0500 BSA (Body Surface Area) 1.96 m2 Daniela Whitfield RN [facility] Work Phone: 07-22-2012 11:55-0500 Height 172.72 cm Daniela Whitfield RN [facility] Work Phone: 07-22-2012 11:55-0500 Pulse (Heart Rate) 80 /min Daniela Whitfield RN [facility] Work Phone: Comment on above: Pattern: Regular 07-22-2012 11:55-0500 Respiratory Rate 16 /min Daniela Whitfield RN [facility] Work Phone: Comment on above: Pattern: Unlabored 07-22-2012 11:55-0500 Weight 82.1 kg Vandana Guillermo [facility] Work Phone: 06-19-2012 09:06-0500 BMI (Body Mass Index) 27.82 kg/m2 Rose Deluna RN [facility] Work Phone: 06-19-2012 09:06-0500 Body Temperature 98.6 [degF] Rose Deluna RN [facility] Work Phone: Comment on above: Method: Oral 06-19-2012 09:06-0500 Body weight 83.01 kg Rose Deluna RN [facility] Work Phone: 06-19-2012 09:06-0500 BP Diastolic 80 mm[Hg] Rose Deluna RN [facility] Work Phone: Comment on above: Patient Position: Sitting; Cuff Location : Left Arm; Cuff Size: Large 06-19-2012 09:06-0500 BP Systolic 120 mm[Hg] Rose Deluna RN [facility] Work Phone: Comment on above: Patient Position: Sitting; Cuff Location : Left Arm; Cuff Size: Large 06-19-2012 09:06-0500 BSA (Body Surface Area) 1.97 m2 Rose Deluna RN [facility] Work Phone: 06-19-2012 09:06-0500 Height 172.72 cm Rose Deluna RN [facility] Work Phone: 06-19-2012 09:06-0500 Pulse (Heart Rate) 100 /min Rose Deluna RN [facility] Work Phone: Comment on above: Pattern: Regular 06-19-2012 09:06-0500 Respiratory Rate 20 /min Rose Deluna RN [facility] Work Phone: Comment on above: Pattern: Unlabored 06-19-2012 09:06-0500 Weight 83.01 kg Vandana Guillermo [facility] Work Phone: 11-20-2011 09:04-0400 BMI (Body Mass Index) 26.91 kg/m2 Rose Deluna RN [facility] Work Phone: 11-20-2011 09:04-0400 Body Temperature 98 [degF] Rose Deluna RN [facility] Work Phone: Comment on above: Method: Oral 11-20-2011 09:04-0400 Body weight 80.29 kg Rose Deluna RN [facility] Work Phone: 11-20-2011 09:04-0400 BP Diastolic 68 mm[Hg] Rose Deluna RN [facility] Work Phone: Comment on above: Patient Position: Sitting; Cuff Location : Left Arm; Cuff Size: Large 11-20-2011 09:04-0400 BP Systolic 120 mm[Hg] Rose Deluna RN [facility] Work Phone: Comment on above: Patient Position: Sitting; Cuff Location : Left Arm; Cuff Size: Large 11-20-2011 09:04-0400 BSA (Body Surface Area) 1.94 m2 Rose Deluna RN [facility] Work Phone: 11-20-2011 09:04-0400 Height 172.72 cm Rose Deluna RN [facility] Work Phone: 11-20-2011 09:04-0400 Pulse (Heart Rate) 68 /min Rose Deluna RN [facility] Work Phone: Comment on above: Pattern: Regular 11-20-2011 09:04-0400 Respiratory Rate 20 /min [facility] Work Phone: Comment on above: Pattern: Unlabored 11-20-2011 09:04-0400 Weight 80.29 kg Vandana Guillermo [facility] Work Phone: 11-13-2011 15:53-0400 BMI (Body Mass Index) 26.91 kg/m2 Angeles Lynn RN [facility] Work Phone: 11-13-2011 15:53-0400 Body Temperature 99.1 [degF] Angeles Lynn [facility] Work Phone: Comment on above: Method: Oral 11-13-2011 15:53-0400 Body weight 80.29 kg Angeles Lynn [facility] Work Phone: 11-13-2011 15:53-0400 BP Diastolic 82 mm[Hg] Angeles Lynn RN [facility] Work Phone: Comment on above: Patient Position: Sitting; Cuff Location : Left Arm; Cuff Size: Standard 11-13-2011 15:53-0400 BP Systolic 130 mm[Hg] Angeles Lynn [facility] Work Phone: Comment on above: Patient Position: Sitting; Cuff Location : Left Arm; Cuff Size: Standard 11-13-2011 15:53-0400 BSA (Body Surface Area) 1.94 m2 Angeles Lynn [facility] Work Phone: 11-13-2011 15:53-0400 Height 172.72 cm Angeles Lynn [facility] Work Phone: 11-13-2011 15:53-0400 Pulse (Heart Rate) 76 /min Angeles Lynn RN [facility] Work Phone: Comment on above: Pattern: Regular 11-13-2011 15:53-0400 Respiratory Rate 16 /min Angeles Lynn [facility] Work Phone: Comment on above: Pattern: Unlabored 11-13-2011 15:53-0400 Weight 80.29 kg Vandana Guillermo [facility] Work Phone: 10-25-2011 10:22-0400 BMI (Body Mass Index) 25.85 kg/m2 Vandana Guillermo [facility] Work Phone: 10-25-2011 10:22-0400 Body Temperature 99.4 [degF] Vandana Guillermo [facility] Work Phone: Comment on above: Method: Oral 10-25-2011 10:22-0400 Body weight 77.11 kg Vandana Guillermo [facility] Work Phone: 10-25-2011 10:22-0400 BP Diastolic 88 mm[Hg] Vandana Guillermo [facility] Work Phone: Comment on above: Patient Position: Sitting; Cuff Location : Left Arm; Cuff Size: Standard 10-25-2011 10:22-0400 BP Systolic 140 mm[Hg] Vandana Guillermo [facility] Work Phone: Comment on above: Patient Position: Sitting; Cuff Location : Left Arm; Cuff Size: Standard 10-25-2011 10:22-0400 BSA (Body Surface Area) 1.91 m2 Vandana Guillermo [facility] Work Phone: 10-25-2011 10:22-0400 Height 172.72 cm Vandana Guillermo [facility] Work Phone: 10-25-2011 10:22-0400 Pulse (Heart Rate) 82 /min Vandana Garciarafiq [facility] Work Phone: Comment on above: Pattern: Regular 10-25-2011 10:22-0400 Respiratory Rate 18 /min Vandana Guillermo [facility] Work Phone: Comment on above: Pattern: Unlabored 10-25-2011 10:22-0400 Weight 77.11 kg Vandana Guillermo [facility] Work Phone: 09-19-2011 16:11-0400 BMI (Body Mass Index) 25.85 kg/m2 ALANNAH Aviles LPN [facility] Work Phone: 09-19-2011 16:11-0400 Body Temperature 97.9 [degF] ALANNAH Aviles LPN [facility] Work Phone: Comment on above: Method: Oral 09-19-2011 16:11-0400 Body weight 77.11 kg ALANNAH Aviles LPN [facility] Work Phone: 09-19-2011 16:11-0400 BP Diastolic 78 mm[Hg] ALANNAH Aviles LPN [facility] Work Phone: Comment on above: Patient Position: Sitting; Cuff Location : Left Arm; Cuff Size: Standard 09-19-2011 16:11-0400 BP Systolic 124 mm[Hg] ALANNAH Aviles LPN [facility] Work Phone: Comment on above: Patient Position: Sitting; Cuff Location : Left Arm; Cuff Size: Standard 09-19-2011 16:11-0400 BSA (Body Surface Area) 1.91 m2 ALANNAH Aviles LPN [facility] Work Phone: 09-19-2011 16:11-0400 Height 172.72 cm ALANNAH Aviles LPN [facility] Work Phone: 09-19-2011 16:11-0400 Pulse (Heart Rate) 70 /min ALANNAH Aviles LPN [facility] Work Phone: Comment on above: Pattern: Regular 09-19-2011 16:11-0400 Respiratory Rate 18 /min ALANNAH Aviles LPN [facility] Work Phone: Comment on above: Pattern: Unlabored 09-19-2011 16:11-0400 Weight 77.11 kg Vandana Guillermo [facility] Work Phone: 06-05-2011 15:58-0500 BMI (Body Mass Index) 25.85 kg/m2 ALANNAH Aviles LPN [facility] Work Phone: 06-05-2011 15:58-0500 Body Temperature 97.9 [degF] ALANNAH Aviles LPN [facility] Work Phone: Comment on above: Method: Oral 06-05-2011 15:58-0500 Body weight 77.11 kg ALANNAH Aviles LPN [facility] Work Phone: 06-05-2011 15:58-0500 BP Diastolic 78 mm[Hg] ALANNAH Aviles LPN [facility] Work Phone: Comment on above: Patient Position: Sitting; Cuff Location : Left Arm; Cuff Size: Standard 06-05-2011 15:58-0500 BP Systolic 126 mm[Hg] ALANNAH Aviles LPN [facility] Work Phone: Comment on above: Patient Position: Sitting; Cuff Location : Left Arm; Cuff Size: Standard 06-05-2011 15:58-0500 BSA (Body Surface Area) 1.91 m2 ALANNAH Aviles LPN [facility] Work Phone: 06-05-2011 15:58-0500 Height 172.72 cm ALANNAH Aviles LPN [facility] Work Phone: 06-05-2011 15:58-0500 Pulse (Heart Rate) 70 /min ALANNAH Aviles [employer] [facility] Work Phone: Comment on above: Pattern: Regular 06-05-2011 15:58-0500 Respiratory Rate 18 /min ALANNAH Aviles LPN [facility] Work Phone: Comment on above: Pattern: Unlabored 06-05-2011 15:58-0500 Weight 77.11 kg Vandana Guillermo [facility] Work Phone: 03-07-2011 15:57-0400 BMI (Body Mass Index) 23.46 kg/m2 Daniela Whitfield RN [facility] Internal [facility] Work Phone: 03-07-2011 15:57-0400 Body Temperature 97.9 [degF] Daniela Whitfield JOSE EDUARDO [facility] Work Phone: Comment on above: Method: Oral 03-07-2011 15:57-0400 Body weight 69.99 kg Daniela Ac Nahid WHITT [facility] Work Phone: 03-07-2011 15:57-0400 BP Diastolic 94 mm[Hg] Daniela Osorio Nahid WHITT [facility] Work Phone: Comment on above: Patient Position: Sitting; Cuff Location : Left Arm; Cuff Size: Standard 03-07-2011 15:57-0400 BP Systolic 136 mm[Hg] Daniela Ac Nahid WHITT [facility] Work Phone: Comment on above: Patient Position: Sitting; Cuff Location : Left Arm; Cuff Size: Standard 03-07-2011 15:57-0400 BSA (Body Surface Area) 1.83 m2 Daniela Osorio Nahid WHITT [facility] Work Phone: 03-07-2011 15:57-0400 Height 172.72 cm Daniela Osorio Nahid WHITT [facility] Work Phone: 03-07-2011 15:57-0400 Pulse (Heart Rate) 68 /min Daniela Osorio Nahid WHITT [facility] Work Phone: Comment on above: Pattern: Regular 03-07-2011 15:57-0400 Respiratory Rate 16 /min Daniela Osorio Nahid WHITT [facility] Work Phone: Comment on above: Pattern: Unlabored 03-07-2011 15:57-0400 Weight 69.99 kg Vandana Guillermo [facility] Work Phone: 02-28-2011 12:52-0400 BMI (Body Mass Index) 23.26 kg/m2 ALANNAH Aviles LPN [facility] Work Phone: 02-28-2011 12:52-0400 Body Temperature 97.6 [degF] ALANNAH Aviles LPN [facility] Work Phone: Comment on above: Method: Oral 02-28-2011 12:52-0400 Body weight 69.4 kg ALANNAH Aviles LPN [facility] Work Phone: 02-28-2011 12:52-0400 BP Diastolic 80 mm[Hg] ALANNAH Aviles LPN [facility] Work Phone: Comment on above: Patient Position: Sitting; Cuff Location : Left Arm; Cuff Size: Standard 02-28-2011 12:52-0400 BP Systolic 130 mm[Hg] ALANNAH Aviles LPN [facility] Work Phone: Comment on above: Patient Position: Sitting; Cuff Location : Left Arm; Cuff Size: Standard 02-28-2011 12:52-0400 BSA (Body Surface Area) 1.82 m2 ALANNAH Aviles LPN [facility] Work Phone: 02-28-2011 12:52-0400 Height 172.72 cm ALANNAH Aviles LPN [facility] Work Phone: 02-28-2011 12:52-0400 Pulse (Heart Rate) 74 /min ALANNAH Aviles [employer] [facility] Work Phone: Comment on above: Pattern: Regular 02-28-2011 12:52-0400 Respiratory Rate 20 /min ALANNAH Aviles LPN [facility] Work Phone: Comment on above: Pattern: Unlabored 02-28-2011 12:52-0400 Weight 69.4 kg Vandana Guillermo [facility] Work Phone: 12-16-2010 08:01-0400 BMI (Body Mass Index) 22.81 kg/m2 Rose Deluna RN [facility] Work Phone: 12-16-2010 08:01-0400 Body weight 68.04 kg Rose Deluna RN [facility] Work Phone: 12-16-2010 08:01-0400 BP Diastolic 82 mm[Hg] Rose Deluna RN [facility] Work Phone: Comment on above: Patient Position: Sitting; Cuff Location : Left Arm; Cuff Size: Large 12-16-2010 08:01-0400 BP Systolic 142 mm[Hg] Rose Deluna RN [facility] Work Phone: Comment on above: Patient Position: Sitting; Cuff Location : Left Arm; Cuff Size: Large 12-16-2010 08:01-0400 BSA (Body Surface Area) 1.81 m2 Rose Del[facility] Work Phone: 12-16-2010 08:01-0400 Height 172.72 cm Rose Deluna [facility] Work Phone: 12-16-2010 08:01-0400 Pulse (Heart Rate) 60 /min Rose Deluna RN [facility] Work Phone: Comment on above: Pattern: Regular 12-16-2010 08:01-0400 Respiratory Rate 20 /min Rose Deluna [facility] Work Phone: Comment on above: Pattern: Unlabored 12-16-2010 08:01-0400 Weight 68.04 kg Vandana Guillermo [facility] Work Phone: 12-14-2010 11:40-0400 BMI (Body Mass Index) 22.81 kg/m2 Vandana Guillermo [facility] Work Phone: 12-14-2010 11:40-0400 Body Temperature 98.4 [degF] Vandana Guillermo [facility] Work Phone: Comment on above: Method: Oral 12-14-2010 11:40-0400 Body weight 68.04 [facility]: 12-14-2010 11:40-0400 BP Diastolic 88 mm[Hg] [facility] Work Phone: Comment on above: Patient Position: Sitting; Cuff Location : Left Arm; Cuff Size: Standard 12-14-2010 11:40-0400 BP Systolic 152 mm[Hg] Vandana Guillermo [facility] Work Phone: Comment on above: Patient Position: Sitting; Cuff Location : Left Arm; Cuff Size: Standard 12-14-2010 11:40-0400 BSA (Body Surface Area) 1.81 m2 Vandana Guillermo [facility] Work Phone: 12-14-2010 11:40-0400 Height 172.72 cm [facility] Work Phone: 12-14-2010 11:40-0400 Pulse (Heart Rate) 78 /min Vandana Guillermo [facility] Work Phone: Comment on above: Pattern: Regular 12-14-2010 11:40-0400 Respiratory Rate 18 /min Vandana Guillermo [facility] Work Phone: Comment on above: Pattern: Unlabored 12-14-2010 11:40-0400 Weight 68.04 kg Vandana Guillermo [facility] Work Phone: 03-14-2010 15:59-0400 BMI (Body Mass Index) 22.35 kg/m2 ALANNAH Aviles LPN [facility] Work Phone: 03-14-2010 15:59-0400 Body Temperature 97.9 [degF] ALANNAH Aviles LPN [facility] Work Phone: Comment on above: Method: Oral 03-14-2010 15:59-0400 Body weight 66.68 kg ALANNAH Aviles LPN [facility] Work Phone: 03-14-2010 15:59-0400 BP Diastolic 80 mm[Hg] ALANNAH Aviles LPN [facility] Work Phone: Comment on above: Patient Position: Sitting; Cuff Location : Left Arm; Cuff Size: Standard 03-14-2010 15:59-0400 BP Systolic 132 mm[Hg] ALANNAH Aviles LPN [facility] Work Phone: Comment on above: Patient Position: Sitting; Cuff Location : Left Arm; Cuff Size: Standard 03-14-2010 15:59-0400 BSA (Body Surface Area) 1.79 m2 ALANNAH Aviles LPN [facility] Work Phone: 03-14-2010 15:59-0400 Height 172.72 cm ALANNAH Aviles LPN [facility] Work Phone: 03-14-2010 15:59-0400 Pulse (Heart Rate) 68 /min ALANNAH Aviles LPN [facility] Work Phone: Comment on above: Pattern: Regular 03-14-2010 15:59-0400 Respiratory Rate 18 /min ALANNAH Aviles LPN [facility] Work Phone: Comment on above: Pattern: Unlabored 03-14-2010 15:59-0400 Weight 66.68 kg Vandana Guillermo [facility] Work Phone: 06-02-2009 14:10-0500 BMI (Body Mass Index) 22.35 kg/m2 Rose Deluna RN [facility] Work Phone: 06-02-2009 14:10-0500 Body Temperature 95.4 [degF] Rose Deluna RN [facility] Work Phone: Comment on above: Method: Oral 06-02-2009 14:10-0500 Body weight 66.68 kg Rose Deluna RN [facility] Work Phone: 06-02-2009 14:10-0500 BP Diastolic 4 mm[Hg] Rose Deluna RN [facility] Work Phone: Comment on above: Patient Position: Sitting; Cuff Location : Left Arm; Cuff Size: Large 06-02-2009 14:10-0500 BP Systolic 18 mm[Hg] Rose Deluna RN [facility] Work Phone: Comment on above: Patient Position: Sitting; Cuff Location : Left Arm; Cuff Size: Large 06-02-2009 14:10-0500 BSA (Body Surface Area) 1.79 m2 Rose Deluna RN [facility] Work Phone: 06-02-2009 14:10-0500 Height 172.72 cm Rose Deluna RN [facility] Work Phone: 06-02-2009 14:10-0500 Pulse (Heart Rate) 72 /min Rose Deluna RN [facility] Work Phone: Comment on above: Pattern: Regular 06-02-2009 14:10-0500 Respiratory Rate 18 /min Rose Deluna RN [facility] Work Phone: Comment on above: Pattern: Unlabored 06-02-2009 14:10-0500 Weight 66.68 kg Vandana Guillermo [facility] Work Phone: 03-11-2009 15:51-0400 BMI (Body Mass Index) 22.35 kg/m2 Grace Aguilar [facility] Internal Medicine Work Phone: 03-11-2009 15:51-0400 Body weight 66.68 kg Grace Harmon [facility] Work Phone: 03-11-2009 15:51-0400 BP Diastolic 72 mm[Hg] Grace [email or web address] Internal Medicine Work Phone: Comment on above: Patient Position: Supine; Cuff Location: Left Arm; Cuff Size: Standard 03-11-2009 15:51-0400 BP Systolic 138 mm[Hg] Grace [email or web address] Internal Medicine Work Phone: Comment on above: Patient Position: Supine; Cuff Location: Left Arm; Cuff Size: Standard 03-11-2009 15:51-0400 BSA (Body Surface Area) 1.79 m2 Grace Harmon [facility] Work Phone: 03-11-2009 15:51-0400 Head Circumference 0 cm Vandana Guillermo [facility] Work Phone: 03-11-2009 15:51-0400 Head Occipital-frontal circumference 0 cm Grace Harmon [facility]; [facility] Work Phone: 03-11-2009 15:51-0400 Height 172.72 cm Grace [facility] [[email or web address] Internal Medicine Work Phone: 03-11-2009 15:51-0400 Pulse (Heart Rate) 72 /min Grace [facility] [[email or web address] Internal Medicine Work Phone: Comment on above: Pattern: Regular 03-11-2009 15:51-0400 Respiratory Rate 16 /min Grace Harmon [facility] Work Phone: Comment on above: Pattern: Unlabored 03-11-2009 15:51-0400 Weight 66.68 kg Vandana Guillermo [facility] Work Phone: 03-04-2009 08:27-0400 Body Temperature 97.1 [degF] Grace [email or web address] Internal Medicine Work Phone: Comment on above: Method: Oral 03-04-2009 08:27-0400 Body weight 69.51 kg Grace [facility] [[email or web address] Internal Medicine Work Phone: 03-04-2009 08:27-0400 BP Diastolic 76 mm[Hg] Grace [facility] [[email or web address] Internal Medicine Work Phone: Comment on above: Patient Position: Supine; Cuff Location: Left Arm; Cuff Size: Standard 03-04-2009 08:27-0400 BP Systolic 122 mm[Hg] Grace [facility] [[email or web address] Internal Medicine Work Phone: Comment on above: Patient Position: Supine; Cuff Location: Left Arm; Cuff Size: Standard 03-04-2009 08:27-0400 Head Circumference 0 cm [facility] Internal Medicine Work Phone: 03-04-2009 08:27-0400 Head Occipital-frontal circumference 0 cm Grace [facility] [[email or web address] Internal Medicine; [facility] Work Phone: 03-04-2009 08:27-0400 Height 0 cm Grace [facility] [[email or web address] Internal Medicine Work Phone: 03-04-2009 08:27-0400 Pulse (Heart Rate) 72 /min [facility] Internal Medicine Work Phone: Comment on above: Pattern: Regular 03-04-2009 08:27-0400 Respiratory Rate 16 /min Grace [facility] [[email or web address] Internal Medicine Work Phone: Comment on above: Pattern: Unlabored 03-04-2009 08:27-0400 Weight 69.51 kg Vandana [facility] Internal Medicine Work Phone: 01-18-2009 16:58-0400 Body weight 69.51 kg Rose Deluna RN [facility] Work Phone: 01-18-2009 16:58-0400 BP Diastolic 78 mm[Hg] Rose Deluna RN [facility] Work Phone: Comment on above: Patient Position: Sitting; Cuff Location : Left Arm; Cuff Size: Large 01-18-2009 16:58-0400 BP Systolic 118 mm[Hg] Rose Deluna RN [facility] Work Phone: Comment on above: Patient Position: Sitting; Cuff Location : Left Arm; Cuff Size: Large 01-18-2009 16:58-0400 Head Circumference 0 cm [facility] Internal Medicine Work Phone: 01-18-2009 16:58-0400 Head Occipital-frontal circumference 0 cm Rose Deluna RN [facility]; [facility] Work Phone: 01-18-2009 16:58-0400 Height 0 cm Rose Deluna RN [facility] Work Phone: 01-18-2009 16:58-0400 Pulse (Heart Rate) 64 /min Rose Deluna RN [facility] Work Phone: Comment on above: Pattern: Regular 01-18-2009 16:58-0400 Respiratory Rate 20 /min Rose Deluna RN [facility] Work Phone: Comment on above: Pattern: Unlabored 01-18-2009 16:58-0400 Weight 69.51 kg Vandana Guillermo [facility] Work Phone: 07-27-2008 17:23-0500 Body weight 74.84 kg ALANNAH Aviles LPN [facility] Work Phone: 07-27-2008 17:23-0500 BP Diastolic 80 mm[Hg] ALANNAH Aviles LPN [facility] Work Phone: Comment on above: Patient Position: Sitting; Cuff Location : Left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 vomiting, chest pain, or any unexpected problems, contact your Primary Care Provider. Call [facility] ([phone]) or report to the closest Emergency Room. Call 911 if necessary. 04/22/18 0704 <Electronically signed by Mode Padilla MD> Date Mode Padilla MD Cosigner Signature (If Indicated): Date CC: Vandana Guillermo NP Vandana Guillermo Start: 04-22-2018 End: 04-22-2018 Emergency Department Summary Comments: See Note; NOTES: [facility] Medical Records Department [address] [place] [address] Emergency Department Summary 04/22/18 0509 MR#: [id number] Acct: [id number] Name: AMIRAH MCCRACKEN Rep #: [id number] : 1950 67 From: Mode Padilla MD PCP: Vandana Guillermo NP Status: REG ER - ER Visit Summary Date of Service: 04/22/18 Chief Complaint: [] Chest pain History of Present Illness: The patient is a 67 M with chest pain that started 1 hour ago at home. It is intermittent tightness. It is gone now currently. EMS gave aspirin and 1 nitroglycerin with good relief of symptoms. No associated symptoms. He had a stress test in 2016 that he reports is normal. Denies any cardiovascular pulmonary embolism or dissection risk factors. Physical Examination: [] Vital signs reviewed General: Well-nourished well-developed Head: Normocephalic atraumatic Eyes: Pupils equal round and reactive to light extraocular movements intact ENT: TMs clear no hemotympanum no trauma Neck: Nontender full range of motion Cardiovascular: Regular rate rhythm no murmurs normal S1-S2 Respiratory: No distress clear to auscultation bilaterally chest nontender Abdomen: Soft nontender nondistended normal bowel sounds no masses Back: Nontender no CVA tenderness Extremities: Nontender active range of motion 4 extremities no trauma Skin: Normal color no trauma Neuro alert oriented cranial nerves II through XII intact normal strength sensation reflexes Test Results: [] Emergency Department Course and Treatment: [] G shows sinus rhythm at a rate of 97. Prolonged QT. No acute ischemic findings otherwise. Lab work and chest x-ray obtained. X-ray negative DJD noted. Troponin negative. Chloride 108. Reevaluation the patient's never had current pain. He does not want to be admitted for stress test. He understands he could be having cardiac cause of his pain. He does not want a second troponin as well. He has been resting comfortably. At this time is unclear the cause of his symptoms. I do not think he has a PE or dissection. He will be discharged to follow-up as an outpatient return if he worsens. Treatment Plan: [] Disposition: [] Impression: [] Chest pain resolved This note was generated with Devtoo dictation software. It may contain incorrect words, spelling, and punctuation that were not noted in review of the chart prior to signing ED Disposition - Plan for ED Patient: Chief Complaint: Chest Pain Referrals: Vandana Guillermo, SENIOR BUSINESS INTELLIGENCE ANALYST-C [Primary Care Provider] - What to do if you have Problems For any increased pain, shortness of breath, bleeding, nausea or vomiting, chest pain, or any unexpected problems, contact your Primary Care Provider. Call [facility] ([phone]) or report to the closest Emergency Room. Call 911 if necessary. 04/22/18 0704 <Electronically signed by Mode Padilla MD> Date Mode Padilla MD Cosigner Signature (If Indicated): Date CC: Vandana Guillermo Start: 04-22-2018 End: 04-22-2018 Chest PA and Lateral Comments: See Note; NOTES: [facility] Imaging Services [address] [place] [address] Chest PA and Lateral MR#: [id number] Acct: [id number] Name: AMIRAH MCCRACKEN Rep #: [id number] : 1950 M 67 From: Gallito Allen MD PCP: Vandana Guillermo NP Status: REG ER Study: Chest PA and Lateral Date of Exam: 04/22/18 Exam# [id number] Ordering Dr: Mode Padilla MD STUDY: X-RAY CHEST REASON FOR EXAM: Male, 67 years old. Chest pain TECHNIQUE: Frontal and lateral views of the chest. COMPARISON: None. FINDINGS: Chronic lung changes. Possible COPD. No focal consolidation.. There is no demonstrated pleural abnormality. Normal size heart. Normal mediastinum and kip. Normal visualized pulmonary arteries. Normal visualized aortic arch and descending thoracic aorta. There are diffuse degenerative changes of the visualized thoracic spine. There is degenerative osteoarthritis of the bilateral shoulders. There is no demonstrated abnormality of the visualized soft tissue structures of the upper abdomen. RAD/Chest PA and Lateral IMPRESSION: There is mild hyperexpansion the lungs with chronic lung changes. There is no focal consolidation identified. There is degenerative changes. Electronically Signed: Gallito Lloydford, at 5:19 EST Tel , Service support , CC: Vandana Guillermo NP; Mode Padilla MD [employer]: Signed Vandana Guillermo Start: 03-03-2018 End: 03-03-2018 Plastic Surgery Visit Report Comments: See Note; NOTES: [facility] [address] [place] [address] [place] [address] OFFICE VISIT Date of Service: 02/27/18 MR#: [id number] Acct: [id number] Name: AMIRAH MCCRACKEN Rep #: [id number] : 1950 Provider: Amirah Chung MD Age/Sex: 67/M Location: [facility] Status: Signed Intake Vital Signs02/27/18 Blood Pressure 139/73 H 02/27/18 Blood Pressure Location Lt brachial 02/27/18 Blood Pressure Position Sitting 02/27/18 Respiratory Rate 16 Intake Visit Reasons: evaluation laceration left index finger Mechanism Assembler Required: No Accompanied by: None Is patient in pain?: No Allergies No Known Allergies Allergy (Verified 02/27/18 10:53) Medications Cephalexin [Keflex] 500 mg PO Q6 #40 cap 01/22/18 [Rx] Levothyroxine [Synthroid] 75 mcg PO DAILY 01/22/18 [History Confirmed 01/22/18] Meloxicam [Mobic] 15 mg PO DAILY 01/22/18 [History Confirmed 01/22/18] Paroxetine HCl [Paxil] 40 mg PO DAILY 01/22/18 [History Confirmed 01/22/18] Smz/Tmp Ds [Bactrim Ds] 1 tab PO BID #20 tab 01/22/18 [Rx] omeprazole 40 mg capsule,delayed release 40 mg PO DAILY 02/13/18 [History Confirmed 02/13/18] PFSH Medical History Anxiety and depression (Acute) GERD (gastroesophageal reflux disease) (Acute) Hearing problem (Acute) Hypoactive thyroid (Acute) Surgical History History of inguinal hernia repair (Acute) Family History Mother Heart disease Social History household members: spouse current occupational status: retired Smoking Status: Former smoker alcohol intake: current details: WINE OCCASIONALLY 6 OZ A NIGHT substance use type: does not use additional social history: DOES USE ASPIRIN DOES NOT USE IBUPROFEN HPI evaluation laceration left index finger: Details: HISTORY OF PRESENT ILLNESS 67 year old man presents with a laceration on his left index finger on the volar aspect at the DIP joint crease that he sustained back on 01/19/18. He was building a dog house and the metal he was working on lacerated his finger. He is right hand dominant. He went to the ED on 01/22/18 because his finger developed increasing pain and swelling and redness. He was placed on Keflex and Bactrim and has finished them. In the ED, he was able to do flexion and extension with some limitation with flexion secondary to swelling. He denies any numbness. He had some old skin that was removed from the area, and new skin is present that is a little erythematous. He states it is not as red as before. He had a recent xray of his left index finger which was normal. He had an MRI. It showed normal flexor and extensor tendons and mild tenosynovitis at metacarpal head and soft tissue edema and no foreign body. There was some reactive bone edema and no osteomyelitis. He presents at this time for further evaluation and treatment. REVIEW OF SYSTEMS General - Denies fever, fatigue, and weight loss. Eyes - Denies cataracts and glaucoma. ENT - Denies nasal congestion and sore throat. Endocrine - Denies excessive thirst and urination. Skin - Denies suspicious lesions and skin cancer. Had laceration volar aspect left index finger at DIP joint crease (zone I). Musculoskeletal - Denies joint pain, joint stiffness, weakness of muscles and joints, back pain, and arthritis. Neuro - Denies headaches. Cardiovascular - Denies chest pain, fatigue, and shortness of breath with exertion. Psych - Denies anxiety. Has depression. Respiratory - Denies chronic cough and shortness of breath. Gastrointestinal - Denies nausea, vomiting, diarrhea, and constipation. Hematologic - Denies abnormal bruising and bleeding. Genitourinary - Denies hematuria and urinary frequency. PHYSICAL EXAMINATION General - Alert and Oriented HEENT - PERRL. EOMI. Throat is clear. Neck - Supple and nontender. No cervical adenopathy. Lungs - Clear to auscultation. Heart - Regular rate and rhythm. Abdomen - Soft and nondistended. Extremities - FROM. Minimal swelling seen, better than at his last visit. No evidence of infection. He can flex better at the DIP joint and it should continue to improve with resolution of the residual minimal swelling. He has normal flexion at the PIP joint. No axillary adenopathy. Radial pulses are palpable. Fingers are warm with good capillary refill. No sensory deficits. Neuro - CN II-XII grossly intact. Psych - Normal mood and affect. ASSESSMENT 1. Healed laceration volar aspect left index finger at DIP joint crease (Zone I). 2. Former smoker. PLAN Xray and MRI reviewed. Normal tendons seen and no evidence of osteomyelitis and no foreign body seen. Patient is off his antibiotics. There is no evidence of further infection at the present time. He is done with Keflex and Bactrim. The laceration volar aspect left index finger at DIP joint crease has healed. He has good range of motion which should continue to improve with resolution of the residual minimal swelling. With the improvement, patient states he wants to hold off on OT at this time. Continue to massage the left index finger when he washes his hands to help with lymphatic drainage and to help with the swelling. Followup on an as needed basis. Assessment AND Plan Problems 1. Laceration of left index finger with complication S61.211A 2. Unspecified injury of flexor muscle, fascia and tendon of left index finger at wrist and hand level, initial encounter S66.101A Coding Level of Care Code Off vis,est,level 4 Diagnoses Laceration of left index finger with complication S61.211A Unspecified injury of flexor muscle, fascia and tendon of left index finger at wrist and hand level, initial encounter S66.101A 03/03/18 1159 <Electronically signed by Amirah Chung MD> Date Amirah Chung MD Cosigner Signature: Date (if applicable) CC: Vandana Guillermo Start: 02-21-2018 End: 02-22-2018 Upper Ext/No Jt/ wo Comments: See Note; NOTES: [facility] Imaging Services [address] [place] [address] Upper Ext/No Jt/ wo MR#: [id number] Acct: [id number] Name: AMIRAH MCCRACKEN Rep #: [id number] : 1950 M 67 From: Malik Hess MD PCP: Vandana Guillermo NP Status: REG CLI Study: Upper Ext/No Jt/ wo Date of Exam: 02/21/18 Exam# [id number] Ordering Dr: Amirah Chung MD STUDY: MRI LEFT HAND (ATTENTION INDEX FINGER) REASON FOR EXAM: Infected laceration of the index finger. TECHNIQUE: Standardized fat and water weighted pulse sequences were obtained in all 3 orthogonal planes. COMPARISON: Radiographs 02/13/2018. FINDINGS: There is bone edema of the middle phalanx of the second digit (inversion recovery coronal image 12) without corresponding decreased T1 bone marrow signal and therefore more suggestive of reactive bone edema rather than osteomyelitis. Normal proximal and distal phalanges of the second digit. Normal visualized second metacarpal. There is mild flexor tenosynovitis of the second digit at the level of the metacarpal head (inversion recovery axial images 7, 8). Otherwise, unremarkable flexor and extensor tendons of the second digit. Normal second metacarpophalangeal joint. Normal second proximal and distal interphalangeal joints. There is edema in the subcutis adipose space of the second digit (inversion recovery axial images 17-33) without soft tissue abscess. There is no demonstrated signal void to indicate foreign body. Normal visualized distal intrinsic muscles of the hand. MRI/Upper Ext/No Jt/ wo IMPRESSION: Edema in the subcutis adipose space of the second finger without demonstrated soft tissue abscess or foreign body. Bone edema of the middle phalanx of the second digit, more suggestive of reactive bone edema rather than osteomyelitis. Mild flexor tenosynovitis of the second digit. Electronically Signed: Malik Hess MD at 9:52 EDT Tel , Service support , CC: Vandana Guillermo SENIOR BUSINESS INTELLIGENCE ANALYST; Amirah Chung MD [employer]: Signed Amirah Chung Work Phone: Start: 02-19-2018 End: 02-19-2018 Plastic Surgery Visit Report Comments: See Note; NOTES: [facility] [address] [place] [address] [place] [address] OFFICE VISIT Date of Service: 02/13/18 MR#: [id number] Acct: [id number] Name: AMIRAH MCCRACKEN Rep #: [id number] : 1950 Provider: Amirah Chung MD Age/Sex: 67/M Location: [facility] Status: Signed Intake Vital Signs02/13/18 Height 5 ft 7 in 02/13/18 Weight: 166 lb 6 oz Intake Visit Reasons: evaluation laceration left index finger Mechanism Assembler Required: No Accompanied by: None Is patient in pain?: No Allergies No Known Allergies Allergy (Verified 02/13/18 11:18) Medications Cephalexin [Keflex] 500 mg PO Q6 #40 cap 01/22/18 [Rx] Levothyroxine [Synthroid] 75 mcg PO DAILY 01/22/18 [History Confirmed 01/22/18] Meloxicam [Mobic] 15 mg PO DAILY 01/22/18 [History Confirmed 01/22/18] Paroxetine HCl [Paxil] 40 mg PO DAILY 01/22/18 [History Confirmed 01/22/18] Smz/Tmp Ds [Bactrim Ds] 1 tab PO BID #20 tab 01/22/18 [Rx] omeprazole 40 mg capsule,delayed release 40 mg PO DAILY 02/13/18 [History Confirmed 02/13/18] Nurse's Note: CANT BEND HIS LEFT INDEX FINGER INJURY HAPPENED ABOUT 4 - 5 WEEKS AGO PUTTING A DOG CAGE TOGETHER [facility] Medical History Anxiety and depression (Acute) GERD (gastroesophageal reflux disease) (Acute) Hearing problem (Acute) Hypoactive thyroid (Acute) Surgical History History of inguinal hernia repair (Acute) Family History Mother Heart disease Social History household members: spouse current occupational status: retired Smoking Status: Former smoker alcohol intake: current details: WINE OCCASIONALLY 6 OZ A NIGHT substance use type: does not use additional social history: DOES USE ASPIRIN DOES NOT USE IBUPROFEN HPI evaluation laceration left index finger: Details: HISTORY OF PRESENT ILLNESS 67 year old man presents with a laceration on his left index finger on the volar aspect at the DIP joint crease that he sustained back on 01/19/18. He was building a dog house and the metal he was working on lacerated his finger. He is right hand dominant. He went to the ED on 01/22/18 because his finger developed increasing pain and swelling and redness. He was placed on Keflex and Bactrim. In the ED, he was able to do flexion and extension with some limitation with flexion secondary to swelling. He denies any numbness. He had some old skin that was removed from the area, and new skin is present that is a little erythematous. He states it is not as red as before. He presents at this time for further evaluation and treatment. REVIEW OF SYSTEMS General - Denies fever, fatigue, and weight loss. Eyes - Denies cataracts and glaucoma. ENT - Denies nasal congestion and sore throat. Endocrine - Denies excessive thirst and urination. Skin - Denies suspicious lesions and skin cancer. Had laceration volar aspect left index finger at DIP joint crease (zone I). Musculoskeletal - Denies joint pain, joint stiffness, weakness of muscles and joints, back pain, and arthritis. Neuro - Denies headaches. Cardiovascular - Denies chest pain, fatigue, and shortness of breath with exertion. Psych - Denies anxiety. Has depression. Respiratory - Denies chronic cough and shortness of breath. Gastrointestinal - Denies nausea, vomiting, diarrhea, and constipation. Hematologic - Denies abnormal bruising and bleeding. Genitourinary - Denies hematuria and urinary frequency. PHYSICAL EXAMINATION General - Alert and Oriented HEENT - PERRL. EOMI. Throat is clear. Neck - Supple and nontender. No cervical adenopathy. Lungs - Clear to auscultation. Heart - Regular rate and rhythm. Abdomen - Soft and nondistended. Extremities - FROM except for left index finger. Mild swelling persists. No evidence of infection. Some residual erythema is present which looks like new skin formation after the old skin was removed from wearing a gauze dressing for several days. Old skin builds up underneath the gauze dressing. He can flex at the DIP joint a little bit with limitation secondary to residual swelling. He can flex at the PIP joint a little bit with limitation secondary to residual swelling. No axillary adenopathy. Radial pulses are palpable. Fingers are warm with good capillary refill. No sensory deficits. Neuro - CN II-XII grossly intact. Psych - Normal mood and affect. ASSESSMENT 1. Healed laceration volar aspect left index finger at DIP joint crease (Zone I), possible tendon injury. 2. Former smoker. PLAN Patient is off his antibiotics. There is no evidence of further infection at the present time. He is done with Keflex and Bactrim. The laceration volar aspect left index finger at DIP joint crease is healed. There is decreased range of motion secondary to residual swelling. Would benefit from OT. Flexion is present but is decreased probably from swelling. Will need to check an xray to look for bony abnormalities. To look for possible tendon injury, will order an MRI. It has been over 3 weeks since the injury. It would be difficult to explore the wound at this time because of the swelling. That is why I am getting the MRI to look for injury. At this late date, if an injury is present, may need a tendon graft if there is tendon retraction. If injury is present, would hold off on OT. Patient was informed of the risks and complications of the procedure including alternatives to surgery. These were discussed with the patient personally. Patient voices understanding and wishes to proceed with the current plan of getting an MRI and getting OT. Followup 2 weeks. Assessment AND Plan Problems 1. Laceration of left index finger with complication S61.211A 2. Unspecified injury of flexor muscle, fascia and tendon of left index finger at wrist and hand level, initial encounter S66.101A Orders Orders: Referrals: Coding Level of Care Code Off vis,new,level 4 Diagnoses Laceration of left index finger with complication S61.211A Unspecified injury of flexor muscle, fascia and tendon of left index finger at wrist and hand level, initial encounter S66.101A 02/19/18 1214 <Electronically signed by Amirah Chung MD> Date Amirah Chung MD Cosigner Signature: Date (if applicable) CC: Vandana Guillermo Start: 02-13-2018 End: 02-14-2018 Finger(s) Min 2 Views Comments: See Note; NOTES: [facility] Imaging Services [address] [place] [address] Finger(s) Min 2 Views MR#: [id number] Acct: [id number] Name: AMIRAH MCCRACKEN Rep #: [id number] : 1950 M 67 From: Ashlie Enamorado MD PCP: Vandana Guillermo NP Status: REG CLI Study: Finger(s) Min 2 Views Date of Exam: 02/13/18 Exam# [id number] Ordering Dr: Amirah Chung MD STUDY: X-RAY - LEFT HAND, ATTENTION INDEX FINGER REASON FOR EXAM: Male, 67 years old. Left index finger laceration anterior TECHNIQUE: 3 view(s) of the finger were obtained. COMPARISON: None. FINDINGS: Normal metacarpal head. Normal metacarpophalangeal joint. Normal proximal phalanx. Normal middle phalanx. Normal distal phalanx. Normal proximal interphalangeal joint. Normal distal interphalangeal joint. There is no radiopaque foreign body. RAD/Finger(s) Min 2 Views IMPRESSION: Normal x-ray examination of the finger. Electronically Signed: Ashlie Enamorado MD at 7:38 EDT , Service support , CC: Vandana Guillermo NP; mAirah Chung MD [employer]: Signed Amirah Chung Work Phone: Start: 01-22-2018 End: 01-22-2018 Discharge Instruction Comments: See Note; NOTES: [facility] Medical Records Department [address] [place] [address] Discharge Instruction 01/22/18 1146 MR#: [id number] Acct: [id number] Name: KAYKAYAMIRAH Rep #: [id number] : 1950 67 From: Kwaku Wilkerson MD PCP: Vandana Guillermo NP Status: DEP ER ED Disposition - Plan for ED Patient: Disposition: Home or Assisted Living Chief Complaint: Upper Extremity Injury Instructions: ED Infec Skin Cellulitis Prescriptions: Cephalexin [Keflex] 500 mg PO Q6 #40 cap Smz/Tmp Ds [Bactrim Ds] 1 tab PO BID #20 tab Referrals: Shyanne Torres MD [Primary Care Provider] - 3-5 Days Additional Instructions: Warm soaks. Elevate to decrease falling. Express pus several times a day. Follow-up your primary care physician and have this reassessed. If developing increasing pain, red streaks up in the hand or forearm or fever return immediately this can develop another infection that would need to be surgically drained. Keflex antibiotic 4 times a day till gone. Bactrim twice a day till gone. What to do if you have Problems For any increased pain, shortness of breath, bleeding, nausea or vomiting, chest pain, or any unexpected problems, contact your Primary Care Provider. Call [facility] ([phone]) or report to the closest Emergency Room. Call 911 if necessary. 01/22/18 1702 <Electronically signed by Kwaku Wilkerson MD> Date Kwaku Wilkerson MD Cosigner Signature (If Indicated): Date CC: Vandana Guillermo Start: 01-22-2018 End: 01-22-2018 Emergency Department Summary Comments: See Note; NOTES: [facility] Medical Records Department [address] [place] [address] Emergency Department Summary 01/22/18 1141 MR#: [id number] Acct: [id number] Name: AMIRAH MCCRACKEN Rep #: [id number] : 1950 67 From: Kwaku Wilkerson MD PCP: Vandana Guillermo NP Status: DEP ER - ER Visit Summary Date of Service: 01/22/18 Chief Complaint: Left index finger infection History of Present Illness: The patient is a 67 M liebp-byct-qxtexbok. Was building a dog house 2 days ago and the metal he was working on lacerated his left index finger on the palmar side at the DIP skin crease. Now the fingers swollen and uncomfortable. He denies any fever. There is a discharge. He is unsure of his last tetanus which will be updated. Physical Examination: Well-appearing male. Vital signs are stable afebrile. H EENT exam unremarkable. Lungs clear to auscultation bilaterally. Heart regular rhythm no murmur. Abdomen soft nontender. Moving all 4 extremities. Neurovascular intact. Left index finger is swollen. Mildly tender. At the DIP palmar skin crease there is a laceration that I can express pus from. There is no tenosynovitis. There is no lymphangitic streaking. There are no swollen or tender epitrochlear lymph nodes or axillary lymph nodes. The other fingers of the hand are unremarkable and the palm is nontender without lymphangitic streaking. He is able do flexion extension was limited flexion secondary to swelling. The distal fingertip is neurovascularly intact with cap refill and tight sensation. Test Results: None Emergency Department Course and Treatment: Patient will be started on both Bactrim and Keflex. He is not obviously infected left index finger. His tetanus will be updated. He will be instructed to follow-up with his primary care physician to ensure this is improving. I gave both he and his specific instructions for tenosynovitis if this is worsening, develop streaks or fever he needs a return possibly have it surgically drained which he does not need at this time. Treatment Plan: Keflex 4 times daily for 10 days. Bactrim twice daily for 10 days. Warm soaks. Follow-up with primary care physician. Disposition: Discharge Impression: Left index finger laceration 2 days ago Left index finger soft tissue infection This note was generated with [employer]too dictation software. It may contain incorrect words, spelling, and punctuation that were not noted in review of the chart prior to signing ED Disposition - Plan for ED Patient: Chief Complaint: Upper Extremity Injury Referrals: Shyanne Torres MD [Primary Care Provider] - What to do if you have Problems For any increased pain, shortness of breath, bleeding, nausea or vomiting, chest pain, or any unexpected problems, contact your Primary Care Provider. Call [facility] ([phone]) or report to the closest Emergency Room. Call 911 if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 Comprehensive (69261) [facility] Work Phone: Start: 08-07-2018 Thyrotropin Qn TSH (THYROID STIMULATING HORMONE) (65515) [facility] Work Phone: Start: 07-29-2018 Assay of prostate specific antigen total PSA (PROSTATE SPECIFIC ANTIGEN) (V76.44) [facility] Work Phone: Start: 07-29-2018 Protein mass conc PSA (PROSTATE SPECIFIC ANTIGEN) (V76.44) [facility] Work Phone: Start: 07-29-2018 Blood count complete auto&auto difrntl wbc CBC, Platelets & Auto Diff (93682) [facility] Work Phone: Start: 07-29-2018 Comprehensive metabolic panel Metabolic Panel, [facility] (20026) [facility] Work Phone: Start: 07-29-2018 Thyrotropin Qn TSH (THYROID STIMULATING HORMONE) (01622) [facility] Work Phone: Start: 06-10-2018 Procedure Education Eprescribed prescriptions (G8553) [facility] Work Phone: Start: 06-10-2018 Provider Instructions for Treatment Follow up in 3 months [facility] Work Phone: Start: 05-27-2018 T4 free mass conc T4, FREE (THYROXINE) (16950) [facility] Work Phone: Start: 05-27-2018 T3 free mass conc T3, FREE (TRIDOTHYRONINE) (02312) [facility] Work Phone: Start: 05-27-2018 Thyrotropin Qn TSH (THYROID STIMULATING HORMONE) (17462) [facility] Work Phone: Start: 04-12-2018 Thyrotropin Qn TSH (THYROID STIMULATING HORMONE) (70579) [facility] Work Phone: Start: 01-25-2018 Procedure Education Eprescribed prescriptions (G8553) [facility] Work Phone: Start: 01-25-2018 Provider Instructions for Treatment Follow up if no improvement or if symptoms worsen [facility] Work Phone: Start: 12-07-2017 Procedure Education Eprescribed prescriptions (G8553) [facility] Work Phone: Start: 12-07-2017 Provider Instructions for Treatment Follow up in 4 months [facility] Work Phone: Start: 12-07-2017 Blood count complete auto&auto difrntl wbc CBC, Platelets & Auto Diff (45128) [facility] Work Phone: Comment on above: Mar 2018 Start: 12-07-2017 Comprehensive metabolic panel Metabolic Panel, [facility] (03448) [facility] Work Phone: Comment on above: Mar 2018 Start: 12-07-2017 Assay of prostate specific antigen total PSA (PROSTATE SPECIFIC ANTIGEN) (V76.44) [facility] Work Phone: Comment on above: Mar 2018 Start: 12-07-2017 Protein mass conc PSA (PROSTATE SPECIFIC ANTIGEN) (V76.44) [facility] Work Phone: Comment on above: Mar 2018 Start: 12-07-2017 Assay of thyroid stimulating hormone tsh TSH (THYROID STIMULATING HORMONE) (37341) [facility]; [facility] Work Phone: Comment on above: Mar 2018 Start: 12-07-2017 Thyrotropin Qn TSH (THYROID STIMULATING HORMONE) (70972) [facility] Work Phone: Comment on above: Mar 2018 Start: 09-04-2017 Provider Instructions for Treatment Shoulder Injection [facility] Work Phone: Start: 2017 ADVANCE DIRECTIVE DISCUSSION ADVANCE DIRECTIVE DISCUSSION [facility] Start: 2017 PNEUMOVAX AGE 65 AND OVER WITH 5YR LOOKBACK (#1) PNEUMOVAX AGE 65 AND OVER WITH 5YR LOOKBACK (#1) [facility] Start: 10-04-2015 Procedure Education Eprescribed prescriptions (G8553) [facility] Work Phone: Start: 09-22-2015 Procedure Education Eprescribed prescriptions (G8553) [facility] Work Phone: Start: 09-21-2015 Comprehensive metabolic panel Metabolic Panel, [facility] (77198) [facility] Work Phone: Start: 09-21-2015 Creatine kinase mb fraction only CPK MB FRACTION (78855) [facility] Work Phone: Start: 09-21-2015 Creatine kinase total CREATINE KINASE TOTAL (81082) [facility] Work Phone: Start: 09-21-2015 Blood count complete automated CBC (Auto) (01992) [facility] Work Phone: Start: 08-17-2015 Procedure Education Eprescribed prescriptions (G8553) [facility] Work Phone: Start: 07-13-2015 Patient Education Depression: Brief Version *: depressed [facility] Work Phone: Start: 07-13-2015 Procedure Education Eprescribed prescriptions (G8553) [facility] Work Phone: Start: 07-14-2014 Provider Instructions for Treatment Follow up in 2 weeks [facility] Work Phone: Start: 01-13-2014 Assay of prostate specific antigen total PSA (PROSTATE SPECIFIC ANTIGEN) (V76.44) [facility] Work Phone: Start: 01-13-2014 Protein mass conc PSA (PROSTATE SPECIFIC ANTIGEN) (V76.44) [facility] Work Phone: Start: 01-13-2014 Assay of thyroid stimulating hormone tsh TSH (98237) [facility]; [facility] Work Phone: Start: 01-13-2014 Thyrotropin Qn TSH (17069) [facility] Work Phone: Start: 01-13-2014 Comprehensive metabolic panel METABOLIC PANEL, COMPREHENSIVE (96462) [facility] Work Phone: Start: 01-13-2014 Lipid panel LIPID PANEL (16828) [facility] Work Phone: Start: 01-13-2014 Blood count complete auto&auto difrntl wbc CBC W/AUTO DIFF WBC (61206) [facility] Work Phone: Start: 01-13-2014 Procedure Education Eprescribed prescriptions (G8553) [facility] Work Phone: Start: 06-19-2012 Patient Education Sinus Headache: headache [facility] Work Phone: Start: 06-19-2012 Provider Instructions for Treatment [facility] Work Phone: Start: 02-19-2012 Provider Instructions for Treatment Lateral Epicondyle injection [facility] Work Phone: Start: 11-20-2011 Patient Education Sore throat: diagnosis and treatment [facility] Work Phone: Start: 11-20-2011 Provider Instructions for Treatment [facility] Work Phone: Start: 11-20-2011 Ia[place]oo streptococcus group a Rapid Strep Test, Office (00184) [facility]; [facility] Work Phone: Start: 11-20-2011 S. pyogenes Ag IA Ql (Unsp spec) Rapid Strep Test, Office (03482) [facility] Work Phone: Start: 10-25-2011 Provider Instructions for Treatment Follow up in 3 weeks [facility] Work Phone: Start: 09-19-2011 Provider Instructions for Treatment Lateral Epicondyle injection [facility] Work Phone: Start: 02-28-2011 25 hydroxy includes fractions if performed CALCIFIDIOL (28253) VIT D 25 [facility] Work Phone: Comment on above: tibial fracture Start: 02-28-2011 Cobalamin (Vitamin B12) mass conc Vitamin B-12 (cyanocobalamin) (31331) [facility] Work Phone: Start: 02-28-2011 Cyanocobalamin vitamin b-12 Vitamin B-12 (cyanocobalamin) (39965) [facility]; [facility] Work Phone: Start: 02-28-2011 Blood count complete automated CBC (Auto) (91899) [facility] Work Phone: Start: 02-28-2011 Comprehensive metabolic panel Metabolic Panel, [facility] (38712) [facility] Work Phone: Start: 02-28-2011 Assay of testosterone free TESTOSTERONE FREE (60786) [facility] Work Phone: Start: 02-28-2011 Assay of thyroid stimulating hormone tsh TSH (27025) [facility]; [facility] Work Phone: Start: 02-28-2011 Thyrotropin Qn TSH (37545) [facility] Work Phone: Start: 12-14-2010 Provider Instructions for Treatment follow up [facility] Mon or Tues [facility] Work Phone: Start: 01-28-2010 Tuberculosis screening COLORECTAL CANCER SCREENING,SEE MODIFIER [facility] Start: 06-02-2009 Provider Instructions for Treatment [facility] Work Phone: Start: 03-04-2009 Provider Instructions for Treatment [facility] Work Phone: Start: 03-04-2009 Smr prim src cplx spec stain ova&parasits SMEAR, COMPLEX STAIN (83147) [facility] Work Phone: Start: 03-04-2009 aPTT Coag time (Bld) PTT (ACTIVATED PARTIAL THROMBOPLASTIN TIME) (10997) [facility] Work Phone: Start: 03-04-2009 Thromboplastin time partial plasma/whole blood PTT (ACTIVATED PARTIAL THROMBOPLASTIN TIME) (24436) [facility]; [facility] Work Phone: Start: 03-04-2009 Prothrombin time PT (PROTHROMBIN TIME) (22418) [facility]; [facility] Work Phone: Start: 03-04-2009 Prothrombin time (PT) Coag time (PPP) PT (PROTHROMBIN TIME) (43721) [facility] Work Phone: Start: 03-04-2009 Cobalamin (Vitamin B12) mass conc Vitamin B-12 (cyanocobalamin) (81770) [facility] Work Phone: Start: 03-04-2009 Cyanocobalamin vitamin b-12 Vitamin B-12 (cyanocobalamin) (55977) [facility]; [facility] Work Phone: Start: 03-04-2009 Lactate dehydrogenase ldh LDH (LD) (LACTATE DEHYDROGENASE) (51705) [facility] Work Phone: Start: 03-04-2009 Blood count manual cell count each CBC with manual diff (34589) [facility] Work Phone: Start: 03-04-2009 Blood count manual cell count each CBC with manual diff (03493) [facility] Work Phone: Start: 03-04-2009 Basic metabolic panel calcium total Metabolic Panel, Basic (60691) [facility] Work Phone: Start: 03-04-2009 Blood occult peroxidase actv qual feces 1 deter OCCULT BLOOD FECES SCREEN (98721) [facility] Work Phone: Start: 03-04-2009 Cul bact stool aerobic isol salmonella&shigell SIOBHAN CULTURE-STOOL (18552) [facility] Work Phone: Start: 03-04-2009 Culture bacterial any source anaerobic iso&id C-DIFFICILE, STOOL (51879) [facility] Work Phone: Start: 03-04-2009 Leukocyte assmt fecal qual/semiquantitative LEUKOCYTE COUNT, FECAL (34410) [facility] Work Phone: Start: 03-04-2009 Ova&parasites direct smears concentration & id OVA & PARASITE DIR SMEAR (25496) [facility] Work Phone: Start: 01-18-2009 Assay of prostate specific antigen total PSA (PROSTATE SPECIFIC ANTIGEN) (V76.44) [facility] Work Phone: Start: 01-18-2009 Protein mass conc PSA (PROSTATE SPECIFIC ANTIGEN) (V76.44) [facility] Work Phone: Start: 01-18-2009 Comprehensive metabolic panel METABOLIC PANEL, COMPREHENSIVE (20007) [facility] Work Phone: Start: 01-18-2009 Blood count manual cell count each CBC WITH MANUAL DIFF (03322) [facility] Work Phone: Start: 01-18-2009 Lipid panel LIPID PANEL (27521) [facility] Work Phone: Start: 01-18-2009 Provider Instructions for Treatment Colon Cancer Screening [facility] Work Phone: Start: 08-15-2007 PROSTATE CANCER SCREENING DISCUSSION PROSTATE CANCER SCREENING DISCUSSION [facility] Start: 03-27-2007 Provider Instructions for Treatment [facility] Work Phone: Start: 01-09-2007 Provider Instructions for Treatment [facility] Work Phone: Start: 04-12-2006 Assay of thyroid stimulating hormone tsh TSH (62595) [facility]; [facility] Work Phone: Start: 04-12-2006 Thyrotropin Qn TSH (25362) [facility] Work Phone: Start: 02-26-2006 Provider Instructions for Treatment FOLLOW UP IN 6 WEEKS [facility] Work Phone: Start: 2002 SHINGRIX VACCINE (1 of 2) SHINGRIX VACCINE (1 of 2) [facility] Start: 1997 DIABETES SCREEN DIABETES SCREEN [facility] Start: 08-15-1987 LIPID SCREEN LIPID SCREEN [facility] Start: 08-15-1971 Urine microalbumin profile DTAP,TDAP,TD (1 - Tdap) [facility] Start: 1970 HEPATITIS C SCREENING HEPATITIS C SCREENING [facility] Ova and parasites id entified in Unspecified specimen by Light microscopy [facility] Patient referral [facility] Work Phone: [facility] Work Phone: [facility] Work Phone[facility] Work Phone: [facility] Work Phone: [facility] Work Phone[facility] Work Phone[facility] Work Phone: [facility] Work Phone: [facility] Work Phone: [facility] Work Phone: [facility] Work Phone: [facility] Work Phone: [facility] Work Phone: [facility] Work Phone: [facility] Work Phone: [facility] Work Phone: [facility] Work Phone: [facility] Work Phone: [facility] Work Phone: [facility] Work Phone: [facility] Work Phone[facility] Work Phone: [facility] Work Phone: [facility] Work Phone: [facility] Work Phone: [facility] Work Phone: [facility] Work Phone: Immunizations Immunization Date Immunization Notes Care Provider Christian greene 01-22-2018 tetanus toxoid, redu hugo diphtheria toxoid, and acellular pertussis vaccine, adsorbed [facility] 01-13-2014 varicella zoster imm une globulin Vandana Guillermo [facility] Work Phone: 01-18-2009 tetanus toxoid, redu hugo diphtheria toxoid, and acellular pertussis vaccine, adsorbed [facility] Work Phone: Payers Date Payer Category Payer Self-pay [id number] 2023 Private Health Insurance [id number] 2018 Private Health Insurance [id number] 2017 Medicare [id number] 2017 Medicare [id number] 2016 Unknown [id number] 2015 Unknown [id number] 2011 Private Health Insurance [id number] 2011 Private Health Insurance [facility] CHOICE PLUS [id number] 2011-Present HMO [id number] 1950 Unknown [id number] Private Health Insurance [id number] Unknown Unknown [id number] Unknown [id number] Unknown [id number] Unknown [id number] Unknown [id number] Unknown [id number] Unknown [id number] Unknown [id number] Unknown [id number] Social History Date Type Detail Facility Alcohol Use Former smoker [facility] Work Phone: Comment on above: Wine occasionally 6 oz night only nighty for 1 year. negative [employer] , Lives with spouse Tobacco use: Former smoker. [facility] Work Phone: Comment on above: quit in Start: 02-18-2009 Tobacco smoking stat us ILIS Never smoker [facility] Start: 02-18-2009 Alcohol intake Current non-dr resource efficiency manager of alcohol (finding) [facility] Sex Assigned At Not on file [facility] Tobacco use: Tobacco use: [facility]; [facility] Work Phone: Comment on above: quit in Start: 09-19-2019 End: 08-23-2023 Tobacco smoking status NHIS Unknown if ever smoked [facility] Start: 09-19-2019 Non-smoker [facility] Start: 1950 Sex Assigned At Male [facility] Goals Date Patient Goal Desired Activity /State Mental Status Date Assessment Result Facility 08-29-2023 Cognitive function Touch/Shaking [facility] Work Phone: 02-08-2022 Cognitive function Level Of Cons ciousness Awake;Alert;Appropriate [facility] Work Phone: Discharge summary 08-29-2023 Note Date & Type Note Facility 08-29-2023 Discharge summary Note Date/Time August 29, 2023 6:57 am [facility] Medical Records Department [address] [place] [address] Instructions for Home/Discharge Instructions 08/29/23 0657 MR#: [id number] Acct: [id number] Name: AMIRAH MCCRACKEN Rep #:[id number] : 1950 73 From: Apolinar Olivarez MD PCP: Dr. Eamon Nicole MD Status:REG S DC Discharge Instructions Procedure General Surgery Diet Discharge Diet: Light diet - advance as tolerated (if you have questions about your diet instructions, please talk to you doctor.) Activity Discharge Activity: May Not Drive (for 3-5 days or while taking narcotic pain medicine.) May shower in (days): 1 Lifting Restrictions: 10 pounds Dressing / Incision Call your doctor if your incision/area has: Continuous Slow Oozing, Sudden Increased Bleeding, Increased Pain/ Swelling, Increased Redness and Foul Smelling Discharge Call your doctor if you observe: Fever of 101 or Higher Suture Line Care: Avoid Pulling/Pushing and Avoid Pinching/Bending Additional Dressing/Incision Instructions:: Change or remove dressing in 4 days. Leave steri-strips in place for 1 week. Follow Up Care Please Follow Up With: Apolinar Olivarez MD When: Call [phone] to make an appointment to be seen in about 10 days. Test Results: Test results from this visit will be discussed in further detail at your follow-up appointment, if applicable. Discharge Plan Admission Attending Provider: Apolinar Olivarez Primary Care Provider: Eamon Nicole Chi Discharge Orders/Prescriptions Prescriptions: No Action levothyroxine 75 MCG tablet See Rx Instructions .ROUTE .COMPLEX Rx Instructions: 75 mcg orally ;1 tablet Sunday - Sunday paroxetine HCl [Paxil] 40 MG tablet 40 mg PO DAILY donepezil 10 mg Tablet 10 mg PO QHS memantine [Namenda] 10 mg tablet 5 mg PO BID Patient Comments: PT UNSURE, BRINGING LIST IN meloxicam 15 mg Tablet 15 mg PO DAILY Patient Comments: PER DR OLIVAREZ HOLD STARTING 08/22/23 UNTIL AFTER SURGERY ON 08/29/23 B-complex with vitamin C [Vit B Comp W/C] Capsule 1 cap PO DAILY magnesium oxide 400 mg magnesium Tablet 400 mg PO DAILY Other Ambulatory Orders: 12 Lead EKG (Routine) Location: None Selected Ordered By: Dr. Kranthi Pereira Referrals / Follow Up: Eamon Nicole Chi, MD [Primary Care Provider] - Disposition Disposition (needs filled in before D/C Order can be placed): Home, Self Care 08/29/23 1223<Electronically signed by Apolinar Olivarez MD>Apolinar Olivarez MD CC: Dr. Eamon Nicole MD ~ Signed [facility] Work Phone: Procedure note 08-29-2023 Note Date & Type Note Facility 08-29-[address] [facility] History and physical note 08-29-2023 Note Date & Type Note Facility 08-29-2023 History and physi susu note Note Date/Time August 29, 2023 6:57am [facility] Medical Records Department [address] [place] [address] History & Physical Exam 08/29/23 0657 MR#: [id number] Acct: [id number] Name: AMIRAH MCCRACKEN Rep #:[id number] : 1950 73 From: Apolinar Olivarez MD PCP: Dr. Eamon Nicole MD Status:REG S SC Location: [place] [address] History and Physical Date of Admission: 08/29/23 Visit Reasons: Hernia Chief Complaint: hernia Is patient in pain?: No Allergies No Known Allergies Allergy (Verified 07/06/23 13:40) Medications levothyroxine 75 mcg tablet See Rx Instructions .Route .COMPLEX 01/22/18 [History Confirmed 07/06/23] paroxetine HCl 40 mg tablet (Paxil) 40 mg PO DAILY 08/28/18 [History Confirmed 07/06/23] donepezil 10 mg tablet 10 mg PO QHS 03/23/22 [History Confirmed 07/06/23] memantine 10 mg tablet (Namenda) 5 mg PO BID 03/23/22 [History Confirmed 07/06/23] B-complex with vitamin C 1 cap PO DAILY 10/18/22 [History Confirmed 07/06/23] magnesium oxide 400 mg PO DAILY 10/18/22 [History Confirmed 07/06/23] meloxicam 15 mg tablet 15 mg PO DAILY 10/18/22 [History Confirmed 07/06/23] [facility] Medical History (Updated 07/06/23 @ 15:[address] Apolinar Olivarez MD) Anxiety and depression GERD (gastroesophageal reflux disease) Hearing problem Hypoactive thyroid Surgical History (Updated 07/06/23 @ 15:[address] Apolinar Olivarez MD) History of inguinal hernia repair Family History (Updated 07/06/23 @ 13:37 by Vandana Rousseau) Mother Heart disease Hypertension Thyroid disorderSister Breast cancerSister Thyroid disorder Social History (Updated 07/06/23 @ 13:38 by Vandana Rousseau) household members: spouse current occupational status: retired Smoking Status: Former smoker alcohol intake: former details: WINE OCCASIONALLY 6 OZ A NIGHT substance use type: does not use additional social history: DOES USE ASPIRIN DOES NOT USE IBUPROFEN HPI HPI HPI: 72-year-old gentleman is being referred by Dr. Eamon Nicole for surgical consultation regarding a right inguinal hernia and written compromise surgical consult and recommendations will return to him. The patient presents with his sister today. The patient does have early onset Alzheimer's disease. His concern today is intermittent burning pain in the right groin with intermittent bulging. He states that he has had a previous open left inguinal hernia repair actually done twice. 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 He is not having difficulties on the left. He denies any particular injury on the right that he can recall. ROS General General: No weight change, appetite, fatigue, colon cancer, breast cancer or weakness HEENT HEENT: No difficulty swallowing, eye injury, eye surgery, swollen glands or hoarseness Endo Endocrine: Yes thyroid disease; No diabetes mellitus, thyroid cancer, Hair loss, heat intolerance or cold intolerance Skin Skin: No rash or changing moles [facility] [place]culoskeletal: Yes arthritis; No back problems, rheumatoid arthritis, gout or joint pain Cardio Cardiovascular: No murmur, pacemaker, heart disease, atrial fibrillation, high blood pressure, heart attack, heart stent, palpitations, shortness of breat withexertion or chest pain Psych Psychiatric: Yes depression and anxiety; No hearing voices Resp Respiratory: No shortness of breath, No sleep apnea, No cough, No COPD, No asthma, No emphysema and No wheezing Gastro Gastrointestinal: Yes abdominal pain, No nausea or vomiting, No diarrhea, No constipation, No blood in stool, No acid reflux, No hemorrhoids, No ulcers, No gallbladder problem and No black,tarry stools Ezequiel Hematologic: No blood thinners, No blood disorders, No bleeding, No anemia and No blood clots Neuro Neurologic: No system reviewed and no additional complaints, except as documented, No as per HPI, No abnormal gait, No abnormal hearing, No abnormal movements, No abnormal speech, No behavioral changes, No burning sensations, No confusion, No convulsions, No disequilibrium, No dizziness, No localized weakness, No frequent falls, No headache(s), No lack of coordination, No loss ofvision, No memory loss, No numbness, No other visual disturbances, No radicular pain, No restless legs, No sensory deficit, No syncope, No tingling, No tremor(s), No weakness and No other Exam Const General: cooperative, healthy appearing and comfortable Nutritional Appearance: average body habitus Orientation: alert and awake Other: Patient is able to provide me information. He was able to recall his 2 previousleft groin operations[address] [facility] Head: normal to inspection Eyes General: appearance normal, both eyes and all related structures Neck Neck: normal visual inspection Chest Chest palpation & inspection: normal inspection of the chest Resp Effort & Inspection: normal respiratory effort Auscultation: clear to auscultation bilaterally Cardio Rate: regular rate Rhythm: regular rhythm GI Inspection: normal to inspection Palpation: soft and no hepatosplenomegaly Other: 1 cm diameter umbilical hernia. Partially reducible. Other: Testicles are descended bilaterally. Well-healed transverse incision left groin. Peers to be solid and intact. Right groin with a obvious inguinal hernia with bowel loops extending down into the scrotum. This is reducible with supine positioning. Musc Cervical Spine: normal cervical lordosis Skin General: no rashes or lesions noted Neuro General: patient alert, patient awake and patient oriented x3 Extrem General: no calf tenderness Psych Appearance: grossly normal Assessment and Plan Assessment and Plan (1) Umbilical hernia without obstruction or gangrene: Status: Acute (2) Inguinal hernia of right side without obstruction or gangrene: Status: Acute (3) History of inguinal hernia repair: Status: Acute Plan 72-year-old gentleman. He has a symptomatic right inguinal hernia with currently reducible bowel loops. He also has an umbilical hernia. He has had ahistory of symptomatic left inguinal hernia that was repaired in a classic approach and then broke down and recurred and required a redo repair through an open approach. The patient has mild onset Alzheimer's With his sister in attendance we discussed technique benefit risk complications alternatives of various approaches. We discussed potential for a small incisionof the umbilicus with subsequent umbilical herniorrhaphy with mesh with a laparoscopic right inguinal herniorrhaphy with mesh. He is aware of the technique, benefit, risk, alternatives. We compared and contrasted that with a moderate and end-stage care local anesthetic direct approach to the right groin with a Jannette type repair with mesh. The patient does have some urinary outlet obstructive symptoms. He has nocturiaat least once nightly. We will initiate him on Flomax preoperatively. After extensive discussion the patient and assisted with his sister has elected to proceed with a umbilical herniorrhaphy with mesh in combination with a laparoscopic right inguinal herniorrhaphy with mesh. We will schedule and proceed at his discretion. The patient and sister are very much aware of potential side effect of general anesthesia or even monitoring anesthesia care to the patient's current Alzheimer's disease. They are very much aware that this may accelerate disease progression. I do believe that as his Alzheimer's disease progresses as he is already symptomatic with right inguinal hernia that this too would place him at risk for potential incarceration with or without theability to notify someone of the clinical change because of his Alzheimer's. They very much want to proceed with definitive treatment. I appreciate the opportunity of assisting with the surgical care. Copy: Dr. Eamon Olivarez M.D., F.A.C.S. I have examined the patient and the H&P has been reviewed. There are no clinicalchanges since date of exam. Apolinar Olivarez M.D., .A.C.S. 08/29/23 0657 <Electronically signed by Apolinar Olivarez MD> Cosigner Signature (if applicable): CC: Dr. Apolinar Olivarez MD; Dr. Eamon Nicole MD~ Signed [facility] Work Phone: Clinical Note 08-29-2023 Note Date & Type Note Facility 08-29-2023 Note [facility] Medical Records Department [address] [place] [address] History Physical Exam 08/29/23 0657 MR#: [id number] Acct: [id number] Name: AMIRAH MCCRACKEN Rep #: [id number] : 1950 73 From: Apolinar Olivarez MD PCP: Dr. Eamon Nicole MD Status:[facility] Location: [place] [address] History and Physical Date of Admission: 08/29/23 Visit Reasons: Hernia Chief Complaint: hernia Is patient in pain?: No Allergies No Known Allergies Allergy (Verified 07/06/23 13:40) Medications levothyroxine 75 mcg tablet See Rx Instructions .Route .COMPLEX 01/22/18 [History Confirmed 07/06/23] paroxetine HCl 40 mg tablet (Paxil) 40 mg PO DAILY 01/22/18 [History Confirmed 07/06/23] donepezil 10 mg tablet 10 mg PO QHS 03/23/22 [History Confirmed 07/06/23] memantine 10 mg tablet (Namenda) 5 mg PO BID 03/23/22 [History Confirmed 07/06/23] B-complex with vitamin C 1 cap PO DAILY 10/18/22 [History Confirmed 07/06/23] magnesium oxide 400 mg PO DAILY 10/18/22 [History Confirmed 07/06/23] meloxicam 15 mg tablet 15 mg PO DAILY 10/18/22 [History Confirmed 07/06/23] [facility] Medical History (Updated 07/06/23 @ 15:[address] Apolinar Olivarez MD) Anxiety and depression GERD (gastroesophageal reflux disease) Hearing problem Hypoactive thyroid Surgical History (Updated 07/06/23 @ 15:[address] Apolinar Olivarez MD) History of inguinal hernia repair Family History (Updated 07/06/23 @ 13:37 by Vandana Rousseau) Mother Heart disease Hypertension Thyroid disorderSister Breast cancerSister Thyroid disorder Social History (Updated 07/06/23 @ 13:38 by Vandana Rousseau) household members: spouse current occupational status: retired Smoking Status: Former smoker alcohol intake: former details: WINE OCCASIONALLY 6 OZ A NIGHT substance use type: does not use additional social history: DOES USE ASPIRIN DOES NOT USE IBUPROFEN HPI HPI HPI: 72-year-old gentleman is being referred by Dr. Eamon Nicole for surgical consultation regarding a right inguinal hernia and written compromise surgical consult and recommendations will return to him. The patient presents with his sister today. The patient does have early onset Alzheimer's disease. His concern today is intermittent burning pain in the right groin with intermittent bulging. He states that he has had a previous open left inguinal hernia repair actually done twice. 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 He is not having difficulties on the left. He denies any particular injury on the right that he can recall. ROS General General: No weight change, appetite, fatigue, colon cancer, breast cancer or weakness HEENT HEENT: No difficulty swallowing, eye injury, eye surgery, swollen glands or hoarseness Endo Endocrine: Yes thyroid disease; No diabetes mellitus, thyroid cancer, Hair loss, heat intolerance or cold intolerance Skin Skin: No rash or changing moles Musc Musculoskeletal: Yes arthritis; No back problems, rheumatoid arthritis, gout or joint pain Cardio Cardiovascular: No murmur, pacemaker, heart disease, atrial fibrillation, high blood pressure, heart attack, heart stent, palpitations, shortness of breat with exertion or chest pain Psych Psychiatric: Yes depression and anxiety; No hearing voices Resp Respiratory: No shortness of breath, No sleep apnea, No cough, No COPD, No asthma, No emphysema and No wheezing Gastro Gastrointestinal: Yes abdominal pain, No nausea or vomiting, No diarrhea, No constipation, No blood in stool, No acid reflux, No hemorrhoids, No ulcers, No gallbladder problem and No black,tarry stools Ezequiel Hematologic: No blood thinners, No blood disorders, No bleeding, No anemia and No blood clots Neuro Neurologic: No system reviewed and no additional complaints, except as documented, No as per HPI, No abnormal gait, No abnormal hearing, No abnormal movements, No abnormal speech, No behavioral changes, No burning sensations, No confusion, No convulsions, No disequilibrium, No dizziness, No localized weakness, No frequent falls, No headache(s), No lack of coordination, No loss of vision, No memory loss, No numbness, No other visual disturbances, No radicular pain, No restless legs, No sensory deficit, No syncope, No tingling, No tremor(s), No weakness and No other Exam Const General: cooperative, healthy appearing and comfortable Nutritional Appearance: average body habitus Orientation: alert and awake Other: Patient is able to provide me information. He was able to recall his 2 previous left groin operations. [facility] Head: normal to inspection Eyes General: appearance normal, both eyes and all related structures Neck Neck: normal visual inspection Chest Chest palpation inspe (more content not included)... 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) Start: 0 Instruction Type:Patient Education How to access health information online - Detail Indication:Tobacco abuse, 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) Start: 0 Instruction Type:Patient Education Patient Instructions Indication:Tobacco abuse, 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) Start: 0 Instruction Type:Provider Instructions for Treatment How to access health information online Indication:Tobacco abuse, 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) Start: 0 Instruction Type:Patient Education How to access health information online - Detail Indication:Tobacco abuse, 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) Start: 0 Instruction Type:Patient Education Patient Instructions Indication:Tobacco abuse, 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) Start: 0 Instruction Type:Provider Instructions for Treatment How to access health information online Indication:Tobacco abuse, 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) Start: 0 Instruction Type:Patient Education How to access health information online - Detail Indication:Tobacco abuse, 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) Start: 0 Instruction Type:Patient Education Patient Instructions Indication:Tobacco abuse, 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) Start: 0 Instruction Type:Provider Instructions for Treatment How to access health information online Indication:Tobacco abuse, 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) Start: 0 Instruction Type:Patient Education How to access health information online - Detail Indication:Tobacco abuse, 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) Start: 0 Instruction Type:Patient Education Patient Instructions Indication:Encounter for screening for lipid disorder Start: 0 Instruction Type:Provider Instructions for Treatment How to access health information online Indication:Tobacco abuse, 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) Start: 9 Instruction Type:Patient Education How to access health information online - Detail Indication:Tobacco abuse, 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) Start: 9 Instruction Type:Patient Education Patient Instructions Indication:Tobacco abuse, 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) Start: 9 Instruction Type:Provider Instructions for Treatment How to access health information online Indication:Tobacco abuse, 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) Start: 9 Instruction Type:Patient Education How to access health information online - Detail Indication:Tobacco abuse, 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) Start: 9 Instruction Type:Patient Education Patient Instructions Indication:Tobacco abuse, 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) Start: 9 Instruction Type:Provider Instructions for Treatment How to access health information online Indication:Tobacco abuse, 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) Start: 9 Instruction Type:Patient Education How to access health information online - Detail Indication:Tobacco abuse, 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) Start: 9 Instruction Type:Patient Education Patient Instructions Indication:Tobacco abuse, 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) Start: 9 Instruction Type:Provider Instructions for Treatment How to access health information online Indication:Tobacco abuse, 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) Start: 9 Instruction Type:Patient Education How to access health information online - Detail Indication:Tobacco abuse, 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) Start: 9 Instruction Type:Patient Education Patient Instructions Indication:Encounter for screening for malignant neoplasm of prostate (Renamed from Screening for prostate cancer) Start: 9 Instruction Type:Provider Instructions for Treatment How to access health information online Indication:Tobacco abuse, 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) Start: 8 Instruction Type:Patient Education How to access health information online - Detail Indication:Tobacco abuse, 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) Start: 8 Instruction Type:Patient Education Patient Instructions Indication:Tobacco abuse, 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) Start: 8 Instruction Type:Provider Instructions for Treatment How to access health information online Indication:Tobacco abuse, 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) Start: 8 Instruction Type:Patient Education How to access health information online - Detail Indication:Tobacco abuse, 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) Start: 8 Instruction Type:Patient Education Patient Instructions Indication:Weight loss Start: 8 Instruction Type:Provider Instructions for Treatment How to access health information online Indication:Tobacco abuse, 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) Start: 8 Instruction Type:Patient Education How to access health information online - Detail Indication:Tobacco abuse, 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) Start: 8 Instruction Type:Patient Education Patient Instructions Indication:Tobacco abuse, 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) Start: 8 Instruction Type:Provider Instructions for Treatment How to access health information online Indication:Encounter for routine adult medical exam with abnormal findings Start: 8 Instruction Type:Patient Education How to access health information online - Detail Indication:Encounter for routine adult medical exam with abnormal findings Start: 8 Instruction Type:Patient Education Patient Instructions Indication:Encounter for routine adult medical exam with abnormal findings Start: 8 Instruction Type:Provider Instructions for Treatment How to access health information online Indication:BMI 26.0-26.9,adult Start: 7 Instruction Type:Patient Education How to access health information online - Detail Indication:BMI 26.0-26.9,adult Start: 7 Instruction Type:Patient Education Patient Instructions Indication:BMI 26.0-26.9,adult Start: 7 Instruction Type:Provider Instructions for Treatment How to access health information online Indication:Anxiety Start: 6 Instruction Type:Patient Education How to access health information online - Detail Indication:Anxiety Start: Instruction Type:Patient Education Patient Instructions Indication:Anxiety Start: Instruction Type:Provider Instructions for Treatment Patient Instructions Indication:Encounter for routine adult medical exam with abnormal findings Start: Instruction Type:Provider Instructions for Treatment How to access health information online Indication:Left flank pain Start:04-Oct-2015 Instruction Type:Patient Education How to access health information online - Detail Indication:Left flank pain Start:04-Oct-2015 Instruction Type:Patient Education Patient Instructions Indication:Left flank pain Start:04-Oct-2015 Instruction Type:Provider Instructions for Treatment How to access health information online Indication:Left flank pain Start: 6 Instruction Type:Patient Education How to access health information online - Detail Indication:Left flank pain Start: Instruction Type:Patient Education Patient Instructions Indication:Left flank pain Start: 6 Instruction Type:Provider Instructions for Treatment How to access health information online Indication:Chest pain Start: Instruction Type:Patient Education How to access health information online - Detail Indication:Chest pain Start: Instruction Type:Patient Education Patient Instructions Indication:Chest pain Start: Instruction Type:Provider Instructions for Treatment How to access health information online Indication:Depressive disorder Start: Instruction Type:Patient Education How to access health information online - Detail Indication:Depressive disorder Start: Instruction Type:Patient Education Patient Instructions Indication:Depressive disorder Start: Instruction Type:Provider Instructions for Treatment How to access health information online Indication:Depressive disorder Start: 6 Instruction Type:Patient Education How to access health information online - Detail Indication:Depressive disorder Start: 6 Instruction Type:Patient Education Patient Instructions Indication:Depressive disorder Start: 6 Instruction Type:Provider Instructions for Treatment How to access health information online - Detail Indication:Elevated blood-pressure reading without diagnosis of hypertension Start: 4 Instruction Type:Patient Education Patient Instructions Indication:Anxiety Start: 4 Instruction Type:Provider Instructions for Treatment Patient Instructions Indication:Acute sinusitis, unspecified Start: 3 Instruction Type:Provider Instructions for Treatment Patient Instructions Indication:Acute sinusitis, unspecified Start: 3 Instruction Type:Provider Instructions for Treatment [facility] Work Phone: Family History No Family History Records FoundUnknown Family Member Name Dates Details Brother 1 Status:Active Father Comments:left before born. Status:Active half brother Status:Active half sister Status:Active Mother Comments:late 80's start wit h heart issue now. Status:Active Sister 1 Status:Active Sister 2 Status:Active Sister 3 Status:Active Unknown Family Member Name Dates Details Brother 1 Status:Active Father Comments:left before born. Status:Active half brother Status:Active half sister Status:Active Mother Comments:late 80's start wit h heart issue now. Status:Active Sister 1 Status:Active Sister 2 Status:Active Sister 3 Status:Active Unknown Family Member Name Dates Details Brother 1 Status:Active Father Comments:left before born. Status:Active half brother Status:Active half sister Status:Active Mother Comments:late 80's start wit h heart issue now. Status:Active Sister 1 Status:Active Sister 2 Status:Active Sister 3 Status:Active Unknown Family Member Name Dates Details Brother 1 Status:Active Father Comments:left before born. Status:Active half brother Status:Active half sister Status:Active Mother Comments:late 80's start wit h heart issue now. Status:Active Sister 1 Status:Active Sister 2 Status:Active Sister 3 Status:Active Unknown Family Member Name Dates Details Brother 1 Status:Active Father Comments:left before born. Status:Active half brother Status:Active half sister Status:Active Mother Comments:late 80's start wit h heart issue now. Status:Active Sister 1 Status:Active Sister 2 Status:Active Sister 3 Status:Active Unknown Family Member Name Dates Details Brother 1 Status:Active Father Comments:left before born. Status:Active half brother Status:Active half sister Status:Active Mother Comments:late 80's start wit h heart issue now. Status:Active Sister 1 Status:Active Sister 2 Status:Active Sister 3 Status:Active Unknown Family Member Name Dates Details Brother 1 Status:Active Father Comments:left before born. Status:Active half brother Status:Active half sister Status:Active Mother Comments:late 80's start wit h heart issue now. Status:Active Sister 1 Status:Active Sister 2 Status:Active Sister 3 Status:Active Unknown Family Member Name Dates Details Brother 1 Status:Active Father Comments:left before born. Status:Active half brother Status:Active half sister Status:Active Mother Comments:late 80's start wit h heart issue now. Status:Active Sister 1 Status:Active Sister 2 Status:Active Sister 3 Status:Active Unknown Family Member Name Dates Details Brother 1 Status:Active Father Comments:left before born. Status:Active half brother Status:Active half sister Status:Active Mother Comments:late 80's start wit h heart issue now. Status:Active Sister 1 Status:Active Sister 2 Status:Active Sister 3 Status:Active Unknown Family Member Name Dates Details Brother 1 Status:Active Father Comments:left before born. Status:Active half brother Status:Active half sister Status:Active Mother Comments:late 80's start wit h heart issue now. Status:Active Sister 1 Status:Active Sister 2 Status:Active Sister 3 Status:Active Unknown Family Member Name Dates Details Brother 1 Status:Active Father Comments:left before born. Status:Active half brother Status:Active half sister Status:Active Mother Comments:late 80's start wit h heart issue now. Status:Active Sister 1 Status:Active Sister 2 Status:Active Sister 3 Status:Active Unknown Family Member Name Dates Details Brother 1 Status:Active Father Comments:left before born. Status:Active half brother Status:Active half sister Status:Active Mother Comments:late 80's start wit h heart issue now. Status:Active Sister 1 Status:Active Sister 2 Status:Active Sister 3 Status:Active Unknown Family Member Name Dates Details Brother 1 Status:Active Father Comments:left before born. Status:Active half brother Status:Active half sister Status:Active Mother Comments:late 80's start wit h heart issue now. Status:Active Sister 1 Status:Active Sister 2 Status:Active Sister 3 Status:Active Unknown Family Member Name Dates Details Brother 1 Status:Active Father Comments:left before born. Status:Active half brother Status:Active half sister Status:Active Mother Comments:late 80's start wit h heart issue now. Status:Active Sister 1 Status:Active Sister 2 Status:Active Sister 3 Status:Active Unknown Family Member Name Dates Details Brother 1 Status:Active Father Comments:left before born. Status:Active half brother Status:Active half sister Status:Active Mother Comments:late 80's start wit h heart issue now. Status:Active Sister 1 Status:Active Sister 2 Status:Active Sister 3 Status:Active Unknown Family Member Name Dates Details Brother 1 Status:Active Father Comments:left before born. Status:Active half brother Status:Active half sister Status:Active Mother Comments:late 80's start wit h heart issue now. Status:Active Sister 1 Status:Active Sister 2 Status:Active Sister 3 Status:Active Unknown Family Member Name Dates Details Brother 1 Status:Active Father Comments:left before born. Status:Active half brother Status:Active half sister Status:Active Mother Comments:late 80's start wit h heart issue now. Status:Active Sister 1 Status:Active Sister 2 Status:Active Sister 3 Status:Active Unknown Family Member Name Dates Details Brother 1 Status:Active Father Comments:left before born. Status:Active half brother Status:Active half sister Status:Active Mother Comments:late 80's start wit h heart issue now. Status:Active Sister 1 Status:Active Sister 2 Status:Active Sister 3 Status:Active Unknown Family Member Name Dates Details Brother 1 Status:Active Father Comments:left before born. Status:Active half brother Status:Active half sister Status:Active Mother Comments:late 80's start wit h heart issue now. Status:Active Sister 1 Status:Active Sister 2 Status:Active Sister 3 Status:Active Unknown Family Member Name Dates Details Brother 1 Status:Active Father Comments:left before born. Status:Active half brother Status:Active half sister Status:Active Mother Comments:late 80's start wit h heart issue now. Status:Active Sister 1 Status:Active Sister 2 Status:Active Sister 3 Status:Active Unknown Family Member Name Dates Details Brother 1 Status:Active Father Comments:left before born. Status:Active half brother Status:Active half sister Status:Active Mother Comments:late 80's start wit h heart issue now. Status:Active Sister 1 Status:Active Sister 2 Status:Active Sister 3 Status:Active Unknown Family Member Name Dates Details Brother 1 Status:Active Father Comments:left before born. Status:Active half brother Status:Active half sister Status:Active Mother Comments:late 80's start wit h heart issue now. 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, 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) : How to access health information online - Detail Indication:Tobacco abuse, 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, 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) : Patient Instructions Indication:Tobacco abuse, 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) Weight loss : Patient Instru ctions Indication:Weight loss Encounter for routine adult medical exam with abnormal findings : How to access health information online Indication:Encounter for routine adult medical exam with abnormal findings Encounter for routine adult medical exam with abnormal findings : How to access health information online - Detail Indication:Encounter for routine adult medical exam with abnormal findings Encounter for routine adult medical exam with abnormal findings : Patient Instructions Indication:Encounter for routine adult medical exam with abnormal findings BMI 26.0-26.9,adult : How to access health information online Indication:BMI 26.0-26.9,adult BMI 26.0-26.9,adult : How to access health information online - Detail Indication:BMI 26.0-26.9,adult BMI 26.0-26.9,adult : Patien t Instructions Indication:BMI 26.0-26.9,adult Anxiety : How to access heal th information online Indication:Anxiety Anxiety : How to access heal th information online - Detail Indication:Anxiety Anxiety : Patient Instructio ns Indication:Anxiety Left flank pain : How to acc ess health information online Indication:Left flank pain Left flank pain : How to acc ess health information online - Detail Indication:Left flank pain Left flank pain : Patient In structions Indication:Left flank pain Chest pain : How to access h ealth information online Indication:Chest pain Chest pain : How to access h ealth information online - Detail Indication:Chest pain Chest pain : Patient Instruc tions Indication:Chest pain Depressive disorder : How to access health information online Indication:Depressive disorder Depressive disorder : How to access health information online - Detail Indication:Depressive disorder Depressive disorder : Patien t Instructions Indication:Depressive disorder Elevated blood-pressure read ing without diagnosis of hypertension : How to access health information online - Detail Indication:Elevated blood-pressure reading without diagnosis of hypertension Acute sinusitis, unspecified : Patient Instructions Indication:Acute sinusitis, unspecified Name Dates Details Tobacco abuse, 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) : How to access health information online Indication:Tobacco abuse, 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, 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) : How to access health information online - Detail Indication:Tobacco abuse, 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, 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) : Patient Instructions Indication:Tobacco abuse, 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) Weight loss : Patient Instru ctions Indication:Weight loss Encounter for routine adult medical exam with abnormal findings : How to access health information online Indication:Encounter for routine adult medical exam with abnormal findings Encounter for routine adult medical exam with abnormal findings : How to access health information online - Detail Indication:Encounter for routine adult medical exam with abnormal findings Encounter for routine adult medical exam with abnormal findings : Patient Instructions Indication:Encounter for routine adult medical exam with abnormal findings BMI 26.0-26.9,adult : How to access health information online Indication:BMI 26.0-26.9,adult BMI 26.0-26.9,adult : How to access health information online - Detail Indication:BMI 26.0-26.9,adult BMI 26.0-26.9,adult : Patien t Instructions Indication:BMI 26.0-26.9,adult Anxiety : How to access heal th information online Indication:Anxiety Anxiety : How to access heal th information online - Detail Indication:Anxiety Anxiety : Patient Instructio ns Indication:Anxiety Left flank pain : How to acc ess health information online Indication:Left flank pain Left flank pain : How to acc ess health information online - Detail Indication:Left flank pain Left flank pain : Patient In structions Indication:Left flank pain Chest pain : How to access h ealth information online Indication:Chest pain Chest pain : How to access h ealth information online - Detail Indication:Chest pain Chest pain : Patient Instruc tions Indication:Chest pain Depressive disorder : How to access health information online Indication:Depressive disorder Depressive disorder : How to access health information online - Detail Indication:Depressive disorder Depressive disorder : Patien t Instructions Indication:Depressive disorder Elevated blood-pressure read ing without diagnosis of hypertension : How to access health information online - Detail Indication:Elevated blood-pressure reading without diagnosis of hypertension Acute sinusitis, unspecified : Patient Instructions Indication:Acute sinusitis, unspecified Name Dates Details Tobacco abuse, 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) : How to access health information online Indication:Tobacco abuse, 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, 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) : How to access health information online - Detail Indication:Tobacco abuse, 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, 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) : Patient Instructions Indication:Tobacco abuse, 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) Weight loss : Patient Instru ctions Indication:Weight loss Encounter for routine adult medical exam with abnormal findings : How to access health information online Indication:Encounter for routine adult medical exam with abnormal findings Encounter for routine adult medical exam with abnormal findings : How to access health information online - Detail Indication:Encounter for routine adult medical exam with abnormal findings Encounter for routine adult medical exam with abnormal findings : Patient Instructions Indication:Encounter for routine adult medical exam with abnormal findings BMI 26.0-26.9,adult : How to access health information online Indication:BMI 26.0-26.9,adult BMI 26.0-26.9,adult : How to access health information online - Detail Indication:BMI 26.0-26.9,adult BMI 26.0-26.9,adult : Patien t Instructions Indication:BMI 26.0-26.9,adult Anxiety : How to access heal th information online Indication:Anxiety Anxiety : How to access heal th information online - Detail Indication:Anxiety Anxiety : Patient Instructio ns Indication:Anxiety Left flank pain : How to acc ess health information online Indication:Left flank pain Left flank pain : How to acc ess health information online - Detail Indication:Left flank pain Left flank pain : Patient In structions Indication:Left flank pain Chest pain : How to access h ealth information online Indication:Chest pain Chest pain : How to access h ealth information online - Detail Indication:Chest pain Chest pain : Patient Instruc tions Indication:Chest pain Depressive disorder : How to access health information online Indication:Depressive disorder Depressive disorder : How to access health information online - Detail Indication:Depressive disorder Depressive disorder : Patien t Instructions Indication:Depressive disorder Elevated blood-pressure read ing without diagnosis of hypertension : How to access health information online - Detail Indication:Elevated blood-pressure reading without diagnosis of hypertension Acute sinusitis, unspecified : Patient Instructions Indication:Acute sinusitis, unspecified Name Dates Details Tobacco abuse, 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) : How to access health information online Indication:Tobacco abuse, 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, 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) : How to access health information online - Detail Indication:Tobacco abuse, 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, 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) : Patient Instructions Indication:Tobacco abuse, 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) Weight loss : Patient Instru ctions Indication:Weight loss Encounter for routine adult medical exam with abnormal findings : How to access health information online Indication:Encounter for routine adult medical exam with abnormal findings Encounter for routine adult medical exam with abnormal findings : How to access health information online - Detail Indication:Encounter for routine adult medical exam with abnormal findings Encounter for routine adult medical exam with abnormal findings : Patient Instructions Indication:Encounter for routine adult medical exam with abnormal findings BMI 26.0-26.9,adult : How to access health information online Indication:BMI 26.0-26.9,adult BMI 26.0-26.9,adult : How to access health information online - Detail Indication:BMI 26.0-26.9,adult BMI 26.0-26.9,adult : Patien t Instructions Indication:BMI 26.0-26.9,adult Anxiety : How to access heal th information online Indication:Anxiety Anxiety : How to access heal th information online - Detail Indication:Anxiety Anxiety : Patient Instructio ns Indication:Anxiety Left flank pain : How to acc ess health information online Indication:Left flank pain Left flank pain : How to acc ess health information online - Detail Indication:Left flank pain Left flank pain : Patient In structions Indication:Left flank pain Chest pain : How to access h ealth information online Indication:Chest pain Chest pain : How to access h ealth information online - Detail Indication:Chest pain Chest pain : Patient Instruc tions Indication:Chest pain Depressive disorder : How to access health information online Indication:Depressive disorder Depressive disorder : How to access health information online - Detail Indication:Depressive disorder Depressive disorder : Patien t Instructions Indication:Depressive disorder Elevated blood-pressure read ing without diagnosis of hypertension : How to access health information online - Detail Indication:Elevated blood-pressure reading without diagnosis of hypertension Acute sinusitis, unspecified : Patient Instructions Indication:Acute sinusitis, unspecified Name Dates Details Tobacco abuse, 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) : How to access health information online Indication:Tobacco abuse, 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, 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) : How to access health information online - Detail Indication:Tobacco abuse, 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) Encounter for screening for malignant neoplasm of prostate (Renamed from Screening for prostate cancer) : Patient Instructions Indication:Encounter for screening for malignant neoplasm of prostate (Renamed from Screening for prostate cancer) Tobacco abuse, 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) : Patient Instructions Indication:Tobacco abuse, 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) Weight loss : Patient Instru ctions Indication:Weight loss Encounter for routine adult medical exam with abnormal findings : How to access health information online Indication:Encounter for routine adult medical exam with abnormal findings Encounter for routine adult medical exam with abnormal findings : How to access health information online - Detail Indication:Encounter for routine adult medical exam with abnormal findings Encounter for routine adult medical exam with abnormal findings : Patient Instructions Indication:Encounter for routine adult medical exam with abnormal findings BMI 26.0-26.9,adult : How to access health information online Indication:BMI 26.0-26.9,adult BMI 26.0-26.9,adult : How to access health information online - Detail Indication:BMI 26.0-26.9,adult BMI 26.0-26.9,adult : Patien t Instructions Indication:BMI 26.0-26.9,adult Anxiety : How to access heal th information online Indication:Anxiety Anxiety : How to access heal th information online - Detail Indication:Anxiety Anxiety : Patient Instructio ns Indication:Anxiety Left flank pain : How to acc ess health information online Indication:Left flank pain Left flank pain : How to acc ess health information online - Detail Indication:Left flank pain Left flank pain : Patient In structions Indication:Left flank pain Chest pain : How to access h ealth information online Indication:Chest pain Chest pain : How to access h ealth information online - Detail Indication:Chest pain Chest pain : Patient Instruc tions Indication:Chest pain Depressive disorder : How to access health information online Indication:Depressive disorder Depressive disorder : How to access health information online - Detail Indication:Depressive disorder Depressive disorder : Patien t Instructions Indication:Depressive disorder Elevated blood-pressure read ing without diagnosis of hypertension : How to access health information online - Detail Indication:Elevated blood-pressure reading without diagnosis of hypertension Acute sinusitis, unspecified : Patient Instructions Indication:Acute sinusitis, unspecified Name Dates Details Tobacco abuse, 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) : How to access health information online Indication:Tobacco abuse, 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, 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) : How to access health information online - Detail Indication:Tobacco abuse, 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, 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) : Patient Instructions Indication:Tobacco abuse, 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) Encounter for screening for malignant neoplasm of prostate (Renamed from Screening for prostate cancer) : Patient Instructions Indication:Encounter for screening for malignant neoplasm of prostate (Renamed from Screening for prostate cancer) Weight loss : Patient Instru ctions Indication:Weight loss Encounter for routine adult medical exam with abnormal findings : How to access health information online Indication:Encounter for routine adult medical exam with abnormal findings Encounter for routine adult medical exam with abnormal findings : How to access health information online - Detail Indication:Encounter for routine adult medical exam with abnormal findings Encounter for routine adult medical exam with abnormal findings : Patient Instructions Indication:Encounter for routine adult medical exam with abnormal findings BMI 26.0-26.9,adult : How to access health information online Indication:BMI 26.0-26.9,adult BMI 26.0-26.9,adult : How to access health information online - Detail Indication:BMI 26.0-26.9,adult BMI 26.0-26.9,adult : Patien t Instructions Indication:BMI 26.0-26.9,adult Anxiety : How to access heal th information online Indication:Anxiety Anxiety : How to access heal th information online - Detail Indication:Anxiety Anxiety : Patient Instructio ns Indication:Anxiety Left flank pain : How to acc ess health information online Indication:Left flank pain Left flank pain : How to acc ess health information online - Detail Indication:Left flank pain Left flank pain : Patient In structions Indication:Left flank pain Chest pain : How to access h ealth information online Indication:Chest pain Chest pain : How to access h ealth information online - Detail Indication:Chest pain Chest pain : Patient Instruc tions Indication:Chest pain Depressive disorder : How to access health information online Indication:Depressive disorder Depressive disorder : How to access health information online - Detail Indication:Depressive disorder Depressive disorder : Patien t Instructions Indication:Depressive disorder Elevated blood-pressure read ing without diagnosis of hypertension : How to access health information online - Detail Indication:Elevated blood-pressure reading without diagnosis of hypertension Acute sinusitis, unspecified : Patient Instructions Indication:Acute sinusitis, unspecified Name Dates Details Tobacco abuse, 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) : How to access health information online Indication:Tobacco abuse, 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, 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) : How to access health information online - Detail Indication:Tobacco abuse, 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, 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) : Patient Instructions Indication:Tobacco abuse, 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) Encounter for screening for malignant neoplasm of prostate (Renamed from Screening for prostate cancer) : Patient Instructions Indication:Encounter for screening for malignant neoplasm of prostate (Renamed from Screening for prostate cancer) Weight loss : Patient Instru ctions Indication:Weight loss Encounter for routine adult medical exam with abnormal findings : How to access health information online Indication:Encounter for routine adult medical exam with abnormal findings Encounter for routine adult medical exam with abnormal findings : How to access health information online - Detail Indication:Encounter for routine adult medical exam with abnormal findings Encounter for routine adult medical exam with abnormal findings : Patient Instructions Indication:Encounter for routine adult medical exam with abnormal findings BMI 26.0-26.9,adult : How to access health information online Indication:BMI 26.0-26.9,adult BMI 26.0-26.9,adult : How to access health information online - Detail Indication:BMI 26.0-26.9,adult BMI 26.0-26.9,adult : Patien t Instructions Indication:BMI 26.0-26.9,adult Anxiety : How to access heal th information online Indication:Anxiety Anxiety : How to access heal th information online - Detail Indication:Anxiety Anxiety : Patient Instructio ns Indication:Anxiety Left flank pain : How to acc ess health information online Indication:Left flank pain Left flank pain : How to acc ess health information online - Detail Indication:Left flank pain Left flank pain : Patient In structions Indication:Left flank pain Chest pain : How to access h ealth information online Indication:Chest pain Chest pain : How to access h ealth information online - Detail Indication:Chest pain Chest pain : Patient Instruc tions Indication:Chest pain Depressive disorder : How to access health information online Indication:Depressive disorder Depressive disorder : How to access health information online - Detail Indication:Depressive disorder Depressive disorder : Patien t Instructions Indication:Depressive disorder Elevated blood-pressure read ing without diagnosis of hypertension : How to access health information online - Detail Indication:Elevated blood-pressure reading without diagnosis of hypertension Acute sinusitis, unspecified : Patient Instructions Indication:Acute sinusitis, unspecified Name Dates Details How to access health informa tion online Indication:Tobacco abuse, 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) Start:07-Aug-2018 Instruction Type:Patient Education How to access health informa tion online - Detail Indication:Tobacco abuse, 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) Start:07-Aug-2018 Instruction Type:Patient Education Patient Instructions Indication:Tobacco abuse, 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) Start:07-Aug-2018 Instruction Type:Provider Instructions for Treatment How to access health informa tion online Indication:Tobacco abuse, 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) Start:10-Jun-2018 Instruction Type:Patient Education How to access health informa tion online - Detail Indication:Tobacco abuse, 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) Start:10-Jun-2018 Instruction Type:Patient Education Patient Instructions Indication:Encounter for screening for malignant neoplasm of prostate (Renamed from Screening for prostate cancer) Start:10-Jun-2018 Instruction Type:Provider Instructions for Treatment How to access health informa tion online Indication:Tobacco abuse, 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) Start:25-Jan-2018 Instruction Type:Patient Education How to access health informa tion online - Detail Indication:Tobacco abuse, 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) Start:25-Jan-2018 Instruction Type:Patient Education Patient Instructions Indication:Tobacco abuse, 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) Start:25-Jan-2018 Instruction Type:Provider Instructions for Treatment How to access health informa tion online Indication:Tobacco abuse, 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) Start:07-Dec-2017 Instruction Type:Patient Education How to access health informa tion online - Detail Indication:Tobacco abuse, 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) Start:07-Dec-2017 Instruction Type:Patient Education Patient Instructions Indication:Weight loss Start:07-Dec-2017 Instruction Type:Provider Instructions for Treatment How to access health informa tion online Indication:Tobacco abuse, 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) Start:12-Oct-2017 Instruction Type:Patient Education How to access health informa tion online - Detail Indication:Tobacco abuse, 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) Start:12-Oct-2017 Instruction Type:Patient Education Patient Instructions Indication:Tobacco abuse, 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) Start:12-Oct-2017 Instruction Type:Provider Instructions for Treatment How to access health informa tion online Indication:Encounter for routine adult medical exam with abnormal findings Start:04-Sep-2017 Instruction Type:Patient Education How to access health informa tion online - Detail Indication:Encounter for routine adult medical exam with abnormal findings Start:04-Sep-2017 Instruction Type:Patient Education Patient Instructions Indication:Encounter for routine adult medical exam with abnormal findings Start:04-Sep-2017 Instruction Type:Provider Instructions for Treatment How to access health informa tion online Indication:BMI 26.0-26.9,adult Start:13-Oct-2016 Instruction Type:Patient Education How to access health informa tion online - Detail Indication:BMI 26.0-26.9,adult Start:13-Oct-2016 Instruction Type:Patient Education Patient Instructions Indication:BMI 26.0-26.9,adult Start:13-Oct-2016 Instruction Type:Provider Instructions for Treatment How to access health informa tion online Indication:Anxiety Start:17-Apr-2016 Instruction Type:Patient Education How to access health informa tion online - Detail Indication:Anxiety Start:17-Apr-2016 Instruction Type:Patient Education Patient Instructions Indication:Anxiety Start:17-Apr-2016 Instruction Type:Provider Instructions for Treatment Patient Instructions Indication:Encounter for routine adult medical exam with abnormal findings Start:22-Nov-2015 Instruction Type:Provider Instructions for Treatment How to access health informa tion online Indication:Left flank pain Start:04-Oct-2015 Instruction Type:Patient Education How to access health informa tion online - Detail Indication:Left flank pain Start:04-Oct-2015 Instruction Type:Patient Education Patient Instructions Indication:Left flank pain Start:04-Oct-2015 Instruction Type:Provider Instructions for Treatment How to access health informa tion online Indication:Left flank pain Start:22-Sep-2015 Instruction Type:Patient Education How to access health informa tion online - Detail Indication:Left flank pain Start:22-Sep-2015 Instruction Type:Patient Education Patient Instructions Indication:Left flank pain Start:22-Sep-2015 Instruction Type:Provider Instructions for Treatment How to access health informa tion online Indication:Chest pain Start:21-Sep-2015 Instruction Type:Patient Education How to access health informa tion online - Detail Indication:Chest pain Start:21-Sep-2015 Instruction Type:Patient Education Patient Instructions Indication:Chest pain Start:21-Sep-2015 Instruction Type:Provider Instructions for Treatment How to access health informa tion online Indication:Depressive disorder Start:17-Aug-2015 Instruction Type:Patient Education How to access health informa tion online - Detail Indication:Depressive disorder Start:17-Aug-2015 Instruction Type:Patient Education Patient Instructions Indication:Depressive disorder Start:17-Aug-2015 Instruction Type:Provider Instructions for Treatment How to access health informa tion online Indication:Depressive disorder Start:13-Jul-2015 Instruction Type:Patient Education How to access health informa tion online - Detail Indication:Depressive disorder Start:13-Jul-2015 Instruction Type:Patient Education Patient Instructions Indication:Depressive disorder Start:13-Jul-2015 Instruction Type:Provider Instructions for Treatment How to access health informa tion online - Detail Indication:Elevated blood-pressure reading without diagnosis of hypertension Start:13-Jan-2014 Instruction Type:Patient Education Patient Instructions Indication:Anxiety Start:13-Jan-2014 Instruction Type:Provider Instructions for Treatment Patient Instructions Indication:Acute sinusitis, unspecified Start:22-Jul-2012 Instruction Type:Provider Instructions for Treatment Patient Instructions Indication:Acute sinusitis, unspecified Start:19-Jun-2012 Instruction Type:Provider Instructions for Treatment Name Dates Details How to access health informa tion online Indication:Tobacco abuse, 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) Start:09-Dec-2018 Instruction Type:Patient Education How to access health informa tion online - Detail Indication:Tobacco abuse, 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) Start:09-Dec-2018 Instruction Type:Patient Education Patient Instructions Indication:Tobacco abuse, 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) Start:09-Dec-2018 Instruction Type:Provider Instructions for Treatment How to access health informa tion online Indication:Tobacco abuse, 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) Start:07-Aug-2018 Instruction Type:Patient Education How to access health informa tion online - Detail Indication:Tobacco abuse, 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) Start:07-Aug-2018 Instruction Type:Patient Education Patient Instructions Indication:Tobacco abuse, 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) Start:07-Aug-2018 Instruction Type:Provider Instructions for Treatment How to access health informa tion online Indication:Tobacco abuse, 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) Start:10-Jun-2018 Instruction Type:Patient Education How to access health informa tion online - Detail Indication:Tobacco abuse, 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) Start:10-Jun-2018 Instruction Type:Patient Education Patient Instructions Indication:Encounter for screening for malignant neoplasm of prostate (Renamed from Screening for prostate cancer) Start:10-Jun-2018 Instruction Type:Provider Instructions for Treatment How to access health informa tion online Indication:Tobacco abuse, 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) Start:25-Jan-2018 Instruction Type:Patient Education How to access health informa tion online - Detail Indication:Tobacco abuse, 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) Start:25-Jan-2018 Instruction Type:Patient Education Patient Instructions Indication:Tobacco abuse, 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) Start:25-Jan-2018 Instruction Type:Provider Instructions for Treatment How to access health informa tion online Indication:Tobacco abuse, 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) Start:07-Dec-2017 Instruction Type:Patient Education How to access health informa tion online - Detail Indication:Tobacco abuse, 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) Start:07-Dec-2017 Instruction Type:Patient Education Patient Instructions Indication:Weight loss Start:07-Dec-2017 Instruction Type:Provider Instructions for Treatment How to access health informa tion online Indication:Tobacco abuse, 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) Start:12-Oct-2017 Instruction Type:Patient Education How to access health informa tion online - Detail Indication:Tobacco abuse, 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) Start:12-Oct-2017 Instruction Type:Patient Education Patient Instructions Indication:Tobacco abuse, 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) Start:12-Oct-2017 Instruction Type:Provider Instructions for Treatment How to access health informa tion online Indication:Encounter for routine adult medical exam with abnormal findings Start:04-Sep-2017 Instruction Type:Patient Education How to access health informa tion online - Detail Indication:Encounter for routine adult medical exam with abnormal findings Start:04-Sep-2017 Instruction Type:Patient Education Patient Instructions Indication:Encounter for routine adult medical exam with abnormal findings Start:04-Sep-2017 Instruction Type:Provider Instructions for Treatment How to access health informa tion online Indication:BMI 26.0-26.9,adult Start:13-Oct-2016 Instruction Type:Patient Education How to access health informa tion online - Detail Indication:BMI 26.0-26.9,adult Start:13-Oct-2016 Instruction Type:Patient Education Patient Instructions Indication:BMI 26.0-26.9,adult Start:13-Oct-2016 Instruction Type:Provider Instructions for Treatment How to access health informa tion online Indication:Anxiety Start:17-Apr-2016 Instruction Type:Patient Education How to access health informa tion online - Detail Indication:Anxiety Start:17-Apr-2016 Instruction Type:Patient Education Patient Instructions Indication:Anxiety Start:17-Apr-2016 Instruction Type:Provider Instructions for Treatment Patient Instructions Indication:Encounter for routine adult medical exam with abnormal findings Start:22-Nov-2015 Instruction Type:Provider Instructions for Treatment How to access health informa tion online Indication:Left flank pain Start:04-Oct-2015 Instruction Type:Patient Education How to access health informa tion online - Detail Indication:Left flank pain Start:04-Oct-2015 Instruction Type:Patient Education Patient Instructions Indication:Left flank pain Start:04-Oct-2015 Instruction Type:Provider Instructions for Treatment How to access health informa tion online Indication:Left flank pain Start:22-Sep-2015 Instruction Type:Patient Education How to access health informa tion online - Detail Indication:Left flank pain Start:22-Sep-2015 Instruction Type:Patient Education Patient Instructions Indication:Left flank pain Start:22-Sep-2015 Instruction Type:Provider Instructions for Treatment How to access health informa tion online Indication:Chest pain Start:21-Sep-2015 Instruction Type:Patient Education How to access health informa tion online - Detail Indication:Chest pain Start:21-Sep-2015 Instruction Type:Patient Education Patient Instructions Indication:Chest pain Start:21-Sep-2015 Instruction Type:Provider Instructions for Treatment How to access health informa tion online Indication:Depressive disorder Start:17-Aug-2015 Instruction Type:Patient Education How to access health informa tion online - Detail Indication:Depressive disorder Start:17-Aug-2015 Instruction Type:Patient Education Patient Instructions Indication:Depressive disorder Start:17-Aug-2015 Instruction Type:Provider Instructions for Treatment How to access health informa tion online Indication:Depressive disorder Start:13-Jul-2015 Instruction Type:Patient Education How to access health informa tion online - Detail Indication:Depressive disorder Start:13-Jul-2015 Instruction Type:Patient Education Patient Instructions Indication:Depressive disorder Start:13-Jul-2015 Instruction Type:Provider Instructions for Treatment How to access health informa tion online - Detail Indication:Elevated blood-pressure reading without diagnosis of hypertension Start:13-Jan-2014 Instruction Type:Patient Education Patient Instructions Indication:Anxiety Start:13-Jan-2014 Instruction Type:Provider Instructions for Treatment Patient Instructions Indication:Acute sinusitis, unspecified Start:22-Jul-2012 Instruction Type:Provider Instructions for Treatment Patient Instructions Indication:Acute sinusitis, unspecified Start:19-Jun-2012 Instruction Type:Provider Instructions for Treatment Name Dates Details How to access health informa tion online Indication:Tobacco abuse, 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) Start:09-Dec-2018 Instruction Type:Patient Education How to access health informa tion online - Detail Indication:Tobacco abuse, 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) Start:09-Dec-2018 Instruction Type:Patient Education Patient Instructions Indication:Tobacco abuse, 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) Start:09-Dec-2018 Instruction Type:Provider Instructions for Treatment How to access health informa tion online Indication:Tobacco abuse, 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) Start:07-Aug-2018 Instruction Type:Patient Education How to access health informa tion online - Detail Indication:Tobacco abuse, 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) Start:07-Aug-2018 Instruction Type:Patient Education Patient Instructions Indication:Tobacco abuse, 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) Start:07-Aug-2018 Instruction Type:Provider Instructions for Treatment How to access health informa tion online Indication:Tobacco abuse, 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) Start:10-Jun-2018 Instruction Type:Patient Education How to access health informa tion online - Detail Indication:Tobacco abuse, 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) Start:10-Jun-2018 Instruction Type:Patient Education Patient Instructions Indication:Encounter for screening for malignant neoplasm of prostate (Renamed from Screening for prostate cancer) Start:10-Jun-2018 Instruction Type:Provider Instructions for Treatment How to access health informa tion online Indication:Tobacco abuse, 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) Start:25-Jan-2018 Instruction Type:Patient Education How to access health informa tion online - Detail Indication:Tobacco abuse, 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) Start:25-Jan-2018 Instruction Type:Patient Education Patient Instructions Indication:Tobacco abuse, 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) Start:25-Jan-2018 Instruction Type:Provider Instructions for Treatment How to access health informa tion online Indication:Tobacco abuse, 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) Start:07-Dec-2017 Instruction Type:Patient Education How to access health informa tion online - Detail Indication:Tobacco abuse, 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) Start:07-Dec-2017 Instruction Type:Patient Education Patient Instructions Indication:Weight loss Start:07-Dec-2017 Instruction Type:Provider Instructions for Treatment How to access health informa tion online Indication:Tobacco abuse, 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) Start:12-Oct-2017 Instruction Type:Patient Education How to access health informa tion online - Detail Indication:Tobacco abuse, 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) Start:12-Oct-2017 Instruction Type:Patient Education Patient Instructions Indication:Tobacco abuse, 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) Start:12-Oct-2017 Instruction Type:Provider Instructions for Treatment How to access health informa tion online Indication:Encounter for routine adult medical exam with abnormal findings Start:04-Sep-2017 Instruction Type:Patient Education How to access health informa tion online - Detail Indication:Encounter for routine adult medical exam with abnormal findings Start:04-Sep-2017 Instruction Type:Patient Education Patient Instructions Indication:Encounter for routine adult medical exam with abnormal findings Start:04-Sep-2017 Instruction Type:Provider Instructions for Treatment How to access health informa tion online Indication:BMI 26.0-26.9,adult Start:13-Oct-2016 Instruction Type:Patient Education How to access health informa tion online - Detail Indication:BMI 26.0-26.9,adult Start:13-Oct-2016 Instruction Type:Patient Education Patient Instructions Indication:BMI 26.0-26.9,adult Start:13-Oct-2016 Instruction Type:Provider Instructions for Treatment How to access health informa tion online Indication:Anxiety Start:17-Apr-2016 Instruction Type:Patient Education How to access health informa tion online - Detail Indication:Anxiety Start:17-Apr-2016 Instruction Type:Patient Education Patient Instructions Indication:Anxiety Start:17-Apr-2016 Instruction Type:Provider Instructions for Treatment Patient Instructions Indication:Encounter for routine adult medical exam with abnormal findings Start:22-Nov-2015 Instruction Type:Provider Instructions for Treatment How to access health informa tion online Indication:Left flank pain Start:04-Oct-2015 Instruction Type:Patient Education How to access health informa tion online - Detail Indication:Left flank pain Start:04-Oct-2015 Instruction Type:Patient Education Patient Instructions Indication:Left flank pain Start:04-Oct-2015 Instruction Type:Provider Instructions for Treatment How to access health informa tion online Indication:Left flank pain Start:22-Sep-2015 Instruction Type:Patient Education How to access health informa tion online - Detail Indication:Left flank pain Start:22-Sep-2015 Instruction Type:Patient Education Patient Instructions Indication:Left flank pain Start:22-Sep-2015 Instruction Type:Provider Instructions for Treatment How to access health informa tion online Indication:Chest pain Start:21-Sep-2015 Instruction Type:Patient Education How to access health informa tion online - Detail Indication:Chest pain Start:21-Sep-2015 Instruction Type:Patient Education Patient Instructions Indication:Chest pain Start:21-Sep-2015 Instruction Type:Provider Instructions for Treatment How to access health informa tion online Indication:Depressive disorder Start:17-Aug-2015 Instruction Type:Patient Education How to access health informa tion online - Detail Indication:Depressive disorder Start:17-Aug-2015 Instruction Type:Patient Education Patient Instructions Indication:Depressive disorder Start:17-Aug-2015 Instruction Type:Provider Instructions for Treatment How to access health informa tion online Indication:Depressive disorder Start:13-Jul-2015 Instruction Type:Patient Education How to access health informa tion online - Detail Indication:Depressive disorder Start:13-Jul-2015 Instruction Type:Patient Education Patient Instructions Indication:Depressive disorder Start:13-Jul-2015 Instruction Type:Provider Instructions for Treatment How to access health informa tion online - Detail Indication:Elevated blood-pressure reading without diagnosis of hypertension Start:13-Jan-2014 Instruction Type:Patient Education Patient Instructions Indication:Anxiety Start:13-Jan-2014 Instruction Type:Provider Instructions for Treatment Patient Instructions Indication:Acute sinusitis, unspecified Start:22-Jul-2012 Instruction Type:Provider Instructions for Treatment Patient Instructions Indication:Acute sinusitis, unspecified Start:19-Jun-2012 Instruction Type:Provider Instructions for Treatment Name Dates Details How to access health informa tion online Indication:Tobacco abuse, 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) Start:10-Oct-2019 Instruction Type:Patient Education How to access health informa tion online - Detail Indication:Tobacco abuse, 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) Start:10-Oct-2019 Instruction Type:Patient Education Patient Instructions Indication:Tobacco abuse, 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) Start:10-Oct-2019 Instruction Type:Provider Instructions for Treatment How to access health informa tion online Indication:Tobacco abuse, 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) Start:05-Sep-2019 Instruction Type:Patient Education How to access health informa tion online - Detail Indication:Tobacco abuse, 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) Start:05-Sep-2019 Instruction Type:Patient Education Patient Instructions Indication:Encounter for screening for lipid disorder Start:05-Sep-2019 Instruction Type:Provider Instructions for Treatment How to access health informa tion online Indication:Tobacco abuse, 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) Start:14-Apr-2019 Instruction Type:Patient Education How to access health informa tion online - Detail Indication:Tobacco abuse, 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) Start:14-Apr-2019 Instruction Type:Patient Education Patient Instructions Indication:Tobacco abuse, 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) Start:14-Apr-2019 Instruction Type:Provider Instructions for Treatment How to access health informa tion online Indication:Tobacco abuse, 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) Start:09-Dec-2018 Instruction Type:Patient Education How to access health informa tion online - Detail Indication:Tobacco abuse, 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) Start:09-Dec-2018 Instruction Type:Patient Education Patient Instructions Indication:Tobacco abuse, 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) Start:09-Dec-2018 Instruction Type:Provider Instructions for Treatment How to access health informa tion online Indication:Tobacco abuse, 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) Start:07-Aug-2018 Instruction Type:Patient Education How to access health informa tion online - Detail Indication:Tobacco abuse, 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) Start:07-Aug-2018 Instruction Type:Patient Education Patient Instructions Indication:Tobacco abuse, 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) Start:07-Aug-2018 Instruction Type:Provider Instructions for Treatment How to access health informa tion online Indication:Tobacco abuse, 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) Start:10-Jun-2018 Instruction Type:Patient Education How to access health informa tion online - Detail Indication:Tobacco abuse, 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) Start:10-Jun-2018 Instruction Type:Patient Education Patient Instructions Indication:Encounter for screening for malignant neoplasm of prostate (Renamed from Screening for prostate cancer) Start:10-Jun-2018 Instruction Type:Provider Instructions for Treatment How to access health informa tion online Indication:Tobacco abuse, 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) Start:25-Jan-2018 Instruction Type:Patient Education How to access health informa tion online - Detail Indication:Tobacco abuse, 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) Start:25-Jan-2018 Instruction Type:Patient Education Patient Instructions Indication:Tobacco abuse, 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) Start:25-Jan-2018 Instruction Type:Provider Instructions for Treatment How to access health informa tion online Indication:Tobacco abuse, 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) Start:07-Dec-2017 Instruction Type:Patient Education How to access health informa tion online - Detail Indication:Tobacco abuse, 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) Start:07-Dec-2017 Instruction Type:Patient Education Patient Instructions Indication:Weight loss Start:07-Dec-2017 Instruction Type:Provider Instructions for Treatment How to access health informa tion online Indication:Tobacco abuse, 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) Start:12-Oct-2017 Instruction Type:Patient Education How to access health informa tion online - Detail Indication:Tobacco abuse, 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) Start:12-Oct-2017 Instruction Type:Patient Education Patient Instructions Indication:Tobacco abuse, 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) Start:12-Oct-2017 Instruction Type:Provider Instructions for Treatment How to access health informa tion online Indication:Encounter for routine adult medical exam with abnormal findings Start:04-Sep-2017 Instruction Type:Patient Education How to access health informa tion online - Detail Indication:Encounter for routine adult medical exam with abnormal findings Start:04-Sep-2017 Instruction Type:Patient Education Patient Instructions Indication:Encounter for routine adult medical exam with abnormal findings Start:04-Sep-2017 Instruction Type:Provider Instructions for Treatment How to access health informa tion online Indication:BMI 26.0-26.9,adult Start:13-Oct-2016 Instruction Type:Patient Education How to access health informa tion online - Detail Indication:BMI 26.0-26.9,adult Start:13-Oct-2016 Instruction Type:Patient Education Patient Instructions Indication:BMI 26.0-26.9,adult Start:13-Oct-2016 Instruction Type:Provider Instructions for Treatment How to access health informa tion online Indication:Anxiety Start:17-Apr-2016 Instruction Type:Patient Education How to access health informa tion online - Detail Indication:Anxiety Start:17-Apr-2016 Instruction Type:Patient Education Patient Instructions Indication:Anxiety Start:17-Apr-2016 Instruction Type:Provider Instructions for Treatment Patient Instructions Indication:Encounter for routine adult medical exam with abnormal findings Start:22-Nov-2015 Instruction Type:Provider Instructions for Treatment How to access health informa tion online Indication:Left flank pain Start:04-Oct-2015 Instruction Type:Patient Education How to access health informa tion online - Detail Indication:Left flank pain Start:04-Oct-2015 Instruction Type:Patient Education Patient Instructions Indication:Left flank pain Start:04-Oct-2015 Instruction Type:Provider Instructions for Treatment How to access health informa tion online Indication:Left flank pain Start:22-Sep-2015 Instruction Type:Patient Education How to access health informa tion online - Detail Indication:Left flank pain Start:22-Sep-2015 Instruction Type:Patient Education Patient Instructions Indication:Left flank pain Start:22-Sep-2015 Instruction Type:Provider Instructions for Treatment How to access health informa tion online Indication:Chest pain Start:21-Sep-2015 Instruction Type:Patient Education How to access health informa tion online - Detail Indication:Chest pain Start:21-Sep-2015 Instruction Type:Patient Education Patient Instructions Indication:Chest pain Start:21-Sep-2015 Instruction Type:Provider Instructions for Treatment How to access health informa tion online Indication:Depressive disorder Start:17-Aug-2015 Instruction Type:Patient Education How to access health informa tion online - Detail Indication:Depressive disorder Start:17-Aug-2015 Instruction Type:Patient Education Patient Instructions Indication:Depressive disorder Start:17-Aug-2015 Instruction Type:Provider Instructions for Treatment How to access health informa tion online Indication:Depressive disorder Start:13-Jul-2015 Instruction Type:Patient Education How to access health informa tion online - Detail Indication:Depressive disorder Start:13-Jul-2015 Instruction Type:Patient Education Patient Instructions Indication:Depressive disorder Start:13-Jul-2015 Instruction Type:Provider Instructions for Treatment How to access health informa tion online - Detail Indication:Elevated blood-pressure reading without diagnosis of hypertension Start:13-Jan-2014 Instruction Type:Patient Education Patient Instructions Indication:Anxiety Start:13-Jan-2014 Instruction Type:Provider Instructions for Treatment Patient Instructions Indication:Acute sinusitis, unspecified Start:22-Jul-2012 Instruction Type:Provider Instructions for Treatment Patient Instructions Indication:Acute sinusitis, unspecified Start:19-Jun-2012 Instruction Type:Provider Instructions for Treatment Name Dates Details How to access health informa tion online Indication:Tobacco abuse, 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) Start:10-Oct-2019 Instruction Type:Patient Education How to access health informa tion online - Detail Indication:Tobacco abuse, 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) Start:10-Oct-2019 Instruction Type:Patient Education Patient Instructions Indication:Tobacco abuse, 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) Start:10-Oct-2019 Instruction Type:Provider Instructions for Treatment How to access health informa tion online Indication:Tobacco abuse, 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) Start:05-Sep-2019 Instruction Type:Patient Education How to access health informa tion online - Detail Indication:Tobacco abuse, 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) Start:05-Sep-2019 Instruction Type:Patient Education Patient Instructions Indication:Encounter for screening for lipid disorder Start:05-Sep-2019 Instruction Type:Provider Instructions for Treatment How to access health informa tion online Indication:Tobacco abuse, 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) Start:14-Apr-2019 Instruction Type:Patient Education How to access health informa tion online - Detail Indication:Tobacco abuse, 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) Start:14-Apr-2019 Instruction Type:Patient Education Patient Instructions Indication:Tobacco abuse, 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) Start:14-Apr-2019 Instruction Type:Provider Instructions for Treatment How to access health informa tion online Indication:Tobacco abuse, 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) Start:09-Dec-2018 Instruction Type:Patient Education How to access health informa tion online - Detail Indication:Tobacco abuse, 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) Start:09-Dec-2018 Instruction Type:Patient Education Patient Instructions Indication:Tobacco abuse, 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) Start:09-Dec-2018 Instruction Type:Provider Instructions for Treatment How to access health informa tion online Indication:Tobacco abuse, 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) Start:07-Aug-2018 Instruction Type:Patient Education How to access health informa tion online - Detail Indication:Tobacco abuse, 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) Start:07-Aug-2018 Instruction Type:Patient Education Patient Instructions Indication:Tobacco abuse, 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) Start:07-Aug-2018 Instruction Type:Provider Instructions for Treatment How to access health informa tion online Indication:Tobacco abuse, 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) Start:10-Jun-2018 Instruction Type:Patient Education How to access health informa tion online - Detail Indication:Tobacco abuse, 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) Start:10-Jun-2018 Instruction Type:Patient Education Patient Instructions Indication:Encounter for screening for malignant neoplasm of prostate (Renamed from Screening for prostate cancer) Start:10-Jun-2018 Instruction Type:Provider Instructions for Treatment How to access health informa tion online Indication:Tobacco abuse, 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) Start:25-Jan-2018 Instruction Type:Patient Education How to access health informa tion online - Detail Indication:Tobacco abuse, 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) Start:25-Jan-2018 Instruction Type:Patient Education Patient Instructions Indication:Tobacco abuse, 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) Start:25-Jan-2018 Instruction Type:Provider Instructions for Treatment How to access health informa tion online Indication:Tobacco abuse, 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) Start:07-Dec-2017 Instruction Type:Patient Education How to access health informa tion online - Detail Indication:Tobacco abuse, 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) Start:07-Dec-2017 Instruction Type:Patient Education Patient Instructions Indication:Weight loss Start:07-Dec-2017 Instruction Type:Provider Instructions for Treatment How to access health informa tion online Indication:Tobacco abuse, 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) Start:12-Oct-2017 Instruction Type:Patient Education How to access health informa tion online - Detail Indication:Tobacco abuse, 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) Start:12-Oct-2017 Instruction Type:Patient Education Patient Instructions Indication:Tobacco abuse, 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) Start:12-Oct-2017 Instruction Type:Provider Instructions for Treatment How to access health informa tion online Indication:Encounter for routine adult medical exam with abnormal findings Start:04-Sep-2017 Instruction Type:Patient Education How to access health informa tion online - Detail Indication:Encounter for routine adult medical exam with abnormal findings Start:04-Sep-2017 Instruction Type:Patient Education Patient Instructions Indication:Encounter for routine adult medical exam with abnormal findings Start:04-Sep-2017 Instruction Type:Provider Instructions for Treatment How to access health informa tion online Indication:BMI 26.0-26.9,adult Start:13-Oct-2016 Instruction Type:Patient Education How to access health informa tion online - Detail Indication:BMI 26.0-26.9,adult Start:13-Oct-2016 Instruction Type:Patient Education Patient Instructions Indication:BMI 26.0-26.9,adult Start:13-Oct-2016 Instruction Type:Provider Instructions for Treatment How to access health informa tion online Indication:Anxiety Start:17-Apr-2016 Instruction Type:Patient Education How to access health informa tion online - Detail Indication:Anxiety Start:17-Apr-2016 Instruction Type:Patient Education Patient Instructions Indication:Anxiety Start:17-Apr-2016 Instruction Type:Provider Instructions for Treatment Patient Instructions Indication:Encounter for routine adult medical exam with abnormal findings Start:22-Nov-2015 Instruction Type:Provider Instructions for Treatment How to access health informa tion online Indication:Left flank pain Start:04-Oct-2015 Instruction Type:Patient Education How to access health informa tion online - Detail Indication:Left flank pain Start:04-Oct-2015 Instruction Type:Patient Education Patient Instructions Indication:Left flank pain Start:04-Oct-2015 Instruction Type:Provider Instructions for Treatment How to access health informa tion online Indication:Left flank pain Start:22-Sep-2015 Instruction Type:Patient Education How to access health informa tion online - Detail Indication:Left flank pain Start:22-Sep-2015 Instruction Type:Patient Education Patient Instructions Indication:Left flank pain Start:22-Sep-2015 Instruction Type:Provider Instructions for Treatment How to access health informa tion online Indication:Chest pain Start:21-Sep-2015 Instruction Type:Patient Education How to access health informa tion online - Detail Indication:Chest pain Start:21-Sep-2015 Instruction Type:Patient Education Patient Instructions Indication:Chest pain Start:21-Sep-2015 Instruction Type:Provider Instructions for Treatment How to access health informa tion online Indication:Depressive disorder Start:17-Aug-2015 Instruction Type:Patient Education How to access health informa tion online - Detail Indication:Depressive disorder Start:17-Aug-2015 Instruction Type:Patient Education Patient Instructions Indication:Depressive disorder Start:17-Aug-2015 Instruction Type:Provider Instructions for Treatment How to access health informa tion online Indication:Depressive disorder Start:13-Jul-2015 Instruction Type:Patient Education How to access health informa tion online - Detail Indication:Depressive disorder Start:13-Jul-2015 Instruction Type:Patient Education Patient Instructions Indication:Depressive disorder Start:13-Jul-2015 Instruction Type:Provider Instructions for Treatment How to access health informa tion online - Detail Indication:Elevated blood-pressure reading without diagnosis of hypertension Start:13-Jan-2014 Instruction Type:Patient Education Patient Instructions Indication:Anxiety Start:13-Jan-2014 Instruction Type:Provider Instructions for Treatment Patient Instructions Indication:Acute sinusitis, unspecified Start:22-Jul-2012 Instruction Type:Provider Instructions for Treatment Patient Instructions Indication:Acute sinusitis, unspecified Start:19-Jun-2012 Instruction Type:Provider Instructions for Treatment Name Dates Details How to access health informa tion online Indication:Tobacco abuse, 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) Start:16-Dec-2019 Instruction Type:Patient Education How to access health informa tion online - Detail Indication:Tobacco abuse, 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) Start:16-Dec-2019 Instruction Type:Patient Education Patient Instructions Indication:Tobacco abuse, 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) Start:16-Dec-2019 Instruction Type:Provider Instructions for Treatment How to access health informa tion online Indication:Tobacco abuse, 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) Start:10-Oct-2019 Instruction Type:Patient Education How to access health informa tion online - Detail Indication:Tobacco abuse, 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) Start:10-Oct-2019 Instruction Type:Patient Education Patient Instructions Indication:Tobacco abuse, 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) Start:10-Oct-2019 Instruction Type:Provider Instructions for Treatment How to access health informa tion online Indication:Tobacco abuse, 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) Start:05-Sep-2019 Instruction Type:Patient Education How to access health informa tion online - Detail Indication:Tobacco abuse, 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) Start:05-Sep-2019 Instruction Type:Patient Education Patient Instructions Indication:Encounter for screening for lipid disorder Start:05-Sep-2019 Instruction Type:Provider Instructions for Treatment How to access health informa tion online Indication:Tobacco abuse, 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) Start:14-Apr-2019 Instruction Type:Patient Education How to access health informa tion online - Detail Indication:Tobacco abuse, 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) Start:14-Apr-2019 Instruction Type:Patient Education Patient Instructions Indication:Tobacco abuse, 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) Start:14-Apr-2019 Instruction Type:Provider Instructions for Treatment How to access health informa tion online Indication:Tobacco abuse, 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) Start:09-Dec-2018 Instruction Type:Patient Education How to access health informa tion online - Detail Indication:Tobacco abuse, 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) Start:09-Dec-2018 Instruction Type:Patient Education Patient Instructions Indication:Tobacco abuse, 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) Start:09-Dec-2018 Instruction Type:Provider Instructions for Treatment How to access health informa tion online Indication:Tobacco abuse, 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) Start:07-Aug-2018 Instruction Type:Patient Education How to access health informa tion online - Detail Indication:Tobacco abuse, 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) Start:07-Aug-2018 Instruction Type:Patient Education Patient Instructions Indication:Tobacco abuse, 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) Start:07-Aug-2018 Instruction Type:Provider Instructions for Treatment How to access health informa tion online Indication:Tobacco abuse, 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) Start:10-Jun-2018 Instruction Type:Patient Education How to access health informa tion online - Detail Indication:Tobacco abuse, 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) Start:10-Jun-2018 Instruction Type:Patient Education Patient Instructions Indication:Encounter for screening for malignant neoplasm of prostate (Renamed from Screening for prostate cancer) Start:10-Jun-2018 Instruction Type:Provider Instructions for Treatment How to access health informa tion online Indication:Tobacco abuse, 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) Start:25-Jan-2018 Instruction Type:Patient Education How to access health informa tion online - Detail Indication:Tobacco abuse, 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) Start:25-Jan-2018 Instruction Type:Patient Education Patient Instructions Indication:Tobacco abuse, 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) Start:25-Jan-2018 Instruction Type:Provider Instructions for Treatment How to access health informa tion online Indication:Tobacco abuse, 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) Start:07-Dec-2017 Instruction Type:Patient Education How to access health informa tion online - Detail Indication:Tobacco abuse, 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) Start:07-Dec-2017 Instruction Type:Patient Education Patient Instructions Indication:Weight loss Start:07-Dec-2017 Instruction Type:Provider Instructions for Treatment How to access health informa tion online Indication:Tobacco abuse, 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) Start:12-Oct-2017 Instruction Type:Patient Education How to access health informa tion online - Detail Indication:Tobacco abuse, 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) Start:12-Oct-2017 Instruction Type:Patient Education Patient Instructions Indication:Tobacco abuse, 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) Start:12-Oct-2017 Instruction Type:Provider Instructions for Treatment How to access health informa tion online Indication:Encounter for routine adult medical exam with abnormal findings Start:04-Sep-2017 Instruction Type:Patient Education How to access health informa tion online - Detail Indication:Encounter for routine adult medical exam with abnormal findings Start:04-Sep-2017 Instruction Type:Patient Education Patient Instructions Indication:Encounter for routine adult medical exam with abnormal findings Start:04-Sep-2017 Instruction Type:Provider Instructions for Treatment How to access health informa tion online Indication:BMI 26.0-26.9,adult Start:13-Oct-2016 Instruction Type:Patient Education How to access health informa tion online - Detail Indication:BMI 26.0-26.9,adult Start:13-Oct-2016 Instruction Type:Patient Education Patient Instructions Indication:BMI 26.0-26.9,adult Start:13-Oct-2016 Instruction Type:Provider Instructions for Treatment How to access health informa tion online Indication:Anxiety Start:17-Apr-2016 Instruction Type:Patient Education How to access health informa tion online - Detail Indication:Anxiety Start:17-Apr-2016 Instruction Type:Patient Education Patient Instructions Indication:Anxiety Start:17-Apr-2016 Instruction Type:Provider Instructions for Treatment Patient Instructions Indication:Encounter for routine adult medical exam with abnormal findings Start:22-Nov-2015 Instruction Type:Provider Instructions for Treatment How to access health informa tion online Indication:Left flank pain Start:04-Oct-2015 Instruction Type:Patient Education How to access health informa tion online - Detail Indication:Left flank pain Start:04-Oct-2015 Instruction Type:Patient Education Patient Instructions Indication:Left flank pain Start:04-Oct-2015 Instruction Type:Provider Instructions for Treatment How to access health informa tion online Indication:Left flank pain Start:22-Sep-2015 Instruction Type:Patient Education How to access health informa tion online - Detail Indication:Left flank pain Start:22-Sep-2015 Instruction Type:Patient Education Patient Instructions Indication:Left flank pain Start:22-Sep-2015 Instruction Type:Provider Instructions for Treatment How to access health informa tion online Indication:Chest pain Start:21-Sep-2015 Instruction Type:Patient Education How to access health informa tion online - Detail Indication:Chest pain Start:21-Sep-2015 Instruction Type:Patient Education Patient Instructions Indication:Chest pain Start:21-Sep-2015 Instruction Type:Provider Instructions for Treatment How to access health informa tion online Indication:Depressive disorder Start:17-Aug-2015 Instruction Type:Patient Education How to access health informa tion online - Detail Indication:Depressive disorder Start:17-Aug-2015 Instruction Type:Patient Education Patient Instructions Indication:Depressive disorder Start:17-Aug-2015 Instruction Type:Provider Instructions for Treatment How to access health informa tion online Indication:Depressive disorder Start:13-Jul-2015 Instruction Type:Patient Education How to access health informa tion online - Detail Indication:Depressive disorder Start:13-Jul-2015 Instruction Type:Patient Education Patient Instructions Indication:Depressive disorder Start:13-Jul-2015 Instruction Type:Provider Instructions for Treatment How to access health informa tion online - Detail Indication:Elevated blood-pressure reading without diagnosis of hypertension Start:13-Jan-2014 Instruction Type:Patient Education Patient Instructions Indication:Anxiety Start:13-Jan-2014 Instruction Type:Provider Instructions for Treatment Patient Instructions Indication:Acute sinusitis, unspecified Start:22-Jul-2012 Instruction Type:Provider Instructions for Treatment Patient Instructions Indication:Acute sinusitis, unspecified Start:19-Jun-2012 Instruction Type:Provider Instructions for Treatment Name Dates Details How to access health informa tion online Indication:Tobacco abuse, 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) Start:12-Jan-2020 Instruction Type:Patient Education How to access health informa tion online - Detail Indication:Tobacco abuse, 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) Start:12-Jan-2020 Instruction Type:Patient Education Patient Instructions Indication:Tobacco abuse, 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) Start:12-Jan-2020 Instruction Type:Provider Instructions for Treatment How to access health informa tion online Indication:Tobacco abuse, 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) Start:16-Dec-2019 Instruction Type:Patient Education How to access health informa tion online - Detail Indication:Tobacco abuse, 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) Start:16-Dec-2019 Instruction Type:Patient Education Patient Instructions Indication:Tobacco abuse, 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) Start:16-Dec-2019 Instruction Type:Provider Instructions for Treatment How to access health informa tion online Indication:Tobacco abuse, 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) Start:10-Oct-2019 Instruction Type:Patient Education How to access health informa tion online - Detail Indication:Tobacco abuse, 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) Start:10-Oct-2019 Instruction Type:Patient Education Patient Instructions Indication:Tobacco abuse, 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) Start:10-Oct-2019 Instruction Type:Provider Instructions for Treatment How to access health informa tion online Indication:Tobacco abuse, 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) Start:05-Sep-2019 Instruction Type:Patient Education How to access health informa tion online - Detail Indication:Tobacco abuse, 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) Start:05-Sep-2019 Instruction Type:Patient Education Patient Instructions Indication:Encounter for screening for lipid disorder Start:05-Sep-2019 Instruction Type:Provider Instructions for Treatment How to access health informa tion online Indication:Tobacco abuse, 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) Start:14-Apr-2019 Instruction Type:Patient Education How to access health informa tion online - Detail Indication:Tobacco abuse, 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) Start:14-Apr-2019 Instruction Type:Patient Education Patient Instructions Indication:Tobacco abuse, 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) Start:14-Apr-2019 Instruction Type:Provider Instructions for Treatment How to access health informa tion online Indication:Tobacco abuse, 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) Start:09-Dec-2018 Instruction Type:Patient Education How to access health informa tion online - Detail Indication:Tobacco abuse, 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) Start:09-Dec-2018 Instruction Type:Patient Education Patient Instructions Indication:Tobacco abuse, 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) Start:09-Dec-2018 Instruction Type:Provider Instructions for Treatment How to access health informa tion online Indication:Tobacco abuse, 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) Start:07-Aug-2018 Instruction Type:Patient Education How to access health informa tion online - Detail Indication:Tobacco abuse, 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) Start:07-Aug-2018 Instruction Type:Patient Education Patient Instructions Indication:Tobacco abuse, 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) Start:07-Aug-2018 Instruction Type:Provider Instructions for Treatment How to access health informa tion online Indication:Tobacco abuse, 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) Start:10-Jun-2018 Instruction Type:Patient Education How to access health informa tion online - Detail Indication:Tobacco abuse, 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) Start:10-Jun-2018 Instruction Type:Patient Education Patient Instructions Indication:Encounter for screening for malignant neoplasm of prostate (Renamed from Screening for prostate cancer) Start:10-Jun-2018 Instruction Type:Provider Instructions for Treatment How to access health informa tion online Indication:Tobacco abuse, 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) Start:25-Jan-2018 Instruction Type:Patient Education How to access health informa tion online - Detail Indication:Tobacco abuse, 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) Start:25-Jan-2018 Instruction Type:Patient Education Patient Instructions Indication:Tobacco abuse, 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) Start:25-Jan-2018 Instruction Type:Provider Instructions for Treatment How to access health informa tion online Indication:Tobacco abuse, 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) Start:07-Dec-2017 Instruction Type:Patient Education How to access health informa tion online - Detail Indication:Tobacco abuse, 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) Start:07-Dec-2017 Instruction Type:Patient Education Patient Instructions Indication:Weight loss Start:07-Dec-2017 Instruction Type:Provider Instructions for Treatment How to access health informa tion online Indication:Tobacco abuse, 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) Start:12-Oct-2017 Instruction Type:Patient Education How to access health informa tion online - Detail Indication:Tobacco abuse, 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) Start:12-Oct-2017 Instruction Type:Patient Education Patient Instructions Indication:Tobacco abuse, 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) Start:12-Oct-2017 Instruction Type:Provider Instructions for Treatment How to access health informa tion online Indication:Encounter for routine adult medical exam with abnormal findings Start:04-Sep-2017 Instruction Type:Patient Education How to access health informa tion online - Detail Indication:Encounter for routine adult medical exam with abnormal findings Start:04-Sep-2017 Instruction Type:Patient Education Patient Instructions Indication:Encounter for routine adult medical exam with abnormal findings Start:04-Sep-2017 Instruction Type:Provider Instructions for Treatment How to access health informa tion online Indication:BMI 26.0-26.9,adult Start:13-Oct-2016 Instruction Type:Patient Education How to access health informa tion online - Detail Indication:BMI 26.0-26.9,adult Start:13-Oct-2016 Instruction Type:Patient Education Patient Instructions Indication:BMI 26.0-26.9,adult Start:13-Oct-2016 Instruction Type:Provider Instructions for Treatment How to access health informa tion online Indication:Anxiety Start:17-Apr-2016 Instruction Type:Patient Education How to access health informa tion online - Detail Indication:Anxiety Start:17-Apr-2016 Instruction Type:Patient Education Patient Instructions Indication:Anxiety Start:17-Apr-2016 Instruction Type:Provider Instructions for Treatment Patient Instructions Indication:Encounter for routine adult medical exam with abnormal findings Start:22-Nov-2015 Instruction Type:Provider Instructions for Treatment How to access health informa tion online Indication:Left flank pain Start:04-Oct-2015 Instruction Type:Patient Education How to access health informa tion online - Detail Indication:Left flank pain Start:04-Oct-2015 Instruction Type:Patient Education Patient Instructions Indication:Left flank pain Start:04-Oct-2015 Instruction Type:Provider Instructions for Treatment How to access health informa tion online Indication:Left flank pain Start:22-Sep-2015 Instruction Type:Patient Education How to access health informa tion online - Detail Indication:Left flank pain Start:22-Sep-2015 Instruction Type:Patient Education Patient Instructions Indication:Left flank pain Start:22-Sep-2015 Instruction Type:Provider Instructions for Treatment How to access health informa tion online Indication:Chest pain Start:21-Sep-2015 Instruction Type:Patient Education How to access health informa tion online - Detail Indication:Chest pain Start:21-Sep-2015 Instruction Type:Patient Education Patient Instructions Indication:Chest pain Start:21-Sep-2015 Instruction Type:Provider Instructions for Treatment How to access health informa tion online Indication:Depressive disorder Start:17-Aug-2015 Instruction Type:Patient Education How to access health informa tion online - Detail Indication:Depressive disorder Start:17-Aug-2015 Instruction Type:Patient Education Patient Instructions Indication:Depressive disorder Start:17-Aug-2015 Instruction Type:Provider Instructions for Treatment How to access health informa tion online Indication:Depressive disorder Start:13-Jul-2015 Instruction Type:Patient Education How to access health informa tion online - Detail Indication:Depressive disorder Start:13-Jul-2015 Instruction Type:Patient Education Patient Instructions Indication:Depressive disorder Start:13-Jul-2015 Instruction Type:Provider Instructions for Treatment How to access health informa tion online - Detail Indication:Elevated blood-pressure reading without diagnosis of hypertension Start:13-Jan-2014 Instruction Type:Patient Education Patient Instructions Indication:Anxiety Start:13-Jan-2014 Instruction Type:Provider Instructions for Treatment Patient Instructions Indication:Acute sinusitis, unspecified Start:22-Jul-2012 Instruction Type:Provider Instructions for Treatment Patient Instructions Indication:Acute sinusitis, unspecified Start:19-Jun-2012 Instruction Type:Provider Instructions for Treatment Name Dates Details How to access health informa tion online Indication:Tobacco abuse, 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) Start:12-Jan-2020 Instruction Type:Patient Education How to access health informa tion online - Detail Indication:Tobacco abuse, 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) Start:12-Jan-2020 Instruction Type:Patient Education Patient Instructions Indication:Tobacco abuse, 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) Start:12-Jan-2020 Instruction Type:Provider Instructions for Treatment How to access health informa tion online Indication:Tobacco abuse, 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) Start:16-Dec-2019 Instruction Type:Patient Education How to access health informa tion online - Detail Indication:Tobacco abuse, 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) Start:16-Dec-2019 Instruction Type:Patient Education Patient Instructions Indication:Tobacco abuse, 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) Start:16-Dec-2019 Instruction Type:Provider Instructions for Treatment How to access health informa tion online Indication:Tobacco abuse, 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) Start:10-Oct-2019 Instruction Type:Patient Education How to access health informa tion online - Detail Indication:Tobacco abuse, 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) Start:10-Oct-2019 Instruction Type:Patient Education Patient Instructions Indication:Tobacco abuse, 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) Start:10-Oct-2019 Instruction Type:Provider Instructions for Treatment How to access health informa tion online Indication:Tobacco abuse, 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) Start:05-Sep-2019 Instruction Type:Patient Education How to access health informa tion online - Detail Indication:Tobacco abuse, 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) Start:05-Sep-2019 Instruction Type:Patient Education Patient Instructions Indication:Encounter for screening for lipid disorder Start:05-Sep-2019 Instruction Type:Provider Instructions for Treatment How to access health informa tion online Indication:Tobacco abuse, 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) Start:14-Apr-2019 Instruction Type:Patient Education How to access health informa tion online - Detail Indication:Tobacco abuse, 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) Start:14-Apr-2019 Instruction Type:Patient Education Patient Instructions Indication:Tobacco abuse, 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) Start:14-Apr-2019 Instruction Type:Provider Instructions for Treatment How to access health informa tion online Indication:Tobacco abuse, 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) Start:09-Dec-2018 Instruction Type:Patient Education How to access health informa tion online - Detail Indication:Tobacco abuse, 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) Start:09-Dec-2018 Instruction Type:Patient Education Patient Instructions Indication:Tobacco abuse, 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) Start:09-Dec-2018 Instruction Type:Provider Instructions for Treatment How to access health informa tion online Indication:Tobacco abuse, 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) Start:07-Aug-2018 Instruction Type:Patient Education How to access health informa tion online - Detail Indication:Tobacco abuse, 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) Start:07-Aug-2018 Instruction Type:Patient Education Patient Instructions Indication:Tobacco abuse, 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) Start:07-Aug-2018 Instruction Type:Provider Instructions for Treatment How to access health informa tion online Indication:Tobacco abuse, 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) Start:10-Jun-2018 Instruction Type:Patient Education How to access health informa tion online - Detail Indication:Tobacco abuse, 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) Start:10-Jun-2018 Instruction Type:Patient Education Patient Instructions Indication:Encounter for screening for malignant neoplasm of prostate (Renamed from Screening for prostate cancer) Start:10-Jun-2018 Instruction Type:Provider Instructions for Treatment How to access health informa tion online Indication:Tobacco abuse, 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) Start:25-Jan-2018 Instruction Type:Patient Education How to access health informa tion online - Detail Indication:Tobacco abuse, 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) Start:25-Jan-2018 Instruction Type:Patient Education Patient Instructions Indication:Tobacco abuse, 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) Start:25-Jan-2018 Instruction Type:Provider Instructions for Treatment How to access health informa tion online Indication:Tobacco abuse, 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) Start:07-Dec-2017 Instruction Type:Patient Education How to access health informa tion online - Detail Indication:Tobacco abuse, 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) Start:07-Dec-2017 Instruction Type:Patient Education Patient Instructions Indication:Weight loss Start:07-Dec-2017 Instruction Type:Provider Instructions for Treatment How to access health informa tion online Indication:Tobacco abuse, 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) Start:12-Oct-2017 Instruction Type:Patient Education How to access health informa tion online - Detail Indication:Tobacco abuse, 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) Start:12-Oct-2017 Instruction Type:Patient Education Patient Instructions Indication:Tobacco abuse, 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) Start:12-Oct-2017 Instruction Type:Provider Instructions for Treatment How to access health informa tion online Indication:Encounter for routine adult medical exam with abnormal findings Start:04-Sep-2017 Instruction Type:Patient Education How to access health informa tion online - Detail Indication:Encounter for routine adult medical exam with abnormal findings Start:04-Sep-2017 Instruction Type:Patient Education Patient Instructions Indication:Encounter for routine adult medical exam with abnormal findings Start:04-Sep-2017 Instruction Type:Provider Instructions for Treatment How to access health informa tion online Indication:BMI 26.0-26.9,adult Start:13-Oct-2016 Instruction Type:Patient Education How to access health informa tion online - Detail Indication:BMI 26.0-26.9,adult Start:13-Oct-2016 Instruction Type:Patient Education Patient Instructions Indication:BMI 26.0-26.9,adult Start:13-Oct-2016 Instruction Type:Provider Instructions for Treatment How to access health informa tion online Indication:Anxiety Start:17-Apr-2016 Instruction Type:Patient Education How to access health informa tion online - Detail Indication:Anxiety Start:17-Apr-2016 Instruction Type:Patient Education Patient Instructions Indication:Anxiety Start:17-Apr-2016 Instruction Type:Provider Instructions for Treatment Patient Instructions Indication:Encounter for routine adult medical exam with abnormal findings Start:22-Nov-2015 Instruction Type:Provider Instructions for Treatment How to access health informa tion online Indication:Left flank pain Start:04-Oct-2015 Instruction Type:Patient Education How to access health informa tion online - Detail Indication:Left flank pain Start:04-Oct-2015 Instruction Type:Patient Education Patient Instructions Indication:Left flank pain Start:04-Oct-2015 Instruction Type:Provider Instructions for Treatment How to access health informa tion online Indication:Left flank pain Start:22-Sep-2015 Instruction Type:Patient Education How to access health informa tion online - Detail Indication:Left flank pain Start:22-Sep-2015 Instruction Type:Patient Education Patient Instructions Indication:Left flank pain Start:22-Sep-2015 Instruction Type:Provider Instructions for Treatment How to access health informa tion online Indication:Chest pain Start:21-Sep-2015 Instruction Type:Patient Education How to access health informa tion online - Detail Indication:Chest pain Start:21-Sep-2015 Instruction Type:Patient Education Patient Instructions Indication:Chest pain Start:21-Sep-2015 Instruction Type:Provider Instructions for Treatment How to access health informa tion online Indication:Depressive disorder Start:17-Aug-2015 Instruction Type:Patient Education How to access health informa tion online - Detail Indication:Depressive disorder Start:17-Aug-2015 Instruction Type:Patient Education Patient Instructions Indication:Depressive disorder Start:17-Aug-2015 Instruction Type:Provider Instructions for Treatment How to access health informa tion online Indication:Depressive disorder Start:13-Jul-2015 Instruction Type:Patient Education How to access health informa tion online - Detail Indication:Depressive disorder Start:13-Jul-2015 Instruction Type:Patient Education Patient Instructions Indication:Depressive disorder Start:13-Jul-2015 Instruction Type:Provider Instructions for Treatment How to access health informa tion online - Detail Indication:Elevated blood-pressure reading without diagnosis of hypertension Start:13-Jan-2014 Instruction Type:Patient Education Patient Instructions Indication:Anxiety Start:13-Jan-2014 Instruction Type:Provider Instructions for Treatment Patient Instructions Indication:Acute sinusitis, unspecified Start:22-Jul-2012 Instruction Type:Provider Instructions for Treatment Patient Instructions Indication:Acute sinusitis, unspecified Start:19-Jun-2012 Instruction Type:Provider Instructions for Treatment Name Dates Details How to access health informa tion online Indication:Tobacco abuse, 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) Start:12-Jan-2020 Instruction Type:Patient Education How to access health informa tion online - Detail Indication:Tobacco abuse, 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) Start:12-Jan-2020 Instruction Type:Patient Education Patient Instructions Indication:Tobacco abuse, 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) Start:12-Jan-2020 Instruction Type:Provider Instructions for Treatment How to access health informa tion online Indication:Tobacco abuse, 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) Start:16-Dec-2019 Instruction Type:Patient Education How to access health informa tion online - Detail Indication:Tobacco abuse, 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) Start:16-Dec-2019 Instruction Type:Patient Education Patient Instructions Indication:Tobacco abuse, 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) Start:16-Dec-2019 Instruction Type:Provider Instructions for Treatment How to access health informa tion online Indication:Tobacco abuse, 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) Start:10-Oct-2019 Instruction Type:Patient Education How to access health informa tion online - Detail Indication:Tobacco abuse, 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) Start:10-Oct-2019 Instruction Type:Patient Education Patient Instructions Indication:Tobacco abuse, 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) Start:10-Oct-2019 Instruction Type:Provider Instructions for Treatment How to access health informa tion online Indication:Tobacco abuse, 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) Start:05-Sep-2019 Instruction Type:Patient Education How to access health informa tion online - Detail Indication:Tobacco abuse, 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) Start:05-Sep-2019 Instruction Type:Patient Education Patient Instructions Indication:Encounter for screening for lipid disorder Start:05-Sep-2019 Instruction Type:Provider Instructions for Treatment How to access health informa tion online Indication:Tobacco abuse, 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) Start:14-Apr-2019 Instruction Type:Patient Education How to access health informa tion online - Detail Indication:Tobacco abuse, 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) Start:14-Apr-2019 Instruction Type:Patient Education Patient Instructions Indication:Tobacco abuse, 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) Start:14-Apr-2019 Instruction Type:Provider Instructions for Treatment How to access health informa tion online Indication:Tobacco abuse, 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) Start:09-Dec-2018 Instruction Type:Patient Education How to access health informa tion online - Detail Indication:Tobacco abuse, 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) Start:09-Dec-2018 Instruction Type:Patient Education Patient Instructions Indication:Tobacco abuse, 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) Start:09-Dec-2018 Instruction Type:Provider Instructions for Treatment How to access health informa tion online Indication:Tobacco abuse, 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) Start:07-Aug-2018 Instruction Type:Patient Education How to access health informa tion online - Detail Indication:Tobacco abuse, 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) Start:07-Aug-2018 Instruction Type:Patient Education Patient Instructions Indication:Tobacco abuse, 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) Start:07-Aug-2018 Instruction Type:Provider Instructions for Treatment How to access health informa tion online Indication:Tobacco abuse, 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) Start:10-Jun-2018 Instruction Type:Patient Education How to access health informa tion online - Detail Indication:Tobacco abuse, 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) Start:10-Jun-2018 Instruction Type:Patient Education Patient Instructions Indication:Encounter for screening for malignant neoplasm of prostate (Renamed from Screening for prostate cancer) Start:10-Jun-2018 Instruction Type:Provider Instructions for Treatment How to access health informa tion online Indication:Tobacco abuse, 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) Start:25-Jan-2018 Instruction Type:Patient Education How to access health informa tion online - Detail Indication:Tobacco abuse, 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) Start:25-Jan-2018 Instruction Type:Patient Education Patient Instructions Indication:Tobacco abuse, 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) Start:25-Jan-2018 Instruction Type:Provider Instructions for Treatment How to access health informa tion online Indication:Tobacco abuse, 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) Start:07-Dec-2017 Instruction Type:Patient Education How to access health informa tion online - Detail Indication:Tobacco abuse, 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) Start:07-Dec-2017 Instruction Type:Patient Education Patient Instructions Indication:Weight loss Start:07-Dec-2017 Instruction Type:Provider Instructions for Treatment How to access health informa tion online Indication:Tobacco abuse, 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) Start:12-Oct-2017 Instruction Type:Patient Education How to access health informa tion online - Detail Indication:Tobacco abuse, 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) Start:12-Oct-2017 Instruction Type:Patient Education Patient Instructions Indication:Tobacco abuse, 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) Start:12-Oct-2017 Instruction Type:Provider Instructions for Treatment How to access health informa tion online Indication:Encounter for routine adult medical exam with abnormal findings Start:04-Sep-2017 Instruction Type:Patient Education How to access health informa tion online - Detail Indication:Encounter for routine adult medical exam with abnormal findings Start:04-Sep-2017 Instruction Type:Patient Education Patient Instructions Indication:Encounter for routine adult medical exam with abnormal findings Start:04-Sep-2017 Instruction Type:Provider Instructions for Treatment How to access health informa tion online Indication:BMI 26.0-26.9,adult Start:13-Oct-2016 Instruction Type:Patient Education How to access health informa tion online - Detail Indication:BMI 26.0-26.9,adult Start:13-Oct-2016 Instruction Type:Patient Education Patient Instructions Indication:BMI 26.0-26.9,adult Start:13-Oct-2016 Instruction Type:Provider Instructions for Treatment How to access health informa tion online Indication:Anxiety Start:17-Apr-2016 Instruction Type:Patient Education How to access health informa tion online - Detail Indication:Anxiety Start:17-Apr-2016 Instruction Type:Patient Education Patient Instructions Indication:Anxiety Start:17-Apr-2016 Instruction Type:Provider Instructions for Treatment Patient Instructions Indication:Encounter for routine adult medical exam with abnormal findings Start:22-Nov-2015 Instruction Type:Provider Instructions for Treatment How to access health informa tion online Indication:Left flank pain Start:04-Oct-2015 Instruction Type:Patient Education How to access health informa tion online - Detail Indication:Left flank pain Start:04-Oct-2015 Instruction Type:Patient Education Patient Instructions Indication:Left flank pain Start:04-Oct-2015 Instruction Type:Provider Instructions for Treatment How to access health informa tion online Indication:Left flank pain Start:22-Sep-2015 Instruction Type:Patient Education How to access health informa tion online - Detail Indication:Left flank pain Start:22-Sep-2015 Instruction Type:Patient Education Patient Instructions Indication:Left flank pain Start:22-Sep-2015 Instruction Type:Provider Instructions for Treatment How to access health informa tion online Indication:Chest pain Start:21-Sep-2015 Instruction Type:Patient Education How to access health informa tion online - Detail Indication:Chest pain Start:21-Sep-2015 Instruction Type:Patient Education Patient Instructions Indication:Chest pain Start:21-Sep-2015 Instruction Type:Provider Instructions for Treatment How to access health informa tion online Indication:Depressive disorder Start:17-Aug-2015 Instruction Type:Patient Education How to access health informa tion online - Detail Indication:Depressive disorder Start:17-Aug-2015 Instruction Type:Patient Education Patient Instructions Indication:Depressive disorder Start:17-Aug-2015 Instruction Type:Provider Instructions for Treatment How to access health informa tion online Indication:Depressive disorder Start:13-Jul-2015 Instruction Type:Patient Education How to access health informa tion online - Detail Indication:Depressive disorder Start:13-Jul-2015 Instruction Type:Patient Education Patient Instructions Indication:Depressive disorder Start:13-Jul-2015 Instruction Type:Provider Instructions for Treatment How to access health informa tion online - Detail Indication:Elevated blood-pressure reading without diagnosis of hypertension Start:13-Jan-2014 Instruction Type:Patient Education Patient Instructions Indication:Anxiety Start:13-Jan-2014 Instruction Type:Provider Instructions for Treatment Patient Instructions Indication:Acute sinusitis, unspecified Start:22-Jul-2012 Instruction Type:Provider Instructions for Treatment Patient Instructions Indication:Acute sinusitis, unspecified Start:19-Jun-2012 Instruction Type:Provider Instructions for Treatment Name Dates Details How to access health informa tion online Indication:Tobacco abuse, 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) Start:12-Jan-2020 Instruction Type:Patient Education How to access health informa tion online - Detail Indication:Tobacco abuse, 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) Start:12-Jan-2020 Instruction Type:Patient Education Patient Instructions Indication:Tobacco abuse, 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) Start:12-Jan-2020 Instruction Type:Provider Instructions for Treatment How to access health informa tion online Indication:Tobacco abuse, 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) Start:16-Dec-2019 Instruction Type:Patient Education How to access health informa tion online - Detail Indication:Tobacco abuse, 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) Start:16-Dec-2019 Instruction Type:Patient Education Patient Instructions Indication:Tobacco abuse, 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) Start:16-Dec-2019 Instruction Type:Provider Instructions for Treatment How to access health informa tion online Indication:Tobacco abuse, 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) Start:10-Oct-2019 Instruction Type:Patient Education How to access health informa tion online - Detail Indication:Tobacco abuse, 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) Start:10-Oct-2019 Instruction Type:Patient Education Patient Instructions Indication:Tobacco abuse, 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) Start:10-Oct-2019 Instruction Type:Provider Instructions for Treatment How to access health informa tion online Indication:Tobacco abuse, 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) Start:05-Sep-2019 Instruction Type:Patient Education How to access health informa tion online - Detail Indication:Tobacco abuse, 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) Start:05-Sep-2019 Instruction Type:Patient Education Patient Instructions Indication:Encounter for screening for lipid disorder Start:05-Sep-2019 Instruction Type:Provider Instructions for Treatment How to access health informa tion online Indication:Tobacco abuse, 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) Start:14-Apr-2019 Instruction Type:Patient Education How to access health informa tion online - Detail Indication:Tobacco abuse, 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) Start:14-Apr-2019 Instruction Type:Patient Education Patient Instructions Indication:Tobacco abuse, 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) Start:14-Apr-2019 Instruction Type:Provider Instructions for Treatment How to access health informa tion online Indication:Tobacco abuse, 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) Start:09-Dec-2018 Instruction Type:Patient Education How to access health informa tion online - Detail Indication:Tobacco abuse, 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) Start:09-Dec-2018 Instruction Type:Patient Education Patient Instructions Indication:Tobacco abuse, 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) Start:09-Dec-2018 Instruction Type:Provider Instructions for Treatment How to access health informa tion online Indication:Tobacco abuse, 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) Start:07-Aug-2018 Instruction Type:Patient Education How to access health informa tion online - Detail Indication:Tobacco abuse, 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) Start:07-Aug-2018 Instruction Type:Patient Education Patient Instructions Indication:Tobacco abuse, 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) Start:07-Aug-2018 Instruction Type:Provider Instructions for Treatment How to access health informa tion online Indication:Tobacco abuse, 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) Start:10-Jun-2018 Instruction Type:Patient Education How to access health informa tion online - Detail Indication:Tobacco abuse, 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) Start:10-Jun-2018 Instruction Type:Patient Education Patient Instructions Indication:Encounter for screening for malignant neoplasm of prostate (Renamed from Screening for prostate cancer) Start:10-Jun-2018 Instruction Type:Provider Instructions for Treatment How to access health informa tion online Indication:Tobacco abuse, 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) Start:25-Jan-2018 Instruction Type:Patient Education How to access health informa tion online - Detail Indication:Tobacco abuse, 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) Start:25-Jan-2018 Instruction Type:Patient Education Patient Instructions Indication:Tobacco abuse, 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) Start:25-Jan-2018 Instruction Type:Provider Instructions for Treatment How to access health informa tion online Indication:Tobacco abuse, 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) Start:07-Dec-2017 Instruction Type:Patient Education How to access health informa tion online - Detail Indication:Tobacco abuse, 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) Start:07-Dec-2017 Instruction Type:Patient Education Patient Instructions Indication:Weight loss Start:07-Dec-2017 Instruction Type:Provider Instructions for Treatment How to access health informa tion online Indication:Tobacco abuse, 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) Start:12-Oct-2017 Instruction Type:Patient Education How to access health informa tion online - Detail Indication:Tobacco abuse, 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) Start:12-Oct-2017 Instruction Type:Patient Education Patient Instructions Indication:Tobacco abuse, 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) Start:12-Oct-2017 Instruction Type:Provider Instructions for Treatment How to access health informa tion online Indication:Encounter for routine adult medical exam with abnormal findings Start:04-Sep-2017 Instruction Type:Patient Education How to access health informa tion online - Detail Indication:Encounter for routine adult medical exam with abnormal findings Start:04-Sep-2017 Instruction Type:Patient Education Patient Instructions Indication:Encounter for routine adult medical exam with abnormal findings Start:04-Sep-2017 Instruction Type:Provider Instructions for Treatment How to access health informa tion online Indication:BMI 26.0-26.9,adult Start:13-Oct-2016 Instruction Type:Patient Education How to access health informa tion online - Detail Indication:BMI 26.0-26.9,adult Start:13-Oct-2016 Instruction Type:Patient Education Patient Instructions Indication:BMI 26.0-26.9,adult Start:13-Oct-2016 Instruction Type:Provider Instructions for Treatment How to access health informa tion online Indication:Anxiety Start:17-Apr-2016 Instruction Type:Patient Education How to access health informa tion online - Detail Indication:Anxiety Start:17-Apr-2016 Instruction Type:Patient Education Patient Instructions Indication:Anxiety Start:17-Apr-2016 Instruction Type:Provider Instructions for Treatment Patient Instructions Indication:Encounter for routine adult medical exam with abnormal findings Start:22-Nov-2015 Instruction Type:Provider Instructions for Treatment How to access health informa tion online Indication:Left flank pain Start:04-Oct-2015 Instruction Type:Patient Education How to access health informa tion online - Detail Indication:Left flank pain Start:04-Oct-2015 Instruction Type:Patient Education Patient Instructions Indication:Left flank pain Start:04-Oct-2015 Instruction Type:Provider Instructions for Treatment How to access health informa tion online Indication:Left flank pain Start:22-Sep-2015 Instruction Type:Patient Education How to access health informa tion online - Detail Indication:Left flank pain Start:22-Sep-2015 Instruction Type:Patient Education Patient Instructions Indication:Left flank pain Start:22-Sep-2015 Instruction Type:Provider Instructions for Treatment How to access health informa tion online Indication:Chest pain Start:21-Sep-2015 Instruction Type:Patient Education How to access health informa tion online - Detail Indication:Chest pain Start:21-Sep-2015 Instruction Type:Patient Education Patient Instructions Indication:Chest pain Start:21-Sep-2015 Instruction Type:Provider Instructions for Treatment How to access health informa tion online Indication:Depressive disorder Start:17-Aug-2015 Instruction Type:Patient Education How to access health informa tion online - Detail Indication:Depressive disorder Start:17-Aug-2015 Instruction Type:Patient Education Patient Instructions Indication:Depressive disorder Start:17-Aug-2015 Instruction Type:Provider Instructions for Treatment How to access health informa tion online Indication:Depressive disorder Start:13-Jul-2015 Instruction Type:Patient Education How to access health informa tion online - Detail Indication:Depressive disorder Start:13-Jul-2015 Instruction Type:Patient Education Patient Instructions Indication:Depressive disorder Start:13-Jul-2015 Instruction Type:Provider Instructions for Treatment How to access health informa tion online - Detail Indication:Elevated blood-pressure reading without diagnosis of hypertension Start:13-Jan-2014 Instruction Type:Patient Education Patient Instructions Indication:Anxiety Start:13-Jan-2014 Instruction Type:Provider Instructions for Treatment Patient Instructions Indication:Acute sinusitis, unspecified Start:22-Jul-2012 Instruction Type:Provider Instructions for Treatment Patient Instructions Indication:Acute sinusitis, unspecified Start:19-Jun-2012 Instruction Type:Provider Instructions for Treatment Name Dates Details How to access health informa tion online Indication:Tobacco abuse, 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) Start:12-Jan-2020 Instruction Type:Patient Education How to access health informa tion online - Detail Indication:Tobacco abuse, 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) Start:12-Jan-2020 Instruction Type:Patient Education Patient Instructions Indication:Tobacco abuse, 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) Start:12-Jan-2020 Instruction Type:Provider Instructions for Treatment How to access health informa tion online Indication:Tobacco abuse, 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) Start:16-Dec-2019 Instruction Type:Patient Education How to access health informa tion online - Detail Indication:Tobacco abuse, 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) Start:16-Dec-2019 Instruction Type:Patient Education Patient Instructions Indication:Tobacco abuse, 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) Start:16-Dec-2019 Instruction Type:Provider Instructions for Treatment How to access health informa tion online Indication:Tobacco abuse, 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) Start:10-Oct-2019 Instruction Type:Patient Education How to access health informa tion online - Detail Indication:Tobacco abuse, 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) Start:10-Oct-2019 Instruction Type:Patient Education Patient Instructions Indication:Tobacco abuse, 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) Start:10-Oct-2019 Instruction Type:Provider Instructions for Treatment How to access health informa tion online Indication:Tobacco abuse, 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) Start:05-Sep-2019 Instruction Type:Patient Education How to access health informa tion online - Detail Indication:Tobacco abuse, 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) Start:05-Sep-2019 Instruction Type:Patient Education Patient Instructions Indication:Encounter for screening for lipid disorder Start:05-Sep-2019 Instruction Type:Provider Instructions for Treatment How to access health informa tion online Indication:Tobacco abuse, 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) Start:14-Apr-2019 Instruction Type:Patient Education How to access health informa tion online - Detail Indication:Tobacco abuse, 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) Start:14-Apr-2019 Instruction Type:Patient Education Patient Instructions Indication:Tobacco abuse, 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) Start:14-Apr-2019 Instruction Type:Provider Instructions for Treatment How to access health informa tion online Indication:Tobacco abuse, 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) Start:09-Dec-2018 Instruction Type:Patient Education How to access health informa tion online - Detail Indication:Tobacco abuse, 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) Start:09-Dec-2018 Instruction Type:Patient Education Patient Instructions Indication:Tobacco abuse, 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) Start:09-Dec-2018 Instruction Type:Provider Instructions for Treatment How to access health informa tion online Indication:Tobacco abuse, 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) Start:07-Aug-2018 Instruction Type:Patient Education How to access health informa tion online - Detail Indication:Tobacco abuse, 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) Start:07-Aug-2018 Instruction Type:Patient Education Patient Instructions Indication:Tobacco abuse, 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) Start:07-Aug-2018 Instruction Type:Provider Instructions for Treatment How to access health informa tion online Indication:Tobacco abuse, 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) Start:10-Jun-2018 Instruction Type:Patient Education How to access health informa tion online - Detail Indication:Tobacco abuse, 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) Start:10-Jun-2018 Instruction Type:Patient Education Patient Instructions Indication:Encounter for screening for malignant neoplasm of prostate (Renamed from Screening for prostate cancer) Start:10-Jun-2018 Instruction Type:Provider Instructions for Treatment How to access health informa tion online Indication:Tobacco abuse, 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) Start:25-Jan-2018 Instruction Type:Patient Education How to access health informa tion online - Detail Indication:Tobacco abuse, 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) Start:25-Jan-2018 Instruction Type:Patient Education Patient Instructions Indication:Tobacco abuse, 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) Start:25-Jan-2018 Instruction Type:Provider Instructions for Treatment How to access health informa tion online Indication:Tobacco abuse, 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) Start:07-Dec-2017 Instruction Type:Patient Education How to access health informa tion online - Detail Indication:Tobacco abuse, 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) Start:07-Dec-2017 Instruction Type:Patient Education Patient Instructions Indication:Weight loss Start:07-Dec-2017 Instruction Type:Provider Instructions for Treatment How to access health informa tion online Indication:Tobacco abuse, 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) Start:12-Oct-2017 Instruction Type:Patient Education How to access health informa tion online - Detail Indication:Tobacco abuse, 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) Start:12-Oct-2017 Instruction Type:Patient Education Patient Instructions Indication:Tobacco abuse, 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) Start:12-Oct-2017 Instruction Type:Provider Instructions for Treatment How to access health informa tion online Indication:Encounter for routine adult medical exam with abnormal findings Start:04-Sep-2017 Instruction Type:Patient Education How to access health informa tion online - Detail Indication:Encounter for routine adult medical exam with abnormal findings Start:04-Sep-2017 Instruction Type:Patient Education Patient Instructions Indication:Encounter for routine adult medical exam with abnormal findings Start:04-Sep-2017 Instruction Type:Provider Instructions for Treatment How to access health informa tion online Indication:BMI 26.0-26.9,adult Start:13-Oct-2016 Instruction Type:Patient Education How to access health informa tion online - Detail Indication:BMI 26.0-26.9,adult Start:13-Oct-2016 Instruction Type:Patient Education Patient Instructions Indication:BMI 26.0-26.9,adult Start:13-Oct-2016 Instruction Type:Provider Instructions for Treatment How to access health informa tion online Indication:Anxiety Start:17-Apr-2016 Instruction Type:Patient Education How to access health informa tion online - Detail Indication:Anxiety Start:17-Apr-2016 Instruction Type:Patient Education Patient Instructions Indication:Anxiety Start:17-Apr-2016 Instruction Type:Provider Instructions for Treatment Patient Instructions Indication:Encounter for routine adult medical exam with abnormal findings Start:22-Nov-2015 Instruction Type:Provider Instructions for Treatment How to access health informa tion online Indication:Left flank pain Start:04-Oct-2015 Instruction Type:Patient Education How to access health informa tion online - Detail Indication:Left flank pain Start:04-Oct-2015 Instruction Type:Patient Education Patient Instructions Indication:Left flank pain Start:04-Oct-2015 Instruction Type:Provider Instructions for Treatment How to access health informa tion online Indication:Left flank pain Start:22-Sep-2015 Instruction Type:Patient Education How to access health informa tion online - Detail Indication:Left flank pain Start:22-Sep-2015 Instruction Type:Patient Education Patient Instructions Indication:Left flank pain Start:22-Sep-2015 Instruction Type:Provider Instructions for Treatment How to access health informa tion online Indication:Chest pain Start:21-Sep-2015 Instruction Type:Patient Education How to access health informa tion online - Detail Indication:Chest pain Start:21-Sep-2015 Instruction Type:Patient Education Patient Instructions Indication:Chest pain Start:21-Sep-2015 Instruction Type:Provider Instructions for Treatment How to access health informa tion online Indication:Depressive disorder Start:17-Aug-2015 Instruction Type:Patient Education How to access health informa tion online - Detail Indication:Depressive disorder Start:17-Aug-2015 Instruction Type:Patient Education Patient Instructions Indication:Depressive disorder Start:17-Aug-2015 Instruction Type:Provider Instructions for Treatment How to access health informa tion online Indication:Depressive disorder Start:13-Jul-2015 Instruction Type:Patient Education How to access health informa tion online - Detail Indication:Depressive disorder Start:13-Jul-2015 Instruction Type:Patient Education Patient Instructions Indication:Depressive disorder Start:13-Jul-2015 Instruction Type:Provider Instructions for Treatment How to access health informa tion online - Detail Indication:Elevated blood-pressure reading without diagnosis of hypertension Start:13-Jan-2014 Instruction Type:Patient Education Patient Instructions Indication:Anxiety Start:13-Jan-2014 Instruction Type:Provider Instructions for Treatment Patient Instructions Indication:Acute sinusitis, unspecified Start:22-Jul-2012 Instruction Type:Provider Instructions for Treatment Patient Instructions Indication:Acute sinusitis, unspecified Start:19-Jun-2012 Instruction Type:Provider Instructions for Treatment Name Dates Details How to access health informa tion online Indication:Tobacco abuse, 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) Start:14-Apr-2019 Instruction Type:Patient Education How to access health informa tion online - Detail Indication:Tobacco abuse, 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) Start:14-Apr-2019 Instruction Type:Patient Education Patient Instructions Indication:Tobacco abuse, 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) Start:14-Apr-2019 Instruction Type:Provider Instructions for Treatment How to access health informa tion online Indication:Tobacco abuse, 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) Start:09-Dec-2018 Instruction Type:Patient Education How to access health informa tion online - Detail Indication:Tobacco abuse, 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) Start:09-Dec-2018 Instruction Type:Patient Education Patient Instructions Indication:Tobacco abuse, 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) Start:09-Dec-2018 Instruction Type:Provider Instructions for Treatment How to access health informa tion online Indication:Tobacco abuse, 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) Start:07-Aug-2018 Instruction Type:Patient Education How to access health informa tion online - Detail Indication:Tobacco abuse, 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) Start:07-Aug-2018 Instruction Type:Patient Education Patient Instructions Indication:Tobacco abuse, 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) Start:07-Aug-2018 Instruction Type:Provider Instructions for Treatment How to access health informa tion online Indication:Tobacco abuse, 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) Start:10-Jun-2018 Instruction Type:Patient Education How to access health informa tion online - Detail Indication:Tobacco abuse, 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) Start:10-Jun-2018 Instruction Type:Patient Education Patient Instructions Indication:Encounter for screening for malignant neoplasm of prostate (Renamed from Screening for prostate cancer) Start:10-Jun-2018 Instruction Type:Provider Instructions for Treatment How to access health informa tion online Indication:Tobacco abuse, 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) Start:25-Jan-2018 Instruction Type:Patient Education How to access health informa tion online - Detail Indication:Tobacco abuse, 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) Start:25-Jan-2018 Instruction Type:Patient Education Patient Instructions Indication:Tobacco abuse, 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) Start:25-Jan-2018 Instruction Type:Provider Instructions for Treatment How to access health informa tion online Indication:Tobacco abuse, 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) Start:07-Dec-2017 Instruction Type:Patient Education How to access health informa tion online - Detail Indication:Tobacco abuse, 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) Start:07-Dec-2017 Instruction Type:Patient Education Patient Instructions Indication:Weight loss Start:07-Dec-2017 Instruction Type:Provider Instructions for Treatment How to access health informa tion online Indication:Tobacco abuse, 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) Start:12-Oct-2017 Instruction Type:Patient Education How to access health informa tion online - Detail Indication:Tobacco abuse, 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) Start:12-Oct-2017 Instruction Type:Patient Education Patient Instructions Indication:Tobacco abuse, 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) Start:12-Oct-2017 Instruction Type:Provider Instructions for Treatment How to access health informa tion online Indication:Encounter for routine adult medical exam with abnormal findings Start:04-Sep-2017 Instruction Type:Patient Education How to access health informa tion online - Detail Indication:Encounter for routine adult medical exam with abnormal findings Start:04-Sep-2017 Instruction Type:Patient Education Patient Instructions Indication:Encounter for routine adult medical exam with abnormal findings Start:04-Sep-2017 Instruction Type:Provider Instructions for Treatment How to access health informa tion online Indication:BMI 26.0-26.9,adult Start:13-Oct-2016 Instruction Type:Patient Education How to access health informa tion online - Detail Indication:BMI 26.0-26.9,adult Start:13-Oct-2016 Instruction Type:Patient Education Patient Instructions Indication:BMI 26.0-26.9,adult Start:13-Oct-2016 Instruction Type:Provider Instructions for Treatment How to access health informa tion online Indication:Anxiety Start:17-Apr-2016 Instruction Type:Patient Education How to access health informa tion online - Detail Indication:Anxiety Start:17-Apr-2016 Instruction Type:Patient Education Patient Instructions Indication:Anxiety Start:17-Apr-2016 Instruction Type:Provider Instructions for Treatment Patient Instructions Indication:Encounter for routine adult medical exam with abnormal findings Start:22-Nov-2015 Instruction Type:Provider Instructions for Treatment How to access health informa tion online Indication:Left flank pain Start:04-Oct-2015 Instruction Type:Patient Education How to access health informa tion online - Detail Indication:Left flank pain Start:04-Oct-2015 Instruction Type:Patient Education Patient Instructions Indication:Left flank pain Start:04-Oct-2015 Instruction Type:Provider Instructions for Treatment How to access health informa tion online Indication:Left flank pain Start:22-Sep-2015 Instruction Type:Patient Education How to access health informa tion online - Detail Indication:Left flank pain Start:22-Sep-2015 Instruction Type:Patient Education Patient Instructions Indication:Left flank pain Start:22-Sep-2015 Instruction Type:Provider Instructions for Treatment How to access health informa tion online Indication:Chest pain Start:21-Sep-2015 Instruction Type:Patient Education How to access health informa tion online - Detail Indication:Chest pain Start:21-Sep-2015 Instruction Type:Patient Education Patient Instructions Indication:Chest pain Start:21-Sep-2015 Instruction Type:Provider Instructions for Treatment How to access health informa tion online Indication:Depressive disorder Start:17-Aug-2015 Instruction Type:Patient Education How to access health informa tion online - Detail Indication:Depressive disorder Start:17-Aug-2015 Instruction Type:Patient Education Patient Instructions Indication:Depressive disorder Start:17-Aug-2015 Instruction Type:Provider Instructions for Treatment How to access health informa tion online Indication:Depressive disorder Start:13-Jul-2015 Instruction Type:Patient Education How to access health informa tion online - Detail Indication:Depressive disorder Start:13-Jul-2015 Instruction Type:Patient Education Patient Instructions Indication:Depressive disorder Start:13-Jul-2015 Instruction Type:Provider Instructions for Treatment How to access health informa tion online - Detail Indication:Elevated blood-pressure reading without diagnosis of hypertension Start:13-Jan-2014 Instruction Type:Patient Education Patient Instructions Indication:Anxiety Start:13-Jan-2014 Instruction Type:Provider Instructions for Treatment Patient Instructions Indication:Acute sinusitis, unspecified Start:22-Jul-2012 Instruction Type:Provider Instructions for Treatment Patient Instructions Indication:Acute sinusitis, unspecified Start:19-Jun-2012 Instruction Type:Provider Instructions for Treatment Name Dates Details How to access health informa tion online Indication:Tobacco abuse, 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) Start:12-Jan-2020 Instruction Type:Patient Education How to access health informa tion online - Detail Indication:Tobacco abuse, 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) Start:12-Jan-2020 Instruction Type:Patient Education Patient Instructions Indication:Tobacco abuse, 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) Start:12-Jan-2020 Instruction Type:Provider Instructions for Treatment How to access health informa tion online Indication:Tobacco abuse, 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) Start:16-Dec-2019 Instruction Type:Patient Education How to access health informa tion online - Detail Indication:Tobacco abuse, 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) Start:16-Dec-2019 Instruction Type:Patient Education Patient Instructions Indication:Tobacco abuse, 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) Start:16-Dec-2019 Instruction Type:Provider Instructions for Treatment How to access health informa tion online Indication:Tobacco abuse, 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) Start:10-Oct-2019 Instruction Type:Patient Education How to access health informa tion online - Detail Indication:Tobacco abuse, 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) Start:10-Oct-2019 Instruction Type:Patient Education Patient Instructions Indication:Tobacco abuse, 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) Start:10-Oct-2019 Instruction Type:Provider Instructions for Treatment How to access health informa tion online Indication:Tobacco abuse, 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) Start:05-Sep-2019 Instruction Type:Patient Education How to access health informa tion online - Detail Indication:Tobacco abuse, 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) Start:05-Sep-2019 Instruction Type:Patient Education Patient Instructions Indication:Encounter for screening for lipid disorder Start:05-Sep-2019 Instruction Type:Provider Instructions for Treatment How to access health informa tion online Indication:Tobacco abuse, 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) Start:14-Apr-2019 Instruction Type:Patient Education How to access health informa tion online - Detail Indication:Tobacco abuse, 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) Start:14-Apr-2019 Instruction Type:Patient Education Patient Instructions Indication:Tobacco abuse, 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) Start:14-Apr-2019 Instruction Type:Provider Instructions for Treatment How to access health informa tion online Indication:Tobacco abuse, 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) Start:09-Dec-2018 Instruction Type:Patient Education How to access health informa tion online - Detail Indication:Tobacco abuse, 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) Start:09-Dec-2018 Instruction Type:Patient Education Patient Instructions Indication:Tobacco abuse, 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) Start:09-Dec-2018 Instruction Type:Provider Instructions for Treatment How to access health informa tion online Indication:Tobacco abuse, 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) Start:07-Aug-2018 Instruction Type:Patient Education How to access health informa tion online - Detail Indication:Tobacco abuse, 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) Start:07-Aug-2018 Instruction Type:Patient Education Patient Instructions Indication:Tobacco abuse, 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) Start:07-Aug-2018 Instruction Type:Provider Instructions for Treatment How to access health informa tion online Indication:Tobacco abuse, 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) Start:10-Jun-2018 Instruction Type:Patient Education How to access health informa tion online - Detail Indication:Tobacco abuse, 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) Start:10-Jun-2018 Instruction Type:Patient Education Patient Instructions Indication:Encounter for screening for malignant neoplasm of prostate (Renamed from Screening for prostate cancer) Start:10-Jun-2018 Instruction Type:Provider Instructions for Treatment How to access health informa tion online Indication:Tobacco abuse, 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) Start:25-Jan-2018 Instruction Type:Patient Education How to access health informa tion online - Detail Indication:Tobacco abuse, 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) Start:25-Jan-2018 Instruction Type:Patient Education Patient Instructions Indication:Tobacco abuse, 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) Start:25-Jan-2018 Instruction Type:Provider Instructions for Treatment How to access health informa tion online Indication:Tobacco abuse, 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) Start:07-Dec-2017 Instruction Type:Patient Education How to access health informa tion online - Detail Indication:Tobacco abuse, 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) Start:07-Dec-2017 Instruction Type:Patient Education Patient Instructions Indication:Weight loss Start:07-Dec-2017 Instruction Type:Provider Instructions for Treatment How to access health informa tion online Indication:Tobacco abuse, 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) Start:12-Oct-2017 Instruction Type:Patient Education How to access health informa tion online - Detail Indication:Tobacco abuse, 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) Start:12-Oct-2017 Instruction Type:Patient Education Patient Instructions Indication:Tobacco abuse, 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) Start:12-Oct-2017 Instruction Type:Provider Instructions for Treatment How to access health informa tion online Indication:Encounter for routine adult medical exam with abnormal findings Start:04-Sep-2017 Instruction Type:Patient Education How to access health informa tion online - Detail Indication:Encounter for routine adult medical exam with abnormal findings Start:04-Sep-2017 Instruction Type:Patient Education Patient Instructions Indication:Encounter for routine adult medical exam with abnormal findings Start:04-Sep-2017 Instruction Type:Provider Instructions for Treatment How to access health informa tion online Indication:BMI 26.0-26.9,adult Start:13-Oct-2016 Instruction Type:Patient Education How to access health informa tion online - Detail Indication:BMI 26.0-26.9,adult Start:13-Oct-2016 Instruction Type:Patient Education Patient Instructions Indication:BMI 26.0-26.9,adult Start:13-Oct-2016 Instruction Type:Provider Instructions for Treatment How to access health informa tion online Indication:Anxiety Start:17-Apr-2016 Instruction Type:Patient Education How to access health informa tion online - Detail Indication:Anxiety Start:17-Apr-2016 Instruction Type:Patient Education Patient Instructions Indication:Anxiety Start:17-Apr-2016 Instruction Type:Provider Instructions for Treatment Patient Instructions Indication:Encounter for routine adult medical exam with abnormal findings Start:22-Nov-2015 Instruction Type:Provider Instructions for Treatment How to access health informa tion online Indication:Left flank pain Start:04-Oct-2015 Instruction Type:Patient Education How to access health informa tion online - Detail Indication:Left flank pain Start:04-Oct-2015 Instruction Type:Patient Education Patient Instructions Indication:Left flank pain Start:04-Oct-2015 Instruction Type:Provider Instructions for Treatment How to access health informa tion online Indication:Left flank pain Start:22-Sep-2015 Instruction Type:Patient Education How to access health informa tion online - Detail Indication:Left flank pain Start:22-Sep-2015 Instruction Type:Patient Education Patient Instructions Indication:Left flank pain Start:22-Sep-2015 Instruction Type:Provider Instructions for Treatment How to access health informa tion online Indication:Chest pain Start:21-Sep-2015 Instruction Type:Patient Education How to access health informa tion online - Detail Indication:Chest pain Start:21-Sep-2015 Instruction Type:Patient Education Patient Instructions Indication:Chest pain Start:21-Sep-2015 Instruction Type:Provider Instructions for Treatment How to access health informa tion online Indication:Depressive disorder Start:17-Aug-2015 Instruction Type:Patient Education How to access health informa tion online - Detail Indication:Depressive disorder Start:17-Aug-2015 Instruction Type:Patient Education Patient Instructions Indication:Depressive disorder Start:17-Aug-2015 Instruction Type:Provider Instructions for Treatment How to access health informa tion online Indication:Depressive disorder Start:13-Jul-2015 Instruction Type:Patient Education How to access health informa tion online - Detail Indication:Depressive disorder Start:13-Jul-2015 Instruction Type:Patient Education Patient Instructions Indication:Depressive disorder Start:13-Jul-2015 Instruction Type:Provider Instructions for Treatment How to access health informa tion online - Detail Indication:Elevated blood-pressure reading without diagnosis of hypertension Start:13-Jan-2014 Instruction Type:Patient Education Patient Instructions Indication:Anxiety Start:13-Jan-2014 Instruction Type:Provider Instructions for Treatment Patient Instructions Indication:Acute sinusitis, unspecified Start:22-Jul-2012 Instruction Type:Provider Instructions for Treatment Patient Instructions Indication:Acute sinusitis, unspecified Start:19-Jun-2012 Instruction Type:Provider Instructions for Treatment Name Dates Details How to access health informa tion online Indication:Tobacco abuse, 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) Start:12-Jan-2020 Instruction Type:Patient Education How to access health informa tion online - Detail Indication:Tobacco abuse, 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) Start:12-Jan-2020 Instruction Type:Patient Education Patient Instructions Indication:Tobacco abuse, 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) Start:12-Jan-2020 Instruction Type:Provider Instructions for Treatment How to access health informa tion online Indication:Tobacco abuse, 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) Start:16-Dec-2019 Instruction Type:Patient Education How to access health informa tion online - Detail Indication:Tobacco abuse, 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) Start:16-Dec-2019 Instruction Type:Patient Education Patient Instructions Indication:Tobacco abuse, 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) Start:16-Dec-2019 Instruction Type:Provider Instructions for Treatment How to access health informa tion online Indication:Tobacco abuse, 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) Start:10-Oct-2019 Instruction Type:Patient Education How to access health informa tion online - Detail Indication:Tobacco abuse, 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) Start:10-Oct-2019 Instruction Type:Patient Education Patient Instructions Indication:Tobacco abuse, 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) Start:10-Oct-2019 Instruction Type:Provider Instructions for Treatment How to access health informa tion online Indication:Tobacco abuse, 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) Start:05-Sep-2019 Instruction Type:Patient Education How to access health informa tion online - Detail Indication:Tobacco abuse, 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) Start:05-Sep-2019 Instruction Type:Patient Education Patient Instructions Indication:Encounter for screening for lipid disorder Start:05-Sep-2019 Instruction Type:Provider Instructions for Treatment How to access health informa tion online Indication:Tobacco abuse, 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) Start:14-Apr-2019 Instruction Type:Patient Education How to access health informa tion online - Detail Indication:Tobacco abuse, 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) Start:14-Apr-2019 Instruction Type:Patient Education Patient Instructions Indication:Tobacco abuse, 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) Start:14-Apr-2019 Instruction Type:Provider Instructions for Treatment How to access health informa tion online Indication:Tobacco abuse, 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) Start:09-Dec-2018 Instruction Type:Patient Education How to access health informa tion online - Detail Indication:Tobacco abuse, 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) Start:09-Dec-2018 Instruction Type:Patient Education Patient Instructions Indication:Tobacco abuse, 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) Start:09-Dec-2018 Instruction Type:Provider Instructions for Treatment How to access health informa tion online Indication:Tobacco abuse, 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) Start:07-Aug-2018 Instruction Type:Patient Education How to access health informa tion online - Detail Indication:Tobacco abuse, 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) Start:07-Aug-2018 Instruction Type:Patient Education Patient Instructions Indication:Tobacco abuse, 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) Start:07-Aug-2018 Instruction Type:Provider Instructions for Treatment How to access health informa tion online Indication:Tobacco abuse, 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) Start:10-Jun-2018 Instruction Type:Patient Education How to access health informa tion online - Detail Indication:Tobacco abuse, 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) Start:10-Jun-2018 Instruction Type:Patient Education Patient Instructions Indication:Encounter for screening for malignant neoplasm of prostate (Renamed from Screening for prostate cancer) Start:10-Jun-2018 Instruction Type:Provider Instructions for Treatment How to access health informa tion online Indication:Tobacco abuse, 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) Start:25-Jan-2018 Instruction Type:Patient Education How to access health informa tion online - Detail Indication:Tobacco abuse, 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) Start:25-Jan-2018 Instruction Type:Patient Education Patient Instructions Indication:Tobacco abuse, 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) Start:25-Jan-2018 Instruction Type:Provider Instructions for Treatment How to access health informa tion online Indication:Tobacco abuse, 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) Start:07-Dec-2017 Instruction Type:Patient Education How to access health informa tion online - Detail Indication:Tobacco abuse, 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) Start:07-Dec-2017 Instruction Type:Patient Education Patient Instructions Indication:Weight loss Start:07-Dec-2017 Instruction Type:Provider Instructions for Treatment How to access health informa tion online Indication:Tobacco abuse, 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) Start:12-Oct-2017 Instruction Type:Patient Education How to access health informa tion online - Detail Indication:Tobacco abuse, 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) Start:12-Oct-2017 Instruction Type:Patient Education Patient Instructions Indication:Tobacco abuse, 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) Start:12-Oct-2017 Instruction Type:Provider Instructions for Treatment How to access health informa tion online Indication:Encounter for routine adult medical exam with abnormal findings Start:04-Sep-2017 Instruction Type:Patient Education How to access health informa tion online - Detail Indication:Encounter for routine adult medical exam with abnormal findings Start:04-Sep-2017 Instruction Type:Patient Education Patient Instructions Indication:Encounter for routine adult medical exam with abnormal findings Start:04-Sep-2017 Instruction Type:Provider Instructions for Treatment How to access health informa tion online Indication:BMI 26.0-26.9,adult Start:13-Oct-2016 Instruction Type:Patient Education How to access health informa tion online - Detail Indication:BMI 26.0-26.9,adult Start:13-Oct-2016 Instruction Type:Patient Education Patient Instructions Indication:BMI 26.0-26.9,adult Start:13-Oct-2016 Instruction Type:Provider Instructions for Treatment How to access health informa tion online Indication:Anxiety Start:17-Apr-2016 Instruction Type:Patient Education How to access health informa tion online - Detail Indication:Anxiety Start:17-Apr-2016 Instruction Type:Patient Education Patient Instructions Indication:Anxiety Start:17-Apr-2016 Instruction Type:Provider Instructions for Treatment Patient Instructions Indication:Encounter for routine adult medical exam with abnormal findings Start:22-Nov-2015 Instruction Type:Provider Instructions for Treatment How to access health informa tion online Indication:Left flank pain Start:04-Oct-2015 Instruction Type:Patient Education How to access health informa tion online - Detail Indication:Left flank pain Start:04-Oct-2015 Instruction Type:Patient Education Patient Instructions Indication:Left flank pain Start:04-Oct-2015 Instruction Type:Provider Instructions for Treatment How to access health informa tion online Indication:Left flank pain Start:22-Sep-2015 Instruction Type:Patient Education How to access health informa tion online - Detail Indication:Left flank pain Start:22-Sep-2015 Instruction Type:Patient Education Patient Instructions Indication:Left flank pain Start:22-Sep-2015 Instruction Type:Provider Instructions for Treatment How to access health informa tion online Indication:Chest pain Start:21-Sep-2015 Instruction Type:Patient Education How to access health informa tion online - Detail Indication:Chest pain Start:21-Sep-2015 Instruction Type:Patient Education Patient Instructions Indication:Chest pain Start:21-Sep-2015 Instruction Type:Provider Instructions for Treatment How to access health informa tion online Indication:Depressive disorder Start:17-Aug-2015 Instruction Type:Patient Education How to access health informa tion online - Detail Indication:Depressive disorder Start:17-Aug-2015 Instruction Type:Patient Education Patient Instructions Indication:Depressive disorder Start:17-Aug-2015 Instruction Type:Provider Instructions for Treatment How to access health informa tion online Indication:Depressive disorder Start:13-Jul-2015 Instruction Type:Patient Education How to access health informa tion online - Detail Indication:Depressive disorder Start:13-Jul-2015 Instruction Type:Patient Education Patient Instructions Indication:Depressive disorder Start:13-Jul-2015 Instruction Type:Provider Instructions for Treatment How to access health informa tion online - Detail Indication:Elevated blood-pressure reading without diagnosis of hypertension Start:13-Jan-2014 Instruction Type:Patient Education Patient Instructions Indication:Anxiety Start:13-Jan-2014 Instruction Type:Provider Instructions for Treatment Patient Instructions Indication:Acute sinusitis, unspecified Start:22-Jul-2012 Instruction Type:Provider Instructions for Treatment Patient Instructions Indication:Acute sinusitis, unspecified Start:19-Jun-2012 Instruction Type:Provider Instructions for Treatment Name Dates Details Tobacco abuse, 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) : How to access health information online Indication:Tobacco abuse, 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, 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) : How to access health information online - Detail Indication:Tobacco abuse, 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) Encounter for screening for malignant neoplasm of prostate (Renamed from Screening for prostate cancer) : Patient Instructions Indication:Encounter for screening for malignant neoplasm of prostate (Renamed from Screening for prostate cancer) Tobacco abuse, 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) : Patient Instructions Indication:Tobacco abuse, 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) Weight loss : Patient Instru ctions Indication:Weight loss Encounter for routine adult medical exam with abnormal findings : How to access health information online Indication:Encounter for routine adult medical exam with abnormal findings Encounter for routine adult medical exam with abnormal findings : How to access health information online - Detail Indication:Encounter for routine adult medical exam with abnormal findings Encounter for routine adult medical exam with abnormal findings : Patient Instructions Indication:Encounter for routine adult medical exam with abnormal findings BMI 26.0-26.9,adult : How to access health information online Indication:BMI 26.0-26.9,adult BMI 26.0-26.9,adult : How to access health information online - Detail Indication:BMI 26.0-26.9,adult BMI 26.0-26.9,adult : Patien t Instructions Indication:BMI 26.0-26.9,adult Anxiety : How to access heal th information online Indication:Anxiety Anxiety : How to access heal th information online - Detail Indication:Anxiety Anxiety : Patient Instructio ns Indication:Anxiety Left flank pain : How to acc ess health information online Indication:Left flank pain Left flank pain : How to acc ess health information online - Detail Indication:Left flank pain Left flank pain : Patient In structions Indication:Left flank pain Chest pain : How to access h ealth information online Indication:Chest pain Chest pain : How to access h ealth information online - Detail Indication:Chest pain Chest pain : Patient Instruc tions Indication:Chest pain Depressive disorder : How to access health information online Indication:Depressive disorder Depressive disorder : How to access health information online - Detail Indication:Depressive disorder Depressive disorder : Patien t Instructions Indication:Depressive disorder Elevated blood-pressure read ing without diagnosis of hypertension : How to access health information online - Detail Indication:Elevated blood-pressure reading without diagnosis of hypertension Acute sinusitis, unspecified : Patient Instructions Indication:Acute sinusitis, unspecified Summary Purpose Advance Directives No Advanced Directives Records Found Advance Directive Response Recorded Date/ Time Living Will No September 19, 2019 11:05am Power of Hand Candle Dipper No September 18 11:05am Advance Directive Response Recorded Date/ Time Living Will No February 08, 2022 9:25pm Power of Hand Candle Dipper No January 9:25pm Advance Directive Response Recorded Date/ Time Living Will No February 08, 2022 8:25pm Power of Hand Candle Dipper No January 8:25pm Advance Directive Response Recorded Date/ Time Living Will No August 23, 2023 9:33am Power of Hand Candle Dipper No August 22 9:33am Chief Complaint and Reason for Visit Chief Complaint GENERAL ILLNESS Chief Complaint GENERAL ILLNESS LABWORK Chief Complaint LABWORK Chief Complaint Diarrhea, unspecifie d Chief Complaint SCREENING Hernia PREOP Laparoscopic, Right Inguinal Hernia Laparoscopic, Right Inguinal Hernia Reason for Visit History of inguinal hernia repair Inguinal hernia of right side without obstruction or gangrene Umbilical hernia without obstruction or gangrene Additional Source Comments (unrecognized sect ion and content) No Status Records FoundNo Status Records FoundNo Status Records Found INFORMATION SOURCE (unrecogn ized section and content) DATE CREATED AUTHOR 08/08/2018 [facility] DATE CREATED AUTHOR AUTHOR'S DUSTIN HOUSTON 01/29/2020 [facility] DATE CREATED AUTHOR AUTHOR'S ORGANIZ ATION 07/17/2024 [facility] Source Comments (unrecognize d section and content) In the event this informatio n is protected by the Federal Confidentiality of Alcohol and Drug Abuse Patient Records regulations: The Federal rules restrict any use of the information to criminally investigate or prosecute any alcohol or drug abuse patient.[facility] Reason for Visit (unrecogniz ed section and content) Reason Onset Date Comments Initial Consult 01/29/2020 Telephone Encounter - Radha Uribe - 01/29/2020 9:12 AM EDT Miscellaneous Notes (unrecog nized section and content) Received referral from Dr. Torres for consult regarding patent's cervical stenosis. Called patient to schedule initial consult. In speaking with patient he seemed unaware of referral but did say that he has bad neck pain. I asked if he would like to be scheduled with a neurosurgeon and he was unreceptive to this. He stated that he has 4 dog to care for and until he has someone to care for them he does not want to schedule at this time. He also stated that his is in a penitentiary so she is unable to help with the dogs. He said he would contact his PCP if his neck pain worsened. documented in this encounter Goals (unrecognized section and content) Goals may be documented in a n alternate sectionGoals may be documented in an alternate sectionGoals may be documented in an alternate sectionGoals may be documented in an alternate sectionGoals may be documented in an alternate sectionGoals may be documented in an alternate sectionGoals may be documented in an alternate section Care Teams (unrecognized sec tion and content) Team Status: Active Member Role Status Dates Vandana Guillermo NP, SENIOR BUSINESS INTELLIGENCE ANALYST-C Family Provider Active Dr. Eamon Nicole MD Primary Care Provider Active Team Status: Inactive Member Role Status Dates Dr. Eamon Nicole MD Primary Care Provider, Attending Provider Active Team Status: Active Member Role Status Dates Dr. Eamon Nicole MD Primary Care Provider, Attending Provider Active Team Status: Inactive Member Role Status Dates Dr. Eamon Nicole MD Primary Care Provi jean, Attending Provider, Referring Provider Active Team Status: Inactive Member Role Status Dates Dr. Eamon Nicole MD Primary Care Provider, Referring Provider Active Dr. Apolinar Olivarez MD Attending Provider Active Team Status: Active Member Role Status Dates Dr. Eamon Nicole MD Primary Care Provider Active Dr. Casa Holder MD Attending Provider Active Dr. Apolinar Olivarez MD Referring Provider Active Team Status: Active Member Role Status Dates Dr. Eamon Nicole MD Primary Care Provider Active Dr. Apolinar Olivarez MD Attending Provid er, Referring Provider, Other Provider Active Team Status: Inactive Member Role Status Dates Dr. Eamon Nicole MD Primary Care Provider Active Dr. Apolinar Olivarez MD Attending Provider, Referring Provider Active FOR RECORDS PERTAINING TO PATIENTS WHO ARE OR HAVE BEEN ENROLLED IN A CHEMICAL DEPENDENCY/SUBSTANCEABUSE PROGRAM, SOME INFORMATION MAY BE OMITTED. This clinical summary was aggregated from multiple sources. Caution should be exercised in using it in the provision of clinical care. This summary normalizes information from multiple sources, and as a consequence, information in this document may materially change the coding, format and clinical context of patient data. In addition, data may be omitted in some cases. CLINICAL DECISIONS SHOULD BE BASED ON THE PRIMARY CLINICAL RECORDS. [employer] provides no warranty or guarantee of the accuracy or completeness of information in this document.
[2024-12-13 13:26] LABS: Hematocrit 46.3 % (40-54); Hemoglobin 16.4 g/dL (13.0-16.5); Immature Granulocytes Count 0.040 X10^3/uL (0.0-0.0); Mean Corp Hgb Conc 35.4 g/dL (32-36); Mean Corpuscular Volume 89.2 fL (80-94); Mean Platelet Vol. 10.9 fl (6.2-12.0); NRBC Flagged by Analyzer 0 % (0-5); POSITIVE DIFFERENTIAL YES; Platelet Count 177 K/mm3 (150-450); RBC Distribution Width CV 12.3 % (11.6-14.6); RBC Distribution Width SD 39.7 fl (35.1-43.9); Red Blood Count 5.19 M/mm3 (4.6-6.2); White Blood Count 8.2 K/mm3 (4.4-11.0)
[2024-12-13 13:48] LABS: Anion Gap 13 (5-15); BUN 18 mg/dL (4-19); BUN/Creat Ratio 14.9 RATIO (10-20); Calcium,Total 9.5 mg/dL (7.6-11.0); Carbon Dioxide 23.5 mmol/L (21.0-32.0); Chloride 101 mmol/L (98-108); Estimated Creatinine Clearance 52.46 ml/min (50-250); Glucose 117 mg/dL (70-99); Potassium 4.9 mmol/L (3.3-5.1)
--- NOTE | 2024-12-13 14:35 | CM.ED ---
Social Work Date of referral: 12/13/24 Reason for referral: No Primary Care Physician (PCP) Referred by: Social Work identification Patient provided consent to social work visit. Patient stated he used to see Dr. Nicole however is not going to continue to see him. Switchboard Operator Supervisor provided a written handout for [facility] and also provided verbal education about how patient can do a provider search through insurance. Ananya David, SPRINKLING SYSTEM INSTALLER, MANAGER AGRICULTURAL
[2024-12-13 15:54] LABS: Mucous, Urine 0 SEEN /hpf (<or=2+); Squamous Epithelial Cells - UA 0 SEEN /hpf (0-5)
[2024-12-13 15:57] LABS: Color, Urine Yellow (Yellow); Glucose, Dipstick Normal (Normal); Ketone-Dipstick 5 mg/dl (Negative); Leukocyte Esterase-Dipstick Negative /ul (Negative); Nitrite-Dipstick Negative (Negative); Occult Blood-Urine 150 /ul (Negative); Protein-Dipstick 15 mg/dl (Negative); Specific Gravity, Urine 1.015 (1.002-1.030); Urine Bilirubin Dipstick Negative (Negative)
[2024-12-13 17:01] LABS: Red Blood Cells-Urine 25-50 SEEN /hpf (0-5)
== END 2024-12-13 17:59 | disposition home or self-care (01) ==
PROVIDERS: Emergency Provider Emergency Medicine; Referring Provider Emergency Medicine; Visit Provider Emergency Medicine
DX: N20.0 Calculus of kidney (principal); G30.9 Alzheimer's disease, unspecified; F02.84 Dementia in other diseases classified elsewhere, unspecified severity, with anxiety; F02.83 Dementia in other diseases classified elsewhere, unspecified severity, with mood disturbance; N21.0 Calculus in bladder; R31.9 Hematuria, unspecified; K76.89 Other specified diseases of liver; E03.9 Hypothyroidism, unspecified; K21.9 Gastro-esophageal reflux disease without esophagitis; Z79.899 Other long term (current) drug therapy; Z79.890 Hormone replacement therapy; Z87.891 Personal history of nicotine dependence
CPT/HCPCS: 74176; 80048; 81001; 85025; 96361; 96374; 96375; 99283; A4216; J2405

== ENCOUNTER 2025-05-25 12:55 | Emergency (ER) | payer MEDICARE, SELFPAY ==
[2025-05-25 12:56] VITALS: BP 145/100; PULSE 117; RESP 18; TEMP 35.5; O2SAT 100; BMI 21.4
[2025-05-25 15:10] LABS: Hematocrit 46.7 % (40-54); Hemoglobin 16.3 g/dL (13.0-16.5); Immature Granulocytes Count 0.020 X10^3/uL (0.0-0.0); Mean Corp Hgb Conc 34.9 g/dL (32-36); Mean Corpuscular Volume 87.9 fL (80-94); Mean Platelet Vol. 11.2 fl (6.2-12.0); NRBC Flagged by Analyzer 0 % (0-5); Platelet Count 186 K/mm3 (150-450); RBC Distribution Width CV 12.4 % (11.6-14.6); RBC Distribution Width SD 40.0 fl (35.1-43.9); Red Blood Count 5.31 M/mm3 (4.6-6.2); White Blood Count 5.5 K/mm3 (4.4-11.0)
--- NOTE | 2025-05-25 15:34 | EDS_ITS ---
HPI HPI - Psych History of Present Illness Chief Complaint: Mental Health Narrative Narrative: 74-year-old male history of early Alzheimer's, GERD, hypothyroidism, anxiety and depression presents emergency department for complaint of psychiatric evaluation. Patient brought in by sister and [id number] because patient has been having more outbursts of anger recently and behavioral disturbances. They tell me that patient has been taking his dog and been having explosive outbursts with anger towards [id number] getting in his face and at times mentioning suicide to friends. Patient tells me that he does not want to hurt himself but if anyone gets in his way they better "watch out."Denies any auditory or visual hallucinations, pain. Tells me that his girlfriend recently left him who he was set on marrying and has been having some depression and anger. PFSH PFSH Medical History Alzheimer disease Hypoactive thyroid Anxiety and depression GERD (gastroesophageal reflux disease) Hearing problem Home Medications Medication Instructions Recorded Last Taken Type levothyroxine 75 mcg tablet See Rx Instructions .Route .COMPLEX 01/22/18 01/22/18 History paroxetine HCl 40 mg tablet (Paxil) 40 mg PO DAILY 01/21/18 History donepezil 10 mg tablet 10 mg PO QHS 03/23/22 Unknow n History memantine 10 mg tablet (Namenda) 5 mg PO BID 03/23/22 Unknown History B-complex with vitamin C 1 cap PO DAILY 10/18/22 Unkn own History magnesium oxide 400 mg PO DAILY 10/18/22 Unk nown History meloxicam 15 mg tablet 15 mg PO DAILY 10/18/22 Unkn own History psyllium husk 0.4 gram capsule 0.4 g PO DAILY 09/11/23 Unknown History (Metamucil) Held on 05/07/24. Instructions: Order Completed Allergy/AdvReac Type Severity Reaction Status Date / Time tamsulosin AdvReac Intermediate Other Verified 05/25/25 12:56 Family History Mother Heart disease Hypertension Thyroid disorder Sister Breast cancer Sister Thyroid disorder Surgical History History of inguinal hernia repair Social History household members: spouse current occupational status: retired Smoking Status: Former smoker alcohol intake: former details: WINE OCCASIONALLY 6 OZ A NIGHT substance use type: does not use additional social history: DOES USE ASPIRIN DOES NOT USE IBUPROFEN EXAM Physical Exam Const Vital Signs: 05/25/25 12:56 05/25/25 16:00 Temperature 96 F L Temperature Source Temporal Pulse Rate 117 H 74 Respiratory Rate 18 15 Blood Pressure 145/100 H 138/75 H Blood Pressure Mean 115 96 Pulse Ox 100 97 Oxygen Delivery Method Room Air Room Air General Appearance ED: irritable Orientation / Consciousness: awake, oriented to person and oriented to place HEENT Reports normocephalic Eyes PERRL and EOMs intact bilaterally Resp normal respiratory effort and normal air movement Effort and Inspection: able to speak in complete sentences Cardio regular rate and regular rhythm GI normal to inspection, nondistended, normoactive bowel sounds Neuro oriented x3, CN's II-XII intact bilaterally, moves all extremities, no focal motor deficits and no sensory deficits noted Psych Attitude: withdrawn, guarded and agitated Mood & Affect: irritable Thought Content: No suicidality and No homicidality MDM MDM MDM Narrative Medical decision making narrative: 74-year-old male history of early Alzheimer's, GERD, hypothyroidism, anxiety and depression presents emergency department for complaint of psychiatric herrera luation. Patient brought in by sister and [id number] because patient has been having more outbursts of anger recently and behavioral disturbances. They tell me that patient has been taking his dog and been having explosive outbursts with anger towards [id number] getting in his face and at times mentioning suicide to friends. Patient tells me that he does not want to hurt himself but if anyone gets in his way they better "watch out."Denies any auditory or visual hallucinations, pain. Tells me that his girlfriend recently left him who he was set on marrying and has been having some depression and anger. On my physical exam patient withdrawn, agitated and guarded on my questioning. States that he denies any suicidal ideation currently. Denying any chest pain, shortness of breath, fevers or trouble urinating. Social work consulted to evaluate patient bedside and labs obtained to help medically clear patient. I did order CT head to assess for any acute intracranial abnormalities causing patient's behavioral outburst. Labs showing no evidence of leukocytosis. Hemoglobin 16.3 within normal limits. No evidence of UTI and negative UDS. Alcohol negative and electrolytes within normal limits. Low suspicion for infection. Pending CT imaging results prior to disposition and social work consult recommendations given new anger outburst and behavioral disturbances. Handoff given to oncoming provider pending these and workup. Lab Data Attestation: I reviewed the patient's lab results. Lab results narrative: Labs showing no evidence of leukocytosis. Hemoglobin 16.3 within normal limits. No evidence of UTI and negative UDS. Alcohol negative and electrolytes within normal limits. Labs: Laboratory Results - last 24 hr 05/25/25 05/25/25 14:58 15:53 WBC 5.5 RBC 5.31 Hgb 16.3 Hct 46.7 MCV 87.9 MCH 30.7 MCHC 34.9 RDW Std Deviation 40.0 RDW Coeff of Leona 12.4 Plt Count 186 MPV 11.2 Immature Gran % (Auto) 0.400 Neut % (Auto) 72.1 H Lymph % (Auto) 18.2 L [place] % (Auto) 8.5 Eos % (Auto) 0.4 Baso % (Auto) 0.4 Absolute Neuts (auto) 4.0 Absolute Lymphs (auto) 1.00 Nucleated RBC % 0 Sodium 140 Potassium 3.8 Chloride 104 Carbon Dioxide 24.3 Anion Gap 12 BUN 15 Creatinine 1.06 Estim Creat Clear Calc 55.37 Est GFR (MDRD) Non-Af 75 BUN/Creatinine Ratio 14.3 Glucose 96 Calcium 9.7 Total Bilirubin 1.20 AST 17 ALT 8 Alkaline Phosphatase 60 Total Protein 6.9 Albumin 4.3 Globulin 2.6 Albumin/Globulin Ratio 1.6 Urine Color Betzaida Urine Clarity Cloudy Urine pH 7.0 Ur Specific Irene 1.015 Urine Protein 30 H Urine Glucose (UA) Normal Urine Ketones 50 H Urine Occult Blood Negative Urine Nitrite Negative Urine Bilirubin Negative Urine Urobilinogen 1 H Ur Leukocyte Esterase 25 H Urine Opiates Screen NEGATIVE U Buprenorphine Qual NEGATIVE Ur Oxycodone Screen NEGATIVE Urine Methadone Screen NEGATIVE Urine Fentanyl Screen NEGATIVE Ur Barbiturates Screen NEGATIVE Ur Phencyclidine Scrn NEGATIVE Ur Amphetamines Screen NEGATIVE U Benzodiazepines Scrn NEGATIVE Urine Cocaine Screen NEGATIVE U Cannabinoids Screen NEGATIVE Ethyl Alcohol < 10.1 Radiography Diagnostic Testing: Clinical Impression(s) from Imaging Studies Brain CT 05/25/25 16:02 IMPRESSION: No acute intracranial process. Reading Location: [facility] Discharge Plan Triage Chief Complaint: Mental Health ED Provider: Sena rByant Dx/Rx/DC Orders Prescriptions: No Action levothyroxine 75 MCG tablet See Rx Instructions .ROUTE .COMPLEX Rx Instructions: 75 mcg orally ;1 tablet Sunday - Sunday paroxetine HCl [Paxil] 40 MG tablet 40 mg PO DAILY donepezil 10 mg Tablet 10 mg PO QHS memantine [Namenda] 10 mg tablet 5 mg PO BID Patient Comments: PT UNSURE, BRINGING LIST IN meloxicam 15 mg Tablet 15 mg PO DAILY Patient Comments: PER DR OLIVAREZ HOLD STARTING 08/22/23 UNTIL AFTER SURGERY ON 08/29/23 B-complex with vitamin C Capsule 1 cap PO DAILY magnesium oxide 400 mg magnesium Tablet 400 mg PO DAILY psyllium husk [Metamucil] 0.4 gram capsule 0.4 g PO DAILY Primary Care Provider: Care Physician,No Primary Referrals: Care Physician,No Primary [Primary Care Provider, Medical] Print Language: Panamanian
[2025-05-25 15:39] LABS: AST(SGOT) 17 U/L (<=37); Alanine Aminotransfer ALT/SGPT 8 U/L (<=46); Albumin, Serum 4.3 g/dL (3.4-4.8); Alcohol, Blood (Medical)-Serum < 10.1 mg/dL (<=10.0); Alkaline Phosphatase 60 U/L (40-129); Anion Gap 12 (7-18); BUN 15 mg/dL (4-19); BUN/Creat Ratio 14.3 RATIO (10-20); Calcium,Total 9.7 mg/dL (7.6-11.0); Carbon Dioxide 24.3 mmol/L (20.0-29.0); Chloride 104 mmol/L (96-106); Estimated Creatinine Clearance 55.37 ml/min (50-250); Globulin 2.6 g/dL (2.2-4.2); Glucose 96 mg/dL (70-99); Potassium 3.8 mmol/L (3.5-5.1)
[2025-05-25 16:00] VITALS: BP 138/75; PULSE 74; RESP 15; O2SAT 97
--- NOTE | 2025-05-25 16:02 | CT_ITS ---
PROCEDURE: BRAIN/HEAD WITHOUT CONTRAST 05/25/2025 REASON FOR EXAM: AMS TECHNIQUE: Procedure Code: CTBR Modality: CT Procedure: BRAIN/HEAD WITHOUT CONTRAST Coronal and Sagittal reconstruction series were provided. One or more dose reduction techniques were used (e.g., Automated exposure control, adjustment of the mA and/or kV according to patient size, use of iterative reconstruction technique. RADIATION DOSE SUMMARY: DLP: 465 mGycm FINDINGS: There is no acute infarct, intracranial hemorrhage, or mass effect. There is no hydrocephalus or significant midline shift. There is moderate chronic microvascular ischemic changes and moderate parenchymal volume loss. No acute, depressed calvarial fractures. No large scalp hematomas. The paranasal sinuses are clear. CT/Brain/Head without Contrast IMPRESSION: No acute intracranial process. Reading Location: [facility]
--- NOTE | 2025-05-25 16:03 | ED.RN ---
This RN asked patient if he takes home medications. Patient states "they are so big and when I complained to my family about taking them they just stopped giving them to me" Pt states he has not had any of his home medications today. When asked about meds taken in the past week, he reports "sometimes I will open the bag and take some" Unable to verify medications the patient has at home.
[2025-05-25 16:14] LABS: Color, Urine Amber (Yellow); Glucose, Dipstick Normal (Normal); Ketone-Dipstick 50 mg/dl (Negative); Leukocyte Esterase-Dipstick 25 /ul (Negative); Nitrite-Dipstick Negative (Negative); Occult Blood-Urine Negative /ul (Negative); Protein-Dipstick 30 mg/dl (Negative); Specific Gravity, Urine 1.015 (1.002-1.030); Urine Bilirubin Dipstick Negative (Negative)
[2025-05-25 16:30] LABS: Barbiturate Urine NEGATIVE (< 200 ng/mL); Benzodiazepine Urine NEGATIVE (< 200 ng/mL); PCP Urine NEGATIVE (< 25 ng/mL); THC Urine NEGATIVE (< 50 ng/mL)
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
--- NOTE | 2025-05-25 18:25 | EKG12_ITS ---
Test Reason : Blood Pressure : */* mmHG Vent. Rate : 86 BPM Atrial Rate : 86 BPM P-R Int : 144 ms QRS Dur : 98 ms QT Int : 394 ms P-R-T Axes : -4 67 -11 degrees QTcB Int : 471 ms Normal sinus rhythm Possible Inferior infarct , age undetermined Abnormal ECG Nonspecific ST/T wave abnormality Confirmed by Jem Kirkland ([id number]), website/blog editor CATHIE STOREY ([id number]) on 05/29/2025 6:36:52 AM Referred By: Confirmed By: Jem Kirkland
[2025-05-25 18:45] VITALS: BP 154/74; PULSE 91; RESP 18; TEMP 37.1; O2SAT 97
--- NOTE | 2025-05-25 18:45 | RAD_ITS ---
PROCEDURE: CHEST 1 VIEW (PORTABLE) 05/25/2025 REASON FOR EXAM: PSYCH CLEARANCE TECHNIQUE: Frontal view of the chest. COMPARISON: 02/08/2022 FINDINGS: Lungs/Pleura: Clear. Heart/Mediastinum: Normal in size. Bones/Soft tissues: Within normal limits. RAD/Chest 1 View (Portable) IMPRESSION: No acute cardiopulmonary disease. Reading Location: [id number]
[2025-05-25 20:00] VITALS: BP 128/85; PULSE 70
[2025-05-25 20:50] VITALS: BP 151/84; PULSE 70; RESP 15; TEMP 36.7
--- NOTE | 2025-05-25 21:14 | CM.ED ---
Social work 1800: called [facility] (ph: ) and left a VM; VM was never returned. 1820: called [facility] (ph: [phone]) and beds available. Once additional testing requested was received, referral packet faxed at 2004 (f: [phone]). 2100: return call from [facility] with accepting information. Dr. [facility] [address]: [phone] Updated pink slip faxed to floor (f: [phone]). Patient, patient's nurse, and Fish Skinning Machine Feeder updated. Patient stated being annoyed, but accepted information. SW called patient's brother in law, Art (ph: [phone]), with update. SW provided [facility] numbers for contacting and provided Art with reminders to advocate for patient's best interest as SW could not guarantee what would happen upon discharge. Plan: [facility], pending transport. Current ETA 0020. Jenny Kerns, ASSEMBLY LINE DRIVER, LABEL CODER
--- NOTE | 2025-05-25 22:01 | ED.RN ---
Attempted to call report to [facility]. No answer.
--- NOTE | 2025-05-25 22:26 | ED.RN ---
Attempted to call report to [facility] again. Still no answer.
--- NOTE | 2025-05-25 23:49 | ED.RN ---
Attempted to call report for the third time to [facility]. Still no answer.
[2025-05-26 00:04] VITALS: BP 151/84; PULSE 70; RESP 15; TEMP 36.7; O2SAT 97
[2025-05-26 04:50] VITALS: BP 149/75; PULSE 78; RESP 18; O2SAT 97
== END 2025-05-26 07:08 ==
PROVIDERS: Emergency Provider Student in an Organized Health Care Education/Training Program; Visit Provider Student in an Organized Health Care Education/Training Program
DX: G30.1 Alzheimer's disease with late onset (principal); F02.80 Dementia in other diseases classified elsewhere, unspecified severity, without behavioral disturbance, psychotic disturbance, mood disturbance, and anxiety; F41.9 Anxiety disorder, unspecified; R45.1 Restlessness and agitation; Z87.891 Personal history of nicotine dependence
CPT/HCPCS: 70450; 71045; 80053; 80307; 81002; 82077; 85025; 87631; 93005; 99284